=== PATIENT | female | born 1935 | race African-American/Black ===

== ENCOUNTER 2016-12-12 12:13 | Emergency (ER) | payer MEDICARE, MEDICAID ==
[2016-12-12 13:08] LABS: #Basophils 0.1 thou/uL (0.0-0.2); #Eosinphils 0.1 thou/uL (0.0-0.7); #Lymphocytes 1.3 thou/uL (1.20-3.40); #Monocytes 0.9 thou/uL (0.11-0.59); #Neutrophils 14.2 thou/uL (1.40-6.50); %Basophils 0.6 % (0.0-1.0); %Eosinophils 0.5 % (0.0-10.0); %Lymphocytes 7.9 % (21.0-51.0); %Monocytes 5.3 % (0.0-10.0); Hematocrit 28.9 % (36.0-47.0); Mean Platelet Volume 5.8 fL (7.4-10.4); Red Blood Cell (RBC) Count 3.14 mill/uL (4.20-5.40); White Blood Cell (WBC) Count 16.6 thou/uL (4.8-10.8)
[2016-12-12 13:14] LABS: Bilirubin Negative (Negative); Blood, Urine Negative (Negative); Glucose, Urine (Dipstick) Negative (Negative); Ketone, Urine Trace mg/dL (Negative); Nitrite Negative (Negative); Protein, Urine (Dipstick) 30 mg/dL (Neg-Trace); Urobilinogen 0.2 mg/dL (0.2-1.0)
[2016-12-12 13:19] LABS: Bacteria/HPF None Seen HPF (None Seen); Hyaline Casts/LPF 0-3 HYALINE CAST LPF (0-3 Hyaline); RBC/HPF None Seen HPF (0-3); Squamous Epithelial 0-3 HPF (0-3); WBC/HPF 0-3 HPF (0-3)
[2016-12-12 13:30] LABS: ALT (SGPT) Less than 7 U/L (8-55); AST (SGOT) 14 U/L (5-34); Alkaline Phosphatase 73 U/L (40-150); Anion Gap 17 mmol/L (10-20); BUN (Urea Nitrogen) 58 mg/dL (9.8-20.1); Bilirubin, Total 0.5 mg/dL (0.2-1.2); Calc. Creatinine Clearance 0 mL/min (70-130); Calcium 9.1 mg/dL (7.8-10.44); Carbon Dioxide 31 mmol/L (23-31); Chloride 96 mmol/L (98-107); Estimated GFR-MDRD 6; Globulin 4.1 g/dL (2.4-3.5); Lipase 24 U/L (8-78); Protein, Total 8.1 g/dL (6.0-8.3)
--- NOTE | 2016-12-12 14:15 | RAD ---
PORTABLE CHEST: HISTORY: Epigastric pain. COMPARISON: 11/09/2016 FINDINGS: An elevated right hemidiaphragm is again noted. Mild cardiomegaly is again noted. Mild vascular en gorgement is again noted. No focal infiltrate. Dual lumen, large caliber central line remains in p lace with tip overlying the SVC. IMPRESSION: Stable findings when compared to prior study. No acute interval change. POS: [facility]
[2016-12-12 14:20] LABS: Magnesium 2.1 mg/dL (1.6-2.6)
[2016-12-12 14:27] LABS: Phosphorus 1.7 mg/dL (2.3-4.7)
--- NOTE | 2016-12-12 15:45 | RAD ---
RADIOGRAPH ABDOMEN ONE VIEW SUPINE: Date: 12-12-16 Time: 2:16 p.m. History: 80-year-old female with generalized abdominal pain. FINDINGS: There is a large number of calcifications of varying sizes overlying the pelvis, with the largest on e measuring greater than 4.5 cm. There is an IVC filter. There is a large amount of stool throughout the colon, especially in the distended rectum. No evidence of small bowel dilation. Surgical clips in the right upper quadrant. IMPRESSION: 1. Constipation. 2. Possibility of fecal impaction in the rectum. 3. Multiple large calcified uterine fibroids (leiomyomata). 4. Nonobstructive bowel gas pattern, 5. Inferior vena cava filter. 6. Status post cholecystectomy. POS: [facility]
== END 2016-12-12 16:48 | disposition home or self-care (01) ==
LOC: ERS 12:13
DX: K59.00 Constipation, unspecified (principal); I10 Essential (primary) hypertension; F17.210 Nicotine dependence, cigarettes, uncomplicated
CPT/HCPCS: 51701; 71010; 74000; 80053; 81003; 81015; 83690; 83735; 84100; 85025; 93005; A4353

== ENCOUNTER 2016-12-15 07:08 | Day surgery (SDC) | payer MEDICARE, MEDICAID ==
[2016-12-15] MEDS ORDERED: Midazolam HCl 2 mg/2 ml Vial ONE (08:03)
[2016-12-15] MEDS ORDERED: Fentanyl 100 MCG/2 ML VIAL ONE (08:04)
[2016-12-15] MEDS ORDERED: Bupivacaine 0.25% HCL 30 ML VIAL ONE (08:12)
[2016-12-15] MEDS ORDERED: Lidocaine 2% w/Epinephrine 1:200K 20 ML VIAL ONE (08:12)
[2016-12-15] MEDS ORDERED: Heparin 5,000 UNITS/ML VIAL ONE (08:12)
[2016-12-15] MEDS ORDERED: Protamine Sulfate 50 MG/5 ML VIAL ONE (08:12)
[2016-12-15] MEDS ORDERED: Propofol 200 MG/20 ML VIAL ONE (09:02)
[2016-12-15] MEDS ORDERED: Glycopyrrolate 0.2 MG/ML 5 ML SYRINGE ONE (09:02)
[2016-12-15] MEDS ORDERED: ePHEDrine/0.9% NaCl/PF SYRINGE 50 mg/10 ml ONE (09:02)
[2016-12-15] MEDS ORDERED: Heparin 10,000 UNITS/ 10 ML VIAL ONE ×2 (10:47→10:54)
--- NOTE | 2016-12-15 17:19 | PDOC.OP ---
Operative Note - Operative Note Operative Note: PROCEDURE: Right AV fistula SURGEON: Stephan Louie M.D. DATE OF PROCEDURE: 12/15/2016 PREOPERATIVE DIAGNOSIS: Renal failure POSTOPERATIVE DIAGNOSIS: Renal failure HISTORY: Patient with chronic renal failure on dialysis with a failed left Vicky fistula. She had a left upper arm cephalic fistula but developed severe steal and her family opted to ligate the fistula. She has recovered from her steal syndrome and has recovered function in her hand and now presents for a right sided fistula. PROCEDURE IN DETAIL: After informed consent was obtained and appropriate preoperative antibiotics administered, the patient was taken to the operating room and placed in the supine position and monitored anesthesia care was administered. A preoperative block had been performed by Anesthesia and the adequacy of block was confirmed. The arm was prepped and draped in a standard sterile fashion and an incision made between the palpable cephalic vein and radial artery. Dissection was carried out to the cephalic vein, which appeared to be of adequate quality and caliber to support a fistula. This was dissected free circumferentially, ligated, and divided distally, and spatulated with Welch scissors. This was serially interrogated with cardiac dilators and easily accepted up to a 3 mm cardiac dilator. This was flushed with heparinized saline and clamped with a bulldog clamp. The radial artery was then dissected free and found to be of adequate quality and caliber to support a fistula. Heparin was administered systemically and allowed to circulate for 3 minutes following which the radial artery was clamped proximally and distally. An anterior arteriotomy was created with an 11 blade scalpel and extended with Welch scissors. An end-to-side anastomosis created with a running 6-0 Prolene suture with excellent technical result. Prior to tying down the anastomosis, the inflow was released to flush the anastomosis. Flow was established first through the fistula and then through the distal radial artery. Hemostasis at the site was confirmed, and an excellent bruit was heard with Doppler up to the proximal forearm. Hemostasis at the operative site was again confirmed. The incision was closed with a running 3-0 subcutaneous and running 4-0 subcuticular Monocryl sutures. Dermabond dressings were placed and the patient was taken to the recovery room in good condition. Estimated blood loss was minimal. There were no complications. There were no specimens.
== END 2016-12-15 11:05 | disposition home or self-care (01) ==
LOC: SDC 07:08
PROVIDERS: ATTEND Surgery
PROC: 031C0ZF Bypass Left Radial Artery to Lower Arm Vein, Open Approach (ICD-10-PCS; principal; 2016-12-15)
DX: I12.0 Hypertensive chronic kidney disease with stage 5 chronic kidney disease or end stage renal disease (principal); N18.6 End stage renal disease; E89.0 Postprocedural hypothyroidism; T82.898A Other specified complication of vascular prosthetic devices, implants and grafts, initial encounter; Z99.2 Dependence on renal dialysis; Z79.2 Long term (current) use of antibiotics; Z79.82 Long term (current) use of aspirin; Z79.899 Other long term (current) drug therapy; Z88.2 Allergy status to sulfonamides; Z88.8 Allergy status to other drugs, medicaments and biological substances; Z90.49 Acquired absence of other specified parts of digestive tract; Z98.890 Other specified postprocedural states
CPT/HCPCS: J1644; J2250; J2704; J2720; J3010; S0020

== ENCOUNTER 2017-01-12 10:06 | Day surgery (SDC) | payer MEDICARE, MEDICAID ==
[2017-01-11 13:20] VITALS: BMI 25.8
[2017-01-12 11:35] LABS: #Basophils 0.1 thou/uL (0.0-0.2); #Eosinphils 0.1 thou/uL (0.0-0.7); #Lymphocytes 1.3 thou/uL (1.20-3.40); #Monocytes 0.6 thou/uL (0.11-0.59); #Neutrophils 6.8 thou/uL (1.40-6.50); %Basophils 0.7 % (0.0-1.0); %Eosinophils 0.7 % (0.0-10.0); %Lymphocytes 14.2 % (21.0-51.0); %Monocytes 6.7 % (0.0-10.0); Hematocrit 29.4 % (36.0-47.0); Mean Platelet Volume 5.5 fL (7.4-10.4); White Blood Cell (WBC) Count 8.8 thou/uL (4.8-10.8)
[2017-01-12 11:54] LABS: Calcium 8.7 mg/dL (7.8-10.44); Chloride 98 mmol/L (98-107)
[2017-01-12 11:56] LABS: Anion Gap 12 mmol/L (10-20); Carbon Dioxide 32 mmol/L (23-31)
[2017-01-12 11:58] LABS: Calc. Creatinine Clearance 10 mL/min (70-130); Estimated GFR-MDRD 11
[2017-01-12 11:59] LABS: BUN (Urea Nitrogen) 26 mg/dL (9.8-20.1)
[2017-01-12] MEDS ORDERED: Fentanyl 100 MCG/2 ML VIAL ONE (12:53)
[2017-01-12] MEDS ORDERED: Propofol 500 MG/50 ML VIAL ONE (13:01)
[2017-01-12] MEDS ORDERED: Bupivacaine/Epinephrine 0.25% 30 ML VIAL ONE (13:02)
[2017-01-12] MEDS ORDERED: Ioversol 68 % 50 ML VIAL ONE (13:02)
[2017-01-12] MEDS ORDERED: Heparin 5,000 UNITS/ML VIAL ONE (13:02)
[2017-01-12] MEDS ORDERED: Protamine Sulfate 50 MG/5 ML VIAL ONE (13:02)
[2017-01-12] MEDS ORDERED: Propofol 200 MG/20 ML VIAL ONE (13:25)
[2017-01-12] MEDS ORDERED: Glycopyrrolate 0.2 MG/ML 5 ML SYRINGE ONE (13:25)
[2017-01-12] MEDS ORDERED: HYDROcodone/Acetaminophen 5/325 mg Tablet ONE (16:11)
[2017-01-12] MEDS ORDERED: hydrALAZINE 20 MG/ML VIAL ONE (16:32)
[2017-01-12] MEDS ORDERED: Heparin 10,000 UNITS/ 10 ML VIAL ONE (17:03)
--- NOTE | 2017-01-13 21:59 | PDOC.OP ---
Operative Note - Operative Note Operative Note: PROCEDURE: Right upper extremity fistulogram and ligation of collaterals DATE OF PROCEDURE: 01/12/2017 SURGEON: Stephan Louie M.D. PREOPERATIVE DIAGNOSES: End-stage renal failure with non-developing right upper extremity AV fistula POSTOPERATIVE DIAGNOSIS: End-stage renal failure with non-developing right upper extremity AV fistula HISTORY: Patient is an 81-year-old woman with a right Vicky fistula. This has a good thrill at the wrist but multiple collaterals causing delay in maturation. The main outflow tract of the cephalic vein is not arterializing although it has dilated. She does not have any edema in her arm to suggest outflow obstruction. PROCEDURE IN DETAIL: After informed consent was obtained the patient was taken to the operating where she was placed in supine position and monitored anesthesia care was administered. She was prepped and draped in the standard sterile fashion and local anesthesia infused to the skin and subcutaneous tissues overlying the most distal collateral vein. This was dissected free and an Angiocath placed into the collateral vein and the fistula injected with IV contrast. The main cephalic vein was patent but there were several collaterals leading to an extensive network of veins in the forearm and upper arm. The cephalic outflow was traced to the level of the shoulder and no obstruction seen. The Angiocath was removed and the collateral vein ligated. Ultrasound was used to identify the 2 largest collaterals in the forearm. Local anesthesia was infused at these locations, skin incisions made, and the collateral vessels ligated. The Doppler signal in the main cephalic outflow was much improved after this. The wounds were examined for hemostasis which was confirmed. Skin incisions are closed with 4-0 Monocryl and Dermabond dressings were placed. Patient was taken to the recovery room in good condition. Estimated blood loss is minimal. There are no complications. There were no specimens.
== END 2017-01-12 17:30 | disposition home or self-care (01) ==
LOC: SDC 10:06
PROVIDERS: ATTEND Surgery
PROC: 03LY0ZZ Occlusion of Upper Artery, Open Approach (ICD-10-PCS; principal; 2017-01-12)
DX: N18.6 End stage renal disease (principal); R03.0 Elevated blood-pressure reading, without diagnosis of hypertension; Z88.2 Allergy status to sulfonamides; Z88.8 Allergy status to other drugs, medicaments and biological substances; Z90.89 Acquired absence of other organs; Z90.49 Acquired absence of other specified parts of digestive tract; Z98.890 Other specified postprocedural states; Z86.19 Personal history of other infectious and parasitic diseases; Z99.2 Dependence on renal dialysis
CPT/HCPCS: 76001; 80048; 85025; 96374; J0131; J0360; J1644; J2704; J2720; J3010; Q9967

== ENCOUNTER 2017-04-30 17:17 | Inpatient (IN) | payer MEDICARE, MEDICAID ==
--- NOTE | 2017-04-30 19:49 | HP ---
HISTORY OF PRESENT ILLNESS: Mrs. Sears is an 81-year-old black woman. She was brought to this [facility] earlier today because of increasing confusion. According to her xxdxhyhe-km-rho, she underwent hemodialysis on Monday and subsequently she was complaining of decreased hearing and worse vision. Today, she was noticed to be very confused. She went to an outside facility where she was evaluated and sent to this facility where she is being admitted for further evaluation and management. The family denies any fever. There is no diarrhea, no vomiting, no coughing. PAST MEDICAL HISTORY: Remarkable for hypertension, end-stage renal disease, hepatitis C, and she had previous DVT. PAST SURGICAL HISTORY: Remarkable for cholecystectomy, hernia repair, thyroidectomy and also dialysi s access placement. ALLERGIES: She is allergic to SULFA and also BETADINE. SOCIAL HISTORY: She does not smoke, does not drink. SOCIAL HISTORY: She used to chew tobacco in the past. FAMILY HISTORY: Reviewed and is not contributory. MEDICATIONS: Prior to admission, she was on amlodipine, aspirin 81 mg daily, hydralazine 100 mg t.i. d., brimonidine ophthalmic solution, Sensipar, minoxidil, multivitamin, sevelamer, terazosin. REVIEW OF SYSTEMS: Constitutional: There is no fever. HEENT: No headache, no ocular pain, no sore throat, no rhinorrhea. However, as mentioned earlier, she reported severe decrease in vision recent ly and also increased hearing loss. Neck: No neck pain, no neck stiffness. Cardiovascular: No lakisha rtness of breath, no chest pain. Pulmonary: No coughing. Gastrointestinal: No nausea, no vomiting, no diarrhea, no abdominal pain. Genitourinary: No dysuri a, no hematuria. Endocrinology: No heat or cold intolerance. No polyuria, polydipsia or polyphagia . Musculoskeletal: Some pain in the left shoulder and I was told that she has a dislocated shoulder ; however, the duration of this problem is not known. Hematology: No abnormal bleeding, no ecchymos is. Lymphatic: No palpable lymphadenopathy, no painful lymphadenopathy. Skin: No rash, no itching . Allergies: No hayfever. Neurological: No seizure. Psychiatric: No depression. No anxiety. PHYSICAL EXAMINATION: GENERAL: At the current time, she is alert, responsive, not cooperative. VITAL SIGNS: Her latest vital signs show temperature of 98.7, pulse rate 97, respiratory rate 19, bl ood pressure 152/55. HEENT: Her head is normocephalic and atraumatic. Both her pupils equally reactive. Nose normal. O ral mucosa is moist. We could not see her pharyngeal area. She is not cooperating. NECK: Supple. There is no distention of the jugular vein. No lymphadenopathy felt. Thyroid gland not palpable. There is no carotid bruit. CHEST: Symmetrical with regular S1, S2. LUNGS: Clear. ABDOMEN: Soft. Bowel sound heard and could not appreciate any organomegaly. There is no focal area of tenderness. EXTREMITIES: Limb shows +2 edema. NEUROLOGIC: She moves all extremities. LABORATORY DATA: Labs are pending. ASSESSMENT AND PLAN: This is an 81-year-old black woman with history of hypertension, end-stage alma l disease on hemodialysis, dementia who has always been admitted with increasing confusion. She clai ms that she cannot see and also she claims she could not hear, it was about [address] done at an out of facility was reported to show no acute abnormality; however, she was noticed to have a dis located left shoulder on x-ray, duration unsure. She is being admitted to medical floor. Evaluation is in progress. Dr. Smith, her cabinet worker was consulted. She will be admitted to the medical floor .
[2017-04-30] MEDS ORDERED: Ondansetron ODT 4 MG TAB SL PRN (20:31)
[2017-04-30] MEDS ORDERED: Ondansetron HCl/PF 4 MG/2 ML Vial IVP PRN ×2 (20:31→20:54)
[2017-04-30] MEDS ORDERED: Acetaminophen 325 MG TAB PO PRN (20:31)
[2017-04-30] MEDS ORDERED: Zolpidem Tartrate 5 MG TAB PO PRN (20:54)
[2017-04-30] MEDS ORDERED: Bisacodyl 5 MG TAB PO PRN (20:54)
[2017-04-30 21:25] LABS: Platelet Count 1041 thou/uL (130-400)
[2017-04-30 21:29] LABS: #Lymphocytes 0.7 thou/uL (1.20-3.40); #Monocytes 0.6 thou/uL (0.11-0.59); #Neutrophils 8.3 thou/uL (1.40-6.50); %Basophils 0.4 % (0.0-1.0); %Eosinophils 0.3 % (0.0-10.0); %Lymphocytes 6.7 % (21.0-51.0); %Monocytes 6.5 % (0.0-10.0); %Neutrophils 86.1 % (42.0-75.0); Hemoglobin 9.9 g/dL (12.0-16.0); Mean Corpuscular HGB CONC 33.7 g/dL (32.0-36.0); Mean Corpuscular Hemoglobin 31.3 pg (27.0-31.0); Mean Corpuscular Volume 93.1 fl (81.0-99.0); PLT Morphology Comment Appears Increased; Red Blood Cell (RBC) Count 3.15 mill/uL (4.20-5.40); White Blood Cell (WBC) Count 9.7 thou/uL (4.8-10.8)
[2017-04-30 21:34] LABS: ALT (SGPT) 8 U/L (8-55); AST (SGOT) 36 U/L (5-34); Albumin 3.9 g/dL (3.4-4.8); Alkaline Phosphatase 56 U/L (40-150); Anion Gap 17 mmol/L (10-20); BUN (Urea Nitrogen) 67 mg/dL (9.8-20.1); Bilirubin, Total 0.6 mg/dL (0.2-1.2); Calc. Creatinine Clearance 0 mL/min (70-130); Calcium 9.8 mg/dL (7.8-10.44); Carbon Dioxide 25 mmol/L (23-31); Chloride 103 mmol/L (98-107); Estimated GFR-MDRD 5; Globulin 3.1 g/dL (2.4-3.5); Glucose 85 mg/dL (83-110); Potassium 5.5 mmol/L (3.5-5.1); Sodium 139 mmol/L (136-145)
[2017-04-30 21:38] LABS: Troponin I 0.089 ng/mL (< 0.028)
[2017-04-30] MEDS: Cinacalcet HCl 30 MG TAB PO SCH (21:47)
[2017-04-30] MEDS: hydrALAZINE 25 MG TAB PO SCH (21:47)
[2017-04-30] MEDS: Famotidine/PF 20 mg/2ml Vial SLOW IVP SCH (21:47)
[2017-04-30] MEDS: Terazosin HCl 5 MG CAP PO SCH (21:47)
[2017-05-01 00:03] VITALS: BMI 23.2
--- NOTE | 2017-05-01 01:05 | CON ---
DATE OF CONSULTATION: 04/30/2017 HISTORY OF PRESENT ILLNESS: Ms. Sears is an 81-year-old black female with ESRD and admitted for me ntal status change. According to the patient's [id number], she was noted to be quite confused t his last Monday morning. The confusion persisted, hence the patient was sent to the ER for further evaluation. She was initially evaluated at the [facility]. A CT scan of the head was done at that time which showed no acute intracranial abnormality. She is now being admitted for further observati on regarding to a possible CVA. An MRI of the brain will be ordered for tomorrow, we are being consu lted for maintenance hemodialysis. The patient underwent dialysis last Monday. There was some probl em with dialysis catheter blood flow. Our plan is to place [facility] prior to the dialysis. REVIEW OF SYSTEMS: Positive for confusion. No chest pain, no nausea, no vomiting, no fever or chill s, no gross hematuria. No abdominal pain. Appetite and energy level is decreased. HOME MEDICATIONS: Included hydralazine 100 mg p.o. t.i.d., terazosin 5 mg at bedtime, sevelamer 800 mg 2 tabs t.i.d. with meals, minoxidil 5 mg tab at bedtime, Sensipar 60 mg at bedtime, Tums 1 tablet p.o. at bedtime, aspirin 81 mg daily, amlodipine 10 mg tab once a day. 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 PAST SURGICAL HISTORY: 1. Status post AV fistula placement. 2. Status post cuffed dialysis catheter placement. 3. Status post upper and lower GI endoscopy. 4. Status post ventral hernia repair. 5. Status post laparoscopic cholecystectomy. 6. Status post IVC filter placement. SOCIAL HISTORY: The patient lives in [place] herself. She has a caregiver, retired [employer], 3 children, and lives alone. Education, high school. No alcohol use, no IV drug abuse. Currently no smoking. Status post blood transfusion. ALLERGIES: SULFA. TRAUMA: None. IMMUNIZATIONS: Up-to-date. HOSPITALIZATIONS: Please see past medical history. FAMILY HISTORY: Positive family history of ESRD, one sister on dialysis. PHYSICAL EXAMINATION: VITAL SIGNS: Blood pressure 120/70, heart rate 70. GENERAL: The patient is awake, but confused, not in distress. SKIN: Adequate turgor. HEENT: She has pinkish conjunctivae, anicteric sclerae. NECK: No neck mass, no carotid bruits, no JVD. CHEST: No deformities. LUNGS: Clear breath sounds. HEART: Normal sinus rhythm. No murmur, no gallops or rubs. ABDOMEN: Globular, soft, nontender, no masses. EXTREMITIES: No edema. NEUROLOGIC: The patient is confused, moving all extremities. No tremors, no astrexis. LABORATORY DATA: On 04/30/2017, white count 15.1, hemoglobin 10.5, platelet count is 1081. Sodium i s 142, potassium 5.6, chloride 102, carbon dioxide 24, BUN 66, creatinine 8.6, AST 36, ALT 9. CT scan of the brain, no acute intracranial abnormality. ASSESSMENT AND PLAN: 1. End-stage renal disease, stable. No indication for any emergent hemodialysis. We will resume ba ck on Monday, Monday, Monday dialysis in a.m. 2. Confusion - rule out cerebrovascular accident. The patient is scheduled for MRI of the brain piotr orrow. Initial CAT scan was negative. Overall, agree with current management. Review of the last K t/V suggests she is adequately dialyzed with the current dialysis regimen.
--- NOTE | 2017-05-01 07:43 | CON ---
DATE OF CONSULTATION: 05/01/2017 CHIEF COMPLAINT: Status post fall. HISTORY OF PRESENT ILLNESS: Ms. Sears is an 81-year-old female, who developed mental status change s. She fell at home. She landed on her right side. She had pain in her shoulder. She was taken to the emergency department where she again was found to have a high level of confusion. She had been admitted to the hospital for further care. She does have end-stage renal disease, on dialysis. PAST MEDICAL HISTORY: Hypertension, end-stage renal disease, hepatitis C, history of DVT. PAST SURGICAL HISTORY: Cholecystectomy, hernia repair, thyroidectomy, and fistula placement. ALLERGIES: SULFA and BETADINE. SOCIAL HISTORY: The patient denies tobacco, alcohol, or drug use. FAMILY MEDICAL HISTORY: Noncontributory. REVIEW OF SYSTEMS: Difficult to obtain, because of mental status. IMAGES: X-rays of the right shoulder demonstrate a grade 5 AC joint separation, no obvious fracture or other deformity is noted. PHYSICAL EXAMINATION: Vital signs, temperature is 98.5, pulse 73, respiratory rate 18, oxygen satura tion 92%, blood pressure is 138/60. She is lying supine. She does not answer questions appropriatel y. She is able to move the arm on demand. She is tender to palpation over the proximal shoulder. T here is a palpable deformity at the distal clavicle with high-riding clavicle. She is neurovascularl y intact in the upper extremity. There is an intravenous line in place. IMPRESSION: Elderly female on hemodialysis, with a recent onset of confusion and fall resulting in a n AC joint separation. PLAN: At this point, the patient can be treated nonoperatively regarding her shoulder. I will order a sling for comfort. She can use the arm as tolerated for ambulation if she needs to use a walker. She will have ongoing medical care for her confusion and kidney function. She can follow up in the [facility]opedic [facility] in 3-4 weeks. If her deformity became unacceptable to her or she had ongoing pain, it would be possible to fix her AC joint separation surgically in the future; however, I think this would be unlikely.
[2017-05-01 08:00] LABS: HBSAg Index 0.46 S/CO (0-0.99); Hep B Surf Ag Non-Reactive S/CO (NonReactive)
[2017-05-01] MEDS: Sevelamer Carbonate 800 MG TAB PO SCH ×3 (08:02→17:29)
--- NOTE | 2017-05-01 09:01 | PRG ---
DATE OF SERVICE: 05/01/2017 RENAL MEDICINE SUBJECTIVE: Ms. Sears is an 81-year-old black female with ESRD and was admitted for mental status change. She also had a knee injury and was found to have an AC joint separation. Orthopedic Surgery has evaluated the patient. The plan is to simply observe her for the moment. I am currently at the bedside supervising her hemodialysis. The patient is still complaining of some pain on the shoulder joints. OBJECTIVE: VITAL SIGNS: Blood pressure is 138/62, heart rate 68, respiratory rate 24, temperature 98.7, pulse o ximetry 92%. GENERAL: Awake, alert, in mild joint pains, not in distress. SKIN: Adequate turgor. HEENT: Pinkish conjunctivae. Anicteric sclerae. NECK: No neck mass, no carotid bruits, no JVD. CHEST: No deformities. LUNGS: Clear breath sounds. No wheezing, no crackles. HEART: Normal sinus rhythm. No murmur, no gallops, no rubs. ABDOMEN: Globular, soft, nontender, no masses. EXTREMITIES: No edema, no deformities. Positive for joint tenderness. MEDICATIONS: Medications of 05/01/2017 reviewed. LABORATORY DATA: Laboratories of 04/30/2017; hemoglobin 9.9. Sodium 139, potassium 5.5, chloride 10 3, carbon dioxide 25, BUN is 67, creatinine 9.1, calcium 9.8, AST 36, ALT 8, troponin I 0.089. IMAGING DATA: On 04/30/2017, shoulder x-ray did show a grade III right acromioclavicular joint sprai n/dislocation. ASSESSMENT AND PLAN: 1. Right shoulder joint pain - AC joint separation - supportive care. Orthopedic Surgery recommends simple observation if pain is persistent and possible surgery in the near future. 2. End-stage renal disease, stable. Tolerating current hemodialysis regimen. Fluid removal only as tolerated. She does have adequate blood flow with the dialysis catheter. 3. Mental status change - slowly improving. CT scan of the brain was negative.
[2017-05-01] MEDS: Enoxaparin Sodium 30 MG/0.3 ML SYRINGE SC SCH ×2 (10:01→13:17)
[2017-05-01] MEDS: hydrALAZINE 25 MG TAB PO SCH ×3 (10:01→20:11)
[2017-05-01] MEDS: Multivit, Therapeutic 1 TAB PO SCH (13:08)
[2017-05-01] MEDS ORDERED: Heparin 10,000 UNITS/ 10 ML VIAL ONE (13:13)
[2017-05-01] MEDS ORDERED: Aspirin 325 mg Enteric Coated Tablet PO SCH (13:45)
--- NOTE | 2017-05-01 13:45 | PDOC.PN ---
- Subjective Encounter Start Date: 05/01/17 Encounter Start Time: 13:43 Ms. Sears was seen today in follow-up. She is confused, and holds her eyes shut. I am not able to assess whether her vision problem persists. - Objective Resuscitation Status: Resuscitation Status FULL:Full Resuscitation MAR Reviewed: Yes Vital Signs & Weight: Vital Signs (12 hours) Temp Pulse Resp BP Pulse Ox 05/01/17 10:01 68 05/01/17 07:00 98.7 F 68 24 H 138/62 92 L Weight Weight 119 lb 0.794 oz I&O: 04/30/17 05/01/17 05/02/17 06:59 06:59 06:59 Intake Total 50 Balance 50 Result Diagrams: 04/30/17 21:05 04/30/17 21:05 Phys Exam - Physical Examination Respiratory: no wheezing, no rales, no rhonchi, clear to auscultation bilateral Cardiovascular: RRR, no significant murmur Gastrointestinal: soft, non-tender, positive bowel sounds Musculoskeletal: no edema Dx/Plan (1) Altered mental status Code(s): R41.82 - ALTERED MENTAL STATUS, UNSPECIFIED Status: Acute (2) Thrombocytosis Status: Acute (3) ESRD (end stage renal disease) Code(s): N18.6 - END STAGE RENAL DISEASE Status: Chronic (4) Hypertension Code(s): I10 - ESSENTIAL (PRIMARY) HYPERTENSION Status: Chronic (5) Paroxysmal atrial fibrillation Code(s): I48.0 - PAROXYSMAL ATRIAL FIBRILLATION Status: Chronic - Plan * Altered mental status and vision changes- ? etiology, but what is concerning is the elevated platelet count- Will start aspirin now, and Consult Hematology. * ESRD- continue dialysis as per Nephrology. * HTN- blood pressure is stable * Shoulder Dislocation- patient has been evaluated by Orthopedic Surgery, and conservative management has been recommended
[2017-05-01] MEDS: Acetaminophen 325 MG TAB PO PRN (16:10)
[2017-05-01] MEDS ORDERED: Hydroxyurea 500 MG CAP PO SCH (16:15)
[2017-05-01] MEDS: Famotidine/PF 20 mg/2ml Vial SLOW IVP SCH (20:11)
[2017-05-01] MEDS: Cinacalcet HCl 30 MG TAB PO SCH (20:11)
[2017-05-01] MEDS: Terazosin HCl 5 MG CAP PO SCH (20:11)
--- NOTE | 2017-05-01 21:30 | CON ---
DATE OF CONSULTATION: 05/01/2017 REASON FOR CONSULTATION: Thrombocytosis. HISTORY OF PRESENT ILLNESS: Ms. Sears is an 81-year-old -[place]og[place] female who was brought to this facility for confusion and a fall. History was obtained from medical records as no family is at bedside. The patient apparently began to have some altered mental status with blurred vision on Monday after hemodialysis. On arrival, she had a brain CT which showed no acute intracranial findings. There were multiple small foci of subcutaneous emphysema that were worrisome for possible facial trauma. The patient's x-ray showed an AC joint dislocation. Routine labs showed WBC of 15.1, hemoglobin 10.5 and a platelet count of 1,018,000. The patient was admitted for further treatment. She has a history of end-stage renal disease on dialysis. There is no known history of blood disorder. Orthopedist and Dr. Smith has seen the patient. The patient did receive dialysis today. She is seen at bedside where she remains confused and is hard of hearing. PAST MEDICAL HISTORY: 1. End-stage renal disease. 2. Hepatitis C. 3. Hypertension. 4. History of deep venous thrombosis. PAST SURGICAL HISTORY: 1. Cholecystectomy. 2. Hernia repair. 3. Thyroidectomy. 4. Fistula placement. ALLERGIES: SULFA and BETADINE. HOME MEDICATIONS: 1. Amlodipine 10 mg daily. 2. Aspirin 81 mg daily. 3. Brimonidine eyedrops b.i.d. 4. Sensipar 60 mg daily. 5. Hydralazine 100 mg t.i.d. 6. Minoxidil 2.5 mg daily. 7. MiraLax daily. 8. Renvela t.i.d. 9. Hytrin 5 mg daily. FAMILY HISTORY: Noncontributory. SOCIAL HISTORY: No alcohol, tobacco or illicit drug use. REVIEW OF SYSTEMS: Unable to obtain secondary to mental status. PHYSICAL EXAMINATION: VITAL SIGNS: Temperature is 98.7, pulse is 68, respiratory rate 24, BP is 138/ 62. She is 92% on room air. GENERAL: This is a thin -[place] female, in no acute distress. HEENT: Normocephalic, atraumatic. Pupils equal and reactive to light. NECK: Supple. CARDIOVASCULAR: Regular rate and rhythm. LUNGS: Clear. ABDOMEN: Soft, nontender, bowel sounds are positive. EXTREMITIES: No clubbing, cyanosis, 1+ edema in the lower extremities. NEUROLOGIC: Nonfocal. PSYCHIATRIC: The patient is oriented to person only. PERTINENT LABORATORY AND X-RAYS: Current WBCs are 9.7, hemoglobin 9.9, hematocrit 29.3, platelet count 141,000. She got 86% neutrophils, 6% lymphocytes. Sed rate is 38. Sodium is 139, potassium 5.5, chloride 103, CO2 is 25, BUN is 67, creatinine 9.15. Lactic acid is 1.3, calcium 9.8, total bilirubin is 0.6, AST 36, ALT is 8, alkaline phosphatase is 56, troponin 0.089. Serum total protein is 7, albumin 3.9, globulin 3.1, T4 is 9. TSH is normal. Urine is negative for bacteria. Radiology per HPI. ASSESSMENT: 1. Thrombocytosis. 2. End-stage renal disease, on hemodialysis. 3. Confusion. 4. Recent fall with shoulder injury. DISCUSSION: The patient's elevated platelet count may be contributing to confusion and visual disturbances. She will be started on daily hydroxyurea and a daily aspirin 325 mg. We will check JAK2 mutation. I suspect it will be positive as her platelets have been elevated for several months. We will follow CBC and she can follow up in the outpatient setting. Thank you for the consult. JARAD
[2017-05-02 06:06] LABS: #Basophils 0.1 thou/uL (0.0-0.2); #Eosinphils 0.1 thou/uL (0.0-0.7); #Monocytes 0.7 thou/uL (0.11-0.59); #Neutrophils 8.9 thou/uL (1.40-6.50); %Basophils 0.8 % (0.0-1.0); %Eosinophils 0.8 % (0.0-10.0); %Lymphocytes 9.7 % (21.0-51.0); %Monocytes 6.1 % (0.0-10.0); %Neutrophils 82.6 % (42.0-75.0); Mean Corpuscular HGB CONC 33.6 g/dL (32.0-36.0); Mean Corpuscular Hemoglobin 31.4 pg (27.0-31.0); Mean Corpuscular Volume 93.4 fl (81.0-99.0); Mean Platelet Volume 5.9 fL (7.4-10.4); Platelet Count 1098 thou/uL (130-400); RBC Distribution Width 15.9 % (11.5-14.5); Red Blood Cell (RBC) Count 3.18 mill/uL (4.20-5.40); White Blood Cell (WBC) Count 10.7 thou/uL (4.8-10.8)
[2017-05-02] MEDS: Sevelamer Carbonate 800 MG TAB PO SCH ×3 (07:45→16:24)
[2017-05-02] MEDS: Multivit, Therapeutic 1 TAB PO SCH (07:45)
[2017-05-02] MEDS: hydrALAZINE 25 MG TAB PO SCH ×3 (07:46→19:53)
[2017-05-02] MEDS: Hydroxyurea 500 MG CAP PO SCH (07:46)
[2017-05-02] MEDS: Enoxaparin Sodium 30 MG/0.3 ML SYRINGE SC SCH (07:46)
[2017-05-02] MEDS ORDERED: Heparin 10,000 UNITS/ 10 ML VIAL ONE (07:49)
[2017-05-02] MEDS ORDERED: Aspirin 325 mg Enteric Coated Tablet PO SCH (09:00)
--- NOTE | 2017-05-02 12:27 | PRG ---
DATE OF SERVICE: 05/02/2017 RENAL MEDICINE SUBJECTIVE: Ms. Sears is an 81-year-old black female with ESRD and currently on maintenance hemodi alysis. She was admitted for confusion. This morning, she is less confused. She is eating well. A ppetite is excellent. She has no other complaints, no chest pain or shortness of breath. She was al so seen by Hematology for her essential thrombocytosis and been recommended to start daily hydroxyure a and aspirin. OBJECTIVE: VITAL SIGNS: Blood pressure is 132/63, heart rate 59, respiratory rate 16, temperature 98.3, pulse o x 96%. GENERAL: Noted to be awake, alert, supine, comfortable, not in distress. SKIN: Adequate turgor. HEENT: She has pinkish conjunctivae, anicteric sclerae. NECK: No neck mass, no carotid bruits, no JVD. CHEST: No deformities. LUNGS: Clear breath sounds. No wheezing, no crackles. HEART: Normal sinus rhythm. No murmur, no gallops or rubs. ABDOMEN: Globular, soft, nontender, no masses. EXTREMITIES: No edema, no deformities. MEDICATIONS: Of 05/02/2017 reviewed. LABORATORY DATA: Of 05/02/2017, white count 10.7, hemoglobin 10, hematocrit 29.7. On 04/30/2017, so dium 139, potassium 5.5, chloride 103, carbon dioxide 23, BUN is 67, creatinine 9.15. Troponin I 0.0 89. ASSESSMENT AND PLAN: 1. Essential thrombocytosis - patient seen by Hematology. Hydroxyurea and aspirin started. 2. End-stage renal disease, stable. Continuing Monday, Monday, Monday dialysis. Tolerating said treatment. 3. Mental status change - much improved. The patient less confused today. 4. Status post right shoulder joint injury - supportive care. No indication for any emergent surger y.
--- NOTE | 2017-05-02 13:36 | PDOC.PN ---
- Subjective Encounter Start Date: 05/02/17 Encounter Start Time: 13:41 Subjective: Awake, unable to communicate -: No acute events overnight - Objective Resuscitation Status: Resuscitation Status FULL:Full Resuscitation Vital Signs & Weight: Vital Signs (12 hours) Temp Pulse Resp BP BP Pulse Ox 05/02/17 12:00 98.6 F 58 L 18 156/66 H 96 05/02/17 08:00 98.3 F 59 L 16 132/63 96 05/02/17 07:46 59 L 132/63 Weight Weight 119 lb 0.794 oz I&O: 05/01/17 05/02/17 05/03/17 06:59 06:59 06:59 Intake Total 50 640 480 Output Total 1500 Balance 50 -860 480 Result Diagrams: 05/02/17 05:36 04/30/17 21:05 Phys Exam - Physical Examination Constitutional: NAD HEENT: moist MMs, sclera anicteric, oral pharynx no lesions Neck: no JVD, supple, full ROM Respiratory: no wheezing, no rales, no rhonchi, clear to auscultation bilateral Cardiovascular: RRR, no rub, irregular Gastrointestinal: soft, non-tender, no distention, positive bowel sounds Musculoskeletal: no edema, pulses present Neurological: non-focal, moves all 4 limbs Psychiatric: normal affect Deviation from normal: Alert but cannot make simple conversationo 2/2 advanced dementia Dx/Plan (1) Thrombocytosis Status: Chronic Comment: Reviewed by hematology. Started on hydroxyurea and ASA. Will monitor. (2) Shoulder dislocation Status: Acute Qualifiers: Encounter type: subsequent encounter Laterality: right Qualified Code(s) : S43.004D - Unspecified dislocation of right shoulder joint, subsequent encounter Comment: Being managed conservatively. (3) ESRD (end stage renal disease) Code(s): N18.6 - END STAGE RENAL DISEASE Status: Chronic Comment: HD per nephrology. (4) Paroxysmal atrial fibrillation Code(s): I48.0 - PAROXYSMAL ATRIAL FIBRILLATION Status: Chronic Comment: Rate controlled. Continue ASA. (5) Hypertension Code(s): I10 - ESSENTIAL (PRIMARY) HYPERTENSION Status: Chronic Qualifiers: Hypertension type: essential hypertension Qualified Code(s): I10 - Essential (primary) hypertension Comment: Continue Hydralazine. (6) Dementia Code(s): F03.90 - UNSPECIFIED DEMENTIA WITHOUT BEHAVIORAL DISTURBANCE Status: Acute Qualifiers: Dementia type: Alzheimer's disease Alzheimer's disease onset: unspecified onset Dementia behavioral disturbance: without behavioral disturbance Qualified Code(s): G30.9 - Alzheimer's disease, unspecified; F02.80 - Dementia in other diseases classified elsewhere without behavioral disturbance; F02.80 - Dementia in other diseases classified elsewhere without behavioral disturbance; F02.80 - Dementia in other diseases classified elsewhere without behavioral disturbance Plan: Now awake, alert but unable to make simple conversaion. Monitor; delirium precautions. Comment: Stable. Monitor; delirium precautions. (7) Encephalopathy Code(s): G93.40 - ENCEPHALOPATHY, UNSPECIFIED Status: Resolved - Plan cont current plan of care, social insurance administrator, DVT proph w/lovenox * .
[2017-05-02] MEDS: Cinacalcet HCl 30 MG TAB PO SCH (19:53)
[2017-05-02] MEDS: Famotidine/PF 20 mg/2ml Vial SLOW IVP SCH (19:53)
[2017-05-02] MEDS: Terazosin HCl 5 MG CAP PO SCH (19:54)
[2017-05-02] MEDS: Acetaminophen 325 MG TAB PO PRN (19:57)
[2017-05-03 05:39] LABS: Hemoglobin 10.6 g/dL (12.0-16.0); Mean Corpuscular HGB CONC 29.3 g/dL (32.0-36.0); Mean Corpuscular Hemoglobin 27.5 pg (27.0-31.0); Mean Corpuscular Volume 93.8 fl (81.0-99.0); Mean Platelet Volume 6.4 fL (7.4-10.4); Platelet Count 977 thou/uL (130-400); RBC Distribution Width 15.8 % (11.5-14.5); Red Blood Cell (RBC) Count 3.83 mill/uL (4.20-5.40); White Blood Cell (WBC) Count 10.9 thou/uL (4.8-10.8)
[2017-05-03 05:54] LABS: Anion Gap 17 mmol/L (10-20); BUN (Urea Nitrogen) 56 mg/dL (9.8-20.1); Calc. Creatinine Clearance 4 mL/min (70-130); Calcium 8.3 mg/dL (7.8-10.44); Carbon Dioxide 25 mmol/L (23-31); Chloride 101 mmol/L (98-107); Estimated GFR-MDRD 6; Glucose 86 mg/dL (83-110); Potassium 4.8 mmol/L (3.5-5.1); Sodium 138 mmol/L (136-145)
[2017-05-03 05:59] LABS: #Basophils 0.1 thou/uL (0.0-0.2); #Eosinphils 0.2 thou/uL (0.0-0.7); #Lymphocytes 1.8 thou/uL (1.20-3.40); #Monocytes 0.7 thou/uL (0.11-0.59); #Neutrophils 8.2 thou/uL (1.40-6.50); %Lymphocytes 16.1 % (21.0-51.0); %Monocytes 6.2 % (0.0-10.0); %Neutrophils 74.7 % (42.0-75.0); PLT Morphology Comment Appears Increased
[2017-05-03] MEDS: Sevelamer Carbonate 800 MG TAB PO SCH ×3 (08:00→17:17)
--- NOTE | 2017-05-03 08:56 | PRG ---
DATE OF SERVICE: 05/03/2017 SUBJECTIVE: Ms. Sears is an 81-year-old black female with ESRD. She is currently undergoing dialy sis. I am at the bedside. She still has an occasional confusion. Yesterday she was more awake. Th is morning, she was complaining of being hungry. She is currently being dialyzed and I am at the bed side supervising her dialysis. PHYSICAL EXAMINATION: VITAL SIGNS: Blood pressure ranging from 151/57 TO 189/67, heart rate 56, respiratory rate 20, tempe rature 98.1, pulse ox 94%. GENERAL: Awake, somewhat confused, but not in distress. SKIN: Adequate turgor. HEENT: She has pinkish conjunctivae. Anicteric sclerae. NECK: No neck mass, no carotid bruits, no JVD. CHEST: No deformities. LUNGS: Clear breath sounds, no wheezing, no crackles. HEART: Normal sinus rhythm. No murmur, no gallops or rubs. ABDOMEN: Globular, soft, nontender, no masses. EXTREMITIES: No edema, no deformities. MEDICATIONS: 05/03/2017 - Reviewed. LABORATORY: 05/03/2017 - White count 10.9, hemoglobin 10.6, platelet count 177,000. Sodium 138, pot assium 4.8, chloride 101, carbon dioxide 25, BUN 56, creatinine 8.22, glucose 86, calcium 8.3. ASSESSMENT AND PLAN: 1. Confusion. She could have an underlying metabolic encephalopathy. Continue supportive care. Pr evious imaging of the brain was negative. 2. End-stage renal disease, stable. Continue current Monday, Monday, Monday dialysis. Fluid rem oval only as tolerated. 3. Thrombocytosis - patient has been started on hydroxyurea by Hematology. Recheck base met and CBC in a.m.
[2017-05-03] MEDS ORDERED: Heparin 10,000 UNITS/ 10 ML VIAL ONE (10:00)
[2017-05-03] MEDS: Multivit, Therapeutic 1 TAB PO SCH (11:26)
[2017-05-03] MEDS: Aspirin 81 mg Enteric Coated Tablet PO SCH (11:26)
[2017-05-03] MEDS: Hydroxyurea 500 MG CAP PO SCH (11:26)
[2017-05-03] MEDS: Amlodipine 10 MG TAB PO SCH (11:26)
[2017-05-03] MEDS: hydrALAZINE 25 MG TAB PO SCH ×3 (11:27→21:59)
[2017-05-03] MEDS: Enoxaparin Sodium 30 MG/0.3 ML SYRINGE SC SCH (11:28)
[2017-05-03] MEDS ORDERED: hydrALAZINE 20 MG/ML VIAL SLOW IVP PRN (13:02)
--- NOTE | 2017-05-03 13:08 | PDOC.PN ---
- Subjective Encounter Start Date: 05/03/17 Encounter Start Time: 13:11 Subjective: No new complaints. -: No acute events overnight. - Objective Resuscitation Status: Resuscitation Status FULL:Full Resuscitation Vital Signs & Weight: Vital Signs (12 hours) Temp Pulse Resp BP BP Pulse Ox 05/03/17 11:27 57 L 190/70 H 05/03/17 11:26 57 L 190/70 H 05/03/17 08:04 98.1 F 56 L 20 189/67 H 94 L 05/03/17 08:00 98.1 F 56 L 20 Weight Weight 119 lb 0.794 oz I&O: 05/02/17 05/03/17 05/04/17 06:59 06:59 06:59 Intake Total 640 2040 Output Total 1500 Balance -860 2040 Result Diagrams: 05/03/17 04:44 05/03/17 04:44 Phys Exam - Physical Examination Constitutional: NAD HEENT: PERRLA, moist MMs, sclera anicteric Neck: no JVD, supple, full ROM Respiratory: no wheezing, no rales, no rhonchi, clear to auscultation bilateral Cardiovascular: RRR, no significant murmur, no rub Gastrointestinal: soft, non-tender, no distention, positive bowel sounds Musculoskeletal: no edema, pulses present Unable to cooperate w exam Skin: no rash, normal turgor Dx/Plan (1) Thrombocytosis Status: Chronic Comment: Improving. Reviewed by hematology. Started on hydroxyurea and ASA. Will monitor. (2) Shoulder dislocation Status: Acute Qualifiers: Encounter type: subsequent encounter Laterality: right Qualified Code(s) : S43.004D - Unspecified dislocation of right shoulder joint, subsequent encounter Comment: Being managed conservatively. (3) ESRD (end stage renal disease) Code(s): N18.6 - END STAGE RENAL DISEASE Status: Chronic Comment: HD per nephrology. (4) Paroxysmal atrial fibrillation Code(s): I48.0 - PAROXYSMAL ATRIAL FIBRILLATION Status: Chronic Comment: Rate controlled. Continue ASA. (5) Hypertension Code(s): I10 - ESSENTIAL (PRIMARY) HYPERTENSION Status: Chronic Qualifiers: Hypertension type: essential hypertension Qualified Code(s): I10 - Essential (primary) hypertension Comment: Will restart home medications. Hydralazine IV prn for SBP >180 (6) Dementia Code(s): F03.90 - UNSPECIFIED DEMENTIA WITHOUT BEHAVIORAL DISTURBANCE Status: Acute Qualifiers: Dementia type: Alzheimer's disease Alzheimer's disease onset: unspecified onset Dementia behavioral disturbance: without behavioral disturbance Qualified Code(s): G30.9 - Alzheimer's disease, unspecified; F02.80 - Dementia in other diseases classified elsewhere without behavioral disturbance; F02.80 - Dementia in other diseases classified elsewhere without behavioral disturbance; F02.80 - Dementia in other diseases classified elsewhere without behavioral disturbance Comment: Stable. Monitor; delirium precautions. (7) Encephalopathy Code(s): G93.40 - ENCEPHALOPATHY, UNSPECIFIED Status: Resolved Comment: Work up negative for underlying metabolic encephalopathy. Might be 2/2 worsening dementia. - Plan cont current plan of care, PT/OT, DVT proph w/lovenox * .
[2017-05-03] MEDS: Cinacalcet HCl 30 MG TAB PO SCH (21:59)
[2017-05-03] MEDS: Famotidine 20 MG TAB PO SCH (22:00)
[2017-05-03] MEDS: Minoxidil 2.5 MG TAB PO SCH (22:01)
[2017-05-03] MEDS: Terazosin HCl 5 MG CAP PO SCH (22:01)
[2017-05-04 04:27] LABS: #Basophils 0.1 thou/uL (0.0-0.2); #Eosinphils 0.1 thou/uL (0.0-0.7); #Lymphocytes 1.1 thou/uL (1.20-3.40); #Monocytes 0.6 thou/uL (0.11-0.59); #Neutrophils 7.7 thou/uL (1.40-6.50); %Eosinophils 1.4 % (0.0-10.0); %Lymphocytes 11.5 % (21.0-51.0); %Monocytes 5.9 % (0.0-10.0); %Neutrophils 80.2 % (42.0-75.0); Hemoglobin 10.2 g/dL (12.0-16.0); Mean Corpuscular HGB CONC 34.5 g/dL (32.0-36.0); Mean Corpuscular Hemoglobin 31.6 pg (27.0-31.0); Mean Corpuscular Volume 91.7 fl (81.0-99.0); Mean Platelet Volume 5.6 fL (7.4-10.4); Platelet Count 981 thou/uL (130-400); RBC Distribution Width 15.3 % (11.5-14.5); Red Blood Cell (RBC) Count 3.22 mill/uL (4.20-5.40); White Blood Cell (WBC) Count 9.6 thou/uL (4.8-10.8)
[2017-05-04 04:37] LABS: Anion Gap 13 mmol/L (10-20); BUN (Urea Nitrogen) 29 mg/dL (9.8-20.1); Calc. Creatinine Clearance 7 mL/min (70-130); Calcium 8.4 mg/dL (7.8-10.44); Carbon Dioxide 28 mmol/L (23-31); Chloride 101 mmol/L (98-107); Estimated GFR-MDRD 9; Glucose 91 mg/dL (83-110); Potassium 4.2 mmol/L (3.5-5.1); Sodium 138 mmol/L (136-145)
[2017-05-04] MEDS: Amlodipine 10 MG TAB PO SCH (08:50)
[2017-05-04] MEDS: Sevelamer Carbonate 800 MG TAB PO SCH ×3 (08:50→16:07)
[2017-05-04] MEDS: Multivit, Therapeutic 1 TAB PO SCH (08:52)
[2017-05-04] MEDS: hydrALAZINE 25 MG TAB PO SCH ×3 (08:52→20:12)
[2017-05-04] MEDS: Aspirin 81 mg Enteric Coated Tablet PO SCH (08:52)
[2017-05-04] MEDS: Enoxaparin Sodium 30 MG/0.3 ML SYRINGE SC SCH (08:52)
[2017-05-04] MEDS: Hydroxyurea 500 MG CAP PO SCH (08:53)
--- NOTE | 2017-05-04 09:35 | PRG ---
DATE OF SERVICE: 05/04/2017 RENAL MEDICINE SUBJECTIVE: Ms. Sears is an 81-year-old black female being followed up for her ESRD and maintenanc e hemodialysis. This morning, no new complaints. She still has intermittent confusion. Please note that this is chronic in nature with this patient. If needed, we can do a dementia workup with this patient. No complaints of chest pain or shortness of breath. PHYSICAL EXAMINATION: VITAL SIGNS: Blood pressure is 162/57 with heart rate of 53, respiratory rate 16, temperature 97.8, pulse ox 94%. GENERAL: She is noted to be awake, slightly confused, but not in distress. She had a good appetite this morning. HEENT: Pinkish conjunctivae, anicteric sclerae. NECK: No neck mass, no carotid bruits, no JVD. CHEST: No deformities. LUNGS: Clear breath sounds. HEART: Normal sinus rhythm. No murmurs, no gallops, no rubs. ABDOMEN: Globular, soft, nontender, no masses. EXTREMITIES: No edema. No deformities. MEDICATIONS: Medications of 05/04/2017 reviewed. LABORATORY DATA: Laboratories of 05/04/3017; white count 9.6, hemoglobin 10.2. Sodium 138, potassiu m 4.2, chloride 101, carbon dioxide 28, BUN 29, creatinine 5.42, calcium 8.4. ASSESSMENT AND PLAN: 1. End-stage renal disease, stable. We will continue current Monday, Monday, and Monday dialysis . Tolerating said treatment. 2. Confusion - could be early dementia. Previous CT scan of the brain was said to be negative. 3. Essential thrombocytosis - on hydroxyurea and aspirin. Recheck base met and CBC in a.m.
--- NOTE | 2017-05-04 11:34 | PDOC.PN ---
- Subjective Encounter Start Date: 05/04/17 Encounter Start Time: 11:34 Subjective: No acute events overnight. - Objective Resuscitation Status: Resuscitation Status FULL:Full Resuscitation Vital Signs & Weight: Vital Signs (12 hours) Temp Pulse Resp BP BP Pulse Ox 05/04/17 08:52 53 L 162/57 H 05/04/17 08:50 53 L 162/57 H 05/04/17 08:00 97.8 F 53 L 16 123/58 L 94 L Weight Weight 119 lb 0.794 oz I&O: 05/03/17 05/04/17 05/05/17 06:59 06:59 06:59 Intake Total 2039 1599 Balance 2039 1600 Result Diagrams: 05/04/17 04:12 05/04/17 04:12 Phys Exam - Physical Examination Constitutional: NAD HEENT: PERRLA, moist MMs, sclera anicteric Neck: full ROM Respiratory: no wheezing, no rales, no rhonchi, clear to auscultation bilateral Cardiovascular: RRR, no significant murmur, no rub Gastrointestinal: soft, non-tender, no distention, positive bowel sounds Musculoskeletal: no edema, pulses present Neurological: moves all 4 limbs Alert, unable to cooperate w exam Psychiatric: normal affect Skin: no rash, normal turgor Dx/Plan (1) Thrombocytosis Status: Chronic Comment: Stable. Reviewed by hematology. Started on hydroxyurea and ASA. Will monitor and f/u IRA mutation. (2) Shoulder dislocation Status: Acute Qualifiers: Encounter type: subsequent encounter Laterality: right Qualified Code(s) : S43.004D - Unspecified dislocation of right shoulder joint, subsequent encounter Comment: Being managed conservatively. (3) ESRD (end stage renal disease) Code(s): N18.6 - END STAGE RENAL DISEASE Status: Chronic Comment: HD per nephrology. (4) Paroxysmal atrial fibrillation Code(s): I48.0 - PAROXYSMAL ATRIAL FIBRILLATION Status: Chronic Comment: Rate controlled. Continue ASA. (5) Hypertension Code(s): I10 - ESSENTIAL (PRIMARY) HYPERTENSION Status: Chronic Qualifiers: Hypertension type: essential hypertension Qualified Code(s): I10 - Essential (primary) hypertension Comment: Controlled. Hydralazine IV prn for SBP >180 (6) Dementia Code(s): F03.90 - UNSPECIFIED DEMENTIA WITHOUT BEHAVIORAL DISTURBANCE Status: Acute Qualifiers: Dementia type: Alzheimer's disease Alzheimer's disease onset: unspecified onset Dementia behavioral disturbance: without behavioral disturbance Qualified Code(s): G30.9 - Alzheimer's disease, unspecified; F02.80 - Dementia in other diseases classified elsewhere without behavioral disturbance; F02.80 - Dementia in other diseases classified elsewhere without behavioral disturbance; F02.80 - Dementia in other diseases classified elsewhere without behavioral disturbance Comment: Stable. Monitor; delirium precautions. - Plan cont current plan of care, PT/OT, DVT proph w/lovenox Likely will need placement -: To f/u with hematology after discharge * .
[2017-05-04] MEDS: Famotidine 20 MG TAB PO SCH (20:12)
[2017-05-04] MEDS: Cinacalcet HCl 30 MG TAB PO SCH (20:12)
[2017-05-04] MEDS: Terazosin HCl 5 MG CAP PO SCH (20:13)
[2017-05-04] MEDS: Minoxidil 2.5 MG TAB PO SCH (20:13)
[2017-05-05 04:40] LABS: #Basophils 0.1 thou/uL (0.0-0.2); #Eosinphils 0.2 thou/uL (0.0-0.7); #Lymphocytes 1.1 thou/uL (1.20-3.40); #Monocytes 0.6 thou/uL (0.11-0.59); #Neutrophils 8.2 thou/uL (1.40-6.50); %Basophils 1.1 % (0.0-1.0); %Eosinophils 1.5 % (0.0-10.0); %Lymphocytes 11.1 % (21.0-51.0); %Monocytes 5.6 % (0.0-10.0); %Neutrophils 80.8 % (42.0-75.0); Hemoglobin 9.8 g/dL (12.0-16.0); Mean Corpuscular HGB CONC 34.1 g/dL (32.0-36.0); Mean Corpuscular Hemoglobin 31.2 pg (27.0-31.0); Mean Corpuscular Volume 91.3 fl (81.0-99.0); Mean Platelet Volume 5.9 fL (7.4-10.4); Platelet Count 984 thou/uL (130-400); RBC Distribution Width 15.1 % (11.5-14.5); Red Blood Cell (RBC) Count 3.13 mill/uL (4.20-5.40); White Blood Cell (WBC) Count 10.2 thou/uL (4.8-10.8)
[2017-05-05 04:44] LABS: Anion Gap 15 mmol/L (10-20); BUN (Urea Nitrogen) 47 mg/dL (9.8-20.1); Calc. Creatinine Clearance 5 mL/min (70-130); Calcium 8.2 mg/dL (7.8-10.44); Carbon Dioxide 28 mmol/L (23-31); Chloride 98 mmol/L (98-107); Estimated GFR-MDRD 6; Glucose 88 mg/dL (83-110); Potassium 4.7 mmol/L (3.5-5.1); Sodium 136 mmol/L (136-145)
--- NOTE | 2017-05-05 08:52 | PRG ---
DATE OF SERVICE: 05/05/2017 SUBJECTIVE: Ms. Sears is an 81-year-old black female with ESRD and being followed by the [facility] for her maintenance hemodialysis. I am currently at the bedside supervising her dialysis. This morning she still appears confused. Denies any chest pain or shortness of breath. PHYSICAL EXAMINATION: VITAL SIGNS: Blood pressure is 134/63, heart rate 57, respiratory rate 16, temperature 97.8, pulse o x 95%. GENERAL: Awake, alert, comfortable, not in distress. SKIN: Adequate turgor. HEENT: Pinkish conjunctivae, anicteric sclerae. NECK: No neck mass, no carotid bruits, no JVD. CHEST: No deformities. LUNGS: Clear breath sounds, no wheezing, no crackles. HEART: Normal sinus rhythm. No murmur, no gallops or rubs. ABDOMEN: Globular, soft, nontender, no masses. EXTREMITIES: No edema. MEDICATIONS: 05/05/2017 - Reviewed. LABORATORY: 05/05/2017 - White count 10.2, hemoglobin 9.8, sodium 136, potassium 4.7, chloride 98, c arbon dioxide 28, BUN 47, creatinine 7.53, calcium 8.2. ASSESSMENT AND PLAN: 1. Confusion. Consider the possibility of underlying dementia. Continue supportive care. 2. End-stage renal disease, stable. Tolerating current hemodialysis regimen. I will be continuing her Monday, Monday, Monday dialysis. I agree with current management.
[2017-05-05] MEDS: hydrALAZINE 25 MG TAB PO SCH ×4 (09:15→20:28)
[2017-05-05] MEDS: Sevelamer Carbonate 800 MG TAB PO SCH ×3 (10:18→16:32)
[2017-05-05] MEDS ORDERED: Heparin 1,000 UNITS/ML VIAL ONE (11:11)
[2017-05-05] MEDS: Aspirin 81 mg Enteric Coated Tablet PO SCH (12:35)
[2017-05-05] MEDS: Enoxaparin Sodium 30 MG/0.3 ML SYRINGE SC SCH (12:35)
[2017-05-05] MEDS: Amlodipine 10 MG TAB PO SCH (12:35)
[2017-05-05] MEDS: Multivit, Therapeutic 1 TAB PO SCH (12:35)
[2017-05-05] MEDS: Hydroxyurea 500 MG CAP PO SCH (12:36)
--- NOTE | 2017-05-05 18:26 | PDOC.PN ---
- Subjective Encounter Start Date: 05/06/17 Encounter Start Time: 13:36 Subjective: No complaints -: No events overnight. - Objective Resuscitation Status: Resuscitation Status FULL:Full Resuscitation MAR Reviewed: Yes Vital Signs & Weight: Vital Signs (12 hours) Temp Pulse Resp BP BP Pulse Ox 05/05/17 14:16 58 L 123/51 L 05/05/17 12:56 98.4 F 58 L 16 123/51 L 93 L 05/05/17 12:35 58 L 123/51 L 05/05/17 07:12 97.8 F 57 L 16 134/63 95 05/05/17 07:00 97.8 F 57 L 16 95 Weight Weight 119 lb 0.794 oz I&O: 05/04/17 05/05/17 05/06/17 06:59 06:59 06:59 Intake Total 1600 780 240 Balance 1600 780 240 Result Diagrams: 05/06/17 04:33 05/06/17 04:33 Phys Exam - Physical Examination Constitutional: NAD HEENT: PERRLA, moist MMs, sclera anicteric Neck: supple, full ROM Respiratory: no wheezing, no rales, no rhonchi, clear to auscultation bilateral Cardiovascular: RRR, no significant murmur, no rub Gastrointestinal: soft, non-tender, no distention, positive bowel sounds Musculoskeletal: no edema, pulses present Unable to cooperate. Alert and oriented to person only. Dx/Plan (1) Thrombocytosis Status: Chronic Comment: Stable. Reviewed by hematology. Stable on hydroxyurea and ASA. f/u IRA mutation. (2) Shoulder dislocation Status: Acute Qualifiers: Encounter type: subsequent encounter Laterality: right Qualified Code(s) : S43.004D - Unspecified dislocation of right shoulder joint, subsequent encounter Comment: Being managed conservatively. (3) ESRD (end stage renal disease) Code(s): N18.6 - END STAGE RENAL DISEASE Status: Chronic Comment: HD per nephrology. (4) Paroxysmal atrial fibrillation Code(s): I48.0 - PAROXYSMAL ATRIAL FIBRILLATION Status: Chronic Comment: Rate controlled. Continue ASA. (5) Hypertension Code(s): I10 - ESSENTIAL (PRIMARY) HYPERTENSION Status: Chronic Qualifiers: Hypertension type: essential hypertension Qualified Code(s): I10 - Essential (primary) hypertension Comment: Controlled. Hydralazine IV prn for SBP >180 (6) Dementia Code(s): F03.90 - UNSPECIFIED DEMENTIA WITHOUT BEHAVIORAL DISTURBANCE Status: Acute Qualifiers: Dementia type: Alzheimer's disease Alzheimer's disease onset: unspecified onset Dementia behavioral disturbance: without behavioral disturbance Qualified Code(s): G30.9 - Alzheimer's disease, unspecified; F02.80 - Dementia in other diseases classified elsewhere without behavioral disturbance; F02.80 - Dementia in other diseases classified elsewhere without behavioral disturbance; F02.80 - Dementia in other diseases classified elsewhere without behavioral disturbance Comment: Stable. Monitor; delirium precautions. - Plan * . Review of Systems - Medications/Allergies Allergies/Adverse Reactions: Allergies Allergy/AdvReac Type Severity Reaction Status Date / Time chlorhexidine Allergy Intermediate Rash Verified 01/11/17 13:20 morphine Allergy Verified 05/02/17 08:19 Sulfa (Sulfonamide Allergy Verified 01/11/17 13:20 Antibiotics) Medications: Current Medications Acetaminophen (Tylenol) 650 mg PO Q4H PRN PRN Reason: Headache/Fever or Pain Last Admin: 05/02/17 19:57 Dose: 650 mg Amlodipine Besylate (Norvasc) [address] [facility] Last Admin: 05/05/17 12:35 Dose: 10 mg Aspirin (Ecotrin) [address] [facility] Last Admin: 05/05/17 12:35 Dose: 81 mg Bisacodyl (Dulcolax) 10 mg PO DAILYPRN PRN PRN Reason: Constipation Cinacalcet (Sensipar) [address] [facility] Last Admin: 05/04/17 20:12 Dose: 60 mg Enoxaparin Sodium (Lovenox) [address] [facility] Last Admin: 05/05/17 12:35 Dose: 30 mg Famotidine (Pepcid) [address] [facility] Last Admin: 05/04/17 20:12 Dose: 20 mg Hydralazine HCl (Apresoline) [address] [facility] Last Admin: 05/05/17 14:16 Dose: 100 mg Hydralazine HCl (Apresoline) 10 mg SLOW IVP Q4H PRN PRN Reason: Hypertension Hydroxyurea (Hydrea) [address] [facility] Last Admin: 05/05/17 12:36 Dose: 500 mg Minoxidil (Minoxidil) 2.[address] [facility] Last Admin: 05/04/17 20:13 Dose: 2.5 mg Multivitamins (Theragran) [address] [facility] Last Admin: 05/05/17 12:35 Dose: 1 tab Ondansetron HCl (Zofran) 4 mg IVP Q6H PRN PRN Reason: Nausea/Vomiting Sevelamer Carbonate (Renvela) 1,600 mg PO TID-[facility] Last Admin: 05/05/17 16:32 Dose: 1,600 mg Terazosin HCl (Hytrin) 5 mg PO [facility] Last Admin: 05/04/17 20:13 Dose: 5 mg Zolpidem Tartrate (Ambien) 5 mg PO HSPRN PRN PRN Reason: Insomnia
[2017-05-05] MEDS: Minoxidil 2.5 MG TAB PO SCH (20:29)
[2017-05-05] MEDS: Cinacalcet HCl 30 MG TAB PO SCH (20:29)
[2017-05-05] MEDS: Famotidine 20 MG TAB PO SCH (20:29)
[2017-05-05] MEDS: Terazosin HCl 5 MG CAP PO SCH (20:30)
--- NOTE | 2017-05-05 21:28 | DIS ---
DATE OF ADMISSION: 05/01/2017 DATE OF DISCHARGE: 05/06/2017 DISCHARGE DIAGNOSES: Thrombocytosis right shoulder dislocation, end-stage renal disease on hemodialysis, paroxysmal atrial fibrillation, hypertension, and dementia. HISTORY OF PRESENT ILLNESS/HOSPITAL COURSE: Ms. Sears is an 81-year-old female, who was brought to the hospital due to increased confusion. According to [id number], after dialysis on Monday before presentation, she was complaining of decreased hearing and worsening of her vision. The next day, she reported confusion. She was seen at an outside facility where after initial evaluation, she was sent to [place] for further care. On arrival, CT scan showed no acute pathology. An x-ray done of her left shoulder showed acute dislocation. Labs revealed markedly elevated platelet count of about one million. Orthopedic Surgery was consulted for the shoulder dislocation, which was placed back and plan was to manage conservatively for her thrombocytosis. She was reviewed by Hematology and started on hydroxyurea and aspirin. She received her hemodialysis on Monday, Wednesdays, Fridays schedule. She was also reviewed by PT/OT with the recommendation of discharge home with 24-hour care. She is to follow up with Hematology on an outpatient basis. DISCHARGE MEDICATIONS: Hydroxyurea 500 mg daily, terazosin 5 mg at bedtime, cinacalcet 60 mg daily, aspirin 81 mg daily, amlodipine 10 mg daily, sevelamer carbonate 1600 mg 3 times a day with meals, multivitamin 1 tablet daily, hydralazine 100 mg 3 times a day, calcium carbonate 1 tablet at bedtime, MiraLax 17 grams daily, minoxidil 2.5 mg at bedtime, latanoprost 1 drop in each eye at bedtime, and brimonidine tartrate 1 drop in each eye twice daily. PHYSICAL EXAMINATION: VITAL SIGNS: At discharge, temperature 98.4 degree Fahrenheit, pulse rate 58, blood pressure 132/51, oxygen saturation 95% on room air, and respiratory rate 16. GENERAL: Not in acute distress, lying comfortably in bed. HEENT: PERRLA, EOMI, not pale, anicteric. NECK: Full range of movement, supple. RESPIRATORY: Vesicular breath sounds bilaterally with no wheezing, rales, or rhonchi. CARDIOVASCULAR: Regular rate and rhythm. No murmurs, rubs, or gallops. GASTROINTESTINAL: Soft, nontender, nondistended. Bowel sounds positive. No organomegaly. MUSCULOSKELETAL: No edema or ulcers present. NEUROLOGIC: Moves all limbs spontaneously. Alert and oriented to person only. PSYCHIATRIC: Normal affect. SKIN: No rashes or lesions. Warm, dry, well perfused. LABORATORY DATA: WBC 10.2, hemoglobin 9.8, platelet count 984. Sodium 136, potassium 4.7, chloride 98, carbon dioxide 28, anion gap 15, BUN 47, and creatinine 7.53. IMAGING: CT scan done at outside hospital reported in HPI. CONSULTS: 1. Orthopedic Surgery. 2. Hematology. CONDITION AT DISCHARGE: Stable and improved. PROCEDURES: Hemodialysis while in hospital. DIET: Renal. CARE GOALS: Follow up with primary care physician within 1 week of discharge for repeat labs. She will also need to continue follow up with Hematology for treatment of thrombocytosis. ACTIVITY: Resume as tolerated and as directed by PT/OT. Discharge time 65 minutes including chart review and documentation. JARAD
[2017-05-06 05:25] LABS: #Basophils 0.1 thou/uL (0.0-0.2); #Eosinphils 0.2 thou/uL (0.0-0.7); #Monocytes 0.5 thou/uL (0.11-0.59); #Neutrophils 7.3 thou/uL (1.40-6.50); %Basophils 0.9 % (0.0-1.0); %Eosinophils 1.8 % (0.0-10.0); %Lymphocytes 10.9 % (21.0-51.0); %Monocytes 5.9 % (0.0-10.0); %Neutrophils 80.5 % (42.0-75.0); Hemoglobin 10.2 g/dL (12.0-16.0); Mean Corpuscular HGB CONC 33.8 g/dL (32.0-36.0); Mean Corpuscular Hemoglobin 31.1 pg (27.0-31.0); Mean Platelet Volume 5.9 fL (7.4-10.4); Platelet Count 1030 thou/uL (130-400); RBC Distribution Width 15.1 % (11.5-14.5); Red Blood Cell (RBC) Count 3.27 mill/uL (4.20-5.40); White Blood Cell (WBC) Count 9.1 thou/uL (4.8-10.8)
[2017-05-06 05:33] LABS: Anion Gap 13 mmol/L (10-20); BUN (Urea Nitrogen) 35 mg/dL (9.8-20.1); Calc. Creatinine Clearance 7 mL/min (70-130); Calcium 8.4 mg/dL (7.8-10.44); Carbon Dioxide 29 mmol/L (23-31); Chloride 99 mmol/L (98-107); Estimated GFR-MDRD 9; Glucose 86 mg/dL (83-110); Potassium 4.6 mmol/L (3.5-5.1); Sodium 136 mmol/L (136-145)
[2017-05-06 07:54] VITALS: BP 149/61
[2017-05-06] MEDS: hydrALAZINE 25 MG TAB PO SCH (08:07)
[2017-05-06] MEDS: Enoxaparin Sodium 30 MG/0.3 ML SYRINGE SC SCH (08:07)
[2017-05-06] MEDS: Sevelamer Carbonate 800 MG TAB PO SCH (08:07)
[2017-05-06] MEDS: Amlodipine 10 MG TAB PO SCH (08:08)
[2017-05-06] MEDS: Aspirin 81 mg Enteric Coated Tablet PO SCH (08:08)
[2017-05-06] MEDS: Multivit, Therapeutic 1 TAB PO SCH (08:08)
[2017-05-06] MEDS: Hydroxyurea 500 MG CAP PO SCH (08:08)
[2017-05-06 09:15] VITALS: TEMP 98.2
--- NOTE | 2017-05-09 12:23 | PQF ---
MABEL GIBBONS SASHA LOPEZ [id number] CLINICAL DOCUMENTATION CLARIFICATION FORM: POST DISCHARGE Addendum to original discharge summary date: 05/05/2017 DATE: 05/09/2017 ATTN: Dr. Yan Please exercise your independent, professional judgment in responding to the clarification form. Clinical indicators are provided on the bottom of this form for your review Please specify cause of patient's increased confusion Please check appropriate box(s): [ ] Increased confusion due to thrombocytosis [ x ] Increased confusion due to dementia [ ] Increased confusion due to metabolic encephalopathy [ Increased confusion due to other (please specify) [ ] Unable to determine In addition, please specify Present on Admission (POA): [ ] Yes [ ] No [ ] Unable to determing For continuity of documentation, please document condition throughout progress notes and discharge summary. Thank You. CLINICAL INDICATORS - SIGNS/SYMPTOMS/LABS Per H&P: Was brought to facility earlier today because of increasing confusion. Per H&P: Decreased hearing and worse vision. Per multiple progress notes: Confusion--Could be early dementia. Per 05/03 progress note: Confusion. She could have an underlying metabolic encephalopathy. Per 05/01 consult note: Patient's elevated platelet count may be contributing to confusion and visual disturbances. RISK FACTORS (per progress notes) Thrombocytosis. Dementia. TREATMENTS: (per consult/progress notes) Hydroxyurea. Daily Aspirin. Hemodialysis. (This form is maintained as a part of the permanent medical record) 2014 [employer], [employer]. All Rights Reserved Martina [email or web address] [phone] JARAD
== END 2017-05-06 12:11 | disposition home or self-care (01) | DRG 884 ==
LOC: ERS 17:17 → T4-B 18:45 → OBSVTOIN 19:23
PROVIDERS: ADMIT Hospitalist; ATTEND Hospitalist
PROC: 5A1D70Z Performance of Urinary Filtration, Intermittent, Less than 6 Hours Per Day (ICD-10-PCS; principal; 2017-05-01)
PROC: 5A1D70Z Performance of Urinary Filtration, Intermittent, Less than 6 Hours Per Day (ICD-10-PCS; 2017-05-03)
PROC: 5A1D70Z Performance of Urinary Filtration, Intermittent, Less than 6 Hours Per Day (ICD-10-PCS; 2017-05-05)
DX: F03.90 Unspecified dementia, unspecified severity, without behavioral disturbance, psychotic disturbance, mood disturbance, and anxiety (principal); I12.0 Hypertensive chronic kidney disease with stage 5 chronic kidney disease or end stage renal disease; I48.0 Paroxysmal atrial fibrillation; N18.6 End stage renal disease; D47.3 Essential (hemorrhagic) thrombocythemia; S43.101A Unspecified dislocation of right acromioclavicular joint, initial encounter; B18.2 Chronic viral hepatitis C; Z99.2 Dependence on renal dialysis; Z86.718 Personal history of other venous thrombosis and embolism; Z88.3 Allergy status to other anti-infective agents; Z88.2 Allergy status to sulfonamides; Z79.82 Long term (current) use of aspirin; Z79.899 Other long term (current) drug therapy; X58.XXXA Exposure to other specified factors, initial encounter
CPT/HCPCS: 36415; 80048; 81270; 85025; 87340; 90935; 99285; G0257; G8978-GP-CL; G8979-GP-CK; G8987-GO-CL; G8988-GO-CJ; J1644; J1650; S0028

== ENCOUNTER 2017-05-27 10:28 | Inpatient (IN) | payer MEDICARE, MEDICAID ==
[2017-05-27 10:54] LABS: Bilirubin Negative (Negative); Blood, Urine Negative (Negative); Clarity CLEAR (Clear); Glucose, Urine (Dipstick) Negative (Negative); Leukocyte Negative (Negative); Nitrite Negative (Negative); Protein, Urine (Dipstick) 30 mg/dL (Neg-Trace); Specific Gravity, Urine 1.012 (1.002-1.036); Urobilinogen 0.2 mg/dL (0.2-1.0)
[2017-05-27 10:56] LABS: Bacteria/HPF None Seen HPF (None Seen); Hyaline Casts/LPF 4-6 HYALINE CAST LPF (0-3 Hyaline); Pathc Cast-AUWi Flag 1.16 (0-2.49); RBC/HPF 0-3 HPF (0-3); Squamous Epithelial 0-3 HPF (0-3); WBC/HPF 0-3 HPF (0-3)
[2017-05-27 13:04] LABS: #Basophils 0.1 thou/uL (0.0-0.2); #Eosinphils 0.1 thou/uL (0.0-0.7); #Lymphocytes 1.3 thou/uL (1.20-3.40); #Monocytes 0.6 thou/uL (0.11-0.59); #Neutrophils 6.8 thou/uL (1.40-6.50); %Basophils 0.6 % (0.0-1.0); %Eosinophils 0.9 % (0.0-10.0); %Lymphocytes 14.8 % (21.0-51.0); %Neutrophils 76.8 % (42.0-75.0); Mean Corpuscular HGB CONC 33.8 g/dL (32.0-36.0); Mean Corpuscular Hemoglobin 32.1 pg (27.0-31.0); Mean Corpuscular Volume 95.1 fl (81.0-99.0); Mean Platelet Volume 5.6 fL (7.4-10.4); Platelet Count 1233 thou/uL (130-400); RBC Distribution Width 17.7 % (11.5-14.5); Red Blood Cell (RBC) Count 3.43 mill/uL (4.20-5.40); White Blood Cell (WBC) Count 8.9 thou/uL (4.8-10.8)
[2017-05-27 13:07] LABS: Amphetamine Not Detected (NotDetected); Barbiturates Screen Not Detected (NotDetected); Benzodiazepine Screen Not Detected (NotDetected); Cocaine Metabolite Screen Not Detected (NotDetected); Medtox Control Line Valid? VALID (VALID); Medtox Reader # READER 4; Methadone Not Detected (NotDetected); Methamphetamine Not Detected (NotDetected); Opiate Screen Not Detected (NotDetected); Oxycodone Screen Not Detected (NotDetected); Phencyclidine (PCP) Not Detected (NotDetected); THC/Cannabinoid Screen Not Detected (NotDetected); Tricyclic Screen Not Detected (NotDetected)
[2017-05-27 13:23] LABS: ALT (SGPT) 8 U/L (8-55); AST (SGOT) 13 U/L (5-34); Albumin 4.2 g/dL (3.4-4.8); Alkaline Phosphatase 69 U/L (40-150); Anion Gap 12 mmol/L (10-20); BUN (Urea Nitrogen) 21 mg/dL (9.8-20.1); Bilirubin, Total 0.5 mg/dL (0.2-1.2); Calc. Creatinine Clearance 0 mL/min (70-130); Calcium 10.1 mg/dL (7.8-10.44); Carbon Dioxide 33 mmol/L (23-31); Chloride 97 mmol/L (98-107); Estimated GFR-MDRD 11; Globulin 3.5 g/dL (2.4-3.5); Glucose 85 mg/dL (83-110); Lipase 21 U/L (8-78); Magnesium 2.1 mg/dL (1.6-2.6); Potassium 3.7 mmol/L (3.5-5.1); Protein, Total 7.7 g/dL (6.0-8.3); Sodium 138 mmol/L (136-145)
[2017-05-27 13:26] LABS: CKMB 1.2 ng/mL (0-6.6); Troponin I 0.021 ng/mL (< 0.028)
--- NOTE | 2017-05-27 13:47 | CT ---
CT BRAIN WITHOUT CONTRAST: HISTORY: Altered mental status. COMPARISON: CT brain 04/30/17. FINDINGS: No acute territorial infarct or hemorrhage. Examination is limited due to motion. Moderate microvascular ischemic changes. Mild atrophy. The calvarium is intact. IMPRESSION: No acute intracranial abnormality. No significant change. POS: JEREMI
--- NOTE | 2017-05-27 14:09 | RAD ---
FRONTAL VIEW CHEST: INDICATION: Status post dialysis, altered mental status, pain. FINDINGS: There is a lucency along the lateral aspect of the right chest. Left side vascular catheter is again seen. Cardiac silhouette and pulmonary vasculature remain enlarged. There is elevation of the righ t hemidiaphragm. IMPRESSION: 1. Findings favoring a mach line of the right chest. Recommend short-term followup for confirmation of resolution upon changes in positioning of the patient. 2. Congestive heart failure. POS: LARISSA
[2017-05-27 17:20] LABS: Troponin I 0.025 ng/mL (< 0.028)
[2017-05-27] MEDS ORDERED: Acetaminophen 325 MG TAB PO PRN (17:42)
[2017-05-27] MEDS ORDERED: Ondansetron ODT 4 MG TAB PO PRN (17:42)
[2017-05-27] MEDS ORDERED: Ondansetron HCl/PF 4 MG/2 ML Vial IVP PRN (17:42)
[2017-05-27] MEDS ORDERED: Haloperidol 1 MG TAB PO PRN (17:42)
[2017-05-27 18:16] VITALS: BMI 23.4
--- NOTE | 2017-05-27 18:22 | HP ---
PRIMARY CARE PHYSICIAN: Unknown. CHIEF COMPLAINT: Altered mental status. HISTORY OF PRESENT ILLNESS: Ms. Sears is a pleasant 81-year-old female who was actually recently d ischarged from our facility actually earlier this same month with similar complaints. At that time, she was having a severe headache and she was found to have essential thrombocytosis and was placed on aspirin as well as hydroxyurea. She also has a history of end-stage renal disease and hypertension. She was discharged home and her family brought her in due to some complaints of having altered ment al status after dialysis. It is unclear exactly what type of symptoms she was having as the family h as since left and there is limited documentation in the records surrounding her changes. Apparently, she was "feeling" bad with dialysis. One nurse told me that one of her daughters says that she seem ed to be talking about things that are not there, possibly even hallucinating. However, when I came to see the patient, she is lying up in the stretcher. She appears to be in absolutely no distress. She is talking clearly, but it makes no sense. It appears as if she is talking as if someone who has advanced dementia. Otherwise, no other history is currently obtainable at this time. Her symptoms do seem to have started when she was placed on the hydroxyurea and there is some possibility that thi s medication could have had some effect. REVIEW OF SYSTEMS: Unobtainable as the patient is currently confused. PAST MEDICAL HISTORY: Taken from her previous history and physical by Dr. Vuong 04/30/2017 and incl udes hypertension; cerebrovascular accident; end-stage renal disease, on hemodialysis; hepatitis C; d eep vein thrombosis and chronic atrial fibrillation, which is permanent. PAST SURGICAL HISTORY: She has had a cholecystectomy, hernia repair, thyroidectomy, dialysis access and IVC filter placed. ALLERGIES: SULFA and BETADINE. SOCIAL HISTORY: She lives at home with family. She is a nonsmoker, but she does chew tobacco. Ther e is no alcohol use reported. FAMILY HISTORY: Unknown. CURRENT MEDICATIONS: None are recorded in the ER, but she was discharged from our facility [facility] 3 weeks ago on hydroxyurea 500 mg daily, terazosin 5 mg at bedtime, cinacalcet 60 mg daily, aspi rin 81 mg daily, amlodipine 10 mg daily, sevelamer carbonate 1600 mg 3 times a day with meals, multiv itamin once a day, hydralazine 100 mg 3 times a day, calcium carbonate 1 tablet at bedtime, MiraLax 1 7 grams daily, minoxidil 2.5 mg at bedtime, latanoprost 1 drop in each eye at bedtime and brimonidine 1 drop in each eye twice a day. PHYSICAL EXAMINATION: GENERAL: She is disoriented, but appears to be in no distress. She just finished eating a meal and essentially has no complaints for me. VITAL SIGNS: The blood pressure was 128/90, heart rate 84, respiratory rate of 18 and temperature is 98.3. HEENT: Pupils are equal, round and reactive. Throat: There is no erythema, no exudates. NECK: No adenopathy, no bruits. LUNGS: Clear. There is no wheezing, no rales. CARDIOVASCULAR: She has a normal S1 and S2. I did not appreciate an S3 or S4. ABDOMEN: Soft. It is nontender and nondistended. Positive for bowel sounds. No rebound, no guardi ng. EXTREMITIES: There is no edema. NEUROLOGIC: The exam is grossly nonfocal. LABORATORY RESULTS: White blood cell count is 8.9, hemoglobin is 11, hematocrit is 32.6 and platelet count is 1,233,000. The sodium was 138, potassium 3.7, chloride is 97, CO2 is 33, BUN of 21, creati nine 4.64 and glucose is 85. Urinalysis was essentially negative. Urine drug screen was also negati ve. IMAGING DATA: She had a CT scan of the brain, which showed no acute intracranial process and also monae d a chest x-ray, which was negative for any infiltrates. ASSESSMENT AND PLAN: This is a pleasant 81-year-old female that was brought in by family due to; 1. Altered mental status. It is possible that she may have a delirium as a result of hydroxyurea or possibly a delirium and dementia, which could be related to other metabolic changes such as volume d epletion or electrolyte shifts after dialysis as well. There is also some concern of the family's ab ility to care for the patient as well as she does live at home and most of the family is at work [facility] [employer] the day and unable to keep a close eye on her during that time. The patient will be admitted to [facility]. We will go ahead and hold the hydroxyurea. As reviewing the records, it appears as if her platelet count is actually higher today than it was in the past. It appears to be unaffected at least right now. Of course, it is unclear how compliant she has been on this medication. We will co ntinue the aspirin and see if there is any improvement in her mental status. We will continue to mon itor her for signs of potential infection as there is none apparent at this time. 2. For end-stage renal disease, we will consult her retail planning manager and continue her usual hemodialysis . 3. Chronic atrial fibrillation. Currently, the patient is in sinus rhythm. She is not on anticoagu lation and I believe this was due to frequent falls. 4. Hypertension. We will continue her medications from home after these have been verified and roc nciled and also place her on p.r.n. hydralazine as needed and consult Case Management for aid and dis charge planning.
[2017-05-27] MEDS: hydrALAZINE 20 MG/ML VIAL SLOW IVP PRN (19:11)
[2017-05-27 19:59] LABS: Troponin I 0.033 ng/mL (< 0.028)
[2017-05-27] MEDS: Heparin 5,000 UNITS/ML VIAL SC SCH (20:11)
[2017-05-27] MEDS ORDERED: FLU VACC TS2017-18 (>65YR) 0.5 ML SYRINGE IM ONE (21:00)
[2017-05-28] MEDS: hydrALAZINE 20 MG/ML VIAL SLOW IVP PRN (01:25)
[2017-05-28 05:30] LABS: #Basophils 0.1 thou/uL (0.0-0.2); #Eosinphils 0.1 thou/uL (0.0-0.7); #Lymphocytes 1.4 thou/uL (1.20-3.40); #Monocytes 0.6 thou/uL (0.11-0.59); #Neutrophils 6.1 thou/uL (1.40-6.50); %Basophils 0.7 % (0.0-1.0); %Eosinophils 0.9 % (0.0-10.0); %Lymphocytes 17.3 % (21.0-51.0); %Monocytes 6.9 % (0.0-10.0); %Neutrophils 74.3 % (42.0-75.0); Hemoglobin 10.7 g/dL (12.0-16.0); Mean Corpuscular HGB CONC 33.7 g/dL (32.0-36.0); Mean Corpuscular Volume 95.1 fl (81.0-99.0); Mean Platelet Volume 5.6 fL (7.4-10.4); Platelet Count 1150 thou/uL (130-400); RBC Distribution Width 17.5 % (11.5-14.5); Red Blood Cell (RBC) Count 3.35 mill/uL (4.20-5.40); White Blood Cell (WBC) Count 8.2 thou/uL (4.8-10.8)
[2017-05-28 05:44] LABS: Anion Gap 13 mmol/L (10-20); BUN (Urea Nitrogen) 33 mg/dL (9.8-20.1); Calc. Creatinine Clearance 6 mL/min (70-130); Calcium 9.8 mg/dL (7.8-10.44); Carbon Dioxide 33 mmol/L (23-31); Chloride 98 mmol/L (98-107); Estimated GFR-MDRD 8; Glucose 78 mg/dL (83-110); Potassium 4.2 mmol/L (3.5-5.1); Sodium 140 mmol/L (136-145)
[2017-05-28] MEDS ORDERED: Bisacodyl 10 MG SUPP PR PRN (08:35)
[2017-05-28] MEDS ORDERED: Artificial Tears 18 DROP/0.9 ML EA EYE PRN (08:35)
[2017-05-28] MEDS ORDERED: Loperamide HCl 2 MG CAP PO PRN (08:35)
[2017-05-28] MEDS ORDERED: Eucerin (Mineral Oil/Petrolatum,White) 30 gm Jar TOP PRN (08:35)
[2017-05-28] MEDS ORDERED: Fleet Enema 133 ML BOT PR PRN (08:35)
[2017-05-28] MEDS ORDERED: Senokot 8.6 MG TAB PO PRN (08:35)
[2017-05-28] MEDS ORDERED: Sodium Chloride 0.65% Nasal 44 ML BOT EA NARE PRN (08:35)
[2017-05-28] MEDS ORDERED: Loratadine 10 MG TAB PO PRN (08:35)
[2017-05-28] MEDS ORDERED: Temazepam 15 MG CAP PO PRN (08:35)
[2017-05-28] MEDS ORDERED: Diabetic Tussin 200 MG/10 ML UDCUP PO PRN (08:35)
[2017-05-28] MEDS ORDERED: Milk Of Magnesia 30 ML UDCUP PO PRN (08:35)
[2017-05-28] MEDS ORDERED: Chloraseptic Spray 180 ml Bottle PO PRN (08:35)
[2017-05-28] MEDS ORDERED: Mag-Al 1200 mg/1200 mg/30 ML UDCUP PO PRN (08:35)
[2017-05-28] MEDS: Famotidine 20 MG TAB PO SCH (08:37)
[2017-05-28] MEDS: Heparin 5,000 UNITS/ML VIAL SC SCH ×2 (08:37→20:31)
[2017-05-28] MEDS ORDERED: Non-Formulary Item 1 EACH (Brimonidine Tartrate [Brimonidine Tartrate 0.15% Ophth Soln] 1 EA EYE SCH (09:00)
[2017-05-28] MEDS ORDERED: Non-Formulary Item 1 EACH (Hydralazine Hcl [Hydralazine Hcl] 100 MG) PO SCH (09:00)
[2017-05-28] MEDS ORDERED: Non-Formulary Item 1 EACH (Multivitamin [Daily Multiple Vitamin] 1 EACH) PO SCH (09:00)
[2017-05-28] MEDS: hydrALAZINE 25 MG TAB PO SCH ×3 (09:30→20:30)
[2017-05-28] MEDS: Brimonidine Tartrate 0.2% Ophth Soln 5 ml Bottle EA EYE SCH ×3 (09:30→20:32)
[2017-05-28] MEDS ORDERED: Epoetin (ESRD) 20,000 UNITS/ML SC SCH (10:00)
--- NOTE | 2017-05-28 10:29 | CON ---
DATE OF CONSULTATION: 05/28/2017 SERVICE: Renal Medicine. HISTORY OF PRESENT ILLNESS: Ms. Sears is an 81-year-old black female with ESRD and admitted for sd ntal status change. Based on the history, the patient was noted to be confused. Of interest, this p atient was previously admitted for the same complaints. We are being consulted for her maintenance hemodialysis. REVIEW OF SYSTEMS: No chest pain or shortness of breath. Her appetite is excellent. Positive for c onfusion. No diarrhea, no constipation, no abdominal pain. Denies any fever or chills. No headache , no diplopia, no nausea, no vomiting, no hematochezia, no melena, no hematemesis. MEDICATIONS: The patient is currently on Ecotrin 81 mg every day, Alphagan eye drop as directed, Sen sipar 60 mg at bedtime, famotidine 20 mg daily, Haldol 1 mg p.o. q.4 hours p.r.n., heparin 5000 units subcu b.i.d., hydralazine 100 mg p.o. t.i.d., hydroxyurea 500 mg daily, Xalatan eyedrop as directed, minoxidil 2.5 mg at bedtime, senna 2 tabs at bedtime, Renvela 800 mg 2 tabs t.i.d. with meals, temaz epam 50 mg at bedtime p.r.n., Hytrin 5 mg at bedtime. PAST MEDICAL HISTORY: 1. 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 2. Hypertension. 3. History of chronic hepatitis C, status post paroxysmal atrial fibrillation, status post CVA? of e aureliano dementia, history of essential thrombocytosis. PAST SURGICAL HISTORY: 1. Status post IVC filter placement. 2. Status post AV fistula placement. 3. Status post cuffed dialysis catheter placement. 4. Status post upper and lower GI endoscopy. 5. Status post ventral hernia repair. 6. Status post laparoscopic cholecystectomy. SOCIAL HISTORY: The patient lives in [place] - used to live by herself, but now her grandson abhijit es with her. She has a caregiver also, another caregiver at home. She has 3 children. She lives wi th grandson. Education, high school. No alcohol use, no IV drug abuse. No smoking. Status post bl ood transfusion. Sedentary lifestyle. ALLERGIES: SULFA. TRAUMA: None. IMMUNIZATIONS: Up to date. HOSPITALIZATIONS: Please see past medical history. FAMILY HISTORY: Positive family history of ESRD. One sister on dialysis. PHYSICAL EXAMINATION: VITAL SIGNS: Blood pressure is noted at 156/62, heart rate 56, respiratory rate 16, temperature 98.8 , pulse ox 96%. GENERAL: Noted to be awake, oriented to person and to place, but not to time. HEENT: Slightly pale conjunctivae, anicteric sclerae. NECK: No neck mass, no carotid bruits, no JVD. CHEST: No deformities. LUNGS: Clear breath sounds, no wheezing, no crackles. HEART: Normal sinus rhythm. No murmur, no gallops, no rubs. ABDOMEN: Globular, soft, nontender, no masses. EXTREMITIES: No edema, no deformities. NEUROLOGICAL: Moving all extremities. Mildly confused. No tremors or asterixis. LABORATORY DATA: Of 05/28/2017, white count 8.2, hemoglobin 10.7. Sodium 140, potassium 4.2, chlori de 98, carbon dioxide 33, BUN 33, creatinine 5.89, glucose 78, calcium 9.8. IMAGING: CT scan of the brain, negative findings, no acute intracranial abnormality. On 05/27/2017, chest x-ray shows increased lung markings. ASSESSMENT AND PLAN: 1. End-stage renal disease, stable. No indication for any dialytic intervention. The patient on ex am looks euvolemic, although the chest x-ray shows increased lung markings. Please note, she is oxyg enating adequately. 2. Mental status change - this may be a reflection of early dementia. CT scan of the brain showed n o acute intracranial abnormalities. 3. Borderline anemia. Start maintenance Epogen at 7500 units subcutaneously every week. 4. Secondary hyperparathyroidism, currently on Sensipar. Recheck PTH in a.m. Overall, agree with current management. ADDENDUM: End-stage renal disease - Review of the last Kt/V suggests that the patient's dialysis re men is adequate. My plan is to resume back Monday, Monday, Monday dialysis regimen with this anastacio nick. Thank you for the consult. We will continue to follow.
[2017-05-28] MEDS: Sevelamer Carbonate 800 MG TAB PO SCH ×2 (12:30→17:01)
--- NOTE | 2017-05-28 12:31 | PDOC.PN ---
- Subjective Encounter Start Date: 05/28/17 Encounter Start Time: 09:15 Patient seen and examined. No new complaints. No overnight events - Objective MAR Reviewed: Yes Vital Signs & Weight: Vital Signs (12 hours) Temp Pulse Resp BP Pulse Ox 05/28/17 08:00 98.5 F 53 L 18 159/76 H 92 L 05/28/17 04:00 98.8 F 56 L 16 156/62 H 96 05/28/17 02:15 171/70 H 05/28/17 01:25 61 I&O: 05/27/17 05/28/17 05/29/17 06:59 06:59 06:59 Intake Total 220 Balance 220 Result Diagrams: 05/28/17 04:44 05/28/17 04:44 Phys Exam - Physical Examination Constitutional: NAD HEENT: PERRLA, moist MMs, sclera anicteric Neck: no JVD, supple Respiratory: no wheezing, no rales, no rhonchi Cardiovascular: RRR, no significant murmur, no rub Gastrointestinal: soft, non-tender, no distention, positive bowel sounds Musculoskeletal: no edema, pulses present Neurological: non-focal, normal sensation, moves all 4 limbs Lymphatic: no nodes Psychiatric: normal affect, A&O x 3 Skin: no rash, normal turgor Dx/Plan (1) Altered mental status Code(s): R41.82 - ALTERED MENTAL STATUS, UNSPECIFIED Status: Acute (2) ESRD (end stage renal disease) on dialysis Code(s): N18.6 - END STAGE RENAL DISEASE; Z99.2 - DEPENDENCE ON RENAL DIALYSIS Status: Acute (3) Chronic hepatitis C Code(s): B18.2 - CHRONIC VIRAL HEPATITIS C Status: Chronic (4) Dementia Code(s): F03.90 - UNSPECIFIED DEMENTIA WITHOUT BEHAVIORAL DISTURBANCE Status: Chronic Qualifiers: Comment: Stable. Monitor; delirium precautions. (5) Essential thrombocytosis Code(s): D47.3 - ESSENTIAL (HEMORRHAGIC) THROMBOCYTHEMIA Status: Chronic (6) Glaucoma Code(s): H40.9 - UNSPECIFIED GLAUCOMA Status: Chronic (7) Hypertension Code(s): I10 - ESSENTIAL (PRIMARY) HYPERTENSION Status: Chronic Qualifiers: Comment: Controlled. Hydralazine IV prn for SBP >180 (8) Paroxysmal atrial fibrillation Code(s): I48.0 - PAROXYSMAL ATRIAL FIBRILLATION Status: Chronic Comment: Rate controlled. Continue ASA. (9) Secondary hyperparathyroidism of renal origin Code(s): N25.81 - SECONDARY HYPERPARATHYROIDISM OF RENAL ORIGIN Status: Chronic - Plan cont current plan of care * medication reviewed as below * symptomatic treatment * will need placement * needs sitter. Review of Systems - Review of Systems Other: unable to review due to dementia - Medications/Allergies Allergies/Adverse Reactions: Allergies Allergy/AdvReac Type Severity Reaction Status Date / Time chlorhexidine Allergy Intermediate Rash Verified 01/11/17 13:20 morphine Allergy Verified 05/02/17 08:19 Sulfa (Sulfonamide Allergy Verified 01/11/17 13:20 Antibiotics) Medications: Current Medications Acetaminophen (Tylenol) 650 mg PO Q4H PRN PRN Reason: Headache/Fever or Pain Al Hydroxide/Mg Hydroxide (Maalox) 15 ml PO Q4H PRN PRN Reason: Heartburn or Indigestion Amlodipine Besylate (Norvasc) 10 mg PO QAM [facility] Artificial Tears (Tears Naturale) 0 drop EA EYE PRN PRN PRN Reason: Dry Eyes Aspirin (Ecotrin) 81 mg PO QAM [facility] Bisacodyl (Dulcolax) 10 mg [place] DAILYPRN PRN PRN Reason: Constipation Brimonidine Tartrate (Alphagan 0.2% Oph Sol) 1 drop EA EYE TID [facility] Cinacalcet (Sensipar) 60 mg PO QPM [facility] Epoetin Massimo (Procrit) 7,500 units SC Q7D [facility] Famotidine (Pepcid) 20 mg PO DAILY [facility] Last Admin: 05/28/17 08:37 Dose: 20 mg Guaifenesin (Robitussin Sf) 200 mg PO Q4H PRN PRN Reason: Cough Haloperidol (Haldol) 1 mg PO Q4H PRN PRN Reason: Anxiety/Agitation Heparin Sodium (Porcine) (Heparin) 5,000 units SC BID [facility] Last Admin: 05/28/17 08:37 Dose: 5,000 units Hydralazine HCl (Apresoline) 10 mg SLOW IVP Q4H PRN PRN Reason: Systolic BP > 180 Last Admin: 05/28/17 01:25 Dose: 10 mg Hydralazine HCl (Apresoline) 100 mg PO TID [facility] Hydroxyurea (Hydrea) 500 mg PO DAILY [facility] Latanoprost (Xalatan 0.005% Ophth Soln) 1 drop EA EYE HS [facility] Loperamide HCl (Imodium) 2 mg PO PRN PRN PRN Reason: Diarrhea/Loose Stools Loratadine (Claritin) 10 mg PO DAILYPRN PRN PRN Reason: Sinus Symptoms Magnesium Hydroxide (Milk Of Magnesium) 30 ml PO DAILYPRN PRN PRN Reason: Constipation Mineral Oil/White Petrolatum (Eucerin Cream) 0 gm TOP BIDPRN PRN PRN Reason: Dry Skin Minoxidil (Minoxidil) 2.5 mg PO HS [facility] Multivitamins (Theragran) 1 tab PO DAILY [facility] Ondansetron HCl (Zofran Odt) 4 mg PO Q6H PRN PRN Reason: Nausea/Vomiting Ondansetron HCl (Zofran) 4 mg IVP Q6H PRN PRN Reason: Nausea/Vomiting Phenol (Chloraseptic [place] 180 Ml Bot) 0 ml PO PRN PRN PRN Reason: Sore Throat Polyethylene Glycol (Miralax) 17 gm PO DAILY [facility] Senna (Senokot) 2 tab PO HSPRN PRN PRN Reason: Constipation Sevelamer Carbonate (Renvela) 1,600 mg PO TID-WM [facility] Sodium Biphosphate/Sodium Phosphate (Fleet Enema) 133 ml [place] ONE PRN PRN Reason: Constipation Stop: 05/28/17 21:00 Sodium Chloride ([place] Nasal [place] 0.65%) 0 ml EA NARE QIDPRN PRN PRN Reason: Nasal Congestion Sodium Chloride (Flush - Normal Saline) 10 ml IVF Q12HR [facility] Sodium Chloride (Flush - Normal Saline) 10 ml IVF PRN PRN PRN Reason: Saline Flush Temazepam (Restoril) 15 mg PO HSPRN PRN PRN Reason: Insomnia Terazosin HCl (Hytrin) 5 mg PO HS [facility]
[2017-05-28] MEDS: Aspirin 81 mg Enteric Coated Tablet PO SCH (17:00)
[2017-05-28] MEDS: Polyethylene Glycol 3350 17 GM Packet PO SCH (17:00)
[2017-05-28] MEDS: Multivit, Therapeutic 1 TAB PO SCH (17:00)
[2017-05-28] MEDS: Amlodipine 10 MG TAB PO SCH (17:00)
[2017-05-28] MEDS: Hydroxyurea 500 MG CAP PO SCH (17:01)
[2017-05-28] MEDS: Minoxidil 2.5 MG TAB PO SCH (20:29)
[2017-05-28] MEDS: Cinacalcet HCl 30 MG TAB PO SCH (20:29)
[2017-05-28] MEDS: Terazosin HCl 5 MG CAP PO SCH (20:33)
[2017-05-28] MEDS: Latanoprost 0.005% Ophth Soln 2.5 ml Bottle EA EYE SCH (21:01)
[2017-05-29 05:54] LABS: #Basophils 0.1 thou/uL (0.0-0.2); #Eosinphils 0.1 thou/uL (0.0-0.7); #Lymphocytes 1.4 thou/uL (1.20-3.40); #Monocytes 0.6 thou/uL (0.11-0.59); #Neutrophils 5.7 thou/uL (1.40-6.50); %Basophils 0.7 % (0.0-1.0); %Eosinophils 1.8 % (0.0-10.0); %Lymphocytes 17.6 % (21.0-51.0); %Neutrophils 72.8 % (42.0-75.0); Hemoglobin 10.5 g/dL (12.0-16.0); Mean Corpuscular HGB CONC 33.4 g/dL (32.0-36.0); Mean Corpuscular Volume 95.9 fl (81.0-99.0); Mean Platelet Volume 5.7 fL (7.4-10.4); Platelet Count 1086 thou/uL (130-400); Red Blood Cell (RBC) Count 3.29 mill/uL (4.20-5.40); White Blood Cell (WBC) Count 7.8 thou/uL (4.8-10.8)
[2017-05-29 06:26] LABS: Anion Gap 15 mmol/L (10-20); BUN (Urea Nitrogen) 55 mg/dL (9.8-20.1); Calc. Creatinine Clearance 5 mL/min (70-130); Calcium 9.3 mg/dL (7.8-10.44); Carbon Dioxide 30 mmol/L (23-31); Chloride 99 mmol/L (98-107); Estimated GFR-MDRD 6; Glucose 79 mg/dL (83-110); Potassium 4.5 mmol/L (3.5-5.1); Sodium 139 mmol/L (136-145)
[2017-05-29] MEDS: Amlodipine 10 MG TAB PO SCH (09:03)
[2017-05-29] MEDS: Brimonidine Tartrate 0.2% Ophth Soln 5 ml Bottle EA EYE SCH ×3 (09:03→21:36)
[2017-05-29] MEDS: Sevelamer Carbonate 800 MG TAB PO SCH ×3 (09:03→18:02)
[2017-05-29] MEDS: Aspirin 81 mg Enteric Coated Tablet PO SCH ×2 (09:03→15:04)
[2017-05-29] MEDS: Famotidine 20 MG TAB PO SCH ×2 (09:04→15:04)
[2017-05-29] MEDS: hydrALAZINE 25 MG TAB PO SCH ×3 (09:04→21:35)
[2017-05-29] MEDS: Multivit, Therapeutic 1 TAB PO SCH ×2 (09:08→15:04)
[2017-05-29] MEDS: Heparin 5,000 UNITS/ML VIAL SC SCH ×3 (09:08→21:36)
[2017-05-29] MEDS: Polyethylene Glycol 3350 17 GM Packet PO SCH ×2 (09:08→15:05)
[2017-05-29] MEDS: Hydroxyurea 500 MG CAP PO SCH ×2 (09:08→15:04)
--- NOTE | 2017-05-29 10:25 | PRG ---
DATE OF SERVICE: 05/29/2017 SERVICE: Renal Medicine. SUBJECTIVE: Ms. Sears is an 81-year-old black female with ESRD and admitted for mental status colvin . She was also noted to be intermittently confused at home. The patient is being followed by [facility] for her maintenance hemodialysis. This morning, I have scheduled her for regular dialysis. She voices no new complaints. She seems to be oriented to person, but not to time. She is also or iented to place. Please note this patient most likely has underlying early dementia. No complaints of chest pain or shortness of breath. PHYSICAL EXAMINATION: VITAL SIGNS: Blood pressure is 149/68, heart rate 58, respiratory rate 16, temperature 98.6, pulse o x 98%. GENERAL EXAM: Awake, comfortable, supine, not in distress. SKIN: Adequate turgor. HEENT: She has slightly pale conjunctivae. Anicteric sclerae. NECK: No neck mass, no carotid bruits, no JVD. CHEST: No deformities. LUNGS: Clear breath sounds, no wheezing and no crackles. HEART: Normal sinus rhythm. No murmur, no gallops, and no rubs. ABDOMEN: Globular, soft, nontender, no masses. EXTREMITIES: No edema, no deformities. Medications of 05/29/2017 reviewed. LABORATORY DATA: Laboratories of 05/29/2017, white count 7.8, hemoglobin 10.5. Sodium 139, potassiu m 4.5, chloride 99, carbon dioxide 30, BUN 55, creatinine 7.66, glucose 79, calcium 9.3, PTH 6.9. ASSESSMENT AND PLAN: 1. Confusion - most likely from underlying dementia. She is near her baseline mentation. A previou s imaging - CAT scan of the brain was essentially showing no acute intracranial abnormality. 2. Borderline anemia - continuing weekly Epogen. 3. End-stage renal disease, stable. We will continue current hemodialysis regimen on Monday, , and Monday. Again, fluid removal only as tolerated. We will try to minimize heparin use or if not completely avoid it at the moment. Overall, agree with current management.
--- NOTE | 2017-05-29 11:16 | PDOC.PN ---
- Subjective Encounter Start Date: 05/29/17 Encounter Start Time: 09:50 Patient seen and examined. No new complaints. No overnight events - Objective MAR Reviewed: Yes Vital Signs & Weight: Vital Signs (12 hours) Temp Pulse Resp BP Pulse Ox 05/29/17 09:04 58 L 05/29/17 09:03 58 L 05/29/17 08:00 98.3 F 50 L 16 145/54 H 95 05/29/17 04:00 98.6 F 58 L 16 149/68 H 98 05/29/17 00:14 98.1 F 60 16 163/67 H 95 I&O: 05/28/17 05/29/17 05/30/17 06:59 06:59 06:59 Intake Total 220 1680 Balance 220 1680 Result Diagrams: 05/29/17 04:59 05/29/17 04:59 Phys Exam - Physical Examination Constitutional: NAD HEENT: PERRLA, moist MMs, sclera anicteric Neck: no JVD, supple Respiratory: no wheezing, no rales, no rhonchi Cardiovascular: RRR, no significant murmur, no rub HD catheter Gastrointestinal: soft, non-tender, no distention, positive bowel sounds Musculoskeletal: no edema, pulses present Neurological: non-focal Lymphatic: no nodes Psychiatric: normal affect Skin: no rash, normal turgor Dx/Plan (1) Altered mental status Code(s): R41.82 - ALTERED MENTAL STATUS, UNSPECIFIED Status: Acute (2) ESRD (end stage renal disease) on dialysis Code(s): N18.6 - END STAGE RENAL DISEASE; Z99.2 - DEPENDENCE ON RENAL DIALYSIS Status: Acute (3) Chronic hepatitis C Code(s): B18.2 - CHRONIC VIRAL HEPATITIS C Status: Chronic (4) Dementia Code(s): F03.90 - UNSPECIFIED DEMENTIA WITHOUT BEHAVIORAL DISTURBANCE Status: Chronic Qualifiers: Comment: Stable. Monitor; delirium precautions. (5) Essential thrombocytosis Code(s): D47.3 - ESSENTIAL (HEMORRHAGIC) THROMBOCYTHEMIA Status: Chronic (6) Glaucoma Code(s): H40.9 - UNSPECIFIED GLAUCOMA Status: Chronic (7) Hypertension Code(s): I10 - ESSENTIAL (PRIMARY) HYPERTENSION Status: Chronic Qualifiers: Comment: Controlled. Hydralazine IV prn for SBP >180 (8) Paroxysmal atrial fibrillation Code(s): I48.0 - PAROXYSMAL ATRIAL FIBRILLATION Status: Chronic Comment: Rate controlled. Continue ASA. (9) Secondary hyperparathyroidism of renal origin Code(s): N25.81 - SECONDARY HYPERPARATHYROIDISM OF RENAL ORIGIN Status: Chronic - Plan cont current plan of care, director social welfare * medication reviewed as below * symptomatic treatment * continue HD as per nephrology * will need placement. Review of Systems - Review of Systems Other: unable to review due to her dementia - Medications/Allergies Allergies/Adverse Reactions: Allergies Allergy/AdvReac Type Severity Reaction Status Date / Time chlorhexidine Allergy Intermediate Rash Verified 01/11/17 13:20 morphine Allergy Verified 05/02/17 08:19 Sulfa (Sulfonamide Allergy Verified 01/11/17 13:20 Antibiotics) Medications: Current Medications Acetaminophen (Tylenol) 650 mg PO Q4H PRN PRN Reason: Headache/Fever or Pain Al Hydroxide/Mg Hydroxide (Maalox) 15 ml PO Q4H PRN PRN Reason: Heartburn or Indigestion Amlodipine Besylate (Norvasc) 10 mg PO QAM [facility] Last Admin: 05/29/17 09:03 Dose: Not Given Artificial Tears (Tears Naturale) 0 drop EA EYE PRN PRN PRN Reason: Dry Eyes Aspirin (Ecotrin) 81 mg PO QAM [facility] Last Admin: 05/29/17 09:03 Dose: Not Given Bisacodyl (Dulcolax) 10 mg [place] DAILYPRN PRN PRN Reason: Constipation Brimonidine Tartrate (Alphagan 0.2% Oph Soln) 1 drop EA EYE TID [facility] Last Admin: 05/29/17 09:03 Dose: Not Given Cinacalcet (Sensipar) 60 mg PO QPM [facility] Last Admin: 05/28/17 20:29 Dose: 60 mg Epoetin Massimo (Procrit) 7,500 units SC Q7D [facility] Last Admin: 05/28/17 18:01 Dose: 7,500 units Famotidine (Pepcid) 20 mg PO DAILY [facility] Last Admin: 05/29/17 09:04 Dose: Not Given Guaifenesin (Robitussin Sf) 200 mg PO Q4H PRN PRN Reason: Cough Haloperidol (Haldol) 1 mg PO Q4H PRN PRN Reason: Anxiety/Agitation Heparin Sodium (Porcine) (Heparin) 5,000 units SC BID [facility] Last Admin: 05/29/17 09:08 Dose: Not Given Hydralazine HCl (Apresoline) 10 mg SLOW IVP Q4H PRN PRN Reason: Systolic BP > 180 Last Admin: 05/28/17 01:25 Dose: 10 mg Hydralazine HCl (Apresoline) 100 mg PO TID [facility] Last Admin: 05/29/17 09:04 Dose: Not Given Hydroxyurea (Hydrea) 500 mg PO DAILY [facility] Last Admin: 05/29/17 09:08 Dose: Not Given Latanoprost (Xalatan 0.005% Ophth Soln) 1 drop EA EYE [facility] Last Admin: 05/28/17 21:01 Dose: 1 drop Loperamide HCl (Imodium) 2 mg PO PRN PRN PRN Reason: Diarrhea/Loose Stools Loratadine (Claritin) 10 mg PO DAILYPRN PRN PRN Reason: Sinus Symptoms Magnesium Hydroxide (Milk Of Magnesium) 30 ml PO DAILYPRN PRN PRN Reason: Constipation Mineral Oil/White Petrolatum (Eucerin Cream) 0 gm TOP BIDPRN PRN PRN Reason: Dry Skin Minoxidil (Minoxidil) 2.5 mg PO [facility] Last Admin: 05/28/17 20:29 Dose: 2.5 mg Multivitamins (Theragran) 1 tab PO DAILY [facility] Last Admin: 05/29/17 09:08 Dose: Not Given Ondansetron HCl (Zofran Odt) 4 mg PO Q6H PRN PRN Reason: Nausea/Vomiting Ondansetron HCl (Zofran) 4 mg IVP Q6H PRN PRN Reason: Nausea/Vomiting Phenol (Chloraseptic [place] 180 Ml Bot) 0 ml PO PRN PRN PRN Reason: Sore Throat Polyethylene Glycol (Miralax) 17 gm PO DAILY [facility] Last Admin: 05/29/17 09:08 Dose: Not Given Senna (Senokot) 2 tab PO HSPRN PRN PRN Reason: Constipation Sevelamer Carbonate (Renvela) 1,600 mg PO TID-[facility] Last Admin: 05/29/17 09:03 Dose: Not Given Sodium Chloride ([place] Nasal [place] 0.65%) 0 ml EA NARE QIDPRN PRN PRN Reason: Nasal Congestion Sodium Chloride (Flush - Normal Saline) 10 ml IVF Q12HR [facility] Last Admin: 05/29/17 09:08 Dose: Not Given Sodium Chloride (Flush - Normal Saline) 10 ml IVF PRN PRN PRN Reason: Saline Flush Temazepam (Restoril) 15 mg PO HSPRN PRN PRN Reason: Insomnia Terazosin HCl (Hytrin) 5 mg PO HS [facility] Last Admin: 05/28/17 20:33 Dose: 5 mg
[2017-05-29] MEDS ORDERED: Heparin 10,000 UNITS/ 10 ML VIAL ONE (20:27)
[2017-05-29] MEDS: Cinacalcet HCl 30 MG TAB PO SCH (21:34)
[2017-05-29] MEDS: Terazosin HCl 5 MG CAP PO SCH (21:35)
[2017-05-29] MEDS: Minoxidil 2.5 MG TAB PO SCH (21:35)
[2017-05-29] MEDS: Latanoprost 0.005% Ophth Soln 2.5 ml Bottle EA EYE SCH (21:36)
[2017-05-30] MEDS: Heparin 5,000 UNITS/ML VIAL SC SCH ×2 (08:52→20:35)
[2017-05-30] MEDS: hydrALAZINE 25 MG TAB PO SCH ×3 (08:53→20:35)
[2017-05-30] MEDS: Multivit, Therapeutic 1 TAB PO SCH (08:53)
[2017-05-30] MEDS: Amlodipine 10 MG TAB PO SCH (08:54)
[2017-05-30] MEDS: Aspirin 81 mg Enteric Coated Tablet PO SCH (08:54)
[2017-05-30] MEDS: Sevelamer Carbonate 800 MG TAB PO SCH ×3 (08:54→16:17)
[2017-05-30] MEDS: Brimonidine Tartrate 0.2% Ophth Soln 5 ml Bottle EA EYE SCH ×3 (08:55→20:36)
[2017-05-30] MEDS: Hydroxyurea 500 MG CAP PO SCH (08:56)
[2017-05-30] MEDS: Polyethylene Glycol 3350 17 GM Packet PO SCH (08:56)
[2017-05-30] MEDS: Famotidine 20 MG TAB PO SCH (11:51)
--- NOTE | 2017-05-30 12:16 | PDOC.PN ---
- Subjective Encounter Start Date: 05/30/17 Encounter Start Time: 07:15 Patient seen and examined. pt is confused. No overnight events - Objective MAR Reviewed: Yes Vital Signs & Weight: Vital Signs (12 hours) Temp Pulse Resp BP Pulse Ox 05/30/17 08:54 49 L 05/30/17 08:53 49 L 05/30/17 08:00 98.2 F 49 L 18 109/73 98 05/30/17 04:00 98 F 51 L 18 165/67 H 95 I&O: 05/29/17 05/30/17 05/31/17 06:59 06:59 06:59 Intake Total 1680 480 180 Balance 1680 480 180 Result Diagrams: 05/29/17 04:59 05/29/17 04:59 Phys Exam - Physical Examination Constitutional: NAD HEENT: PERRLA, moist MMs, sclera anicteric Neck: no JVD, supple Respiratory: no wheezing, no rales, no rhonchi Cardiovascular: RRR, no significant murmur, no rub Gastrointestinal: soft, non-tender, no distention, positive bowel sounds Musculoskeletal: no edema, pulses present Neurological: non-focal, normal sensation Lymphatic: no nodes Psychiatric: normal affect Skin: no rash, normal turgor Dx/Plan (1) Altered mental status Code(s): R41.82 - ALTERED MENTAL STATUS, UNSPECIFIED Status: Acute Comment: likely now baseline and has dementia (2) ESRD (end stage renal disease) on dialysis Code(s): N18.6 - END STAGE RENAL DISEASE; Z99.2 - DEPENDENCE ON RENAL DIALYSIS Status: Chronic (3) Chronic hepatitis C Code(s): B18.2 - CHRONIC VIRAL HEPATITIS C Status: Chronic Qualifiers: Hepatic coma status: without hepatic coma Qualified Code(s): B18.2 - Chronic viral hepatitis C (4) Dementia Code(s): F03.90 - UNSPECIFIED DEMENTIA WITHOUT BEHAVIORAL DISTURBANCE Status: Chronic Qualifiers: Dementia type: Alzheimer's disease Comment: Stable. Monitor; delirium precautions. (5) Essential thrombocytosis Code(s): D47.3 - ESSENTIAL (HEMORRHAGIC) THROMBOCYTHEMIA Status: Chronic (6) Glaucoma Code(s): H40.9 - UNSPECIFIED GLAUCOMA Status: Chronic Qualifiers: Primary angle closure glaucoma type: chronic (7) Hypertension Code(s): I10 - ESSENTIAL (PRIMARY) HYPERTENSION Status: Chronic Qualifiers: Comment: Controlled. Hydralazine IV prn for SBP >180 (8) Paroxysmal atrial fibrillation Code(s): I48.0 - PAROXYSMAL ATRIAL FIBRILLATION Status: Chronic Comment: Rate controlled. Continue ASA. (9) Secondary hyperparathyroidism of renal origin Code(s): N25.81 - SECONDARY HYPERPARATHYROIDISM OF RENAL ORIGIN Status: Chronic - Plan cont current plan of care, PT/OT, licensed social worker * at this point telephonic nurse case manager is working on her placement * medication reviewed as below * symptomatic treatment * HD as per nephrology * medically stable. Review of Systems - Review of Systems Other: not reliable due to dementia - Medications/Allergies Allergies/Adverse Reactions: Allergies Allergy/AdvReac Type Severity Reaction Status Date / Time chlorhexidine Allergy Intermediate Rash Verified 01/11/17 13:20 morphine Allergy Verified 05/02/17 08:19 Sulfa (Sulfonamide Allergy Verified 01/11/17 13:20 Antibiotics) Medications: Current Medications Acetaminophen (Tylenol) 650 mg PO Q4H PRN PRN Reason: Headache/Fever or Pain Al Hydroxide/Mg Hydroxide (Maalox) 15 ml PO Q4H PRN PRN Reason: Heartburn or Indigestion Amlodipine Besylate (Norvasc) 10 mg PO QAM [facility] Last Admin: 05/30/17 08:54 Dose: Not Given Artificial Tears (Tears Naturale) 0 drop EA EYE PRN PRN PRN Reason: Dry Eyes Aspirin (Ecotrin) 81 mg PO QAM [facility] Last Admin: 05/30/17 08:54 Dose: 81 mg Bisacodyl (Dulcolax) 10 mg [place] DAILYPRN PRN PRN Reason: Constipation Brimonidine Tartrate (Alphagan 0.2% Ophth Soln) 1 drop EA EYE TID [facility] Last Admin: 05/30/17 08:55 Dose: 1 drp Cinacalcet (Sensipar) 60 mg PO QPM [facility] Last Admin: 05/29/17 21:34 Dose: 60 mg Epoetin Massimo (Procrit) 7,500 units SC Q7D [facility] Last Admin: 05/28/17 18:01 Dose: 7,500 units Famotidine (Pepcid) 20 mg PO DAILY [facility] Last Admin: 05/30/17 11:51 Dose: 20 mg Guaifenesin (Robitussin Sf) 200 mg PO Q4H PRN PRN Reason: Cough Haloperidol (Haldol) 1 mg PO Q4H PRN PRN Reason: Anxiety/Agitation Heparin Sodium (Porcine) (Heparin) 5,000 units SC BID [facility] Last Admin: 05/30/17 08:52 Dose: 5,000 units Hydralazine HCl (Apresoline) 10 mg SLOW IVP Q4H PRN PRN Reason: Systolic BP > 180 Last Admin: 05/28/17 01:25 Dose: 10 mg Hydralazine HCl (Apresoline) 100 mg PO TID [facility] Last Admin: 05/30/17 08:53 Dose: Not Given Hydroxyurea (Hydrea) 500 mg PO DAILY [facility] Last Admin: 05/30/17 08:56 Dose: 500 mg Latanoprost (Xalatan 0.005% Ophth Soln) 1 drop EA EYE [facility] Last Admin: 05/29/17 21:36 Dose: 1 drop Loperamide HCl (Imodium) 2 mg PO PRN PRN PRN Reason: Diarrhea/Loose Stools Loratadine (Claritin) 10 mg PO DAILYPRN PRN PRN Reason: Sinus Symptoms Magnesium Hydroxide (Milk Of Magnesium) 30 ml PO DAILYPRN PRN PRN Reason: Constipation Mineral Oil/White Petrolatum (Eucerin Cream) 0 gm TOP BIDPRN PRN PRN Reason: Dry Skin Minoxidil (Minoxidil) 2.5 mg PO [facility] Last Admin: 05/29/17 21:35 Dose: 2.5 mg Multivitamins (Theragran) 1 tab PO DAILY [facility] Last Admin: 05/30/17 08:53 Dose: 1 tab Ondansetron HCl (Zofran Odt) 4 mg PO Q6H PRN PRN Reason: Nausea/Vomiting Ondansetron HCl (Zofran) 4 mg IVP Q6H PRN PRN Reason: Nausea/Vomiting Phenol (Chloraseptic [place] 180 Ml Bot) 0 ml PO PRN PRN PRN Reason: Sore Throat Polyethylene Glycol (Miralax) 17 gm PO DAILY [facility] Last Admin: 05/30/17 08:56 Dose: 17 gm Senna (Senokot) 2 tab PO HSPRN PRN PRN Reason: Constipation Sevelamer Carbonate (Renvela) 1,600 mg PO TID-[facility] Last Admin: 05/30/17 11:51 Dose: 1,600 mg Sodium Chloride ([place] Nasal [place] 0.65%) 0 ml EA NARE QIDPRN PRN PRN Reason: Nasal Congestion Sodium Chloride (Flush - Normal Saline) 10 ml IVF Q12HR [facility] Last Admin: 05/30/17 08:56 Dose: 10 ml Sodium Chloride (Flush - Normal Saline) 10 ml IVF PRN PRN PRN Reason: Saline Flush Last Admin: 05/29/17 15:05 Dose: 10 ml Temazepam (Restoril) 15 mg PO HSPRN PRN PRN Reason: Insomnia Terazosin HCl (Hytrin) 5 mg PO HS [facility] Last Admin: 05/29/17 21:35 Dose: 5 mg
[2017-05-30] MEDS: Cinacalcet HCl 30 MG TAB PO SCH (20:34)
[2017-05-30] MEDS: Terazosin HCl 5 MG CAP PO SCH (20:35)
[2017-05-30] MEDS: Latanoprost 0.005% Ophth Soln 2.5 ml Bottle EA EYE SCH (20:36)
[2017-05-30] MEDS: Minoxidil 2.5 MG TAB PO SCH (20:36)
[2017-05-31] MEDS: Sevelamer Carbonate 800 MG TAB PO SCH ×3 (08:04→16:37)
[2017-05-31] MEDS: hydrALAZINE 25 MG TAB PO SCH ×3 (08:04→20:55)
[2017-05-31] MEDS: Hydroxyurea 500 MG CAP PO SCH (08:04)
[2017-05-31] MEDS: Multivit, Therapeutic 1 TAB PO SCH ×2 (08:04→13:28)
[2017-05-31] MEDS: Brimonidine Tartrate 0.2% Ophth Soln 5 ml Bottle EA EYE SCH ×3 (08:04→20:53)
[2017-05-31] MEDS: Amlodipine 10 MG TAB PO SCH (08:04)
[2017-05-31] MEDS: Polyethylene Glycol 3350 17 GM Packet PO SCH (08:04)
[2017-05-31] MEDS: Aspirin 81 mg Enteric Coated Tablet PO SCH ×2 (08:04→13:28)
[2017-05-31] MEDS: Famotidine 20 MG TAB PO SCH ×2 (08:04→13:27)
[2017-05-31] MEDS: Heparin 5,000 UNITS/ML VIAL SC SCH ×2 (08:04→20:54)
--- NOTE | 2017-05-31 08:46 | PRG ---
DATE OF SERVICE: 05/31/2017 SUBJECTIVE: Ms. Sears is an 81-year-old black female with ESRD on maintenance hemodialysis and currently undergoing dialysis. I am at the bedside supervising her dialysis. We are currently awaiting placement for this patient. No new complaints. OBJECTIVE: VITAL SIGNS: Blood pressure is 170/62, heart rate 53, respiratory rate 20, temperature 98.3, pulse ox 94%. GENERAL: Awake, alert, comfortable, not in distress, confused. HEENT: She has pinkish conjunctivae, anicteric sclerae. NECK: No neck mass, no carotid bruits, no JVD. CHEST: No deformities. LUNGS: Clear breath sounds. No wheezing, no crackles. HEART: Normal sinus rhythm. No murmur, no gallops or rubs. ABDOMEN: Globular, soft, nontender, no masses. EXTREMITIES: No edema, no deformities. MEDICATIONS: 05/31/2017 - Reviewed. LABORATORY: 05/29/2017 - White count 7.8, hemoglobin 10.5. Sodium 139, potassium 4.5, chloride 99, carbon dioxide 30, BUN 55, creatinine 7.6, glucose 79, calcium 9.3, PTH 66.9. ASSESSMENT AND PLAN: 1. End-stage renal disease, stable. Tolerating current hemodialysis regimen. Fluid removal only as tolerated. No heparin or minimal heparin use. 2. Essential thrombocytosis on hydroxyurea, stable. 3. Intermittent confusion, most likely from underlying dementia. 4. Bradycardia - Currently asymptomatic; if persistent consider Cardiology evaluation. Awaiting placement at the present time with this patient. Agree with current management. MTDD
[2017-05-31] MEDS ORDERED: Heparin 10,000 UNITS/ 10 ML VIAL ONE (10:00)
--- NOTE | 2017-05-31 11:04 | PDOC.PN ---
- Subjective Encounter Start Date: 05/31/17 Encounter Start Time: 09:30 Patient seen and examined. No new complaints. No overnight events - Objective MAR Reviewed: Yes Vital Signs & Weight: Vital Signs (12 hours) Temp Pulse Resp 05/31/17 08:04 53 L 05/31/17 07:56 98.3 F 53 L 20 I&O: 05/30/17 05/31/17 06/01/17 06:59 06:59 06:59 Intake Total 480 800 Output Total 0 Balance 480 800 Result Diagrams: 05/29/17 04:59 05/29/17 04:59 Phys Exam - Physical Examination Constitutional: NAD HEENT: PERRLA, moist MMs, sclera anicteric Neck: no JVD, supple Respiratory: no wheezing, no rales, no rhonchi Cardiovascular: RRR, no significant murmur, no rub Gastrointestinal: soft, non-tender, no distention, positive bowel sounds Musculoskeletal: no edema, pulses present Neurological: non-focal, normal sensation Lymphatic: no nodes Psychiatric: normal affect Skin: no rash, normal turgor Dx/Plan (1) Altered mental status Code(s): R41.82 - ALTERED MENTAL STATUS, UNSPECIFIED Status: Acute Comment: likely now baseline and has dementia (2) ESRD (end stage renal disease) on dialysis Code(s): N18.6 - END STAGE RENAL DISEASE; Z99.2 - DEPENDENCE ON RENAL DIALYSIS Status: Chronic (3) Chronic hepatitis C Code(s): B18.2 - CHRONIC VIRAL HEPATITIS C Status: Chronic Qualifiers: Hepatic coma status: without hepatic coma Qualified Code(s): B18.2 - Chronic viral hepatitis C (4) Dementia Code(s): F03.90 - UNSPECIFIED DEMENTIA WITHOUT BEHAVIORAL DISTURBANCE Status: Chronic Qualifiers: Dementia type: Alzheimer's disease Comment: Stable. Monitor; delirium precautions. (5) Essential thrombocytosis Code(s): D47.3 - ESSENTIAL (HEMORRHAGIC) THROMBOCYTHEMIA Status: Chronic (6) Glaucoma Code(s): H40.9 - UNSPECIFIED GLAUCOMA Status: Chronic Qualifiers: Primary angle closure glaucoma type: chronic (7) Hypertension Code(s): I10 - ESSENTIAL (PRIMARY) HYPERTENSION Status: Chronic Qualifiers: Comment: Controlled. Hydralazine IV prn for SBP >180 (8) Paroxysmal atrial fibrillation Code(s): I48.0 - PAROXYSMAL ATRIAL FIBRILLATION Status: Chronic Comment: Rate controlled. Continue ASA. (9) Secondary hyperparathyroidism of renal origin Code(s): N25.81 - SECONDARY HYPERPARATHYROIDISM OF RENAL ORIGIN Status: Chronic - Plan cont current plan of care, PT/OT, secondary social studies teacher * medication reviewed as below * symptomatic treatment * continue HD as per nephrology * await placement. Review of Systems - Review of Systems Other: unable to review due to dementia - Medications/Allergies Allergies/Adverse Reactions: Allergies Allergy/AdvReac Type Severity Reaction Status Date / Time chlorhexidine Allergy Intermediate Rash Verified 01/11/17 13:20 morphine Allergy Verified 05/02/17 08:19 Sulfa (Sulfonamide Allergy Verified 01/11/17 13:20 Antibiotics) Medications: Current Medications Acetaminophen (Tylenol) 650 mg PO Q4H PRN PRN Reason: Headache/Fever or Pain Al Hydroxide/Mg Hydroxide (Maalox) 15 ml PO Q4H PRN PRN Reason: Heartburn or Indigestion Artificial Tears (Tears Naturale) 0 drop EA EYE PRN PRN PRN Reason: Dry Eyes Aspirin (Ecotrin) 81 mg PO QAM [facility] Last Admin: 05/31/17 08:04 Dose: Not Given Bisacodyl (Dulcolax) 10 mg [place] DAILYPRN PRN PRN Reason: Constipation Brimonidine Tartrate (Alphagan 0.2% Ophth Soln) 1 drop EA EYE TID [facility] Last Admin: 05/31/17 08:04 Dose: Not Given Cinacalcet (Sensipar) 60 mg PO QPM [facility] Last Admin: 05/30/17 20:34 Dose: 60 mg Epoetin Massimo (Procrit) 7,500 units SC Q7D [facility] Last Admin: 05/28/17 18:01 Dose: 7,500 units Famotidine (Pepcid) 20 mg PO DAILY [facility] Last Admin: 05/31/17 08:04 Dose: Not Given Guaifenesin (Robitussin Sf) 200 mg PO Q4H PRN PRN Reason: Cough Haloperidol (Haldol) 1 mg PO Q4H PRN PRN Reason: Anxiety/Agitation Heparin Sodium (Porcine) (Heparin) 5,000 units SC BID [facility] Last Admin: 05/31/17 08:04 Dose: Not Given Hydralazine HCl (Apresoline) 10 mg SLOW IVP Q4H PRN PRN Reason: Systolic BP > 180 Last Admin: 05/28/17 01:25 Dose: 10 mg Hydralazine HCl (Apresoline) 100 mg PO TID [facility] Last Admin: 05/31/17 08:04 Dose: Not Given Hydroxyurea (Hydrea) 500 mg PO DAILY [facility] Last Admin: 05/31/17 08:04 Dose: Not Given Latanoprost (Xalatan 0.005% Ophth Soln) 1 drop EA EYE [facility] Last Admin: 05/30/17 20:36 Dose: 1 drop Loperamide HCl (Imodium) 2 mg PO PRN PRN PRN Reason: Diarrhea/Loose Stools Loratadine (Claritin) 10 mg PO DAILYPRN PRN PRN Reason: Sinus Symptoms Magnesium Hydroxide (Milk Of Magnesium) 30 ml PO DAILYPRN PRN PRN Reason: Constipation Mineral Oil/White Petrolatum (Eucerin Cream) 0 gm TOP BIDPRN PRN PRN Reason: Dry Skin Minoxidil (Minoxidil) 2.5 mg PO [facility] Last Admin: 05/30/17 20:36 Dose: 2.5 mg Multivitamins (Theragran) 1 tab PO DAILY [facility] Last Admin: 05/31/17 08:04 Dose: Not Given Ondansetron HCl (Zofran Odt) 4 mg PO Q6H PRN PRN Reason: Nausea/Vomiting Ondansetron HCl (Zofran) 4 mg IVP Q6H PRN PRN Reason: Nausea/Vomiting Phenol (Chloraseptic [place] 180 Ml Bot) 0 ml PO PRN PRN PRN Reason: Sore Throat Polyethylene Glycol (Miralax) 17 gm PO DAILY [facility] Last Admin: 05/31/17 08:04 Dose: Not Given Senna (Senokot) 2 tab PO HSPRN PRN PRN Reason: Constipation Sevelamer Carbonate (Renvela) 1,600 [address] PO TID-[facility] Last Admin: 05/31/17 08:04 Dose: Not Given Sodium Chloride ([place] Nasal [place] 0.65%) 0 ml EA NARE QIDPRN PRN PRN Reason: Nasal Congestion Sodium Chloride (Flush - Normal Saline) 10 ml IVF Q12HR [facility] Last Admin: 05/31/17 08:04 Dose: Not Given Sodium Chloride (Flush - Normal Saline) 10 ml IVF PRN PRN PRN Reason: Saline Flush Last Admin: 05/29/17 15:05 Dose: 10 ml Temazepam (Restoril) 15 mg PO HSPRN PRN PRN Reason: Insomnia Terazosin HCl (Hytrin) 5 mg PO HS [facility] Last Admin: 05/30/17 20:35 Dose: 5 mg
[2017-05-31] MEDS ORDERED: Hydroxyurea 500 MG CAP PO SCH (12:00)
[2017-05-31] MEDS: Latanoprost 0.005% Ophth Soln 2.5 ml Bottle EA EYE SCH (20:54)
[2017-05-31] MEDS: Minoxidil 2.5 MG TAB PO SCH (20:54)
[2017-05-31] MEDS: Terazosin HCl 5 MG CAP PO SCH (20:55)
[2017-05-31] MEDS: Cinacalcet HCl 30 MG TAB PO SCH (20:55)
[2017-06-01] MEDS: Brimonidine Tartrate 0.2% Ophth Soln 5 ml Bottle EA EYE SCH (08:58)
[2017-06-01] MEDS: Polyethylene Glycol 3350 17 GM Packet PO SCH (08:59)
[2017-06-01] MEDS: Famotidine 20 MG TAB PO SCH (08:59)
[2017-06-01] MEDS: Sevelamer Carbonate 800 MG TAB PO SCH (08:59)
[2017-06-01] MEDS: Aspirin 81 mg Enteric Coated Tablet PO SCH (08:59)
[2017-06-01] MEDS: Heparin 5,000 UNITS/ML VIAL SC SCH (08:59)
[2017-06-01] MEDS: hydrALAZINE 25 MG TAB PO SCH ×2 (08:59→11:03)
[2017-06-01] MEDS: Multivit, Therapeutic 1 TAB PO SCH (08:59)
--- NOTE | 2017-06-01 11:50 | DIS ---
DATE OF ADMISSION: 05/27/2017 DATE OF DISCHARGE: 06/01/2017 PRIMARY CARE PHYSICIAN: [facility] call admission. DISCHARGE DISPOSITION: custodial home. PRIMARY DISCHARGE DIAGNOSIS: Acute encephalopathy/altered mental status. SECONDARY DISCHARGE DIAGNOSES: Chronic hepatitis C; Alzheimer's type of dementia; end-stage renal disease, on hemodialysis; essential thrombocytosis; glaucoma; hypertension; paroxysmal atrial fibrillation; secondary hyperparathyroidism of renal origin. PRIMARY PROCEDURE/OPERATION: Maintenance hemodialysis. RADIOLOGICAL INVESTIGATION: CT brain showed chronic ischemic white matter changes. Chest x-ray was normal. SIGNIFICANT LABORATORY DATA: Hemoglobin 10.5, platelet 1086, creatinine 7.66. LFT normal. PTH 66.9. Urinalysis unremarkable. Urine drug screen negative. DISCHARGE MEDICATIONS: Amlodipine 10 mg p.o. daily, aspirin 81 mg p.o. daily, brimonidine ophthalmic drops each eye b.i.d., calcium carbonate 1 tablet p.o. at bedtime, Sensipar 60 mg p.o. daily, hydralazine 100 mg p.o. t.i.d., Hydrea 500 mg p.o. daily, Xalatan eyedrops at bedtime, minoxidil 2.5 mg p.o. at bedtime , multivitamin 1 tablet p.o. daily, MiraLax 17 grams p.o. daily, Renvela 1600 mg p.o. t.i.d. with meal, Hytrin 5 mg p.o. at bedtime. CONTRAINDICATIONS: None. CODE STATUS: FULL CODE. INPATIENT PAPER GOODS MACHINE SET UP OPERATOR: Dr. Smith was following for maintenance hemodialysis. TEST RESULTS PENDING ON DISCHARGE: None. ALLERGIES: CHLORHEXIDINE, MORPHINE, SULFA. DISCHARGE PLAN: Post hospital, the patient will follow up with primary care physician. The patient is discharged to [facility]. HOSPITAL COURSE: An 81-year-old female who was admitted by Dr. Ramirez. Please see her H&P for further detail. The patient was admitted for altered mental status, but this patient has most likely underlying Alzheimer dementia and she was having acute delirium. She had altered mental status workup, which was unremarkable. While in hospital, the patient was getting maintenance hemodialysis. We are suspecting that her altered mental status is related with underlying essential thrombocytosis. This patient is already on hydroxyurea therapy. This patient's family member cannot take care of her and that is why she was needing placement. With help of employment evaluator/case manager, [facility]. The patient is hemodynamically stable, but the patient was bradycardic while in hospital, but she is asymptomatic. She is not on any specific medicine that can cause her low pulse rate and this bradycardia is chronic and asymptomatic. The patient is seen and examined at bedside today. The patient is demented and she cannot provide any review of system. The patient's examination is unremarkable. Vitals are also unremarkable other than bradycardia and hypertension. Paper work for discharge done. Discharge medication reconciliation done. I spoke with the employment evaluator/case manager and nursing about her and the patient is stable for discharge today. Total time spent on discharge day more than 30 minutes. JARAD
[2017-06-01 12:12] VITALS: BP 146/55; TEMP 98.2
== END 2017-06-01 12:19 | DRG 56 ==
LOC: ERS 10:28 → T4-B 17:27 → OBSVTOIN 17:42
PROVIDERS: ADMIT Internal Medicine; ATTEND Internal Medicine
PROC: 5A1D70Z Performance of Urinary Filtration, Intermittent, Less than 6 Hours Per Day (ICD-10-PCS; principal; 2017-05-29)
PROC: 5A1D70Z Performance of Urinary Filtration, Intermittent, Less than 6 Hours Per Day (ICD-10-PCS; 2017-05-31)
DX: G30.9 Alzheimer's disease, unspecified (principal); N18.6 End stage renal disease; G93.40 Encephalopathy, unspecified; I12.0 Hypertensive chronic kidney disease with stage 5 chronic kidney disease or end stage renal disease; I48.0 Paroxysmal atrial fibrillation; F05 Delirium due to known physiological condition; I48.2 Chronic atrial fibrillation; N25.81 Secondary hyperparathyroidism of renal origin; F02.80 Dementia in other diseases classified elsewhere, unspecified severity, without behavioral disturbance, psychotic disturbance, mood disturbance, and anxiety; B18.2 Chronic viral hepatitis C; D47.3 Essential (hemorrhagic) thrombocythemia; H40.9 Unspecified glaucoma; Z99.2 Dependence on renal dialysis; Z86.73 Personal history of transient ischemic attack (TIA), and cerebral infarction without residual deficits; Z86.718 Personal history of other venous thrombosis and embolism; F17.220 Nicotine dependence, chewing tobacco, uncomplicated; D63.1 Anemia in chronic kidney disease
CPT/HCPCS: 36415; 51701; 70450; 71045; 80048; 80306; 81003; 81015; 82553; 83690; 83735; 83970; 84484; 85025; 90471; 90682; 90935; A4216; A4353; G0008; G0257; G8978-GP-CM; G8979-GP-CK; G8987-GO-CK; G8988-GO-CJ; J0360; J1644; Q2036; Q4081

== ENCOUNTER 2017-10-28 22:26 | Observation (INO) | payer MEDICARE, MEDICAID ==
[2017-10-28] MEDS ORDERED: Ondansetron HCl/PF 4 MG/2 ML Vial IVP PRN (23:15)
[2017-10-28] MEDS ORDERED: Acetaminophen 325 MG TAB PO PRN (23:15)
[2017-10-28 23:51] LABS: Troponin I 0.034 ng/mL (< 0.028)
[2017-10-29] MEDS ORDERED: Sodium Chloride 0.9% 1,000 ML IV SCH (01:45)
[2017-10-29 02:13] LABS: Hemoglobin 10.6 g/dL (12.0-16.0); Mean Corpuscular HGB CONC 34.5 g/dL (32.0-36.0); Mean Corpuscular Hemoglobin 36.6 pg (27.0-31.0); Mean Platelet Volume 5.6 fL (7.4-10.4); Platelet Count 602 thou/uL (130-400); RBC Distribution Width 16.6 % (11.5-14.5); Red Blood Cell (RBC) Count 2.91 mill/uL (4.20-5.40); White Blood Cell (WBC) Count 9.3 thou/uL (4.8-10.8)
[2017-10-29 02:26] LABS: #Basophils 0.1 thou/uL (0.0-0.2); #Eosinphils 0.1 thou/uL (0.0-0.7); #Lymphocytes 1.3 thou/uL (1.20-3.40); #Monocytes 0.6 thou/uL (0.11-0.59); #Neutrophils 7.3 thou/uL (1.40-6.50); %Basophils 0.9 % (0.0-1.0); %Eosinophils 0.8 % (0.0-10.0); %Lymphocytes 13.4 % (21.0-51.0); %Monocytes 6.2 % (0.0-10.0); %Neutrophils 78.7 % (42.0-75.0); MDiff Complete? YES; Macrocytosis SLIGHT = 6-15 cells (100X) (0-5/hpf); PLT Morphology Comment Appears Increased
[2017-10-29 02:37] LABS: Anion Gap 19 mmol/L (10-20); BUN (Urea Nitrogen) 41 mg/dL (9.8-20.1); Calc. Creatinine Clearance 6 mL/min (70-130); Calcium 9.9 mg/dL (7.8-10.44); Carbon Dioxide 26 mmol/L (23-31); Chloride 102 mmol/L (98-107); Estimated GFR-MDRD 8; Glucose 91 mg/dL (83-110); Potassium 4.9 mmol/L (3.5-5.1); Sodium 142 mmol/L (136-145)
[2017-10-29] MEDS ORDERED: Artificial Tear Sol 15 ML BOT EA EYE PRN (06:49)
[2017-10-29] MEDS ORDERED: hydrALAZINE 20 MG/ML VIAL SLOW IVP PRN (06:49)
[2017-10-29] MEDS ORDERED: Ondansetron ODT 4 MG TAB PO PRN (06:49)
[2017-10-29] MEDS ORDERED: Sodium Chloride 0.65% Nasal 44 ML BOT EA NARE PRN (06:49)
[2017-10-29] MEDS ORDERED: Eucerin (Mineral Oil/Petrolatum,White) 30 gm Jar TOP PRN (06:49)
[2017-10-29] MEDS ORDERED: Senokot 8.6 MG TAB PO PRN (06:49)
[2017-10-29] MEDS ORDERED: Diabetic Tussin 200 MG/10 ML UDCUP PO PRN (06:49)
[2017-10-29] MEDS ORDERED: Loratadine 10 MG TAB PO PRN (06:49)
[2017-10-29] MEDS ORDERED: Bisacodyl 10 MG SUPP PR PRN (06:49)
[2017-10-29] MEDS ORDERED: Milk Of Magnesia 30 ML UDCUP PO PRN (06:49)
[2017-10-29] MEDS ORDERED: Loperamide HCl 2 MG CAP PO PRN (06:49)
[2017-10-29] MEDS ORDERED: Chloraseptic Spray 180 ml Bottle PO PRN (06:49)
--- NOTE | 2017-10-29 07:27 | HP ---
PRIMARY CARE PHYSICIAN: Maricruz Francois MD CODE STATUS: FULL CODE. TIME OF EVALUATION: 11:00 p.m. CHIEF COMPLAINT: Change in mental status. HISTORY OF PRESENT ILLNESS: This is an 81-year-old female patient with past medical history of end-s tage renal disease, on hemodialysis Monday, Monday, Monday; CHF; diabetes; thrombocytopenia; demen tia; hyperparathyroidism; atrial fibrillation; CVA; hepatitis C; deep vein thrombosis. The patient c siddharth to the hospital since she was found to have change in mental status at home. The patient had bee n combative and aggressive while getting hemodialysis on Monday, was unable to sleep well due to agit ation. For that reason, the primary care doctor sent the patient here to the hospital to receive wor kup for the same reason. The symptoms are severe. During my evaluation, the patient continued to ta lk with incoherent conversations. No alleviating factors. PAST MEDICAL HISTORY: Reported in the HPI. PAST SURGICAL HISTORY: Dialysis shunt in the right arm, dialysis shunt in the left upper chest, righ t shoulder surgery. PSYCHIATRIC HISTORY: Combative and hallucination due to dementia. SOCIAL HISTORY: No alcohol, no drugs, no tobacco use. FAMILY HISTORY: Unable to obtain. The patient is noncooperative. KNOWN ALLERGIES: CHLORHEXIDINE, MORPHINE, SULFA. REPORTED MEDICATIONS: In records; hydroxyurea, Apresoline, aspirin, minoxidil, Alphagan, , Renv alok, , MiraLax, Tums, Tylenol, amlodipine. PHYSICAL EXAMINATION: VITAL SIGNS: On presentation, blood pressure 142/52, heart rate 76, respiratory rate was 18, tempera ture 97.6, oxygen saturation 96% on room air. GENERAL APPEARANCE: The patient is incoherent, disoriented, not in acute distress during my examinat ion. HEENT: Eyes, normal conjunctivae. Moist oral mucosa. Anicteric. NECK: No JVD. RESPIRATORY: Bilateral air entry. No rales, no wheezing. Symmetric expansion. CARDIOVASCULAR: Normal rate, regular rhythm. No murmurs, no gallop, no edema. ABDOMEN: Soft. Normal bowel sounds. MUSCULOSKELETAL: Baseline range of motion and strength. SKIN: Warm and intact with chronic ectopic changes. Peripheral pulses are present. Capillary refil l seems to be intact. NEUROLOGIC: The patient is confused. No evidence of any new focal weakness. PSYCHIATRIC: The patient is confused, unable to fully explore. RADIOLOGIC DATA: EKG showed incomplete RBBB; T-wave is flattened, leads affected were lead I and V1. Head CT is negative, no acute changes. Chest films negative. Catheter in place. No infiltrate or effusion as per Radiology report. LABORATORY DATA: Reviewed. White count 11.5, hemoglobin 11.6, MCV 103, platelet count 798. Sodium 144, potassium 4.9, chloride 99, carbon dioxide 26, anion gap 24, BUN 36, GFR 9, creatinine 5.5, lact ic acid 1.3. Urine was done and was negative. ASSESSMENT AND PLAN: The patient will be placed in the hospital with following medical problems: 1. Acute encephalopathy, unclear etiology, might be metabolic. CT head was negative. If not improv ed, might need Neurology to help us with our patient. The patient will need supportive care as inpat ient. 2. End-stage renal disease, on hemodialysis Monday, Monday, Monday. The patient will need Nephro logy for hemodialysis if the patient remains here until Monday. 3. Uncontrolled high blood pressure with systolic blood pressure 151, on presentation 142. We will reconcile home meds. We adjust treatment as needed. 4. History of dementia, unclear what the baseline is, but as per ER report, the patient has worsened mentation in the past few days. 5. History of atrial fibrillation. Reconcile home medications. 6. Deep venous thrombosis prophylaxis.
[2017-10-29] MEDS ORDERED: Non-Formulary Item 1 EACH (Brimonidine Tartrate [Brimonidine Tartrate 0.15% Ophth Soln] 1 EA EYE SCH (09:00)
[2017-10-29] MEDS ORDERED: Amlodipine 10 MG TAB PO SCH (09:00)
[2017-10-29] MEDS ORDERED: Brimonidine Tartrate 0.2% Ophth Soln 5 ml Bottle EA EYE SCH (09:00)
[2017-10-29] MEDS ORDERED: Heparin 5,000 UNITS/ML VIAL SC SCH (09:00)
--- NOTE | 2017-10-29 09:37 | PDOC.PN ---
- Subjective Encounter Start Date: 10/29/17 Encounter Start Time: 08:10 -: old records requested/rev pt is sleepy, does not seem oriented, stable vitals - Objective Resuscitation Status: Resuscitation Status FULL:Full Resuscitation MAR Reviewed: Yes Vital Signs & Weight: Vital Signs (12 hours) Temp Pulse Resp BP Pulse Ox 10/29/17 08:49 98 F 55 L 18 134/63 96 10/29/17 04:00 98.6 F 56 L 13 135/60 94 L 10/29/17 01:20 98.5 F 67 20 127/60 96 Weight Weight 123 lb 6.4 oz I&O: 10/28/17 10/29/17 10/30/17 06:59 06:59 06:59 Intake Total 0 Balance 0 Result Diagrams: 10/29/17 01:55 10/29/17 01:55 Radiology Reviewed by me: Yes EKG Reviewed by me: Yes Phys Exam - Physical Examination Constitutional: NAD HEENT: PERRLA, moist MMs, sclera anicteric Neck: no JVD, supple Respiratory: no wheezing, no rales, no rhonchi Cardiovascular: RRR, no significant murmur, no rub Gastrointestinal: soft, non-tender, no distention, positive bowel sounds Musculoskeletal: no edema, pulses present Lymphatic: no nodes Psychiatric: normal affect Skin: no rash, normal turgor Dx/Plan (1) Altered mental status Code(s): R41.82 - ALTERED MENTAL STATUS, UNSPECIFIED Status: Acute Qualifiers: Altered mental status type: disorientation Qualified Code(s): R41.0 - Disorientation, unspecified (2) Chest pain Code(s): R07.9 - CHEST PAIN, UNSPECIFIED Status: Acute (3) Elevated troponin Code(s): R74.8 - ABNORMAL LEVELS OF OTHER SERUM ENZYMES Status: Acute (4) Chronic hepatitis C Code(s): B18.2 - CHRONIC VIRAL HEPATITIS C Status: Chronic Qualifiers: (5) Dementia Code(s): F03.90 - UNSPECIFIED DEMENTIA WITHOUT BEHAVIORAL DISTURBANCE Status: Chronic Comment: Stable. Monitor; delirium precautions. (6) ESRD (end stage renal disease) on dialysis Code(s): N18.6 - END STAGE RENAL DISEASE; Z99.2 - DEPENDENCE ON RENAL DIALYSIS Status: Chronic (7) Essential thrombocytosis Code(s): D47.3 - ESSENTIAL (HEMORRHAGIC) THROMBOCYTHEMIA Status: Chronic (8) Glaucoma Code(s): H40.9 - UNSPECIFIED GLAUCOMA Status: Chronic (9) Hypertension Code(s): I10 - ESSENTIAL (PRIMARY) HYPERTENSION Status: Chronic Qualifiers: Comment: (10) Paroxysmal atrial fibrillation Code(s): I48.0 - PAROXYSMAL ATRIAL FIBRILLATION Status: Chronic Comment: (11) Secondary hyperparathyroidism of renal origin Code(s): N25.81 - SECONDARY HYPERPARATHYROIDISM OF RENAL ORIGIN Status: Chronic - Plan cont current plan of care * will get echo * this pt is not a good candidate for chronic anticoagulation due to fall risk and risk of bleeding * medication reviewed as below * symptomatic treatment * monitor on tele * her elevated troponin may be related with ESRD and demand * currently pt is chest pain free * does not need stress test. Review of Systems - Review of Systems Other: pt is disoriented and has dementia, so not reliable - Medications/Allergies Allergies/Adverse Reactions: Allergies Allergy/AdvReac Type Severity Reaction Status Date / Time chlorhexidine Allergy Intermediate Rash Verified 10/29/17 01:49 morphine Allergy Verified 10/29/17 01:49 Sulfa (Sulfonamide Allergy Verified 10/29/17 01:49 Antibiotics) Medications: Current Medications Acetaminophen (Tylenol) 650 mg PO Q4H PRN PRN Reason: Headache/Fever or Pain Amlodipine Besylate (Norvasc) 10 mg PO QAM [facility] Artificial Tears (Tears Renewed 15ml Bottle) 0 drop EA EYE PRN PRN PRN Reason: Dry Eyes Aspirin (Ecotrin) 81 mg PO QAM [facility] Bisacodyl (Dulcolax) 10 mg [place] DAILYPRN PRN PRN Reason: Constipation Brimonidine Tartrate (Alphagan 0.2% Ophth Soln) 1 drop EA EYE BID [facility] Calcium Carbonate (Tums) 1,000 mg PO HS [facility] Guaifenesin (Robitussin Sf) 200 mg PO Q4H PRN PRN Reason: Cough Heparin Sodium (Porcine) (Heparin) 5,000 units SC BID [facility] Hydralazine HCl (Apresoline) 100 mg PO TID [facility] Hydralazine HCl (Apresoline) 10 mg SLOW IVP Q4H PRN PRN Reason: Systolic BP > 180 Hydroxyurea (Hydrea) 500 mg PO DAILY [facility] Iron/Minerals/Multivitamins (Theragran M) 1 tab PO QAM [facility] Latanoprost (Xalatan 0.005% Ophth Soln) 1 drop EA EYE HS [facility] Loperamide HCl (Imodium) 2 mg PO PRN PRN PRN Reason: Diarrhea/Loose Stools Loratadine (Claritin) 10 mg PO DAILYPRN PRN PRN Reason: Sinus Symptoms Magnesium Hydroxide (Milk Of Magnesium) 30 ml PO DAILYPRN PRN PRN Reason: Constipation Mineral Oil/White Petrolatum (Eucerin Cream) 0 gm TOP BIDPRN PRN PRN Reason: Dry Skin Minoxidil (Minoxidil) 2.5 mg PO DAILY [facility] Ondansetron HCl (Zofran) 4 mg IVP Q6H PRN PRN Reason: Nausea/Vomiting Ondansetron HCl (Zofran Odt) 4 mg PO Q6H PRN PRN Reason: Nausea/Vomiting Phenol (Chloraseptic [place] 180 Ml Bot) 0 ml PO PRN PRN PRN Reason: Sore Throat Polyethylene Glycol (Miralax) 17 gm PO DAILY [facility] Senna (Senokot) 2 tab PO HSPRN PRN PRN Reason: Constipation Sevelamer Carbonate (Renvela) 1,600 mg PO TID-WM [facility] Sodium Chloride (Cassia Nasal [place] 0.65%) 0 ml EA NARE QIDPRN PRN PRN Reason: Nasal Congestion Terazosin HCl (Hytrin) 5 mg PO HS [facility] Vitamin B Complex/Vit C/Folic Acid (Nephro-Toy Tablet) 1 tab PO DAILY [facility]
[2017-10-29] MEDS: Sevelamer Carbonate 800 MG TAB PO SCH ×3 (10:12→17:41)
[2017-10-29] MEDS: hydrALAZINE 25 MG TAB PO SCH ×3 (10:12→21:30)
[2017-10-29] MEDS: Folic Acid/Vit B Comp W-C PO SCH (10:13)
[2017-10-29] MEDS: Minoxidil 2.5 MG TAB PO SCH (10:13)
[2017-10-29] MEDS: Multivitamin W/ Minerals 1 TAB PO SCH (10:13)
[2017-10-29] MEDS: Aspirin 81 mg Enteric Coated Tablet PO SCH (10:14)
[2017-10-29] MEDS: Polyethylene Glycol 3350 17 GM Packet PO SCH (10:14)
[2017-10-29] MEDS: Hydroxyurea 500 MG CAP PO SCH (10:14)
[2017-10-29] MEDS: Brimonidine Tartrate 0.2% Ophth Soln 5 ml Bottle EA EYE SCH ×2 (10:15→21:14)
[2017-10-29] MEDS: Heparin 5,000 UNITS/ML VIAL SC SCH ×2 (10:17→21:13)
[2017-10-29] MEDS ORDERED: Latanoprost 0.005% Ophth Soln 2.5 ml Bottle EA EYE SCH (21:00)
[2017-10-29] MEDS ORDERED: Terazosin HCl 5 MG CAP PO SCH (21:00)
[2017-10-29] MEDS ORDERED: Calcium Carbonate 500 MG ChewTAB PO SCH (21:00)
[2017-10-30] MEDS ORDERED: Amlodipine 5 MG TAB PO SCH (09:00)
[2017-10-30] MEDS: Sevelamer Carbonate 800 MG TAB PO SCH ×3 (09:24→18:31)
[2017-10-30] MEDS: Multivitamin W/ Minerals 1 TAB PO SCH (09:25)
[2017-10-30] MEDS: Aspirin 81 mg Enteric Coated Tablet PO SCH (09:25)
[2017-10-30] MEDS: Minoxidil 2.5 MG TAB PO SCH (09:25)
[2017-10-30] MEDS: Hydroxyurea 500 MG CAP PO SCH (09:25)
[2017-10-30] MEDS: Folic Acid/Vit B Comp W-C PO SCH (09:25)
[2017-10-30] MEDS: Heparin 5,000 UNITS/ML VIAL SC SCH (09:25)
[2017-10-30] MEDS: hydrALAZINE 10 MG TAB PO SCH ×2 (09:26→16:15)
[2017-10-30] MEDS: Polyethylene Glycol 3350 17 GM Packet PO SCH (09:26)
[2017-10-30] MEDS: Brimonidine Tartrate 0.2% Ophth Soln 5 ml Bottle EA EYE SCH (09:27)
--- NOTE | 2017-10-30 10:44 | PDOC.PN ---
- Subjective Encounter Start Date: 10/30/17 Encounter Start Time: 08:00 Patient seen and examined. No new complaints. No overnight events - Objective Resuscitation Status: Resuscitation Status FULL:Full Resuscitation MAR Reviewed: Yes Vital Signs & Weight: Vital Signs (12 hours) Temp Pulse Resp BP Pulse Ox 10/30/17 09:26 57 L 10/30/17 07:31 98.4 F 57 L 17 10/30/17 07:26 98.4 F 57 L 17 127/60 94 L 10/30/17 02:59 98.4 F 63 20 93/50 L 91 L 10/30/17 00:00 97.8 F 59 L 16 109/53 L 93 L Weight Weight 123 lb 5 oz I&O: 10/29/17 10/30/17 10/31/17 06:59 06:59 06:59 Intake Total 0 720 Balance 0 720 Result Diagrams: 10/29/17 01:55 10/29/17 01:55 EKG Reviewed by me: Yes (nsr) Phys Exam - Physical Examination Constitutional: NAD HEENT: PERRLA, moist MMs, sclera anicteric Neck: no JVD, supple Respiratory: no wheezing, no rales, no rhonchi Cardiovascular: RRR, no significant murmur, no rub Gastrointestinal: soft, non-tender, no distention, positive bowel sounds Musculoskeletal: no edema, pulses present Lymphatic: no nodes Psychiatric: normal affect Skin: no rash, normal turgor Dx/Plan (1) Altered mental status Code(s): R41.82 - ALTERED MENTAL STATUS, UNSPECIFIED Status: Acute Qualifiers: Altered mental status type: disorientation Qualified Code(s): R41.0 - Disorientation, unspecified (2) Chest pain Code(s): R07.9 - CHEST PAIN, UNSPECIFIED Status: Acute (3) Elevated troponin Code(s): R74.8 - ABNORMAL LEVELS OF OTHER SERUM ENZYMES Status: Acute (4) Chronic hepatitis C Code(s): B18.2 - CHRONIC VIRAL HEPATITIS C Status: Chronic Qualifiers: (5) Dementia Code(s): F03.90 - UNSPECIFIED DEMENTIA WITHOUT BEHAVIORAL DISTURBANCE Status: Chronic Comment: Stable. Monitor; delirium precautions. (6) ESRD (end stage renal disease) on dialysis Code(s): N18.6 - END STAGE RENAL DISEASE; Z99.2 - DEPENDENCE ON RENAL DIALYSIS Status: Chronic (7) Essential thrombocytosis Code(s): D47.3 - ESSENTIAL (HEMORRHAGIC) THROMBOCYTHEMIA Status: Chronic (8) Glaucoma Code(s): H40.9 - UNSPECIFIED GLAUCOMA Status: Chronic (9) Hypertension Code(s): I10 - ESSENTIAL (PRIMARY) HYPERTENSION Status: Chronic Qualifiers: Comment: (10) Paroxysmal atrial fibrillation Code(s): I48.0 - PAROXYSMAL ATRIAL FIBRILLATION Status: Chronic Comment: (11) Secondary hyperparathyroidism of renal origin Code(s): N25.81 - SECONDARY HYPERPARATHYROIDISM OF RENAL ORIGIN Status: Chronic (12) Pulmonary hypertension Code(s): I27.20 - PULMONARY HYPERTENSION, UNSPECIFIED Status: Acute - Plan cont current plan of care * medication reviewed as below * symptomatic treatment * discharge to skilled nursing * HD after discharge as per dr pizarro. Review of Systems - Review of Systems Other: not reliable due to dementia - Medications/Allergies Allergies/Adverse Reactions: Allergies Allergy/AdvReac Type Severity Reaction Status Date / Time chlorhexidine Allergy Intermediate Rash Verified 10/29/17 01:49 morphine Allergy Verified 10/29/17 01:49 Sulfa (Sulfonamide Allergy Verified 10/29/17 01:49 Antibiotics) Medications: Current Medications Acetaminophen (Tylenol) 650 mg PO Q4H PRN PRN Reason: Headache/Fever or Pain Amlodipine Besylate (Norvasc) 2.5 mg PO DAILY [facility] Last Admin: 10/30/17 09:26 Dose: Not Given Artificial Tears (Tears Renewed 15ml Bottle) 0 drop EA EYE PRN PRN PRN Reason: Dry Eyes Aspirin (Ecotrin) 81 mg PO QAM [facility] Last Admin: 10/30/17 09:25 Dose: 81 mg Bisacodyl (Dulcolax) 10 mg [place] DAILYPRN PRN PRN Reason: Constipation Brimonidine Tartrate (Alphagan 0.2% Ophth Soln) 1 drop EA EYE BID [facility] Last Admin: 10/30/17 09:27 Dose: 1 drp Calcium Carbonate (Tums) 1,000 mg PO HS [facility] Last Admin: 10/29/17 21:14 Dose: 1,000 mg Guaifenesin (Robitussin Sf) 200 mg PO Q4H PRN PRN Reason: Cough Heparin Sodium (Porcine) (Heparin) 5,000 units SC BID [facility] Last Admin: 10/30/17 09:25 Dose: 5,000 units Hydralazine HCl (Apresoline) 10 mg SLOW IVP Q4H PRN PRN Reason: Systolic BP > 180 Hydralazine HCl (Apresoline) 10 mg PO TID [facility] Last Admin: 10/30/17 09:26 Dose: Not Given Hydroxyurea (Hydrea) 500 mg PO DAILY [facility] Last Admin: 10/30/17 09:25 Dose: 500 mg Iron/Minerals/Multivitamins (Theragran M) 1 tab PO QAM [facility] Last Admin: 10/30/17 09:25 Dose: 1 tab Latanoprost (Xalatan 0.005% Ophth Soln) 1 drop EA EYE [facility] Last Admin: 10/29/17 22:00 Dose: 1 drop Loperamide HCl (Imodium) 2 mg PO PRN PRN PRN Reason: Diarrhea/Loose Stools Loratadine (Claritin) 10 mg PO DAILYPRN PRN PRN Reason: Sinus Symptoms Magnesium Hydroxide (Milk Of Magnesium) 30 ml PO DAILYPRN PRN PRN Reason: Constipation Mineral Oil/White Petrolatum (Eucerin Cream) 0 gm TOP BIDPRN PRN PRN Reason: Dry Skin Minoxidil (Minoxidil) 2.5 mg PO DAILY [facility] Last Admin: 10/30/17 09:25 Dose: 2.5 mg Ondansetron HCl (Zofran) 4 mg IVP Q6H PRN PRN Reason: Nausea/Vomiting Ondansetron HCl (Zofran Odt) 4 mg PO Q6H PRN PRN Reason: Nausea/Vomiting Phenol (Chloraseptic [place] 180 Ml Bot) 0 ml PO PRN PRN PRN Reason: Sore Throat Polyethylene Glycol (Miralax) 17 gm PO DAILY [facility] Last Admin: 10/30/17 09:26 Dose: 17 gm Senna (Senokot) 2 tab PO HSPRN PRN PRN Reason: Constipation Sevelamer Carbonate (Renvela) 1,600 mg PO TID-[facility] Last Admin: 10/30/17 09:24 Dose: 1,600 mg Sodium Chloride ([place] Nasal [place] 0.65%) 0 ml EA NARE QIDPRN PRN PRN Reason: Nasal Congestion Terazosin HCl (Hytrin) 5 mg PO [facility] Last Admin: 10/29/17 21:13 Dose: 5 mg Vitamin B Complex/Vit C/Folic Acid (Nephro-Toy Tablet) 1 tab PO DAILY [facility] Last Admin: 10/30/17 09:25 Dose: 1 tab
--- NOTE | 2017-10-30 11:51 | DIS ---
DATE OF ADMISSION: 10/28/2017 DATE OF DISCHARGE: 10/30/2017 PRIMARY CARE PHYSICIAN: Dr. Francois. DISCHARGE DISPOSITION: [facility]. PRIMARY DISCHARGE DIAGNOSES: 1. Altered mental status, resolved. 2. Chest pain, ruled out acute coronary syndrome, elevated troponin, chronic due to end-stage renal disease. SECONDARY DISCHARGE DIAGNOSES: Secondary hyperparathyroidism of renal origin, paroxysmal atrial fibr illation, hypertension, glaucoma, essential thrombocytosis, end-stage renal disease on hemodialysis, Alzheimer's dementia, chronic hepatitis C, pulmonary hypertension. PRIMARY PROCEDURE AND OPERATION: None. RADIOLOGICAL INVESTIGATION: Echocardiography showed pulmonary hypertension, normal EF, diastolic dys function. SIGNIFICANT LABORATORY DATA: WBC 9.3, hemoglobin 10.6, platelets 602, MCV 106. Sodium 142, potassiu m 4.9, BUN 41, creatinine 6.13. Troponin 0.050. DISCHARGE MEDICATIONS: Tylenol 325 mg 1 or 2 tablets q.6 hourly p.r.n., aspirin 81 mg p.o. daily, br imonidine ophthalmic drops b.i.d., Alphagan ophthalmic drops b.i.d., Tums one tablet at bedtime, Xala smith eyedrops at bedtime, minoxidil 2.5 mg p.o. daily, multivitamin 1 tablet p.o. daily, MiraLax 17 gr ams p.o. daily, Renvela 1600 mg p.o. t.i.d., terazosin 5 mg p.o. at bedtime, amlodipine 2.5 mg p.o. d aily, hydralazine 10 mg p.o. t.i.d., hydroxyurea 500 mg p.o. daily. CONTRAINDICATIONS: None. CODE STATUS: FULL CODE. INPATIENT CONSULTANTS: Dr. Smith was consulted while in hospital. TEST RESULTS PENDING ON DISCHARGE: None. ALLERGIES: CHLORHEXIDINE, MORPHINE, SULFA. DISCHARGE PLAN: Post hospital, the patient will follow up with primary care physician at [facility]. HOSPITAL COURSE: An 81-year-old female who was sent from intermediate for altered mental status. Af ter dialysis, the patient was having chest pain, that is why she was sent to emergency room and Dr. Solitario mayen admitted this patient in hospital. Patient had indeterminate troponin, which remained in ind eterminant range after serial testing. We did echocardiography, which showed pulmonary hypertension and diastolic dysfunction. Though patient had elevated troponin, but subsequently patient did not monae ve any further chest pain. The patient remained confused and sleepy when she arrived to the hospital and that is why we were not able to discharge her on the same day, but the next day, the patient was more alert and up to her baseline level. She has chronic dementia. This patient was not having any chest pain and she was hemodynamically stable. Her blood pressure runs in the lower side and that i s why we reduced dose of amlodipine, hydralazine as above. Dr. Smith wants to discharge her today and the patient will get dialysis at intermediate as per her gadiel schedule. The patient is seen and examined at bedside today. Paper work for discharge done. Discharge medicat ion reconciliation done.
[2017-10-30 14:43] LABS: HBSAg Index 0.21 S/CO (0-0.99); Hep B Surf Ag Non-Reactive S/CO (NonReactive)
[2017-10-30 18:38] LABS: Hep B Surf AB Reactive (NonReactive)
[2017-10-30 18:39] VITALS: BP 122/58; TEMP 98.4
== END 2017-10-30 19:15 ==
LOC: ERS 22:26 → 2NO 22:45
PROVIDERS: ADMIT Hospitalist; ATTEND Hospitalist
DX: R41.0 Disorientation, unspecified (principal); I13.0 Hypertensive heart and chronic kidney disease with heart failure and stage 1 through stage 4 chronic kidney disease, or unspecified chronic kidney disease; N18.6 End stage renal disease; I50.9 Heart failure, unspecified; R07.9 Chest pain, unspecified; G93.49 Other encephalopathy; G30.9 Alzheimer's disease, unspecified; F02.81 Dementia in other diseases classified elsewhere, unspecified severity, with behavioral disturbance; B18.2 Chronic viral hepatitis C; D47.3 Essential (hemorrhagic) thrombocythemia; I48.0 Paroxysmal atrial fibrillation; N25.81 Secondary hyperparathyroidism of renal origin; I27.20 Pulmonary hypertension, unspecified; Z86.73 Personal history of transient ischemic attack (TIA), and cerebral infarction without residual deficits; Z86.718 Personal history of other venous thrombosis and embolism; Z79.82 Long term (current) use of aspirin; Z79.899 Other long term (current) drug therapy; Z88.2 Allergy status to sulfonamides; Z88.5 Allergy status to narcotic agent; Z88.8 Allergy status to other drugs, medicaments and biological substances; Z99.2 Dependence on renal dialysis
CPT/HCPCS: 80048; 84484 ×2; 85025; 86706; 87340; 93306; 99285; G0378 ×2; 36415; 90935; G0257; J1644

== ENCOUNTER 2017-11-16 14:15 | Inpatient (IN) | payer MEDICARE, MEDICAID ==
[2017-11-16 17:46] LABS: CKMB 0.6 ng/mL (0-6.6); Troponin I 0.013 ng/mL (< 0.028)
[2017-11-16] MEDS ORDERED: Ondansetron HCl/PF 4 MG/2 ML Vial IVP PRN ×2 (19:24→20:23)
[2017-11-16] MEDS ORDERED: Ondansetron ODT 4 MG TAB SL PRN (19:24)
[2017-11-16] MEDS ORDERED: Acetaminophen 325 MG TAB PO PRN ×2 (19:24→20:23)
[2017-11-16 20:09] LABS: Troponin I 0.013 ng/mL (< 0.028)
[2017-11-16] MEDS ORDERED: Acetaminophen 650 MG Suppository PR PRN (20:23)
[2017-11-16] MEDS ORDERED: Ondansetron ODT 4 MG TAB PO PRN (20:23)
[2017-11-16 20:35] VITALS: BMI 23.7
[2017-11-16] MEDS ORDERED: Sevelamer Carbonate 800 MG TAB PO SCH (20:45)
[2017-11-16] MEDS: Latanoprost 0.005% Ophth Soln 2.5 ml Bottle EA EYE SCH (21:46)
[2017-11-16] MEDS: Brimonidine Tartrate 0.2% Ophth Soln 5 ml Bottle EA EYE SCH (21:46)
[2017-11-16] MEDS: Famotidine 20 MG TAB PO SCH (21:48)
[2017-11-16] MEDS: Heparin 5,000 UNITS/ML VIAL SC SCH (21:48)
[2017-11-16] MEDS: hydrALAZINE 10 MG TAB PO SCH (21:48)
[2017-11-16] MEDS: Terazosin HCl 5 MG CAP PO SCH (21:49)
[2017-11-16 23:02] LABS: CKMB 0.8 ng/mL (0-6.6); Troponin I 0.015 ng/mL (< 0.028)
[2017-11-17 06:07] LABS: Anion Gap 16 mmol/L (10-20); BUN (Urea Nitrogen) 43 mg/dL (9.8-20.1); Calc. Creatinine Clearance 6 mL/min (70-130); Calcium 9.1 mg/dL (7.8-10.44); Carbon Dioxide 27 mmol/L (23-31); Chloride 102 mmol/L (98-107); Estimated GFR-MDRD 7; Glucose 79 mg/dL (83-110); Magnesium 2.2 mg/dL (1.6-2.6); Potassium 4.8 mmol/L (3.5-5.1); Sodium 140 mmol/L (136-145)
[2017-11-17 06:13] LABS: #Basophils 0.1 thou/uL (0.0-0.2); #Eosinphils 0.1 thou/uL (0.0-0.7); #Lymphocytes 1.1 thou/uL (1.20-3.40); #Monocytes 0.4 thou/uL (0.11-0.59); %Basophils 0.8 % (0.0-1.0); %Eosinophils 1.4 % (0.0-10.0); %Neutrophils 74.8 % (42.0-75.0); Hemoglobin 8.9 g/dL (12.0-16.0); Mean Corpuscular Hemoglobin 35.5 pg (27.0-31.0); Mean Platelet Volume 6.1 fL (7.4-10.4); Platelet Count 759 thou/uL (130-400); RBC Distribution Width 16.8 % (11.5-14.5); White Blood Cell (WBC) Count 6.7 thou/uL (4.8-10.8)
[2017-11-17] MEDS: Heparin 5,000 UNITS/ML VIAL SC SCH ×3 (08:22→21:09)
[2017-11-17] MEDS: Aspirin 81 mg Enteric Coated Tablet PO SCH (08:23)
[2017-11-17] MEDS: Famotidine 20 MG TAB PO SCH (08:23)
[2017-11-17] MEDS: Hydroxyurea 500 MG CAP PO SCH (08:23)
[2017-11-17] MEDS: Sevelamer Carbonate 800 MG TAB PO SCH ×3 (08:23→18:12)
[2017-11-17] MEDS: Multivit, Therapeutic 1 TAB PO SCH (08:23)
[2017-11-17] MEDS: hydrALAZINE 10 MG TAB PO SCH ×3 (08:23→21:08)
[2017-11-17] MEDS: Minoxidil 2.5 MG TAB PO SCH (08:24)
[2017-11-17] MEDS: Amlodipine 5 MG TAB PO SCH (08:24)
[2017-11-17] MEDS: Brimonidine Tartrate 0.2% Ophth Soln 5 ml Bottle EA EYE SCH ×2 (08:25→21:09)
[2017-11-17] MEDS ORDERED: Sterile Water 10 ML VIAL IVP SCH (15:00)
[2017-11-17] MEDS ORDERED: Activase 2 MG VIAL CATH SCH (15:00)
--- NOTE | 2017-11-17 15:43 | CON ---
DATE OF CONSULTATION: 11/17/2017 REASON FOR CONSULTATION: Syncope. HISTORY OF PRESENT ILLNESS: Ms. Sears is an 81-year-old woman with a history of end-stage renal di sease. She is a patient of Dr. Nima Wick. She recently was found ____. History is very difficu lt to obtain. She is confused. She has underlying dementia. She has no previous history of signifi cant bradycardia. PAST MEDICAL HISTORY: Paroxysmal atrial fibrillation, CVA, hepatitis, DVT, hyperparathyroidism, thro mbocytosis, dialysis shunt, shoulder surgery. ALLERGIES: Include CHLORHEXIDINE, MORPHINE, and SULFA. HOME MEDICATIONS: Extracted from the chart include hydralazine, Renvela, MiraLax, multivitamin, shola xidil, Hydrea, Tums, aspirin, and Norvasc. REVIEW OF SYSTEMS: Difficult to obtain. PHYSICAL EXAMINATION: VITAL SIGNS: Blood pressure 132/60, pulse 49, respirations 20. GENERAL: The patient is currently confused. NEUROLOGIC: The patient is alert and oriented times 3 with no focal neurologic deficits. HEENT: Sclerae without icterus. Mouth has moist mucous membranes with normal pallor. NECK: No JVD. Carotid upstroke brisk. No bruits bilaterally. LUNGS: Clear to auscultation with unlabored respirations. BACK: No scoliosis or kyphosis. CARDIAC: Regular rate and rhythm with normal S1 and S2. No S3 or S4 noted. No significant rubs, murmurs, thrills, or gallops noted throughout the precordium. PMI is not displaced. There is no parasternal heave. ABDOMEN: Soft, nontender, nondistended. No peritoneal signs present. No hepatosplenomegaly. No abnormal striae. EXTREMITIES: 2+ femoral and 2+ dorsalis pedis pulses. No cyanosis, clubbing, or edema. SKIN: No gross abnormalities. PERTINENT LABS: Hemoglobin 8.9, creatinine 6.73, magnesium 2.2, potassium 4.8. EKG shows sinus bradycardia with left axis deviation. Review of telemetry monitoring shows heart rat e in the 40s while asleep, but mainly in the 50s to 60s during waking hours. IMPRESSION: 1. Syncope. 2. End-stage renal disease. 3. Paroxysmal atrial fibrillation. RECOMMENDATIONS: Based on the chart, it appears she has a high risk for bleeding and fall. They hav e opted to not proceed with anticoagulation therapy. Her syncope may be bradycardic induced. Discus sed case with Dr. Tobias Crawford. At this point, given that her heart rate is stable during the day, we would recommend an implantable loop recorder. Given her dementia, I am not sure how compliant she w ill be with a 3-week event recorder. I discussed the case with Gabriela, her power of therapist occupational, who agre es and would like to proceed. I would like to monitor her overnight. If stable overnight, we then jessica manjarrez with a plan of loop recorder in a.m.
[2017-11-17] MEDS: Latanoprost 0.005% Ophth Soln 2.5 ml Bottle EA EYE SCH (21:08)
[2017-11-17] MEDS: Terazosin HCl 5 MG CAP PO SCH (21:08)
--- NOTE | 2017-11-17 23:17 | CON ---
DATE OF CONSULTATION: 11/17/2017 SERVICE: Renal Medicine. HISTORY OF PRESENT ILLNESS: Ms. Sears is an 81-year-old black female with ESRD and admitted for br adycardia with associated syncopal episode. On examination today, is quite confused. She has been evaluated by Cardiology and there is a tentati ve plan to have the patient proceed with a pacemaker? We are being consulted for maintenance hemodia lysis. We attempted to do dialysis today, but unfortunately the dialysis catheter was nonfunctional. I have then decided to apply overnight - Activase in the hope that the dialysis catheter will impro ve by tomorrow. If no improvement, we may need to consult Surgery for a new dialysis catheter placem ent. REVIEW OF SYSTEMS: ? of syncopal episode. No chest pain or shortness of breath. Positive for confu eran. No diarrhea, no constipation, no fever or chills, no abdominal pain. Appetite and energy al l is fair. MEDICATIONS: The patient is currently on Norvasc 2.5 mg once a day, Ecotrin 81 mg q.a.m., Alphagan e ye drop as directed, Pepcid 20 mg every day, heparin 5000 units subcu t.i.d., hydralazine 10 mg p.o. t.i.d., hydroxyurea 500 mg daily, minoxidil 2.5 mg at bedtime, multivitamin daily, p.r.n. Zofran, sev elamer 800 mg 2 tabs t.i.d. with meals. PAST MEDICAL HISTORY: 1. ESRD on maintenance hemodialysis. 2. History of dementia. 3. Status post paroxysmal atrial fibrillation. 4. History of chronic hepatitis C. 5. Longstanding hypertension. 6. Status post CVA. 7. History of essential thrombocytosis. PAST SURGICAL HISTORY: 1. Status post laparoscopic cholecystectomy. 2. Status post IVC filter placement. 3. Status post AV fistula placement. 4. Status post ventral hernia repair. 5. Status post upper and lower GI endoscopy. 6. Status post AV fistula placement. 7. Status post cuffed dialysis catheter placement. SOCIAL HISTORY: The patient lives in a jail in [place]. She has 3 children. Education , high school. No alcohol use, no drug abuse, no smoking. Status post blood transfusion. ALLERGIES: SULFA. TRAUMA: None. IMMUNIZATIONS: Up to date. HOSPITALIZATIONS: Please see past medical history. FAMILY HISTORY: Positive family history of ESRD. One sister on dialysis. ALLERGIES: The patient is known to be allergic to SULFA and BETADINE. PHYSICAL EXAMINATION: VITAL SIGNS: Blood pressure is noted at, currently is 173/68, heart rate 49, respiratory rate 20, te mperature 97.8, pulse ox 95%. GENERAL: Noted to be awake, comfortable, not in overt distress. SKIN: Adequate turgor. HEENT: She has slightly pale conjunctivae, anicteric sclerae. NECK: No neck mass, no carotid bruits, no JVD. CHEST: No deformities. LUNGS: Clear breath sounds. HEART: Normal sinus rhythm. No murmur, no gallops, no rubs. ABDOMEN: Globular, soft, nontender. No masses. EXTREMITIES: No edema, no deformities. LABORATORY DATA: On 11/17/2017, white count 6.7, hemoglobin 8.9, hematocrit 26.9. Sodium 140, potas sium 4.8, chloride 102, carbon dioxide 27, BUN 43, creatinine 6.73, glucose 79, calcium 9.1, magnesiu m 2.2. IMAGIN. Chest x-ray, increased lung markings. 2. CT scan of the head, no acute intracranial abnormality. ASSESSMENT AND PLAN: 1. Essential thrombocytosis. Continue hydroxyurea. 2. Anemia. We will resume back Epogen 7500 units subcutaneously every week. 3. End-stage renal disease - stable. Unable to use dialysis catheter tip. We will apply overnight Activase and resume hemodialysis scheduled tomorrow for 3 hours. 4. Bradycardia. Cardiology is following. Overall, agree with current management.
[2017-11-18] MEDS ORDERED: Heparin 10,000 UNITS/ 10 ML VIAL ONE (09:00)
[2017-11-18] MEDS ORDERED: Lidocaine 1% w/Epinephrine 1:100K 30 ML VIAL ONE (09:34)
[2017-11-18] MEDS: hydrALAZINE 10 MG TAB PO SCH ×3 (10:33→21:27)
[2017-11-18] MEDS: Heparin 5,000 UNITS/ML VIAL SC SCH ×3 (10:33→21:27)
[2017-11-18] MEDS: Sevelamer Carbonate 800 MG TAB PO SCH ×3 (10:33→18:01)
--- NOTE | 2017-11-18 10:50 | PDOC.CTH ---
<Flaca Lennon - Last Filed: 11/18/17 10:48> Cardiology Progress Note - Subjective No complaints, but demented. Undergoing HD. - Objective Vital Signs Temp Pulse Resp BP Pulse Ox 11/18/17 10:33 46 L 11/18/17 07:15 46 L 92/44 L 11/18/17 04:55 97.8 F 55 L 16 135/58 L 93 L Weight 120 lb 11.2 oz 11/17/17 11/18/17 11/19/17 06:59 06:59 06:59 Intake Total 680 Balance 680 - Physical Examination General/Neuro: other: (Alert and awake) Lungs: CTA Heart: RRR Abdomen: NT/ND - Telemetry Telemetry Rhythm: SBrady 40-50s - Labs Result Diagrams: 11/17/17 05:10 11/17/17 05:10 Troponin/CKMB CK-MB (CK-2) 0.8 ng/mL (0-6.6) 11/16/17 22:29 Troponin I 0.015 ng/mL (< 0.028) 11/16/17 22:29 - Assessment/Plan 1. s/p syncopal episode 2. Bradycardia 3. ESRD on HD 4. Dementia Patient with documented bradycardia pulse rates in the 40s. Due to dementia cannot directly correlate symptoms. High risk for recurrent syncope. Would suggest pacer rather than LINQ given syncopal episode. Dr. Jerez to see today. <Darren Rosa - Last Filed: 11/18/17 14:18> Cardiology Progress Note - Objective Vital Signs Temp Pulse Resp BP BP Pulse Ox 11/18/17 10:53 46 L 124/57 L 11/18/17 10:47 98 F 67 16 124/57 L 97 11/18/17 10:33 46 L 11/18/17 07:15 46 L 92/44 L 11/18/17 04:55 97.8 F 55 L 16 135/58 L 93 L Weight 120 lb 11.2 oz 11/17/17 11/18/17 11/19/17 06:59 06:59 06:59 Intake Total 680 Balance 680 - Labs Result Diagrams: 11/17/17 05:10 11/17/17 05:10 Troponin/CKMB CK-MB (CK-2) 0.8 ng/mL (0-6.6) 11/16/17 22:29 Troponin I 0.015 ng/mL (< 0.028) 11/16/17 22:29 - Assessment/Plan Pt seen and examined. Agree with above. Pt with decrease HR near 40 today at 7am. Symptoms will be very difficult to elicit At this point, given she was found slumped over with HR int he low 40's, it is likely ailyn related. Consult with Yvette on Monday
[2017-11-18] MEDS: Famotidine 20 MG TAB PO SCH (10:53)
[2017-11-18] MEDS: Amlodipine 5 MG TAB PO SCH (10:53)
[2017-11-18] MEDS: Hydroxyurea 500 MG CAP PO SCH (10:54)
[2017-11-18] MEDS: Multivit, Therapeutic 1 TAB PO SCH (10:54)
[2017-11-18] MEDS: Aspirin 81 mg Enteric Coated Tablet PO SCH (10:54)
[2017-11-18] MEDS: Brimonidine Tartrate 0.2% Ophth Soln 5 ml Bottle EA EYE SCH ×2 (10:54→21:26)
[2017-11-18] MEDS: Minoxidil 2.5 MG TAB PO SCH (10:54)
--- NOTE | 2017-11-18 12:42 | EKG ---
Test Reason : Blood Pressure : / mmHG Vent. Rate : 056 BPM Atrial Rate : 056 BPM P-R Int : 170 ms QRS Dur : 080 ms QT Int : 472 ms P-R-T Axes : 110 -36 112 degrees QTc Int : 455 ms Sinus bradycardia Left axis deviation Nonspecific T wave abnormality Abnormal ECG Confirmed by KAYLI THOMPSON, DARIN ([id number]), photograph editor SY JACKSON ([id number]) on 11/18/2017 12:42:08 PM Referred By: Confirmed By:DARIN MILAN MD
[2017-11-18] MEDS ORDERED: Lorazepam 0.5 MG TAB PO SCH (13:30)
[2017-11-18] MEDS: Latanoprost 0.005% Ophth Soln 2.5 ml Bottle EA EYE SCH (21:26)
[2017-11-18] MEDS: Terazosin HCl 5 MG CAP PO SCH (21:27)
[2017-11-18] MEDS: Haloperidol Lactate 5 MG/ML VIAL SLOW IVP PRN (22:36)
[2017-11-19] MEDS: Haloperidol Lactate 5 MG/ML VIAL SLOW IVP PRN (02:15)
[2017-11-19] MEDS ORDERED: Nitroglycerin 2% Ointment 1 INCH/1 GM Packet TOP SCH (04:15)
[2017-11-19] MEDS: Sevelamer Carbonate 800 MG TAB PO SCH ×3 (09:29→18:13)
[2017-11-19] MEDS: Amlodipine 5 MG TAB PO SCH (09:29)
[2017-11-19] MEDS: Aspirin 81 mg Enteric Coated Tablet PO SCH (09:30)
[2017-11-19] MEDS: hydrALAZINE 10 MG TAB PO SCH ×3 (09:30→21:40)
[2017-11-19] MEDS: Hydroxyurea 500 MG CAP PO SCH (09:30)
[2017-11-19] MEDS: Heparin 5,000 UNITS/ML VIAL SC SCH ×3 (09:30→21:39)
[2017-11-19] MEDS: Famotidine 20 MG TAB PO SCH (09:30)
[2017-11-19] MEDS: Brimonidine Tartrate 0.2% Ophth Soln 5 ml Bottle EA EYE SCH ×2 (09:30→22:23)
[2017-11-19] MEDS: Minoxidil 2.5 MG TAB PO SCH (09:31)
[2017-11-19] MEDS: Multivit, Therapeutic 1 TAB PO SCH (09:31)
--- NOTE | 2017-11-19 10:28 | PDOC.CTH ---
Cardiology Progress Note - Subjective Alert and awake. No ROS able to obtain. - ROS not able to obtain ROS - Objective Vital Signs Temp Pulse Resp BP Pulse Ox 11/19/17 09:30 57 L 93 L 11/19/17 09:29 57 L 11/19/17 09:24 98.1 F 57 L 14 126/62 93 L 11/19/17 04:00 98.6 F 61 18 184/79 H 98 Weight 120 lb 11.2 oz 11/18/17 11/19/17 11/20/17 06:59 06:59 06:59 Intake Total 680 575 Output Total 800 Balance 680 -225 - Physical Examination General/Neuro: other: (Alert and awake) Neck: no JVD present Lungs: CTA Heart: RRR Abdomen: NT/ND - Telemetry Telemetry Rhythm: SBrady 40s-50s - Labs Result Diagrams: 11/17/17 05:10 11/17/17 05:10 Troponin/CKMB CK-MB (CK-2) 0.8 ng/mL (0-6.6) 11/16/17 22:29 Troponin I 0.015 ng/mL (< 0.028) 11/16/17 22:29 - Assessment/Plan 1. s/p syncopal episode 2. Bradycardia 3. ESRD on HD 4. Dementia Will keep NPO tomorrow and plan for possible pacer.
--- NOTE | 2017-11-19 10:46 | PRG ---
DATE OF SERVICE: 11/18/2017 SUBJECTIVE: Ms. Sears is undergoing hemodialysis. I am at the bedside supervising her dialysis. She was initially admitted for near syncopal episode and bradycardia. Cardiology has evaluated this patient. Cardiology consult with Dr. Crawford will be made on Monday. She is so far tolerating her dial ysis. OBJECTIVE: VITAL SIGNS: Blood pressure is noted at 124/57, heart rate 67, respiratory rate 16, temperature 98, pulse ox 97%. GENERAL: Awake, alert, confused, not in distress. SKIN: Adequate turgor. HEENT: She has slightly pale conjunctivae, anicteric sclerae. NECK: No neck mass, no carotid bruits, no JVD. CHEST: No deformities. LUNGS: Clear breath sounds. HEART: Normal sinus rhythm. No murmur, no gallops, no rubs. ABDOMEN: Globular, soft, nontender. EXTREMITIES: No edema. MEDICATIONS: Of 11/18/2017 was reviewed. LABORATORY DATA: Of 11/17/2017 was reviewed. ASSESSMENT AND PLAN: 1. Bradycardia - Cardiology has evaluated the patient. She will be referred to the EP Cardiology - Dr. Crawford on Monday. 2. End-stage renal disease, stable. Tolerating current hemodialysis regimen. Dialysis catheter has much improved blood flow. Activase was applied overnight. We will resume back Monday, Monday, F dialysis schedule with this patient. Overall doing better.
--- NOTE | 2017-11-19 12:04 | PRG ---
DATE OF SERVICE: 11/19/2017 SUBJECTIVE: Ms. Sears is an 81-year-old black female with ESRD. She was admitted for near syncopa l episode with bradycardia. Currently, Cardiology is following, recommendation is to have Dr. Yvette aguirre the EP Service evaluate this patient. No other complaints today. The patient still noted to be qu ite confused. OBJECTIVE: VITAL SIGNS: Blood pressure 126/62, heart rate 57, respiratory rate 14, temperature 98.1, pulse ox 9 3%. GENERAL: She is awake, but confused, not in overt distress. SKIN: Adequate turgor. HEENT: Slightly pale conjunctivae, anicteric sclerae. NECK: No neck mass, no carotid bruits, no JVD. CHEST: No deformities. LUNGS: Decreased breath sounds. HEART: Normal sinus rhythm. No murmur, no gallops, no rubs. ABDOMEN: Globular, soft, nontender, no masses. EXTREMITIES: No edema, no deformities. MEDICATIONS: Medications of 11/19/2017 was reviewed. LABORATORY DATA: Laboratories of 11/17/2017, hemoglobin 8.9. On 11/16/2017, glucose 97. On 018, potassium 4.8, BUN 43, creatinine 6.73. ASSESSMENT AND PLAN: 1. End-stage renal disease, stable. We will continue current hemodialysis regimen of Monday, , and Monday. Please note, the patient underwent hemodialysis yesterday and the catheter had good blood flow after overnight Activase. Continue current management. We will resume back on a Monday, Monday, Monday dialysis session. 2. Anemia. We will start this patient back on her Epogen at 7500 units subcutaneously every week. 3. Thrombocytosis - essential - on Hydrea. 4. Near syncopal episode/bradycardic - Cardiology is following for a possible EP study.
[2017-11-19] MEDS: Terazosin HCl 5 MG CAP PO SCH (21:39)
[2017-11-19] MEDS: Latanoprost 0.005% Ophth Soln 2.5 ml Bottle EA EYE SCH (21:42)
[2017-11-20 05:17] LABS: #Basophils 0.1 thou/uL (0.0-0.2); #Eosinphils 0.1 thou/uL (0.0-0.7); #Lymphocytes 1.2 thou/uL (1.20-3.40); #Monocytes 0.4 thou/uL (0.11-0.59); #Neutrophils 4.4 thou/uL (1.40-6.50); %Lymphocytes 19.9 % (21.0-51.0); %Monocytes 6.3 % (0.0-10.0); %Neutrophils 71.8 % (42.0-75.0); Hemoglobin 8.8 g/dL (12.0-16.0); Mean Corpuscular HGB CONC 33.9 g/dL (32.0-36.0); Mean Corpuscular Hemoglobin 36.2 pg (27.0-31.0); Mean Platelet Volume 6.2 fL (7.4-10.4); Platelet Count 705 thou/uL (130-400); RBC Distribution Width 16.7 % (11.5-14.5); Red Blood Cell (RBC) Count 2.43 mill/uL (4.20-5.40); White Blood Cell (WBC) Count 6.1 thou/uL (4.8-10.8)
[2017-11-20 05:34] LABS: Anion Gap 14 mmol/L (10-20); BUN (Urea Nitrogen) 40 mg/dL (9.8-20.1); Calc. Creatinine Clearance 6 mL/min (70-130); Carbon Dioxide 27 mmol/L (23-31); Chloride 97 mmol/L (98-107); Estimated GFR-MDRD 7; Glucose 84 mg/dL (83-110); Potassium 4.4 mmol/L (3.5-5.1); Sodium 134 mmol/L (136-145)
[2017-11-20] MEDS: Sevelamer Carbonate 800 MG TAB PO SCH ×3 (08:24→16:39)
[2017-11-20] MEDS: Heparin 5,000 UNITS/ML VIAL SC SCH ×3 (08:25→21:08)
[2017-11-20] MEDS: hydrALAZINE 10 MG TAB PO SCH ×3 (08:25→21:54)
[2017-11-20] MEDS: Amlodipine 5 MG TAB PO SCH (08:25)
--- NOTE | 2017-11-20 08:58 | PRG ---
DATE OF SERVICE: 11/20/2017 SUBJECTIVE: Ms. Sears is an 81-year-old black female with known history of ESRD. She is currently undergoing dialysis. I am at the bedside supervising her dialysis. No new complaints. The patient continues to be confused. She was initially admitted for near syncopal episode with meli stinson. PHYSICAL EXAMINATION: VITAL SIGNS: Blood pressure is 139/59, heart rate 55, respiratory rate 17, temperature 96.7, pulse o x 95%. GENERAL: Awake, confused, not in overt distress. SKIN: Adequate turgor. HEENT: She has slightly pale conjunctivae, anicteric sclerae. NECK: No neck mass, no carotid bruits, no JVD. CHEST: No deformities. LUNGS: Clear breath sounds. No wheezing, no crackles. HEART: Heart is bradycardic. No murmur, no gallops or rubs. ABDOMEN: Globular, soft, nontender, no masses. EXTREMITIES: No edema, no deformities. MEDICATIONS: 11/20/2017 - Reviewed. LABORATORY: 11/20/2017 - White count 6.1, hemoglobin 8.8. Sodium 134, potassium 4.4, chloride 97, c arbon dioxide 27, BUN 40, creatinine 6.52, glucose 84, calcium 9. ASSESSMENT AND PLAN: 1. End-stage renal disease, stable. Continuing current hemodialysis regimen of Monday, Monday, . Fluid removal as tolerated. 2. Sinus bradycardia - Cardiology is following. 3. Anemia, hemoglobin noted at 8.8. Consider starting this patient on her weekly Epogen 7500 units subcutaneously every week. 4. Confusion - underlying dementia. Supportive care. Recheck CBC in the a.m.
[2017-11-20] MEDS ORDERED: Epoetin (ESRD) 20,000 UNITS/ML SC SCH (09:00)
--- NOTE | 2017-11-20 11:32 | CON ---
DATE OF CONSULTATION: 11/20/2017 REFERRING PHYSICIAN: Dr. Darren Rosa HISTORY: I am seeing Mrs. Sears at our [facility] telemetry floor as an electrophysiology beauty consultant. Her problems are: 1. Questionable history of syncope. 2. Sinus bradycardia. 3. History of paroxysmal atrial fibrillation in the past. 4. Advanced dementia. 5. End-stage renal disease on hemodialysis, dialyzing with the left subclavian dialysis catheter. 6. History of thrombocytopenia. 7. History of hyperparathyroidism. 8. Prior history of stroke. 9. Hepatitis C. 10. History of deep venous thrombosis. 11. Risk factors including diabetes. ALLERGIES: CHLORHEXIDINE, MORPHINE, SULFA. MEDICATIONS AT HOME: Included aspirin, sevelamer, multivitamin, calcium carbonate, polyethylene glyc ol, minoxidil, Latanoprost, hydroxyurea, brimonidine, Tylenol, amlodipine, hydralazine. SUBJECTIVE: Ms. Sears is a very poor historian. She is hard of hearing and demented. Most of the history is obtained from the chart. This woman has had issues with encephalopathy with an admission in October which periodically worsened her baseline dementia. She came in with a history of synco pe. She was noted to have bradycardia on initial EKGs in the low 50s, but periodically lower heart r ates in the low 40s were also seen. Bradycardia gradually improved during hospitalization, but still currently under 50s and 60s. Currently not profoundly asymptomatic. No recurrent syncope is noted. No fever, chills, cough. The rest of the review of systems otherwise unremarkable. There is no particular medication noted on admission, which could have caused her bradycardia. Laboratory value did not reveal excessive potassium abnormalities, potassium was 4.8. REVIEW OF SYSTEMS: The rest of the 10-point review of systems otherwise unremarkable and unavailable . No history of chest pains, no fever, chills, or cough. No stroke-like symptoms documented. OBJECTIVE DATA: VITAL SIGNS: Blood pressure is 139/59, heart rate 55, respirations 17, temperature 96.7 degrees Fahr enheit. On admission blood pressure 137/65, heart rate 75, respirations 16, temperature 97.4 degrees Fahrenheit. GENERAL: She is an alert and oriented woman x1 only. She is cachectic, chronically ill appearing. Left subclavian dialysis catheter site is in place. CARDIOVASCULAR: Heart sounds are regular to rate and rhythm. No murmur or gallop. NECK: Without excessive jugular venous distention. CHEST: Coarse without crackles. CARDIAC: Heart sounds are regular to rate and rhythm. No gallop is noted. ABDOMEN: Benign. Bowel sounds positive. EXTREMITIES: Lower extremities without edema, clubbing or cyanosis. Pulses are adequate. NEUROLOGIC: Nonfocal. SKIN: Without rash. LABORATORY: Sodium 134, potassium 4.4, BUN is 40, creatinine 6.52. Potassium is 4.8, white count 6. 1, hemoglobin 8.8, platelet count is 705. EKGs again reviewed. Initial EKG; sinus rhythm at 56 beats per minute. Telemetry strips reviewed revealing occasional heart rate in the 40s in the first days of admission. Currently, mostly sinus bradycardia in the 50s to 60s, mostly at nighttime bradycardia is noted. ASSESSMENT AND PLAN: Ms. Sears is an 81-year-old woman with end-stage renal disease, hepatitis, pr ior stroke, possible atrial fibrillation who presented with a possible syncopal spell and bradycardia on admission. There is no obvious reason for the bradycardia, but seems to have improved during her hospitalization. Currently she is asymptomatic. I discussed this case with Dr. Rosa. Naturally, there is a good likelihood that her bradycardia is associated with her presenting symptoms. On the other hand, she is less than ideal patient for l héctor-term pacing therapy, hence the chronic dialysis and indwelling catheter in place. I am not compl etely clear about the initial events as far as the syncopal spell goes, documentation is somewhat sca nt, hence her dementia was difficult to get better on this. Her bradycardia is significant initially , but has improved. I think it is reasonable to continue observation. A loop recorder implantation is a possible choice which could also help us monitor her atrial fibrillation episodes. I will discuss with Dr. Rosa.
[2017-11-20] MEDS ORDERED: Lidocaine 1% w/Epinephrine 1:100K 30 ML VIAL ONE (11:41)
--- NOTE | 2017-11-20 13:00 | OP ---
DATE OF PROCEDURE: 11/20/2017 LOOP RECORDER INSERTION REPORT REFERRING PHYSICIAN: Dr. Wick. REASON FOR PROCEDURE: Syncope and bradycardia. PROCEDURE: The patient's chest was prepped, draped and anesthetized using subcutaneous lidocaine. T he 4th intercostal space incision was made with a standard tool kit. A [employer] LINQ recorder was i mplanted, the serial number [id number]. CONCLUSION: Successful LINQ recorder placement. PLAN: Continue monitoring.
[2017-11-20] MEDS: Multivit, Therapeutic 1 TAB PO SCH (13:44)
[2017-11-20] MEDS: Famotidine 20 MG TAB PO SCH (13:45)
[2017-11-20] MEDS: Hydroxyurea 500 MG CAP PO SCH (13:46)
[2017-11-20] MEDS: Aspirin 81 mg Enteric Coated Tablet PO SCH (13:46)
[2017-11-20] MEDS: Brimonidine Tartrate 0.2% Ophth Soln 5 ml Bottle EA EYE SCH ×2 (13:48→21:07)
[2017-11-20] MEDS: Minoxidil 2.5 MG TAB PO SCH (13:49)
--- NOTE | 2017-11-20 15:00 | PDOC.PN ---
- Subjective Encounter Start Date: 11/20/17 Encounter Start Time: 14:58 Subjective: Verbal, but dementia at baseline. Confused and incomprehisible. - Objective Resuscitation Status: Resuscitation Status FULL:Full Resuscitation Vital Signs & Weight: Vital Signs (12 hours) Temp Pulse Resp BP BP Pulse Ox 11/20/17 13:46 55 L 128/60 11/20/17 08:25 55 L 11/20/17 08:00 96.7 F L 55 L 17 139/59 L 95 11/20/17 03:48 98.6 F 58 L 18 143/64 H 97 Weight Weight 120 lb I&O: 11/19/17 11/20/17 11/21/17 06:59 06:59 06:59 Intake Total 575 480 Output Total 800 Balance -225 480 Result Diagrams: 11/20/17 04:38 11/20/17 04:32 Additional Labs: Accuchecks 11/20/17 11/20/17 11/19/17 11:15 05:50 20:30 POC Glucose 86 92 109 11/19/17 16:46 POC Glucose 94 Phys Exam - Physical Examination Constitutional: NAD Respiratory: no wheezing, no rales, no rhonchi Cardiovascular: RRR, no significant murmur Gastrointestinal: soft, non-tender, no distention, positive bowel sounds Musculoskeletal: no edema Psychiatric: normal affect Deviation from normal: Confused. Dx/Plan (1) Syncope Code(s): R55 - SYNCOPE AND COLLAPSE Status: Acute Comment: Possibly related to bradycardia. Had LINQ placed today. Challenging patient for PPM placement so extra care taken to try to confirm the dx of bradycardia related syncope. (2) Dementia Code(s): F03.90 - UNSPECIFIED DEMENTIA WITHOUT BEHAVIORAL DISTURBANCE Status: Chronic Comment: Stable. Monitor; delirium precautions. (3) ESRD (end stage renal disease) on dialysis Code(s): N18.6 - END STAGE RENAL DISEASE; Z99.2 - DEPENDENCE ON RENAL DIALYSIS Status: Chronic Comment: Nephrology following. Continue HD. (4) Essential thrombocytosis Code(s): D47.3 - ESSENTIAL (HEMORRHAGIC) THROMBOCYTHEMIA Status: Chronic Comment: Stable (5) Hypertension Code(s): I10 - ESSENTIAL (PRIMARY) HYPERTENSION Status: Chronic Qualifiers: Comment: - Plan * Anticipate discharge in am.
[2017-11-20] MEDS: Latanoprost 0.005% Ophth Soln 2.5 ml Bottle EA EYE SCH (21:07)
[2017-11-20] MEDS: Terazosin HCl 5 MG CAP PO SCH (21:47)
[2017-11-21 05:14] LABS: #Basophils 0.1 thou/uL (0.0-0.2); #Monocytes 0.5 thou/uL (0.11-0.59); #Neutrophils 3.9 thou/uL (1.40-6.50); %Eosinophils 0.8 % (0.0-10.0); %Monocytes 8.2 % (0.0-10.0); %Neutrophils 70.9 % (42.0-75.0); Hemoglobin 8.8 g/dL (12.0-16.0); Mean Corpuscular HGB CONC 33.4 g/dL (32.0-36.0); Mean Corpuscular Hemoglobin 35.8 pg (27.0-31.0); Mean Platelet Volume 6.1 fL (7.4-10.4); Platelet Count 715 thou/uL (130-400); RBC Distribution Width 16.2 % (11.5-14.5); Red Blood Cell (RBC) Count 2.47 mill/uL (4.20-5.40); White Blood Cell (WBC) Count 5.5 thou/uL (4.8-10.8)
[2017-11-21] MEDS: Sevelamer Carbonate 800 MG TAB PO SCH ×2 (09:07→12:07)
--- NOTE | 2017-11-21 09:11 | PRG ---
DATE OF SERVICE: 11/21/2017 SERVICE: Renal Medicine. SUBJECTIVE: Ms. Sears is an 81-year-old black female with ESRD and followed up by the Renal Servic e for maintenance hemodialysis. She underwent hemodialysis yesterday successfully without any diffic ulty. She was initially admitted for bradycardia and near syncopal episode. Cardiology has evaluate d the patient. Dr. Crawford placed a [employer] LINQ recorder with the patient. She is doing well this m orning. Denies any shortness of breath, but some mild chest pain around the incision site. PHYSICAL EXAMINATION: VITAL SIGNS: Blood pressure is 157/65, heart rate 51, respiratory rate 19, temperature 98.7, pulse o x 98%. GENERAL EXAM: Awake, alert, comfortable, not in distress. SKIN: Adequate turgor. HEENT: Slightly pale conjunctivae, anicteric sclerae. NECK: No neck mass, no carotid bruits, no JVD. CHEST: No deformities. LUNGS: Clear breath sounds. HEART: Normal sinus rhythm. No murmur, no gallops, no rubs. ABDOMEN: Globular, soft, nontender, no masses. EXTREMITIES: No edema. Medications of 11/21/2017 reviewed. LABORATORY DATA: Laboratories, 11/21/2017, white count 5.5, hemoglobin 8.8. Sodium 134, potassium 4 .4, chloride 97, carbon dioxide 27, BUN 40, creatinine 6.52, calcium 9. ASSESSMENT AND PLAN: 1. End-stage renal disease, stable. Continue current hemodialysis regimen Monday, Monday, and . 2. Bradycardia/near syncopal episode. Cardiology following, status post LINQ recorder placement. 3. Anemia, continuing weekly Epogen.
[2017-11-21] MEDS: Brimonidine Tartrate 0.2% Ophth Soln 5 ml Bottle EA EYE SCH (09:33)
[2017-11-21] MEDS: Hydroxyurea 500 MG CAP PO SCH (09:34)
[2017-11-21] MEDS: Famotidine 20 MG TAB PO SCH (09:34)
[2017-11-21] MEDS: Multivit, Therapeutic 1 TAB PO SCH (09:35)
[2017-11-21] MEDS: hydrALAZINE 10 MG TAB PO SCH (09:35)
[2017-11-21] MEDS: Minoxidil 2.5 MG TAB PO SCH (09:36)
[2017-11-21] MEDS: Amlodipine 5 MG TAB PO SCH (09:36)
[2017-11-21] MEDS: Aspirin 81 mg Enteric Coated Tablet PO SCH (09:37)
[2017-11-21] MEDS: Heparin 5,000 UNITS/ML VIAL SC SCH (09:37)
--- NOTE | 2017-11-21 13:54 | PDOC.CTH ---
<Zoila Boyer - Last Filed: 11/21/17 15:26> Cardiology Progress Note - Subjective EP progress note: Patient seen and evaluated. baseline dementia. Unable to complete ROS. More conversational today but remains disoriented. - ROS not able to obtain ROS - Objective Vital Signs Temp Pulse Resp BP BP Pulse Ox 11/21/17 09:36 51 L 170/74 H 11/21/17 09:35 51 L 170/74 H 11/21/17 08:05 97.9 F 51 L 18 170/74 H 97 11/21/17 04:34 157/65 H 11/21/17 03:47 98.7 F 51 L 19 96 Weight 121 lb 8 oz 11/20/17 11/21/17 11/22/17 06:59 06:59 06:59 Intake Total 480 360 Output Total 1000 Balance 480 -640 - Physical Examination General/Neuro: NAD Neck: no JVD present Lungs: unlabored respirations Heart: RRR Abdomen: NT/ND - Telemetry Telemetry Rhythm: SR, SB - Labs Result Diagrams: 11/21/17 04:41 11/20/17 04:32 Troponin/CKMB CK-MB (CK-2) 0.8 ng/mL (0-6.6) 11/16/17 22:29 Troponin I 0.015 ng/mL (< 0.028) 11/16/17 22:29 - Assessment/Plan 1. Possible syncope s/p LINQ implantable loop recorder placed 11/20/17 2. Sinus bradycardia, seems asymptomatic 3. Remote hx of PAF 4. Advanced dementia 5. ESRD on HD 6. CHADS-VASC: 6 (age, female, prior CVA, diabetes) high risk for bleeding from OAC with her advanced dementia. No AF on tele. monitor via ILR. continue ASA No clear indication for pacemaker. Continues to have sinus bradycardia, mostly during HS but mid 40s today on tele without recurrent syncopal episodes. Will continue to watch for arrhythmias that may contribute to possible syncope via ILR after DC. Ok for DC by EP. No atrial fibrillation seen on tele this hospitalization but ILR will allow us to watch for recurrence. With her dementia she is a poor candidate for anticoagulation. Continue Aspirin 81mg QD. <Tobias Crawford - Last Filed: 11/23/17 11:45> Cardiology Progress Note - Objective Weight 121 lb 8 oz - Labs Result Diagrams: 11/21/17 04:41 11/20/17 04:32 Troponin/CKMB CK-MB (CK-2) 0.8 ng/mL (0-6.6) 11/16/17 22:29 Troponin I 0.015 ng/mL (< 0.028) 11/16/17 22:29 Attending Addendum - Attending Addendum Date/Time: 11/23/17 [id number] I personally evaluated the patient and discussed the management with Ms Boyer. I agree with the History, Examination, Assessment and Plan documented above with any addition or exceptions noted below.
[2017-11-21 17:52] VITALS: BP 132/67; TEMP 98.2
--- NOTE | 2017-11-22 11:22 | HP ---
DATE OF ADMISSION: 11/16/2017 TIME OF SERVICE: 16:15 PRIMARY CARE PHYSICIAN: Sam Hadley MD CHIEF COMPLAINT: Syncope. HISTORY OF PRESENT ILLNESS: Ms. Sears is an 81-year-old [place] female with history of dementia, known bradycardia, and prior syncopal episodes, who was at her long-term care facility and was being transferred from wheelchair to a commode and became unresponsive and went limp. She was only out for a short period of time and EMS was immediately activated. By EMS arrival, her heart rate was in the 40s, but she came to and was transported to the emergency department for evaluation. Her workup in the ER showed her to be bradycardic, but otherwise unremarkable. We were subsequently called for adm it. The patient is demented and unable to give any further history. PAST MEDICAL HISTORY: 1. Diabetes mellitus per notes, but the family denied in the ER. 2. End-stage renal disease, on hemodialysis. 3. Heart failure, unknown type. 4. Essential thrombocytosis. 5. Hyperparathyroidism, secondary to renal disease. 6. Paroxysmal atrial fibrillation. 7. History of stroke in the past. 8. Hepatitis C. 9. History of DVT. PAST SURGICAL HISTORY: Dialysis fistula of right forearm, PermCath to the left upper chest prior, ri ght shoulder surgery. HOME MEDICATIONS: 1. Aspirin 81 mg a day. 2. Alphagan 0.15%, 1 drop each eye b.i.d. 3. Latanoprost 0.05%, 1 drop each eye at bedtime. 4. Minoxidil 2.5 mg daily. 5. Multivitamin daily. 6. MiraLax 17 grams daily. 7. Renvela 1600 mg p.o. t.i.d. with meals. 8. Norvasc 2.5 mg daily. 9. Hydralazine 10 mg p.o. t.i.d. 10. Hydrea 500 mg p.o. daily. 11. Calcium carbonate 400 mg. 12. Calcium 1000 mg tablets 1 p.o. at bedtime. ALLERGIES: CHLORHEXIDINE, MORPHINE, and SULFA. FAMILY HISTORY: Unknown. Per prior notes, no history of clotting or bleeding disorder. No immune d ysfunction. SOCIAL HISTORY: She lives in a long-term care facility. Negative habits x3. REVIEW OF SYSTEMS: Not obtainable due to dementia. PHYSICAL EXAMINATION: VITAL SIGNS: Temperature 97.4, pulse 75, blood pressure 137/65, respiratory rate 16, satting 96% on room air. GENERAL: She is awake. She is alert. She is oriented to person only. She is in no acute distress. HEENT: Normocephalic and atraumatic. Pupils equal, round, reactive to light bilaterally. Mucous me mbranes are moist. There are no visible lesions or thrush. NECK: Supple. She has no lymphadenopathy, no JVD. She has a quiet carotid bruit present on the lef t, but not the right. LUNGS: Clear to auscultation bilaterally. She has good air movement. Symmetric chest excursion. N o wheezes, no rales, no rhonchi. CARDIOVASCULAR: She is normocardic currently and regular. She has normal S1 and S2. No S3 or S4. ABDOMEN: Soft, is nontender, nondistended. She has good bowel sounds in all 4 quadrants. EXTREMITIES: Show no cyanosis, no clubbing with trace pedal edema. Right upper extremity fistula monae s a palpable thrill. SKIN: Otherwise, warm, moist, well perfused. She has no other rashes or lesions. NEUROLOGIC EXAM: Not testable due to patient not following commands. Her cranial nerves appear to b e intact. LABORATORY DATA: From [place] ER shows white blood cell count to be 9.1, hemoglobin is 10.9, he matocrit of 32.2, and platelet count is 718,000. She has a fairly normal differential. Sodium is 140, potassium 4.4, chloride 99, bicarbonate 29, BUN 26, creatinine 4.90, glucose 95, calci um 9.7. Her liver function within normal limits. Her CK was normal at 0.6 and troponin I was 0.025 with a repeat of 0.013. Her BNP was elevated at 783.9. Urinalysis was normal. RADIOGRAPHIC STUDIES: She had a brain CT that showed no acute cardiopulmonary disease. Her chest x- ray showed some pulmonary vascular engorgement and some mild volume overload. EKG, done at the outside facility, showed sinus bradycardia, heart rate of 56. ASSESSMENT AND PLAN: 1. Syncope and collapse. The patient did not have any injuries due to this, as she was obtunded and was caught as she passed out. 2. Sinus bradycardia, symptomatic. I will monitor her overnight, with Cardiology input in the [facility]. Serial cardiac biomarkers in the meantime. 3. End-stage renal disease, on hemodialysis Monday, Monday, and Monday. We will consult Nephrolo gy. She is due for dialysis tomorrow. 4. Dementia without any behavioral episodes at this point. 5. Thrombocytosis, historically currently stable. 6. Glaucoma, chronic. Continue home medications. 7. Secondary hyperparathyroidism of renal origin. We will continue home medications. 8. Chronic hepatitis C. 9. Paroxysmal atrial fibrillation, currently in sinus rhythm and rate is controlled too well.
--- NOTE | 2017-11-22 14:23 | DIS ---
DATE OF ADMISSION: 11/16/2017 DATE OF DISCHARGE: 11/21/2017 DISCHARGE DIAGNOSES: 1. Syncope. 2. Bradycardia. 3. Dementia. 4. End-stage renal disease. 5. Essential thrombocytosis. 6. Hypertension. HISTORY: The patient is an 81-year-old female who has some underlying dementia, who presented via [facility] Emergency Department with a syncopal episode and noted to have some bradycardia. The patient appar ently was seen initially in [place] and sent here for cardiac coverage. HOSPITAL COURSE: The patient was noted to be in low normal heart rate here initially. She was subse quently admitted for further evaluation. The patient was admitted and placed on telemetry and seen i n consultation by Nephrology for her chronic end-stage renal disease and the patient remained on hemo dialysis throughout. She was seen in consultation by Cardiology, who felt the patient may have sympt omatic bradycardia. EP was consulted and given the patient's overall dementia, end-stage renal disea se, and vascular issues with renal access felt she was a challenging patient for pacemaker placement and it was not entirely clear that this was a bradycardic syncope. Therefore, the decision was made to place a LINQ monitor. Subsequently, this was performed. The patient did well overnight. Follow up chest x-ray was normal and the patient was felt to be stable for discharge to home. PHYSICAL EXAMINATION: VITAL SIGNS: On the day of discharge, temperature 98.2, pulse 50, respirations 16, O2 sat 96% on mary m air, BP 132/67. GENERAL APPEARANCE: Age-appropriate female. She is in no distress. She is awake, alert, but confus ed. HEART: Regular, bradycardic. No murmur. LUNGS: Clear. ABDOMEN: Benign. EXTREMITIES: Warm and dry. DISPOSITION: The patient is discharged back to her skilled nursing facility. She is to have a renal di et and activity as tolerated. DISCHARGE MEDICATIONS: Include aspirin, Renvela, multivitamin, Tums, MiraLax, minoxidil, latanoprost , Hydrea, Alphagan, acetaminophen, Norvasc, and Apresoline. She is to follow up with Dr. Rosa in 14 days, Dr. Crawford in 3-4 weeks, and Dr. Francois in 7 day s. She can return to the emergency department should she have any problems prior to that time.
== END 2017-11-21 18:15 | disposition home or self-care (01) | DRG 260 ==
LOC: ERS 14:15 → 2NO 18:53
PROVIDERS: ADMIT Internal Medicine Infectious Disease; ATTEND Internal Medicine Infectious Disease
PROC: 5A1D70Z Performance of Urinary Filtration, Intermittent, Less than 6 Hours Per Day (ICD-10-PCS; 2017-11-17)
PROC: 5A1D70Z Performance of Urinary Filtration, Intermittent, Less than 6 Hours Per Day (ICD-10-PCS; 2017-11-18)
PROC: 0JH602Z Insertion of Monitoring Device into Chest Subcutaneous Tissue and Fascia, Open Approach (ICD-10-PCS; principal; 2017-11-20)
PROC: 5A1D70Z Performance of Urinary Filtration, Intermittent, Less than 6 Hours Per Day (ICD-10-PCS; 2017-11-20)
DX: R00.1 Bradycardia, unspecified (principal); N18.6 End stage renal disease; N25.81 Secondary hyperparathyroidism of renal origin; I12.0 Hypertensive chronic kidney disease with stage 5 chronic kidney disease or end stage renal disease; R55 Syncope and collapse; F03.90 Unspecified dementia, unspecified severity, without behavioral disturbance, psychotic disturbance, mood disturbance, and anxiety; Z99.2 Dependence on renal dialysis; I50.9 Heart failure, unspecified; I48.0 Paroxysmal atrial fibrillation; D47.3 Essential (hemorrhagic) thrombocythemia; H40.9 Unspecified glaucoma; B18.2 Chronic viral hepatitis C; D64.9 Anemia, unspecified; Z88.5 Allergy status to narcotic agent; Z88.2 Allergy status to sulfonamides; Z79.82 Long term (current) use of aspirin; Z86.73 Personal history of transient ischemic attack (TIA), and cerebral infarction without residual deficits; Z86.718 Personal history of other venous thrombosis and embolism
CPT/HCPCS: 33282; 36415; 36416; 80048; 83735; 85025; 90935; 93005; A4216; C1732; C1764; G0257; G8978-GP-CM; G8979-GP-CK; G8987-GO-CK; G8988-GO-CJ; J1630; J1644; J2001; J2997; Q4081

== ENCOUNTER 2018-01-20 16:56 | Emergency (ER) | payer MEDICARE, MEDICAID ==
[2018-01-20] MEDS ORDERED: Lorazepam 2 MG/ML VIAL ONE (17:10)
[2018-01-20 18:27] LABS: Bilirubin Negative (Negative); Blood, Urine Negative (Negative); Clarity CLEAR (Clear); Glucose, Urine (Dipstick) Negative (Negative); Leukocyte Small (Negative); Nitrite Negative (Negative); Protein, Urine (Dipstick) 100 mg/dL (Neg-Trace); Urobilinogen 0.2 mg/dL (0.2-1.0)
[2018-01-20 18:31] LABS: Bacteria/HPF None Seen HPF (None Seen); Hyaline Casts/LPF 0-3 HYALINE CAST LPF (0-3 Hyaline); Pathc Cast-AUWi Flag 0.58 (0-2.49); RBC/HPF 0-3 HPF (0-3)
[2018-01-20 18:37] LABS: Renal Epithelial None Seen HPF (0-3); Transitional Epithelial NONE SEEN HPF (0-3)
--- NOTE | 2018-01-20 18:58 | RAD ---
CHEST ONE VIEW: 01/20/18 COMPARISON: 11/16/17. HISTORY: Altered mental status. FINDINGS: Stable right sided hemosplit dialysis catheter. There is atherosclerosis of the aorta. Enlarged cardi ac silhouette. Pulmonary vessels are prominent. Possible interstitial edema. No consolidation or mass es. No pleural effusion. Stable elevation of the right hemidiaphragm. No pneumothorax. IMPRESSION: Volume overload. POS: LARISSA
--- NOTE | 2018-01-20 19:01 | RAD ---
ONE VIEW PELVIS: 01/20/18 COMPARISON: 02/06/15 HISTORY: Fall. Pain. FINDINGS: Redemonstration of calcified uterine leiomyomas. Evaluation of the sacral ala is limited. Sacroiliac joints are essentially unchanged. Bony pelvis appears to be intact. Contour of both femoral heads are maintained. Symmetric hip joint spaces. IMPRESSION: No posttraumatic change. POS: JEREMI
--- NOTE | 2018-01-20 19:11 | RAD ---
TWO VIEWS RIGHT SHOULDER: 01/20/18 HISTORY: Fall. Pain. evaluate for dislocation. FINDINGS: Based on the images provided, the humeral head appears to be appropriately located. No evidence of fr acture. The distal right clavicle is high riding. There is concern for type III AC joint separation. IMPRESSION: Possible type III AC joint separation. POS: [facility]
--- NOTE | 2018-01-20 20:56 | CT ---
CT CERVICAL SPINE WITHOUT CONTRAST: 01/20/18 COMPARISON: 04/30/17. HISTORY: Fall. Pain. FINDINGS: Stable straightening of the normal cervical lordosis with stable anterolisthesis of C7 upon T1 and T1 upon T2. Cervical spine vertebral body height is maintained. No cervical spine fracture. Appropriate articulation of the lateral masses of C1 and C2. Appropriate articulation of the facets. There is fa cet hypertrophy. Intact odontoid process. Soft tissue neck structures are unremarkable. heterogeneous , enlarged thyroid gland. Varying degrees of significant central canal stenosis and significant foraminal narrowing on the basi s of degenerative change. Evaluation is limited by technique. IMPRESSION: 1. No cervical spine fracture. 2. Enlarged, heterogeneous thyroid gland. Nonemergent thyroid ultrasound. POS: [facility]
--- NOTE | 2018-01-20 20:59 | CT ---
CT THORACIC SPINE 12/29/17 HISTORY: Fall. Pain. COMPARISON: None. FINDINGS: Degenerative changes with loss of disc space height and osteophyte formation. Vacuum disc phenomenon at multiple levels. Thoracic spine vertebral body height is maintained. No thoracic spine fracture. The visualized mediastinal structures, solid organs are grossly unremarkable. There is bilateral alma l cortical atrophy. Note is made of an IVC filter. The visualized lung parenchyma demonstrates chroni c change. No suspicious masses. Trachea and central bronchi are patent. Limited evaluation of the central spinal canal and neural foramina. No evidence of high grade central canal stenosis. IMPRESSION: No fracture. POS: [facility]
--- NOTE | 2018-01-20 21:31 | CT ---
CT LUMBAR SPINE WITHOUT CONTRAST: 01/20/18 HISTORY: Fall. Pain. COMPARISON: None. FINDINGS: There is atherosclerosis of a nonaneurysmal aorta. IVC filter is noted. There is bilateral renal jayde ical atrophy. Exophytic cyst emanates from the upper pole of the right kidney measuring 1.4 cm. Gallb ladder is surgically absent. 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 Sacrum is intact. Lumbar spine vertebral body heights are maintained. No fracture. Spondylolisthesis, without evidence of spondylolysis. Multilevel vacuum disc phenomenon. Limited evaluation of the contents of the centra l spinal canal and neural foramina. There is moderate central canal stenosis at L1-L2. There is moder ate to severe central canal stenosis at L2-L3, L3-L4. There is severe central canal stenosis at L4-L5 . There is multilevel mild to moderate neural foraminal narrowing. IMPRESSION: 1. No evidence of a lumbar spine fracture. 2. Significant central canal stenosis at multiple levels as described above. POS: [facility]
== END 2018-01-20 19:17 | disposition home or self-care (01) ==
LOC: ERS 16:56
DX: S43.101A Unspecified dislocation of right acromioclavicular joint, initial encounter (principal); I13.2 Hypertensive heart and chronic kidney disease with heart failure and with stage 5 chronic kidney disease, or end stage renal disease; I50.9 Heart failure, unspecified; F03.90 Unspecified dementia, unspecified severity, without behavioral disturbance, psychotic disturbance, mood disturbance, and anxiety; E05.90 Thyrotoxicosis, unspecified without thyrotoxic crisis or storm; I48.0 Paroxysmal atrial fibrillation; Z86.73 Personal history of transient ischemic attack (TIA), and cerebral infarction without residual deficits; Z86.718 Personal history of other venous thrombosis and embolism; Z79.899 Other long term (current) drug therapy; W01.0XXA Fall on same level from slipping, tripping and stumbling without subsequent striking against object, initial encounter
CPT/HCPCS: 36416; 51701; 71045; 72125; 72128; 72131; 72170; 81003; 81015; 96372; A4353; J2060

== ENCOUNTER 2018-01-22 17:34 | Emergency (ER) | payer MEDICARE, MEDICAID ==
[2018-01-22] MEDS ORDERED: Lorazepam 2 MG/ML VIAL ONE (17:53)
[2018-01-22 18:04] LABS: #Eosinphils 0.1 thou/uL (0.0-0.7); #Lymphocytes 1.5 thou/uL (1.20-3.40); #Monocytes 0.7 thou/uL (0.11-0.59); #Neutrophils 9.3 thou/uL (1.40-6.50); %Basophils 0.2 % (0.0-1.0); %Eosinophils 0.5 % (0.0-10.0); %Lymphocytes 13.1 % (21.0-51.0); %Monocytes 6.4 % (0.0-10.0); Hemoglobin 11.9 g/dL (12.0-16.0); Mean Corpuscular HGB CONC 34.7 g/dL (32.0-36.0); Mean Corpuscular Hemoglobin 37.3 pg (27.0-31.0); Platelet Count 880 thou/uL (130-400); RBC Distribution Width 14.5 % (11.5-14.5); Red Blood Cell (RBC) Count 3.18 mill/uL (4.20-5.40); White Blood Cell (WBC) Count 11.7 thou/uL (4.8-10.8)
[2018-01-22 18:22] LABS: ALT (SGPT) Less than 7 U/L (8-55); AST (SGOT) 18 U/L (5-34); Albumin 4.2 g/dL (3.4-4.8); Alkaline Phosphatase 79 U/L (40-150); Anion Gap 15 mmol/L (10-20); BUN (Urea Nitrogen) 31 mg/dL (9.8-20.1); Bilirubin, Total 0.5 mg/dL (0.2-1.2); Calc. Creatinine Clearance 0 mL/min (70-130); Calcium 9.5 mg/dL (7.8-10.44); Carbon Dioxide 29 mmol/L (23-31); Chloride 96 mmol/L (98-107); Estimated GFR-MDRD 9; Globulin 3.8 g/dL (2.4-3.5); Glucose 106 mg/dL (83-110); Lipase 28 U/L (8-78); Potassium 4.1 mmol/L (3.5-5.1); Sodium 136 mmol/L (136-145)
--- NOTE | 2018-01-22 19:04 | RAD ---
FRONTAL RADIOGRAPH CHEST: 01/22/2018 HISTORY: Dialysis patient. Altered mental status. COMPARISON: 01/20/2018 FINDINGS: Stable loop recorder, right upper quadrant postoperative clips, IVC filter, and left-sided dialysis c atheter. Stable elevation of the right hemidiaphragm. Pulmonary vascular congestion and mild perihi lar interstitial prominence noted, stable. No pneumothorax, lobar consolidation, or alveolar edema. IMPRESSION: No acute findings. Stable appearance of the chest. POS: [facility]
--- NOTE | 2018-01-22 19:45 | CT ---
CT HEAD WITHOUT CONTRAST: 01/22/2018 HISTORY: Altered mental status. COMPARISON: 11/16/2017 TECHNIQUE: Axial CT imaging at 5 mm intervals, from the vertex through the skull base, without contrast. FINDINGS: The visualized paranasal sinuses and mastoid air cells are well aerated. No displaced calvarial frac ture. There is atherosclerotic calcification of the basilar artery and the cavernous carotid arterie s. Old small peripheral infarction noted in the left cerebellar hemisphere. No intracranial hemorrh age, midline shift, mass effect, or ventricular enlargement. IMPRESSION: Stable head CT. No acute findings. POS: [facility]
[2018-01-22 19:59] LABS: Bilirubin Negative (Negative); Blood, Urine Negative (Negative); Clarity CLEAR (Clear); Glucose, Urine (Dipstick) Negative (Negative); Leukocyte Trace (Negative); Nitrite Negative (Negative); Protein, Urine (Dipstick) 100 mg/dL (Neg-Trace); Specific Gravity, Urine 1.011 (1.002-1.036); Urobilinogen 0.2 mg/dL (0.2-1.0); pH, Urine 8.5 (5.0-9.0)
[2018-01-22 20:01] LABS: Bacteria/HPF None Seen HPF (None Seen); Hyaline Casts/LPF 0-3 HYALINE CAST LPF (0-3 Hyaline); Pathc Cast-AUWi Flag 0.29 (0-2.49); RBC/HPF None Seen HPF (0-3); Squamous Epithelial 0-3 HPF (0-3); WBC/HPF 0-3 HPF (0-3)
[2018-01-22 20:04] LABS: Renal Epithelial None Seen HPF (0-3); Transitional Epithelial 0-3 HPF (0-3)
== END 2018-01-22 22:11 ==
LOC: ERS 17:34
DX: R41.82 Altered mental status, unspecified (principal); I12.0 Hypertensive chronic kidney disease with stage 5 chronic kidney disease or end stage renal disease; N18.6 End stage renal disease; Z99.2 Dependence on renal dialysis; D47.3 Essential (hemorrhagic) thrombocythemia; F03.90 Unspecified dementia, unspecified severity, without behavioral disturbance, psychotic disturbance, mood disturbance, and anxiety; E21.3 Hyperparathyroidism, unspecified; I48.0 Paroxysmal atrial fibrillation; Z86.73 Personal history of transient ischemic attack (TIA), and cerebral infarction without residual deficits; D64.9 Anemia, unspecified; Z86.718 Personal history of other venous thrombosis and embolism; Z79.899 Other long term (current) drug therapy
CPT/HCPCS: 51701; 70450; 71045; 80053; 81003; 81015; 83690; 85025; 87086; 93005; 96374; A4353; J2060

== ENCOUNTER 2018-05-09 14:30 | Observation (INO) | payer MEDICARE, MEDICAID ==
[2018-05-09 16:17] LABS: #Eosinphils 0.1 thou/uL (0.0-0.7); #Lymphocytes 0.8 thou/uL (1.20-3.40); #Monocytes 0.6 thou/uL (0.11-0.59); #Neutrophils 10.4 thou/uL (1.40-6.50); %Basophils 0.3 % (0.0-1.0); %Eosinophils 0.6 % (0.0-10.0); %Lymphocytes 6.9 % (21.0-51.0); %Monocytes 5.3 % (0.0-10.0); Hemoglobin 10.3 g/dL (12.0-16.0); Mean Corpuscular HGB CONC 33.1 g/dL (32.0-36.0); Mean Corpuscular Hemoglobin 35.6 pg (27.0-31.0); Mean Platelet Volume 6.1 fL (7.4-10.4); Platelet Count 874 thou/uL (130-400); Red Blood Cell (RBC) Count 2.88 mill/uL (4.20-5.40); White Blood Cell (WBC) Count 11.9 thou/uL (4.8-10.8)
[2018-05-09 16:23] LABS: PTT 29.9 SEC (22.9-36.1)
[2018-05-09 16:32] LABS: Anisocytosis SLIGHT = 6-15 cells (100X) (0-5/hpf); MDiff Complete? YES; Macrocytosis SLIGHT = 6-15 cells (100X) (0-5/hpf); Platelet Morphology Comment Appears Increased; Polychromasia SLIGHT = 2-3 cells (100X) (0-2/hpf)
[2018-05-09 17:33] LABS: Anion Gap 22 mmol/L (10-20); BUN (Urea Nitrogen) 71 mg/dL (9.8-20.1); Calc. Creatinine Clearance 0 mL/min (70-130); Carbon Dioxide 25 mmol/L (23-31); Chloride 98 mmol/L (98-107); Estimated GFR-MDRD 4; Glucose 104 mg/dL (83-110); Potassium 6.5 mmol/L (3.5-5.1); Sodium 138 mmol/L (136-145)
[2018-05-09] MEDS ORDERED: Sterile Water 10 ML VIAL IVP SCH (21:15)
[2018-05-09] MEDS ORDERED: Activase 2 MG VIAL CATH SCH (21:30)
[2018-05-09] MEDS ORDERED: Ondansetron ODT 8 MG TAB ONE (22:41)
[2018-05-09] MEDS ORDERED: Dextrose 5% in Water 1,000 ML IV PRN (23:55)
[2018-05-09] MEDS ORDERED: hydrALAZINE 20 MG/ML VIAL SLOW IVP PRN (23:55)
[2018-05-09] MEDS ORDERED: Dextrose 50% Abboject 50 ML SYRINGE SLOW IVP PRN (23:55)
[2018-05-09] MEDS ORDERED: HumaLOG 300 UNITS/3 ML VIAL SC PRN ×2 (23:55)
[2018-05-09] MEDS ORDERED: Acetaminophen 325 MG TAB PO PRN (23:55)
[2018-05-10 01:02] LABS: HBSAg Index 0.27 S/CO (0-0.99); Hep B Surf Ag Non-Reactive S/CO (NonReactive)
--- NOTE | 2018-05-10 01:23 | HP ---
PRIMARY CARE PHYSICIAN: Unknown. CHIEF COMPLAINT: The patient had accidental administration of Cathflo into her dialysis catheter and hyperkalemia. HISTORY OF PRESENT ILLNESS: Ms. Sears is an 82-year-old female, who has advanced dementia and is unable to give me any history. She apparently resides at a nursing facility and apparently she was at the [facility] dialysis and it is believed that about 4 mg of Cathflo was pushed through the fistula. This is the reason that she was brought to the emergency room. In the ER, they did some routine lab studies on her and found that her potassium was elevated and for this reason, she is being placed in observation overnight and then to have the AV fistula looked at in the morning. Otherwise, the patient appears to be comfortable. She is lying in the bed. She says that she is just a little bit cool. She denies any complaints other than some mild nausea. REVIEW OF SYSTEMS: All systems were reviewed and are negative except for that mentioned in the history of present illness. PAST MEDICAL HISTORY: Significant for diabetes mellitus; congestive heart failure, unknown type; end-stage renal disease, on hemodialysis; essential thrombocytosis, secondary hyperparathyroidism, atrial fibrillation, hepatitis C, and history of DVT. PAST SURGICAL HISTORY: She has had a fistula placed to the right arm. ALLERGIES: TO CHLORHEXIDINE, MORPHINE, AND SULFA. FAMILY HISTORY: Unknown and unobtainable due to the patient's dementia. SOCIAL HISTORY: She is a nonsmoker and nondrinker. Code status is listed as full code. MEDICATIONS: Medications are taken from sealed electronic records and include; 1. Amlodipine 2.5 mg daily. 2. Aspirin 81 mg daily. 3. Brimonidine 0.15% ophthalmic in both eyes twice a day. 4. Hydralazine 10 mg t.i.d. 5. Hydroxyurea 500 mg once daily. 6. Latanoprost 0.005% into both eyes at bedtime. 7. Minoxidil 2.5 mg daily. 8. Polyethylene glycol 17 g daily. 9. Renvela 800 mg two tablets 3 times a day. 10. Tums 200/500 mg once daily. 11. Tylenol 650 mg q.6 hours as needed. PHYSICAL EXAMINATION: GENERAL: She is awake and alert, but confused. VITAL SIGNS: Blood pressure was 142/82, heart rate 66, respiratory rate is 16, temperature is 97.5, and O2 saturation was 97% on room air. HEENT: Pupils are equal, round, and reactive. Extraocular muscles are intact. Her sclerae are anicteric. Throat, no erythema, no exudates. NECK: No adenopathy. No bruits. LUNGS: Clear to auscultation. No wheezing. No rales. No rhonchi. CARDIOVASCULAR: Normal S1 and S2. There is no S3 or S4. No murmurs, clicks, or rubs. ABDOMEN: Soft. It is nontender and nondistended. Positive for bowel sounds. No rebound. No guarding. EXTREMITIES: There is no edema. No significant joint effusions. NEUROLOGIC: Cranial nerves 2 through 12 are grossly intact. Muscle strength is intact. LABORATORY RESULTS: White blood cell count is 11.9, hemoglobin 10.3, hematocrit is 31, and platelet count is 874. INR is 1.0. Sodium 138, potassium 6.5, chloride is 98, CO2 is 25, BUN of 71, and creatinine 10.5. Her EKG is sinus rhythm, the rate is in the 70s and there is no ST wave changes, this is by my reading. ASSESSMENT: 1. This is a pleasant 82-year-old female who was sent over from [facility] due to concerns of the Cathflo being accidentally pushed through the fistula. She appears to be clinically stable from that standpoint; however, her potassium was found to be elevated. She is being placed in observation and Nephrology is being consulted. She will likely need to have urgent dialysis in the morning. At that time, the dialysis catheter/AV fistula can be examined further. We will recheck her hemoglobin and hematocrit in the a.m. 2. Diabetes mellitus. We will continue her home medications as well as a sliding scale. 3. Atrial fibrillation. Her heart rate is currently in sinus. She does not appear to be on anticoagulation. 4. Essential thrombocytosis. Continue hydroxyurea and she will be placed on deep venous thrombosis and gastrointestinal prophylaxis. Job ID: [id number]
[2018-05-10 03:32] LABS: #Eosinphils 0.1 thou/uL (0.0-0.7); #Monocytes 0.8 thou/uL (0.11-0.59); #Neutrophils 11.3 thou/uL (1.40-6.50); %Basophils 0.3 % (0.0-1.0); %Eosinophils 0.6 % (0.0-10.0); %Lymphocytes 7.4 % (21.0-51.0); %Monocytes 6.2 % (0.0-10.0); %Neutrophils 85.5 % (42.0-75.0); Hemoglobin 9.4 g/dL (12.0-16.0); Mean Corpuscular HGB CONC 33.4 g/dL (32.0-36.0); Mean Corpuscular Hemoglobin 35.6 pg (27.0-31.0); Platelet Count 831 thou/uL (130-400); RBC Distribution Width 14.8 % (11.5-14.5); Red Blood Cell (RBC) Count 2.64 mill/uL (4.20-5.40); White Blood Cell (WBC) Count 13.2 thou/uL (4.8-10.8)
[2018-05-10 03:49] LABS: Anion Gap 20 mmol/L (10-20); BUN (Urea Nitrogen) 74 mg/dL (9.8-20.1); Calc. Creatinine Clearance 0 mL/min (70-130); Calcium 9.7 mg/dL (7.8-10.44); Carbon Dioxide 26 mmol/L (23-31); Chloride 104 mmol/L (98-107); Estimated GFR-MDRD 4; Glucose 88 mg/dL (83-110); Potassium 5.6 mmol/L (3.5-5.1); Sodium 144 mmol/L (136-145)
[2018-05-10 07:24] VITALS: BMI 26.4
[2018-05-10] MEDS: Sevelamer Carbonate 800 MG TAB PO SCH ×3 (09:53→17:00)
[2018-05-10] MEDS: Amlodipine 5 MG TAB PO SCH (09:53)
[2018-05-10] MEDS: Hydroxyurea 500 MG CAP PO SCH (09:54)
[2018-05-10] MEDS: hydrALAZINE 10 MG TAB PO SCH ×3 (09:54→21:50)
[2018-05-10] MEDS: Aspirin 81 mg Enteric Coated Tablet PO SCH (09:54)
[2018-05-10] MEDS: Multivitamin W/ Minerals 1 TAB PO SCH (09:54)
[2018-05-10] MEDS: Minoxidil 2.5 MG TAB PO SCH (09:54)
[2018-05-10] MEDS: Polyethylene Glycol 3350 17 GM Packet PO SCH (09:54)
--- NOTE | 2018-05-10 11:10 | CON ---
DATE OF CONSULTATION: SERVICE: Renal Medicine. SUBJECTIVE: Ms. Sears is an 82-year-old black female, who was sent due to the accidental administration of Cathflo. Her Cathflo that was inside the catheter was pushed inside. It was limited amount that was pushed. She was seen in the ER for evaluation of this problem. Bleeding parameters were normal and she showed no active bleeding. However, during the initial workup, her potassium was noted to be elevated. For that reason, it was decided to keep her. Her potassium was 6.5. We also applied another Activase in the catheter-intraluminally to see if it could improve the blood flow from the dialysis catheter. She also received Kayexalate and lactulose. No other complaints today. REVIEW OF SYSTEMS: Occasional confusion. No chest pain or shortness of breath. No nausea. No vomiting. No diarrhea. No constipation. No gross hematuria. No dysuria. No hematemesis. No melena. No hematochezia. Occasional joint pains. MEDICATIONS: 1. Amlodipine 2.5 mg once a day. 2. Ecotrin 81 mg q.a.m. 3. Alphagan eye drop as directed. 4. Tums 500 mg at bedtime. 5. Hydralazine 10 mg p.o. t.i.d. 6. Hydrea 500 mg p.o. daily. 7. Humalog sliding scale. 8. Multivitamin daily. 9. Minoxidil 2.5 mg at bedtime. 10. MiraLAX 17 g daily. 11. Normal saline p.r.n. PAST MEDICAL HISTORY: End-stage renal disease, currently on maintenance hemodialysis; longstanding hypertension; history of chronic hepatitis C; status post CVA; history of essential thrombocytosis; status post paroxysmal atrial fibrillation; history of dementia. PAST SURGICAL HISTORY: Status post laparoscopic cholecystectomy, status post ventral hernia repair, status post AV fistula placement, status post IVC filter placement, status post upper and lower GI endoscopy, status post AV fistula, status post cuffed dialysis catheter placement. SOCIAL HISTORY: The patient lives in a senior care in [place]. She has 3 children. Education, high school. No alcohol. No drug abuse. No smoking. Status post multiple blood transfusion. ALLERGIES: SULFA. TRAUMA: None. IMMUNIZATION: Up-to-date. HOSPITALIZATIONS: Please see past medical history. FAMILY HISTORY: Positive family history of ESRD in one sister, on dialysis. PHYSICAL EXAMINATION: VITAL SIGNS: Blood pressure is noted at 191/79, heart rate 73, respiratory rate 20, temperature 98.8, and pulse ox 94%. GENERAL: She is awake, alert, comfortable, not in overt distress. SKIN: Adequate turgor. HEENT: She has pinkish conjunctivae. Anicteric sclerae. No neck mass. No carotid bruits. No JVD. CHEST: No deformities. LUNGS: Clear breath sounds. HEART: Normal sinus rhythm. No murmurs, no gallops, no rubs. ABDOMEN: Globular, soft, nontender. No masses. EXTREMITIES: No edema. No deformities. LABORATORY DATA: Laboratories of May 10, 2018; white count 13.2, hemoglobin 9.4. Sodium 144, potassium 5.6, chloride 104, carbon dioxide 26, BUN 74, creatinine 11.13. On May 09, 2018, potassium 6.5. Glucose is 88, calcium 9.7. ASSESSMENT AND PLAN: 1. End-stage renal disease-due to a nonfunctioning dialysis catheter. The patient was not dialyzed yesterday. We have again reapplied Activase in the catheter. We will schedule her for dialysis to see if the catheter will be working. 2. Intermittent confusion-the patient has underlying dementia. 3. Essential thrombocytosis-currently on Hydrea. 4. We will recheck. 5. Hyperkalemia, much improved from 6.5 to most recent value of 5.6. We will recheck basic metabolic and CBC in a.m. Job ID: [id number]
[2018-05-10] MEDS ORDERED: Activase 2 MG VIAL CATH SCH (13:45)
[2018-05-10] MEDS: Brimonidine Tartrate 0.2% Ophth Soln 5 ml Bottle EA EYE SCH ×2 (14:59→21:49)
--- NOTE | 2018-05-10 17:17 | PRG ---
DATE OF SERVICE: 05/10/2018 SUBJECTIVE: The patient is a pleasantly demented 82-year-old female with past medical history significant for end-stage renal disease, on dialysis, congestive heart failure, essential thrombocytosis, paroxysmal atrial fibrillation, hep C, and secondary hyperparathyroidism, who presented to the ER after having 4 mg of Cathflo pushed through her tunneled dialysis catheter. Apparently, the catheter is not performing properly. Potassium level was 6.5, so she was brought to the emergency room for further evaluation and treatment. This morning, she is resting comfortably. She is answering questions appropriately regarding her comfort level. She denies any pain at this time. She denies any shortness of breath. She has no nausea or vomiting. OBJECTIVE: VITAL SIGNS: Blood pressure at 09:54 was 191/79, after dialysis and blood pressure medication, her blood pressure now is 119/58, pulse 68, O2 saturation 95% on room air, and respirations 20. GENERAL: The patient is an elderly female, in no acute distress, resting in bed. NECK: Supple. No lymphadenopathy. No JVD. CV: S1 and S2. Regular rate and rhythm. No appreciable murmurs, rubs, or gallops. LUNGS: Regular respiratory rate and pattern. Clear to auscultation bilaterally with no rhonchi, wheezes, or rubs. ABDOMEN: Soft and nontender. Positive bowel sounds. EXTREMITIES: No edema. +2 DP pulses. SKIN: Warm and dry. No rashes. NEUROLOGIC: Cranial nerves 2 through 12 grossly intact. The patient is nonfocal. PSYCHIATRIC: The patient is awake and alert. Seems to be oriented to person, but not place or time, which appears to be her baseline. LABORATORY DATA: White blood cell count 13, hemoglobin 9.4, and hematocrit 28. PT/INR 13 and 1 respectively. Sodium 144, potassium 5.6, chloride 104, BUN 74, creatinine 11.13. Hep B series nonreactive. ASSESSMENT: 1. End-stage renal disease with a malfunctioning tunneled dialysis catheter. 2. Advanced dementia. 3. Essential thrombocytosis, on Hydrea. 4. Hypertension. 5. Paroxysmal atrial fibrillation. 6. Hyperkalemia, improving. 7. Leukocytosis, unclear etiology. PLAN: Nephrology following. Dr. Smith has recommended Activase in the dialysis catheter and will schedule dialysis for tomorrow. We will continue to trend labs. Right now, the patient is afebrile and nontoxic appearing. Further recommendations based on hospital course. Job ID: [id number]
[2018-05-10] MEDS ORDERED: Calcium Carbonate 500 MG ChewTAB PO SCH (21:00)
[2018-05-10] MEDS ORDERED: Latanoprost 0.005% Ophth Soln 2.5 ml Bottle EA EYE SCH (21:00)
[2018-05-11 05:57] LABS: #Basophils 0.1 thou/uL (0.0-0.2); #Eosinphils 0.1 thou/uL (0.0-0.7); #Lymphocytes 0.9 thou/uL (1.20-3.40); #Monocytes 0.8 thou/uL (0.11-0.59); #Neutrophils 10.2 thou/uL (1.40-6.50); %Basophils 0.6 % (0.0-1.0); %Eosinophils 0.7 % (0.0-10.0); %Lymphocytes 7.7 % (21.0-51.0); %Monocytes 6.9 % (0.0-10.0); %Neutrophils 84.2 % (42.0-75.0); Hemoglobin 9.7 g/dL (12.0-16.0); Mean Corpuscular Hemoglobin 35.3 pg (27.0-31.0); Platelet Count 795 thou/uL (130-400); Red Blood Cell (RBC) Count 2.75 mill/uL (4.20-5.40); White Blood Cell (WBC) Count 12.1 thou/uL (4.8-10.8)
[2018-05-11 06:12] LABS: Anion Gap 15 mmol/L (10-20); BUN (Urea Nitrogen) 38 mg/dL (9.8-20.1); Calc. Creatinine Clearance 6 mL/min (70-130); Calcium 9.1 mg/dL (7.8-10.44); Carbon Dioxide 27 mmol/L (23-31); Chloride 100 mmol/L (98-107); Estimated GFR-MDRD 6; Glucose 77 mg/dL (83-110); Potassium 4.4 mmol/L (3.5-5.1); Sodium 138 mmol/L (136-145)
--- NOTE | 2018-05-11 07:27 | PRG ---
DATE OF SERVICE: 05/11/2018 SERVICE: Renal Medicine. SUBJECTIVE: Ms. Sears is an 82-year-old black female with known history of ESRD, on maintenance hemodialysis. She was admitted for some mental status and high potassium 6.5. She underwent hemodialysis. The catheter was partially functional. For this reason, we will continue another dialytic intervention. Furthermore, Activase was applied overnight. Please note, her potassium is noted to be much improved. Her potassium yesterday was 5.6, it is currently 4.4. Our plan is to do another dialytic intervention today. No other complaints today. She does have intermittent confusion from her underlying dementia. OBJECTIVE: VITAL SIGNS: Blood pressure 149/65, heart rate 64, respiratory rate 18, and temperature 98.7. GENERAL: Awake, alert, comfortable, not in distress. SKIN: Adequate turgor. HEENT: Pinkish conjunctivae. Anicteric sclerae. NECK: No neck mass. No carotid bruits. No JVD. CHEST: No deformities. LUNGS: Clear breath sounds. No wheezing. No crackles. HEART: Normal sinus rhythm. No murmur. No gallops. No rubs. ABDOMEN: Globular, soft, nontender. No masses. EXTREMITIES: No edema. No deformities. MEDICATIONS: Medications of May 11, 2018, was reviewed. LABORATORY DATA: Laboratories of May 11, 2018; white count 12.1, hemoglobin 9.7. Sodium 138, potassium 4.4, chloride 100, carbon dioxide 27, BUN 38, creatinine 7.27, glucose 77, and calcium 9.1. ASSESSMENT AND PLAN: 1. End-stage renal disease, stable. We will continue current hemodialysis regimen. I plan to do a 3-to 4-hour hemodialysis with this patient. Activase has been applied to further enhance the functionality of her dialysis catheter. 2. Hyperkalemia, resolved. 3. Essential thrombocytosis - platelet count is 795,000. The patient is on Hydrea. Continue supportive care. Job ID: [id number]
[2018-05-11] MEDS ORDERED: Heparin 10,000 UNITS/ 10 ML VIAL ONE (08:10)
[2018-05-11] MEDS ORDERED: Activase 2 MG VIAL CATH SCH (09:57)
[2018-05-11] MEDS ORDERED: Sterile Water 10 ML VIAL IVP SCH (10:00)
[2018-05-11] MEDS: Sevelamer Carbonate 800 MG TAB PO SCH ×3 (13:26→16:37)
[2018-05-11] MEDS: hydrALAZINE 10 MG TAB PO SCH ×2 (13:28→13:48)
[2018-05-11] MEDS: Amlodipine 5 MG TAB PO SCH (13:30)
[2018-05-11] MEDS: Hydroxyurea 500 MG CAP PO SCH (13:30)
[2018-05-11] MEDS: Aspirin 81 mg Enteric Coated Tablet PO SCH (13:30)
[2018-05-11] MEDS: Minoxidil 2.5 MG TAB PO SCH (13:30)
[2018-05-11] MEDS: Multivitamin W/ Minerals 1 TAB PO SCH (13:31)
[2018-05-11] MEDS: Brimonidine Tartrate 0.2% Ophth Soln 5 ml Bottle EA EYE SCH (13:31)
[2018-05-11] MEDS: Polyethylene Glycol 3350 17 GM Packet PO SCH (13:31)
--- NOTE | 2018-05-11 13:49 | DIS ---
DATE OF ADMISSION: 05/09/2018 DATE OF DISCHARGE: 05/11/2018 ALLERGIES: CHLORHEXIDINE, MORPHINE, AND SULFA. CHIEF COMPLAINT: Malfunctioning tunneled dialysis catheter, hyperkalemia. FINAL DIAGNOSES: 1. Malfunctioning dialysis catheter, status post infusion of cath flow. 2. Hyperkalemia, resolved. 3. End-stage renal disease, on dialysis, followed by Dr. Smith. 4. Essential thrombocytosis. 5. Paroxysmal atrial fibrillation. 6. Hepatitis C. 7. Secondary hyperparathyroidism. 8. Dementia. PROCEDURES PERFORMED: Dialysis session x2. LABORATORY RESULTS: White blood cell count 12.1, hemoglobin 9.7, hematocrit 29.4, MCV 107, and platelet count 795. Sodium 138, potassium 4.4, chloride 100, BUN 38, and creatinine 7.27. Hepatitis B antigen is nonreactive. MENTAL STATUS: Advanced dementia. CONSULTATIONS: Dr. Smith of Nephrology. HOSPITAL COURSE: The patient is a pleasantly demented 82-year-old female with past medical history significant for end-stage renal disease, on dialysis, chronic combined diastolic systolic heart failure, essential thrombocytosis, paroxysmal atrial fibrillation, hepatitis C, and secondary hyperparathyroidism, who presented to the ER after having 4 mg of cath flow pushed through her tunneled dialysis catheter, which has not been performing properly. Her potassium level at the time was 6.5, so she was brought to the emergency room for further evaluation and treatment. She was seen by Dr. Smith in consultation, who recommended admission and reapplied Activase in the catheter. After administration of Activase, the patient was able to receive dialysis today. Her potassium is now 4.4 and recovered. She as mentioned has advanced dementia, but she is resting comfortably. She denies any pain. She denies any chest pain, shortness of breath, nausea, or vomiting. She denies any palpitations or dizziness. Her appetite has been good. PHYSICAL EXAMINATION: VITAL SIGNS: Blood pressure 113/48, temperature 97.6, pulse 72, and O2 sat is 96% on room air. GENERAL: The patient is an elderly female, in no acute distress, resting in bed. NECK: Supple. No lymphadenopathy. No JVD. CARDIOVASCULAR: S1 and S2. Regular rate and rhythm. No appreciable murmurs, rubs, or gallops. LUNGS: Regular respiratory rate and pattern. Clear to auscultation bilaterally with no rhonchi or wheezes. CHEST: She does have a tunneled dialysis catheter in place. ABDOMEN: Soft and nontender. Positive bowel sounds. EXTREMITIES: No edema. +2 DP pulses bilaterally. SKIN: Warm and dry. No rashes. NEUROLOGIC: Cranial nerves II through XII grossly intact. The patient is nonfocal. PSYCHIATRIC: The patient is awake and alert. She seems to be oriented to person, but not place or time, which seems to be her baseline. DISCHARGE MEDICATIONS: 1. Amlodipine 2.5 mg daily. 2. Aspirin 81 mg daily. 3. Brimonidine tartrate one drop each eye b.i.d. 4. Calcium carbonate 400 mg tab, one tab p.o. at bedtime. 5. Hydralazine 10 mg tab, one tablet p.o. t.i.d. 6. Hydrea 500 mg p.o. daily. 7. Latanoprost 2.5 mL bottle one drop each eye at bedtime. 8. Minoxidil 2.5 mg tab, one tab daily. 9. Multivitamin daily. 10. MiraLAX 17 g p.o. daily. 11. Sevelamer carbonate 800 mg tab, one tab p.o. t.i.d. with meals. 12. Acetaminophen 650 mg p.o. q.6 hours. DISCHARGE DISPOSITION: Back to her senior living in [place]. PLAN: She will be discharged back to her senior living today. The plan is for dialysis on Monday. She will follow up with Dr. Vargas in his office on Monday for further management of her tunneled dialysis catheter. She will continue her home medications and continue a renal diet. Job ID: [id number] [facility]
[2018-05-11 16:09] VITALS: BP 112/49; TEMP 97.7
--- NOTE | 2018-05-12 10:38 | EKG ---
Test Reason : ER INDICATION Blood Pressure : / mmHG Vent. Rate : 070 BPM Atrial Rate : 070 BPM P-R Int : 158 ms QRS Dur : 088 ms QT Int : 438 ms P-R-T Axes : 048 -13 073 degrees QTc Int : 473 ms Normal sinus rhythm Normal ECG Confirmed by MICHAEL BERNAL ([id number]), editorial manager SY JACKSON ([id number]) on 05/12/2018 10:38:17 AM Referred By: Confirmed By:MICHAEL BERNAL
== END 2018-05-11 17:32 ==
LOC: ERS 14:30 → ERHOLD 19:29 → 2SE 05-10 06:51
PROVIDERS: ADMIT Emergency Medicine; ATTEND Emergency Medicine
DX: T82.898A Other specified complication of vascular prosthetic devices, implants and grafts, initial encounter (principal); E87.5 Hyperkalemia; I13.2 Hypertensive heart and chronic kidney disease with heart failure and with stage 5 chronic kidney disease, or end stage renal disease; E11.22 Type 2 diabetes mellitus with diabetic chronic kidney disease; N18.6 End stage renal disease; I50.42 Chronic combined systolic (congestive) and diastolic (congestive) heart failure; N25.81 Secondary hyperparathyroidism of renal origin; D47.3 Essential (hemorrhagic) thrombocythemia; I48.0 Paroxysmal atrial fibrillation; B19.20 Unspecified viral hepatitis C without hepatic coma; F03.90 Unspecified dementia, unspecified severity, without behavioral disturbance, psychotic disturbance, mood disturbance, and anxiety; Z86.718 Personal history of other venous thrombosis and embolism; Z79.899 Other long term (current) drug therapy; Z88.2 Allergy status to sulfonamides; Z88.5 Allergy status to narcotic agent; Z88.8 Allergy status to other drugs, medicaments and biological substances; Z99.2 Dependence on renal dialysis
CPT/HCPCS: 80048 ×3; 82962 ×2; 85025 ×3; 85610; 85730; 87340; 93005; 99291; G0378 ×2; J2997 ×3; 36415; 36416; 90935; A4216; G0257; J1644

== ENCOUNTER 2018-05-15 13:36 | Observation (INO) | payer MEDICARE, MEDICAID ==
[2018-05-15 15:37] LABS: #Eosinphils 0.2 thou/uL (0.0-0.7); #Lymphocytes 0.7 thou/uL (1.20-3.40); #Monocytes 0.6 thou/uL (0.11-0.59); #Neutrophils 10.2 thou/uL (1.40-6.50); %Basophils 0.4 % (0.0-1.0); %Eosinophils 1.8 % (0.0-10.0); %Lymphocytes 6.3 % (21.0-51.0); %Neutrophils 86.6 % (42.0-75.0); Hemoglobin 9.7 g/dL (12.0-16.0); Mean Corpuscular HGB CONC 33.7 g/dL (32.0-36.0); Mean Corpuscular Hemoglobin 35.7 pg (27.0-31.0); Mean Platelet Volume 6.1 fL (7.4-10.4); Platelet Count 840 thou/uL (130-400); RBC Distribution Width 14.5 % (11.5-14.5); Red Blood Cell (RBC) Count 2.71 mill/uL (4.20-5.40); White Blood Cell (WBC) Count 11.8 thou/uL (4.8-10.8)
[2018-05-15 15:57] LABS: ALT (SGPT) Less than 7 U/L (8-55); AST (SGOT) 9 U/L (5-34); Albumin 3.8 g/dL (3.4-4.8); Alkaline Phosphatase 67 U/L (40-150); Anion Gap 17 mmol/L (10-20); BUN (Urea Nitrogen) 65 mg/dL (9.8-20.1); Bilirubin, Total 0.3 mg/dL (0.2-1.2); Calc. Creatinine Clearance 0 mL/min (70-130); Calcium 9.9 mg/dL (7.8-10.44); Carbon Dioxide 29 mmol/L (23-31); Chloride 101 mmol/L (98-107); Estimated GFR-MDRD 4; Globulin 3.9 g/dL (2.4-3.5); Glucose 113 mg/dL (83-110); Potassium 4.9 mmol/L (3.5-5.1); Protein, Total 7.7 g/dL (6.0-8.3); Sodium 142 mmol/L (136-145)
[2018-05-15] MEDS ORDERED: Sterile Water 10 ML VIAL IVP SCH (17:56)
[2018-05-15] MEDS ORDERED: Activase 2 MG VIAL CATH SCH (17:56)
[2018-05-15] MEDS ORDERED: Epoetin (ESRD) 20,000 UNITS/ML SC SCH (18:00)
[2018-05-16] MEDS ORDERED: Ondansetron ODT 4 MG TAB SL PRN (00:22)
[2018-05-16] MEDS ORDERED: Ondansetron PF 4 MG/2 ML Vial IVP PRN (00:22)
[2018-05-16 00:41] VITALS: BMI 22.9
[2018-05-16 09:25] LABS: #Eosinphils 0.2 thou/uL (0.0-0.7); #Monocytes 0.7 thou/uL (0.11-0.59); #Neutrophils 10.6 thou/uL (1.40-6.50); %Basophils 0.3 % (0.0-1.0); %Eosinophils 1.6 % (0.0-10.0); %Lymphocytes 8.3 % (21.0-51.0); %Monocytes 5.3 % (0.0-10.0); %Neutrophils 84.5 % (42.0-75.0); Hemoglobin 8.7 g/dL (12.0-16.0); Mean Corpuscular HGB CONC 33.3 g/dL (32.0-36.0); Mean Corpuscular Hemoglobin 35.5 pg (27.0-31.0); Platelet Count 786 thou/uL (130-400); RBC Distribution Width 14.5 % (11.5-14.5); Red Blood Cell (RBC) Count 2.46 mill/uL (4.20-5.40); White Blood Cell (WBC) Count 12.5 thou/uL (4.8-10.8)
[2018-05-16 09:44] LABS: Anion Gap 20 mmol/L (10-20); BUN (Urea Nitrogen) 76 mg/dL (9.8-20.1); Calc. Creatinine Clearance 4 mL/min (70-130); Calcium 9.1 mg/dL (7.8-10.44); Carbon Dioxide 23 mmol/L (23-31); Chloride 104 mmol/L (98-107); Estimated GFR-MDRD 4; Glucose 82 mg/dL (83-110); Potassium 5.6 mmol/L (3.5-5.1); Sodium 141 mmol/L (136-145)
[2018-05-16] MEDS ORDERED: Activase 2 MG VIAL CATH SCH (10:30)
--- NOTE | 2018-05-16 11:33 | PRG ---
DATE OF SERVICE: 05/16/2018 SUBJECTIVE: Ms. Sears is an 82-year-old black female with ESRD. She was admitted due to a nonfunctional dialysis catheter. [facility]. Attempt to change the catheter was not successful due to the catheter being adherent or stuck to the subclavian vessel. Surgical consult has been done for possible surgical intervention. No new complaints today. OBJECTIVE: VITAL SIGNS: Blood pressure 113/60, heart rate 62, respiratory rate 17, temperature 98.3, and pulse ox 93%. GENERAL: Awake, alert, confused, not in distress. SKIN: Adequate turgor. HEENT: She has a slightly pale conjunctivae. Anicteric sclerae. NECK: No neck mass. No carotid bruits. No JVD. CHEST: No deformities. LUNGS: Decreased breath sounds. HEART: Normal sinus rhythm. No murmurs. No gallops. No rubs. ABDOMEN: Globular, soft, and nontender. No masses. EXTREMITIES: No edema. No deformities. MEDICATIONS: Medications of May 16, 2018, reviewed. LABORATORY DATA: Laboratories of May 15, 2018; BUN 65, creatinine 11.8, and potassium 4.9. On May 16, 2018, hemoglobin 8.7. ASSESSMENT AND PLAN: 1. End-stage renal disease - awaiting for new placement of dialysis catheter, then we will initiate dialysis. No indication for any emergent dialysis. 2. Anemia. Epogen has been started. Overall, prognosis remains guarded. We will continue to follow. Job ID: [id number]
[2018-05-16] MEDS ORDERED: CEFAZOLIN 2 GM in Premix Bag 1 BAG IVPB SCH (12:00)
--- NOTE | 2018-05-16 12:29 | RAD ---
PORTABLE CHEST: Indications: Dialysis catheter check. Comparison: 01-22-18 FINDINGS: Dual-lumen dialysis central line has been placed via the left subclavian. This catheter was present p reviously. The catheter has retracted slightly since the prior exam but continues to overlie the uppe r SVC. Elevated right hemidiaphragm again noted. Mild cardiomegaly again noted. Mild vascular congestion aga in noted. IMPRESSION: Vascular catheter has retracted slightly since the prior exam but continues to lie within the upper S VC. POS: [facility]
--- NOTE | 2018-05-16 14:25 | CON ---
DATE OF CONSULTATION: HISTORY OF PRESENT ILLNESS: This is an 82-year-old patient on chronic hemodialysis through a left subclavian PermCath. The patient has had attempted upper extremity fistulas, one which resulted in ischemic hand and was ligated because the family was not willing to have her undergo a drill procedure and then the other arm failed to mature. She had a difficult access through the left IJ and ultimately a femoral venous line was placed for a dialysis only to be complicated by DVT with contraindication anticoagulation. At that time in 2014, Dr. Scott placed an inferior vena cava filter and a permanent dialysis catheter in the left subclavian position, which has been utilized since that time and became nonfunctional recently and attempts at removal at the dialysis center by Dr. Vargas were unsuccessful. I have been asked to see her in regard to difficulty with removal. PAST MEDICAL HISTORY: Includes diabetes mellitus, perhaps a history of heart failure. Past medical history otherwise includes secondary hyperparathyroidism, perhaps atrial fibrillation, and hepatitis C and B. PAST SURGICAL HISTORY: Significant for what appears to be a thyroid surgery based on incision on her neck as well as the above-noted AV fistulas bilaterally and the IVC filter placement. SOCIAL HISTORY: She is a [facility] patient. ALLERGIES: CHLORHEXIDINE, MORPHINE, SULFA. MEDICATIONS: Admitting medications reported as; 1. Risperdal. 2. Hydralazine. 3. Amlodipine. 4. Polyethylene glycol. 5. Minoxidil. 6. Hydrea. 7. Aricept. 8. Eye drops. 9. Aspirin. 10. Xanax. PHYSICAL EXAMINATION: GENERAL: The patient is alert, but cannot really answer any questions appropriately. She is asking for water. VITAL SIGNS: Her weight is recorded as 142 pounds. Height 5 feet 6 inches. Her blood pressure was 160/60 and then 120/60. Her heart rate 70. NECK: No carotid bruits. CARDIAC: No murmurs. HEART: Rhythm appears regular at this time. ABDOMEN: Soft and nontender. EXTREMITIES: Lower extremities, she has no peripheral edema in either leg and has palpable femoral pulses. Her chest exam, she has a dialysis catheter in the left upper chest wall with a Band-Aid over the subclavian area. I have reviewed her chest x-ray from December and then one that was just done currently showing that the catheter has been withdrawn about an inch and a half. This suggests to me that it is not attached to the vena cava and likely is just difficult to pull out from the direction of pull being immediately caudal while the entry site under the clavicle is lateral. I suspect that with a wire placed this catheter can be removed and if it can be removed from the exit site, then cutting down the subclavian infraclavicular entry site may give it a better angle to remove. We will be available, although I think it is unlikely that surgical intervention would be needed. Job ID: [id number]
--- NOTE | 2018-05-16 15:01 | ULT ---
BILATERAL UPPER EXTREMITY VENOUS DOPPLER ULTRASOUND FOR DIALYSIS ACCESS: Date: 05/16/18 HISTORY: Chronic renal failure. FINDINGS: RIGHT UPPER EXTREMITY: The right cephalic vein measures 2.1 mm in the proximal arm, 1.3 mm in the mid arm, 1.9 mm in the pro ximal forearm, 1.7 mm in the mid forearm, and 1.6 mm in the distal forearm. There is occlusive thromb us without flow in the right cephalic vein at the level of the distal arm and antecubital fossa. The right basilic vein measures 3.2 mm in the proximal arm, 2.9 mm in the mid arm, 3.3 mm in the dist al arm, 2.4 mm in the antecubital fossa, 1.4 mm in the proximal forearm, 1.1 mm in the mid forearm, a nd 1.0 mm in the distal forearm. The right brachial artery measures 4.6 mm, radial artery measures 2.3 mm, and ulnar artery measures 1 .6 mm. LEFT UPPER EXTREMITY: There is absence of flow due to thrombus in the left cephalic vein almost in its entirety except the antecubital fossa where it measures 1.3 mm. The left basilic vein measures 3.6 mm in the proximal arm, 3.8 mm in the mid arm, 4.2 mm in the dista l arm, 4.2 mm in the antecubital fossa, 2.5 mm in the proximal forearm, 2.0 mm in the mid forearm, an d 1.7 mm in the distal forearm. The left brachial artery measures 4.5 mm, radial artery measures 2.0 mm, and ulnar artery measures 1. 7 mm. There is nonocclusive intraluminal thrombus in the left axillary vein. CODE T. POS: [facility]
[2018-05-16] MEDS ORDERED: ALPRAZolam 0.25 MG TAB PO PRN (15:38)
--- NOTE | 2018-05-16 16:53 | HP ---
PRIMARY CARE PROVIDER: Maricruz Francois MD CHIEF COMPLAINT: Nonfunctioning dialysis port. HISTORY OF PRESENT ILLNESS: Ms. Sears is a pleasant 82-year-old lady, who was seen at [facility] on May 16, 2018. The patient is unable to provide any significant history at this time. Collateral history was obtained from discussion with the patient's daughter over the telephone, review of medical records, and discussion with emergency room physician. Ms. Sears has end-stage renal disease and undergoes hemodialysis. She reportedly has a clogged dialysis port. She was advised by rail doweling machine operator to go to the emergency room to have it replaced. Of note, the patient was admitted at this facility from May 09 to of this year for malfunctioning tunneled dialysis catheter. After application of Activase to the catheter, the patient was dialyzed and discharged. REVIEW OF SYSTEMS: Could not be completed secondary to the patient being confused. PAST MEDICAL HISTORY: Congestive heart failure; end-stage renal disease, on hemodialysis; essential thrombocytosis; secondary hyperparathyroidism; atrial fibrillation; hepatitis C; and history of DVT. PAST SURGICAL HISTORY: Fistula placed in the right arm. ALLERGIES: CHLORHEXIDINE, MORPHINE, AND SULFA. FAMILY HISTORY: Could not obtain. SOCIAL HISTORY: No history of alcohol use, tobacco use, or recreational drug use. CODE STATUS: I clarified her code status with her daughter. She is full code. CURRENT MEDICATIONS: As dictated on discharge summary by Ms. Cross on discharge summary dated May 11, 2018. PHYSICAL EXAMINATION: GENERAL: Ms. Sears is awake and alert, not in acute distress. VITAL SIGNS: Blood pressure is 113/60, pulse 62, respiratory rate 17, and oxygen saturation 93% on room air. She is afebrile. EYES: No scleral icterus, no conjunctival pallor. ENT: Moist mucosal membranes. No oropharyngeal erythema or exudates. NECK: Supple, nontender, trachea is midline. RESPIRATORY: Accessory muscles of breathing are not active. Chest wall movements are symmetric bilaterally. LUNGS: Clear to auscultation without wheeze, rhonchi, or crepitations. CARDIOVASCULAR: S1 and S2 are heard, regular. Peripheral pulses palpable. No carotid bruit. No pericardial rub. ABDOMEN: Soft, nontender, bowel sounds heard. NEUROLOGIC: Full neurologic examination was not possible secondary to the patient's noncooperation. No facial droop. The patient is moving all 4 extremities. Deep tendon reflexes 2+. MUSCULOSKELETAL: The patient is moving all 4 extremities. SKIN: No rashes or subcutaneous nodules. LYMPHATIC: No cervical lymphadenopathy. PSYCHIATRIC: The patient appears to be in normal mood. Unable to assess orientation to person, place, or time. LABORATORY DATA: Ms. Sears's labs and investigations were reviewed. She had chest x-ray, which showed vascular catheter that has retracted slightly since prior exam on January 22, 2018, but the catheter continues to lie within the upper superior vena cava. She has leukocytosis with 12,500 white cells, of which 84% are neutrophils, macrocytic anemia with hemoglobin 8.7, elevated platelet count of 786,000. Normal sodium, elevated potassium of 5.6, elevated blood urea nitrogen of 76, and elevated creatinine of 12.28. ASSESSMENT AND PLAN: Ms. Sears is a pleasant 82-year-old lady, who was seen at [facility] on May 16, 2018. Her problem list includes: 1. Malfunctioning hemodialysis catheter: Ms. Sears is being admitted to the hospital on observation status for management of malfunctioning hemodialysis catheter. Nephrology and General Surgery Services have been consulted from the emergency room. We will await opinion and help with management. 2. Hypertension: Resume home medications, monitor vital signs and titrate antihypertensives as needed. 3. Paroxysmal atrial fibrillation: The patient appears to be in sinus rhythm at this time. 4. Essential thrombocytosis: Stable. Many thanks for allowing me to participate in your patient's care. Please feel free to contact me with any questions or concerns. LEVEL OF RISK: Moderate. LEVEL OF COMPLEXITY: Moderate. Job ID: [id number]
[2018-05-16] MEDS: Calcium Acetate 667 MG CAP PO SCH (17:06)
[2018-05-16] MEDS: Latanoprost 0.005% Ophth Soln 2.5 ml Bottle EA EYE SCH (21:17)
[2018-05-16] MEDS: risperiDONE 0.25 MG TAB PO SCH (21:18)
[2018-05-16] MEDS: Donepezil HCl 10 MG TAB PO SCH (21:18)
[2018-05-16] MEDS: hydrALAZINE 10 MG TAB PO SCH (21:19)
[2018-05-16] MEDS: Brimonidine Tartrate 0.2% Ophth Soln 5 ml Bottle EA EYE SCH (21:19)
--- NOTE | 2018-05-16 23:01 | CON ---
DATE OF CONSULTATION: REASON FOR CONSULT: Need for dialysis access. HISTORY: Ms. Sears is an 82-year-old woman with a left subclavian dialysis catheter in place. 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 She had a femoral catheter in place for some time, but developed a DVT and this had to be removed and a filter was placed. She has a clotted right upper arm cephalic fistula. 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 The patient is currently catheter dependent, but her catheter clotted off and attempts to replace it at the access center were unsuccessful as the old catheter could not be removed. The patient herself is demented and there is no family present with her. She cannot give me any sort of history regarding her recent events, so all history was gleaned from the chart and discussion with her director of sales. Apparently, she was last dialyzed on the while she was briefly admitted to the hospital here. She denies any shortness of breath or abdominal pain but has been confused and agitated according to the nurses, frequently trying to get out of bed unassisted despite their urging her to call for help. PAST MEDICAL HISTORY: End-stage renal failure on dialysis, atrial fibrillation, dementia, hyperparathyroidism, history of stroke, hepatitis C, DVT, anemia, heart failure, and glaucoma. PAST SURGICAL HISTORY: Bilateral upper arm fistulas, shoulder surgery, multiple dialysis catheters and placement of IVC filter. SOCIAL HISTORY: The patient lives at [facility]. Does not smoke, drink, or use illicit drugs. Her family has been making her medical decisions, but they are not currently at her bedside. She has reactions to sulfa antibiotics, morphine, and chlorhexidine. OUTPATIENT MEDICATIONS: According to the chart include: 1. Amlodipine. 2. Aspirin. 3. Brimonidine ophthalmic drops. 4. Hydralazine. 5. Hydroxyurea. 6. Latanoprost ophthalmic drops. 7. Minoxidil. 8. MiraLAX. 9. Renvela. 10. Tums. 11. Tylenol. REVIEW OF SYSTEMS: Limited due to the patient's dementia but she denies any breathing difficulty, stomach pain, headaches, nausea, vomiting, or diarrhea. PHYSICAL EXAMINATION: VITAL SIGNS: The patient has been afebrile since her admission. Heart rate 62, respirations 16, 95% saturated on room air, and blood pressure 167/72. GENERAL: Reveals a pleasant elderly woman, in no acute distress. HEENT: Unremarkable. She has a healed incision on her right neck. She has a left subclavian dialysis catheter in place. The cuff has been dissected free, but the catheter is still in place. HEART: Mostly regular with some early beats. LUNGS: Clear to auscultation bilaterally. ABDOMEN: Soft, nontender, and nondistended. EXTREMITIES: Warm and well perfused. No palpable thrill or bruit in the right cephalic upper arm fistula. NEURO: No focal deficits. PSYCHIATRIC: Alert and cooperative, but not oriented or able to answer questions regarding recent or past history. LABORATORY DATA: White count is 12.5, hematocrit 26, platelets 786. Potassium is slightly up today at 5.6. BUN and creatinine are 76 and 12.28. ASSESSMENT: End-stage renal failure with nonfunctioning fistula and dependent on catheters. Her left subclavian catheter was going to be switched out of the dialysis access center yesterday, but the catheter could not be successfully withdrawn. Her director of sales was concerned that there could be scarring holding in place, so she was admitted to the hospital. He does feel that he was able to clear the obstruction in her dialysis catheter, so I recommended that she undergo dialysis today and that we attempt to replace her catheter tomorrow. However, when she was sent to dialysis, they were unable to reinfuse the dialyzed blood as it appeared to be backing up around her catheter and causing swelling on the chest wall. I have ordered repeat labs for the morning. If her potassium is any higher, then she may require placement of a temporary catheter for emergency dialysis. However, this is not ideal given her history of DVT. Vein mapping shows patent basilic veins in the upper arms. However, the patient has a history of arterial steal on the left and the family has been hesitant to attempt other fistulas for this reason. I have discussed her case with Dr. Webb, of CT surgery, who feels that the difficulty in removing the subclavian catheter is likely due to compression between the rib and clavicle. However, if the catheter is adherent to any internal structures, then removal of the catheter could lead to catastrophic bleeding which the patient would likely not survive. Unfortunately, the patient also cannot survive without functional dialysis access. I will attempt to reach her family to discuss these matters. She is currently on the schedule for replacement of dialysis catheter tomorrow. Job ID: [id number] MTDD
[2018-05-17] MEDS ORDERED: Midazolam HCl 2 mg/2 ml Vial ONE (09:18)
[2018-05-17] MEDS ORDERED: Fentanyl 100 MCG/2 ML VIAL ONE (09:18)
[2018-05-17] MEDS: hydrALAZINE 10 MG TAB PO SCH ×3 (09:31→21:56)
[2018-05-17] MEDS: Amlodipine 5 MG TAB PO SCH (09:31)
[2018-05-17] MEDS: Hydroxyurea 500 MG CAP PO SCH (09:31)
[2018-05-17] MEDS: Aspirin 81 mg Enteric Coated Tablet PO SCH (09:31)
[2018-05-17] MEDS: Minoxidil 2.5 MG TAB PO SCH (09:31)
[2018-05-17] MEDS: risperiDONE 0.25 MG TAB PO SCH ×2 (09:31→21:55)
[2018-05-17] MEDS: Brimonidine Tartrate 0.2% Ophth Soln 5 ml Bottle EA EYE SCH ×2 (09:31→21:54)
[2018-05-17] MEDS: Calcium Acetate 667 MG CAP PO SCH ×3 (09:31→17:05)
[2018-05-17] MEDS: Polyethylene Glycol 3350 17 GM Packet PO SCH (09:31)
[2018-05-17] MEDS ORDERED: Bupivacaine/Epinephrine 0.25% 30 ML VIAL ONE (09:33)
[2018-05-17] MEDS ORDERED: Heparin 10,000 UNITS/1 ML VIAL ONE (09:33)
--- NOTE | 2018-05-17 10:06 | PRG ---
DATE OF SERVICE: 05/17/2018 SUBJECTIVE: Ms. Sears is an 82-year-old black female with ESRD and followed by the Renal Service for maintenance hemodialysis. We attempted to dialyze this patient using her old dialysis catheter, but this was noted to be still nonfunctional. For this reason, surgical intervention will be done today. A new catheter will be placed. We will dialyze the patient as soon as the catheter is available. The patient voices no new complaints. She denies any chest pain or shortness of breath. OBJECTIVE: VITAL SIGNS: Blood pressure 193/62, heart rate 54, respiratory rate 18, temperature 97.5, and pulse ox 97%. GENERAL: Awake, alert, supine, comfortable, not in distress. The patient confused. SKIN: Adequate turgor. HEENT: Slightly pale conjunctivae. Anicteric sclerae. NECK: No neck mass. No carotid bruits. No JVD. CHEST: No deformities. LUNGS: Clear breath sounds. No wheezing. No crackles. HEART: Normal sinus rhythm. No murmurs. No gallops. No rubs. ABDOMEN: Globular, soft, and nontender. No masses. EXTREMITIES: No edema. No deformities. MEDICATIONS: Medications of May 17, 2018, reviewed. LABORATORY DATA: Laboratories of May 16, 2018; white count 12.5, hemoglobin 8.7. Sodium 141, potassium 5.6, chloride 104, carbon dioxide 23, BUN 76, creatinine 12.28, and calcium 9.1. ASSESSMENT AND PLAN: 1. End-stage renal disease, stable. We will continue hemodialysis regimen once the dialysis catheter is placed. The plan is also to remove the old dialysis catheter. Surgery is scheduled this patient for today. 2. Anemia. Continue current weekly Epogen with this patient. 3. Please note, medications of May 17, 2018, were reviewed. 4. Agree with current management. Job ID: [id number]
[2018-05-17] MEDS ORDERED: PHENYLEPHRINE-NS 100 MCG/ML 10 ML SYRINGE ONE (10:23)
[2018-05-17] MEDS ORDERED: Ondansetron PF 4 MG/2 ML Vial ONE (10:23)
[2018-05-17] MEDS ORDERED: PROPOFOL 200 MG/20 ML VIAL ONE (10:23)
[2018-05-17] MEDS ORDERED: Lidocaine 2% PF 5 ML VIAL ONE (10:41)
[2018-05-17] MEDS ORDERED: Sodium Chloride 0.9% 0 ML ONE (10:41)
[2018-05-17] MEDS ORDERED: Heparin 10,000 UNITS/ 10 ML VIAL ONE (11:11)
[2018-05-17 12:01] LABS: Anion Gap 18 mmol/L (10-20); BUN (Urea Nitrogen) 84 mg/dL (9.8-20.1); Calc. Creatinine Clearance 3 mL/min (70-130); Calcium 9.2 mg/dL (7.8-10.44); Carbon Dioxide 26 mmol/L (23-31); Chloride 103 mmol/L (98-107); Estimated GFR-MDRD 3; Glucose 76 mg/dL (83-110); Potassium 5.7 mmol/L (3.5-5.1); Sodium 141 mmol/L (136-145)
[2018-05-17] MEDS ORDERED: PROPOFOL 0 ML ONE (13:05)
[2018-05-17] MEDS ORDERED: Propofol 500 MG/50 ML VIAL ONE (13:05)
[2018-05-17] MEDS ORDERED: Sodium Chloride 0.9% 20 ML ONE (13:23)
--- NOTE | 2018-05-17 15:11 | PDOC.OP ---
Operative Note - Operative Note Operative Note: PROCEDURE: Replacement of left subclavian tunneled hemodialysis catheter with ultrasound and fluoroscopic guidance. SURGEON: Stephan Louie M.D. DATE OF PROCEDURE: 05/17/2018 PREOPERATIVE DIAGNOSIS: End-stage renal failure. POSTOPERATIVE DIAGNOSIS: End-stage renal failure. HISTORY: Patient is an 82-year-old woman who is dependent on a left subclavian dialysis catheter for hemodialysis access. She has a ligated fistula on the left due to arterial steal syndrome and a failed fistula on the right. Replacement of her clotted left subclavian tunneled hemodialysis catheter for ongoing dialysis has been requested by the patients fabrication machine operator. PROCEDURE: After informed consent was obtained and appropriate preoperative antibiotics were administered, the patient was taken to the Operating Room, placed in the supine position and monitored anesthesia care was administered. The neck and chest were prepped and draped in a standard sterile fashion and the patient placed in Trendelenburg position. A sterile ultrasound probe was used to identify the patent compressible right IJ vein which was accessed under direct ultrasound guidance. A wire was threaded through the needle but was unable to be passed beyond the clavicle. The left internal jugular was accessed under ultrasound guidance but the wire would not advance into the superior vena cava and stent curling up into the right subclavian vein despite multiple attempts and repositioning of the patient. The decision was made to replace the left subclavian catheter over a wire. The skin incision in the left subclavian location was reopened and dissection carried down to the catheter. This was able to be drawn back somewhat clamped and divided. A wire would not thread down one arm of the catheter but with thread down the other. Attempts were made to withdraw the catheter over the wire, but the catheter was stretching and appeared close to internally on fluoroscopy so CT surgery was called into the room. However this point the catheter came free and was able to be withdrawn intact. The wire was confirmed to still be in the superior vena cava. A new left subclavian catheter was tunneled up from an incision on the left chest after local anesthesia was infused. A dilator and sheath were placed over the wire and the dilator and wire removed leaving the sheath in place. The catheter was tunneled through the sheath which was then split and removed leaving the catheter in place. This was confirmed by fluoroscopy to be in good position with no kinking of the course of the catheter. Both ports easily aspirated dark venous nonpulsatile blood and easily flushed without resistance. Heparin was instilled to the quantity specified on the hub, and the hub was secured to the skin with 3-0 nylon sutures. The skin incision at the neck was closed in two layers with 4-0 Monocryl suture and Dermabond dressings were placed. The skin at the exit site was snugged up around the catheter with 4-0 Monocryl suture and Dermabond was placed there as well. Once the Dermabond was dry, a Biopatch and Tegaderm dressing was placed at the exit site. The patient was taken to Recovery in good condition. Estimated blood loss was minimal. There were no complications. There were no specimens.
--- NOTE | 2018-05-17 15:27 | RAD ---
SINGLE VIEW CHEST: Date: 05/17/18 COMPARISON: 05/16/18. HISTORY: Status post hemodialysis catheter placement. FINDINGS: Single view of the chest shows normal sized cardiomediastinal silhouette. A left subclavian dialysis catheter is seen with its tip at the atriocaval junction. No pneumothorax is seen. There is no eviden ce of consolidation, mass, or pleural effusion. IMPRESSION: Status post dialysis catheter placement without evidence of complication. POS: [facility]
--- NOTE | 2018-05-17 16:32 | PDOC.PN ---
- Subjective Encounter Start Date: 05/17/18 Encounter Start Time: 16:30 Subjective: Admitted due to dialysis cath malfunction. -: S/p replacement of left subclavian TDC with ultrasound guidance -: Now getting HD. No new problem - Objective Vital Signs & Weight: Vital Signs (12 hours) Temp Pulse Resp BP Pulse Ox 05/17/18 09:31 54 L 05/17/18 07:38 97.5 F L 54 L 18 193/62 H 97 Weight Weight 143 lb I&O: 05/16/18 05/17/18 05/18/18 06:59 06:59 06:59 Intake Total 260 Balance 260 Result Diagrams: 05/16/18 09:12 05/17/18 11:05 Additional Labs: Accuchecks 05/17/18 13:52 POC Glucose 90 Phys Exam - Physical Examination elderly female in no distress, afebrile HEENT: moist MMs Neck: supple Respiratory: no rales fair air entry bilaterally Cardiovascular: RRR Gastrointestinal: soft, non-tender, no distention, positive bowel sounds Musculoskeletal: no edema Neurological: moves all 4 limbs Dx/Plan (1) Dialysis catheter clot or failure Code(s): [id number] - Status: Acute (2) Hyperkalemia Code(s): E87.5 - HYPERKALEMIA Status: Acute (3) Dementia Code(s): F03.90 - UNSPECIFIED DEMENTIA WITHOUT BEHAVIORAL DISTURBANCE Status: Chronic Comment: Stable. Monitor; delirium precautions. (4) ESRD (end stage renal disease) on dialysis Code(s): N18.6 - END STAGE RENAL DISEASE; Z99.2 - DEPENDENCE ON RENAL DIALYSIS Status: Chronic Comment: Nephrology following. Continue HD. (5) Hypertension Code(s): I10 - ESSENTIAL (PRIMARY) HYPERTENSION Status: Chronic Qualifiers: Comment: (6) Paroxysmal atrial fibrillation Code(s): I48.0 - PAROXYSMAL ATRIAL FIBRILLATION Status: Chronic Comment: (7) Secondary hyperparathyroidism of renal origin Code(s): N25.81 - SECONDARY HYPERPARATHYROIDISM OF RENAL ORIGIN Status: Chronic - Plan Close monitoring. -: HD as per nephrology. -: Monitor H/H. -: For discharge tomorrow after HD * .
[2018-05-17] MEDS: Donepezil HCl 10 MG TAB PO SCH (21:55)
[2018-05-17] MEDS: Latanoprost 0.005% Ophth Soln 2.5 ml Bottle EA EYE SCH (21:56)
[2018-05-18 06:35] LABS: #Eosinphils 0.2 thou/uL (0.0-0.7); #Lymphocytes 0.8 thou/uL (1.20-3.40); #Monocytes 0.7 thou/uL (0.11-0.59); #Neutrophils 10.7 thou/uL (1.40-6.50); %Basophils 0.2 % (0.0-1.0); %Eosinophils 1.4 % (0.0-10.0); %Lymphocytes 6.5 % (21.0-51.0); %Monocytes 5.5 % (0.0-10.0); %Neutrophils 86.4 % (42.0-75.0); Hemoglobin 8.9 g/dL (12.0-16.0); Mean Corpuscular HGB CONC 33.8 g/dL (32.0-36.0); Mean Corpuscular Hemoglobin 35.5 pg (27.0-31.0); Platelet Count 708 thou/uL (130-400); RBC Distribution Width 14.6 % (11.5-14.5); White Blood Cell (WBC) Count 12.4 thou/uL (4.8-10.8)
[2018-05-18 06:40] LABS: Anion Gap 15 mmol/L (10-20); BUN (Urea Nitrogen) 42 mg/dL (9.8-20.1); Calc. Creatinine Clearance 5 mL/min (70-130); Carbon Dioxide 28 mmol/L (23-31); Chloride 99 mmol/L (98-107); Estimated GFR-MDRD 6; Glucose 85 mg/dL (83-110); Sodium 137 mmol/L (136-145)
[2018-05-18] MEDS: Polyethylene Glycol 3350 17 GM Packet PO SCH (09:17)
[2018-05-18] MEDS: Minoxidil 2.5 MG TAB PO SCH (09:17)
[2018-05-18] MEDS: Amlodipine 5 MG TAB PO SCH (09:17)
[2018-05-18] MEDS: Calcium Acetate 667 MG CAP PO SCH ×3 (09:17→18:15)
[2018-05-18] MEDS: Aspirin 81 mg Enteric Coated Tablet PO SCH (09:17)
[2018-05-18] MEDS: Hydroxyurea 500 MG CAP PO SCH (09:20)
[2018-05-18] MEDS: Brimonidine Tartrate 0.2% Ophth Soln 5 ml Bottle EA EYE SCH (09:20)
[2018-05-18] MEDS: risperiDONE 0.25 MG TAB PO SCH (09:20)
[2018-05-18] MEDS: hydrALAZINE 10 MG TAB PO SCH ×2 (09:24→16:27)
--- NOTE | 2018-05-18 10:28 | PRG ---
DATE OF SERVICE: 05/18/2018 SUBJECTIVE: Ms. Sears is an 82-year-old black female with ESRD, who was admitted for a nonfunctional dialysis catheter. She was seen by Surgery and an operative procedure was done yesterday by Dr. Louie. Dialysis catheter has been changed. No other complaints today. We have scheduled her for a regular dialysis today. No complaints of chest pain or shortness of breath. OBJECTIVE: VITAL SIGNS: Blood pressure 173/64, heart rate 60, respiratory rate 18, temperature 98.6, and pulse ox 94%. GENERAL: Noted to be awake, alert, comfortable, not in distress. SKIN: Adequate turgor. HEENT: She has a pinkish conjunctivae. Anicteric sclerae. No neck mass. No carotid bruits. No JVD. CHEST: No deformities. LUNGS: Clear breath sounds. HEART: Normal sinus rhythm. No murmur, gallops, or rubs. ABDOMEN: Globular, soft, nontender. No masses. EXTREMITIES: No edema. No deformities. MEDICATIONS: Medications of 05/18/2018 were reviewed. LABORATORY DATA: On 05/18/2018; white count 12.4, hemoglobin 8.9, and platelet count 708,000. Sodium 137, potassium 5, chloride 99, carbon dioxide 28, BUN 42, creatinine 8.11, and calcium 9.2. ASSESSMENT AND PLAN: 1. End-stage renal disease, stable. We will continue current hemodialysis regimen. I have scheduled her for 3-hour hemodialysis today with fluid removal as tolerated. 2. Hyperkalemia, much improved with dialysis. 3. Thrombocytosis, currently on Hydrea. The patient's dialysis catheter is currently functional. This has been replaced by Dr. Louie. Agree with discharge after dialysis. Job ID: [id number]
[2018-05-18] MEDS ORDERED: Heparin 1,000 UNITS/ML VIAL ONE (11:11)
--- NOTE | 2018-05-18 15:33 | DIS ---
DATE OF ADMISSION: 05/15/2018 DATE OF DISCHARGE: 05/18/2018 DISCHARGE DIAGNOSES: 1. Hemodialysis catheter malfunction. 2. Hyperkalemia. 3. Dementia. 4. End-stage renal disease, on hemodialysis. 5. Hypertension. 6. Chronic debility. PROCEDURE PERFORMED: Replacement of left subclavian tunneled hemodialysis catheter with ultrasound and fluoroscopy guidance. CONSULTS: 1. Nephrology. 2. General Surgery. 3. Cardiovascular Surgery. HOSPITAL COURSE: The patient is an 82-year-old female with end-stage renal disease, who was admitted due to nonfunctional dialysis catheter. The patient has received Alteplase through the catheter prior without improvement. General Surgery has taken the patient to OR to remove the catheter, but there was some concern about adherence to subclavian vessel and difficulty pulling the catheter out. Cardiovascular Surgery consult was obtained, and following evaluation of the patient, they recommended exchange of the catheter as it not clearly adhered to the subclavian artery as it has shortened from its initial length. The patient was later taken to OR, and successful exchange was done using ultrasound and fluoroscopy guidance. The patient develops hyperkalemia while waiting for exchange of the dialysis catheter and subsequently had hemodialysis with correction of hyperkalemia. She remained stable and was subsequently discharged home to continue a regular outpatient dialysis. PHYSICAL EXAMINATION: VITAL SIGNS: Temperature 98.5, pulse 65, respiratory rate 20, SpO2 of 94 on room air, blood pressure 129/67. GENERAL: Elderly female, in no obvious distress. Afebrile, anicteric. HEENT: Normocephalic, atraumatic. CARDIOVASCULAR: Regular rhythm and rate with normal heart sounds. RESPIRATORY: Good air entry bilaterally with no crackles. GASTROINTESTINAL: Abdomen is soft, nontender, nondistended with normal bowel sounds. EXTREMITIES: No edema or erythema. DISCHARGE CONDITION: Stable. DISCHARGE MEDICATIONS: 1. Amlodipine 2.5 mg daily. 2. Aspirin 81 mg daily. 3. Brimonidine tartrate 1 drop to each eye b.i.d. 4. Calcium acetate p.o. t.i.d. with meals. 5. Donepezil 10 mg p.o. at bedtime. 6. Hydralazine 10 mg p.o. t.i.d. 7. Hydroxyurea 500 mg p.o. daily. 8. Latanoprost 1 drop to each eye at bedtime. 9. Minoxidil 2.5 mg p.o. daily. 10. MiraLAX 17 g p.o. daily. 11. Risperidone 0.25 mg p.o. b.i.d. 12. Xanax 0.25 mg p.o. b.i.d. p.r.n. for anxiety. TIME SPENT: Discharge took 30 minutes. FOLLOWUP: The patient is to follow up with regular cycle consultant at the dialysis center. Follow up with PCP in 1 week. Job ID: [id number]
[2018-05-18 20:03] VITALS: BP 139/67; TEMP 97.6
== END 2018-05-18 19:35 ==
LOC: ERS 13:36 → ERHOLD 18:13 → T4-B 05-16 00:31
PROVIDERS: ADMIT Family Medicine; ATTEND Family Medicine
PROC: 0J2SXYZ Change Other Device in Head and Neck Subcutaneous Tissue and Fascia, External Approach (ICD-10-PCS; principal; 2018-05-17)
PROC: B548ZZA Ultrasonography of Superior Vena Cava, Guidance (ICD-10-PCS; 2018-05-17)
DX: T82.868A Thrombosis due to vascular prosthetic devices, implants and grafts, initial encounter (principal); I13.2 Hypertensive heart and chronic kidney disease with heart failure and with stage 5 chronic kidney disease, or end stage renal disease; E11.22 Type 2 diabetes mellitus with diabetic chronic kidney disease; N18.6 End stage renal disease; I50.9 Heart failure, unspecified; D63.1 Anemia in chronic kidney disease; N25.81 Secondary hyperparathyroidism of renal origin; I48.0 Paroxysmal atrial fibrillation; D47.3 Essential (hemorrhagic) thrombocythemia; E87.5 Hyperkalemia; F03.90 Unspecified dementia, unspecified severity, without behavioral disturbance, psychotic disturbance, mood disturbance, and anxiety; Z86.718 Personal history of other venous thrombosis and embolism; Z86.73 Personal history of transient ischemic attack (TIA), and cerebral infarction without residual deficits; Z79.82 Long term (current) use of aspirin; Z79.899 Other long term (current) drug therapy; Z88.2 Allergy status to sulfonamides; Z88.5 Allergy status to narcotic agent; Z88.8 Allergy status to other drugs, medicaments and biological substances; Z99.2 Dependence on renal dialysis
CPT/HCPCS: 36581; 71045 ×2; 80048 ×3; 80053; 82962 ×2; 85025 ×3; 86850; 86900; 86901; 86920; 96372; 99285; C1752; C1769; G0365; G0378 ×3; J2997; Q4081; 36415; 36416; 36430; 90935; 93970; A4216; G0257; J1644; J2001; J2250; J2405; J2704; J3010

== ENCOUNTER 2018-07-23 14:13 | Observation (INO) | payer MEDICARE, MEDICAID ==
[2018-07-23 15:19] LABS: #Basophils 0.1 thou/uL (0.0-0.2); #Eosinphils 0.2 thou/uL (0.0-0.7); #Lymphocytes 1.3 thou/uL (1.20-3.40); #Monocytes 0.5 thou/uL (0.11-0.59); #Neutrophils 9.7 thou/uL (1.40-6.50); %Basophils 0.6 % (0.0-1.0); %Eosinophils 1.6 % (0.0-10.0); %Lymphocytes 11.1 % (21.0-51.0); %Monocytes 4.4 % (0.0-10.0); %Neutrophils 82.3 % (42.0-75.0); Hemoglobin 9.9 g/dL (12.0-16.0); Mean Corpuscular HGB CONC 34.1 g/dL (32.0-36.0); Mean Corpuscular Hemoglobin 33.9 pg (27.0-31.0); Mean Corpuscular Volume 99.4 fL (78.0-98.0); Mean Platelet Volume 5.7 fL (7.4-10.4); Platelet Count 859 thou/uL (130-400); Red Blood Cell (RBC) Count 2.92 mill/uL (4.20-5.40); White Blood Cell (WBC) Count 11.8 thou/uL (4.8-10.8)
[2018-07-23 15:32] LABS: ALT (SGPT) Less than 7 U/L (8-55); AST (SGOT) 8 U/L (5-34); Alkaline Phosphatase 78 U/L (40-150); Anion Gap 22 mmol/L (10-20); BUN (Urea Nitrogen) 76 mg/dL (9.8-20.1); Bilirubin, Total 0.5 mg/dL (0.2-1.2); CK (CPK) 31 U/L (29-168); Calc. Creatinine Clearance 0 mL/min (70-130); Calcium 10.1 mg/dL (7.8-10.44); Carbon Dioxide 22 mmol/L (23-31); Chloride 103 mmol/L (98-107); Estimated GFR-MDRD 5; Glucose 84 mg/dL (83-110); Sodium 142 mmol/L (136-145)
--- NOTE | 2018-07-23 17:17 | RAD ---
PORTABLE CHEST 1 VIEW: Date: 07/23/18 Time: 1604 hours. HISTORY: Dialysis catheter malfunction. FINDINGS/IMPRESSION: Comparison made with exam of 05/17/18. There is continued elevation of the right hemidiaphragm. Left-sided dialysis catheter remains in plac e. The heart size is enlarged. No lobar consolidation, pneumothoraces, elif pulmonary edema, or larg e effusions are seen. POS: [facility]
[2018-07-23] MEDS ORDERED: hydrALAZINE 20 MG/ML VIAL ONE (17:24)
[2018-07-23] MEDS ORDERED: Sterile Water 10 ML VIAL IVP SCH (17:30)
[2018-07-23] MEDS ORDERED: Activase 2 MG VIAL CATH SCH (17:30)
--- NOTE | 2018-07-23 17:32 | HP ---
PRIMARY CARE PHYSICIAN: Dr. Francois. CHIEF COMPLAINT: Unable to dialyze. HISTORY OF PRESENT ILLNESS: This is an 82-year-old -[place] female, [facility] resident with advanced dementia and end-stage renal disease, on dialysis. She has a left subclavian dialysis catheter and was having some trouble over the last week, we were only able to do a partial dialysis last week and she missed dialysis over the weekend and when she came to dialysis today, they were unable to get access through the catheter for dialysis, so Dr. Smith had her sent over to the emergency room for admission. He stated that he would consult General Surgery himself about getting a new catheter placed. The patient denies any complaints. There is no history of any shortness of breath, coughing, swelling, or other issues prior to her arrival. The patient does have advanced dementia and unable to get any history or review of systems from her, everything is taken from the chart. REVIEW OF SYSTEMS: Unable to obtain. PAST MEDICAL HISTORY: 1. Diabetes mellitus type 2. Per the chart, on no medications. 2. Congestive heart failure of unknown type. 3. End-stage renal disease, on hemodialysis. 4. Essential thrombocytosis. 5. Secondary hyperparathyroidism. 6. Anemia of chronic disease. 7. Atrial fibrillation. 8. Hepatitis C. 9. History of DVT. 10. Previous stroke. PAST SURGICAL HISTORY: She has had a fistula in her right arm, PermCath to the left upper chest, and right shoulder surgery. ALLERGIES: 1. CHLORHEXIDINE. 2. MORPHINE. 3. SULFA. CURRENT MEDICATIONS: Unable to obtain at this time, as the patient is straight from dialysis and she is unable to give medication list. Most recent computer medication list includes; 1. Alprazolam 0.25 mg twice a day as needed. 2. Norvasc 2.5 mg daily. 3. Aspirin 81 mg daily. 4. Brimonidine tartrate ophthalmic one drop in each eye twice a day. 5. Calcium acetate 1334 mg 3 times a day. 6. Donepezil 10 mg at night. 7. Hydralazine 10 mg 3 times a day. 8. Hydroxyurea 500 mg daily. 9. Latanoprost eyedrop one drop in the eyes at night. 10. Minoxidil 2.5 mg daily. 11. MiraLAX 17 g daily. 12. Risperidone 0.25 mg twice a day. PHYSICAL EXAMINATION: VITAL SIGNS: Blood pressure 205/80, pulse 67, respirations 18, temperature 97.5, and O2 saturation 98% on room air. GENERAL: This is a well-developed, elderly -[place] female, in no acute distress. HEENT: The patient will not open her eyes for ocular exam, was unable to tell if her pupil reflexes normal. I was able to see some scarring of the cornea on the right. Oropharynx clear without lesions, erythema, or exudate. She is edentulous and has her dentures in place. NECK: Supple. No lymphadenopathy. No thyroid nodules or enlargement. No JVD. HEART: Regular rate and rhythm. No murmurs, rubs, or gallops. LUNGS: Clear to auscultation bilaterally. No wheezes, crackles, or rhonchi. ABDOMEN: Soft, nontender to palpation. Normoactive bowel sounds. No hepatosplenomegaly or other masses. EXTREMITIES: No clubbing, cyanosis, or edema. SKIN: No rashes or other lesions noted. NEUROLOGIC: She seems to be moving all extremities equally and has no facial droop. PSYCHIATRIC: The patient is alert. She is not oriented to person, place, or situation. She does talk, but it is nonsensical statements that are not appropriate for conversation. LABORATORY DATA: CBC; white blood cell count 11.8, hemoglobin 9.9, hematocrit 29.0, and platelet count 859. Complete metabolic panel is notable for carbon dioxide 22, anion gap 22, BUN 76, and creatinine of 9.8, the rest was normal. Brain natriuretic peptide is elevated at 3200. Troponin is indeterminate at 0.033. IMAGING STUDIES: Chest x-ray, I did review the chest x-ray done in the emergency room. She does have some patchy increased pulmonary markings in bilateral adnexa and has some elevation of the right hemidiaphragm. No elif pulmonary edema though. ASSESSMENT: 1. Hypertensive urgency secondary to volume overload. The patient needs dialysis. 2. End-stage renal disease, on dialysis with loss of access. Dr. Smith is consulting General Surgery to place new access for dialysis. 3. History of diabetes mellitus type 2. Controlled without medications, likely secondary to her end-stage renal disease. 4. Hypertension. Resume the patient's home medications. We will give p.r.n. hydralazine IV. 5. History of congestive heart failure, not currently exacerbated except by the fact that she needs dialysis. We will continue current medications. She does however appear to be exacerbated beyond just need to get dialysis, then we can consider getting an echocardiogram. 6. End-stage dementia. 7. Gastrointestinal prophylaxis. Put the patient on Pepcid twice a day. 8. Deep venous thrombosis prophylaxis. Put the patient on SCDs while in bed. CODE STATUS: I am unable to confirm her current code status at this time. We will need to contact family or facility, where she is from for determination on that. Job ID: [id number]
[2018-07-23] MEDS ORDERED: ALPRAZolam 0.25 MG TAB PO PRN (17:55)
[2018-07-23] MEDS ORDERED: Acetaminophen 650 MG Suppository PR PRN (17:55)
[2018-07-23] MEDS ORDERED: Acetaminophen 325 MG TAB PO PRN (17:55)
[2018-07-23] MEDS ORDERED: Guaifenesin DM 100-10/5 ML UDCUP PO PRN (17:55)
[2018-07-23] MEDS ORDERED: hydrALAZINE 20 MG/ML VIAL SLOW IVP PRN (17:55)
[2018-07-23] MEDS ORDERED: Ondansetron ODT 4 MG TAB PO PRN (17:55)
[2018-07-23] MEDS ORDERED: Ondansetron PF 4 MG/2 ML Vial IVP PRN (17:55)
[2018-07-23] MEDS ORDERED: Bisacodyl 5 MG TAB PO PRN (17:55)
[2018-07-23 19:32] LABS: Troponin I 0.037 ng/mL (< 0.028)
[2018-07-23] MEDS ORDERED: Famotidine 20 MG TAB PO SCH (21:00)
[2018-07-23] MEDS ORDERED: Donepezil HCl 10 MG TAB PO SCH (21:00)
[2018-07-23] MEDS ORDERED: Latanoprost 0.005% Ophth Soln 2.5 ml Bottle EA EYE SCH (21:00)
[2018-07-23] MEDS: Calcium Acetate 667 MG CAP PO SCH (21:11)
[2018-07-23] MEDS: hydrALAZINE 10 MG TAB PO SCH (21:11)
[2018-07-23] MEDS: risperiDONE 0.25 MG TAB PO SCH (21:11)
[2018-07-23] MEDS: Brimonidine Tartrate 0.2% Ophth Soln 5 ml Bottle EA EYE SCH (21:12)
[2018-07-23 22:10] LABS: Troponin I 0.046 ng/mL (< 0.028)
[2018-07-24 06:52] LABS: Anion Gap 17 mmol/L (10-20); BUN (Urea Nitrogen) 83 mg/dL (9.8-20.1); Calc. Creatinine Clearance 4 mL/min (70-130); Calcium 9.9 mg/dL (7.8-10.44); Carbon Dioxide 21 mmol/L (23-31); Chloride 109 mmol/L (98-107); Estimated GFR-MDRD 4; Glucose 83 mg/dL (83-110); Potassium 5.1 mmol/L (3.5-5.1); Sodium 142 mmol/L (136-145)
[2018-07-24 07:07] LABS: #Eosinphils 0.2 thou/uL (0.0-0.7); #Monocytes 0.5 thou/uL (0.11-0.59); %Basophils 0.4 % (0.0-1.0); %Eosinophils 1.5 % (0.0-10.0); %Lymphocytes 9.2 % (21.0-51.0); Hemoglobin 8.3 g/dL (12.0-16.0); Mean Corpuscular HGB CONC 34.3 g/dL (32.0-36.0); Mean Corpuscular Hemoglobin 34.1 pg (27.0-31.0); Mean Corpuscular Volume 99.6 fL (78.0-98.0); Mean Platelet Volume 5.8 fL (7.4-10.4); Platelet Count 777 thou/uL (130-400); RBC Distribution Width 16.1 % (11.5-14.5); Red Blood Cell (RBC) Count 2.43 mill/uL (4.20-5.40); White Blood Cell (WBC) Count 10.7 thou/uL (4.8-10.8)
[2018-07-24] MEDS: Calcium Acetate 667 MG CAP PO SCH ×3 (08:16→16:14)
[2018-07-24] MEDS: Brimonidine Tartrate 0.2% Ophth Soln 5 ml Bottle EA EYE SCH (08:16)
[2018-07-24] MEDS: risperiDONE 0.25 MG TAB PO SCH (08:16)
[2018-07-24] MEDS ORDERED: Polyethylene Glycol 3350 17 GM Packet PO SCH (09:00)
[2018-07-24] MEDS ORDERED: Amlodipine 5 MG TAB PO SCH (09:00)
[2018-07-24] MEDS ORDERED: Hydroxyurea 500 MG CAP PO SCH (09:00)
[2018-07-24] MEDS ORDERED: Minoxidil 2.5 MG TAB PO SCH (09:00)
[2018-07-24] MEDS ORDERED: Aspirin 81 mg Enteric Coated Tablet PO SCH (09:00)
[2018-07-24] MEDS ORDERED: Epoetin (ESRD) 20,000 UNITS/ML SC SCH (09:15)
--- NOTE | 2018-07-24 09:18 | PDOC.PN ---
- Subjective Encounter Start Date: 07/24/18 Encounter Start Time: 12:20 Subjective: Patient seen in dialysis. No complaints. Remains demented and -: confused. - Objective MAR Reviewed: Yes Vital Signs & Weight: Vital Signs (12 hours) Temp Pulse Resp BP BP Pulse Ox 07/24/18 07:36 97.6 F 67 20 184/60 H 97 07/24/18 04:00 98.5 F 70 18 176/65 H 95 07/24/18 02:44 73 187/65 H 07/24/18 00:00 98.1 F 73 16 187/65 H 95 Weight Weight 129 lb 2 oz I&O: 07/23/18 07/24/18 07/25/18 06:59 06:59 06:59 Intake Total 240 Balance 240 Result Diagrams: 07/24/18 06:13 07/24/18 06:13 Phys Exam - Physical Examination Constitutional: NAD HEENT: moist MMs Respiratory: no wheezing, no rales, no rhonchi Cardiovascular: RRR Gastrointestinal: soft, positive bowel sounds facial droop Deviation from normal: sleeping, arousable, not oriented which is baseline Dx/Plan (1) Hypertensive urgency Code(s): I16.0 - HYPERTENSIVE URGENCY Status: Resolved Comment: improved, due to volume overload unable to dialyze (2) Dialysis catheter clot or failure Code(s): GJS3551 - Status: Acute Comment: Dr Smith following, unplugged overnight and now working well (3) ESRD (end stage renal disease) on dialysis Code(s): N18.6 - END STAGE RENAL DISEASE; Z99.2 - DEPENDENCE ON RENAL DIALYSIS Status: Chronic Comment: Continue HD. (4) Pulmonary hypertension Code(s): I27.20 - PULMONARY HYPERTENSION, UNSPECIFIED Status: Chronic (5) Dementia Code(s): F03.90 - UNSPECIFIED DEMENTIA WITHOUT BEHAVIORAL DISTURBANCE Status: Chronic Comment: Severe, Stable. Monitor; delirium precautions. (6) Essential thrombocytosis Code(s): D47.3 - ESSENTIAL (HEMORRHAGIC) THROMBOCYTHEMIA Status: Chronic Comment: Stable (7) Hypertension Code(s): I10 - ESSENTIAL (PRIMARY) HYPERTENSION Status: Chronic Qualifiers: Comment: (8) Paroxysmal atrial fibrillation Code(s): I48.0 - PAROXYSMAL ATRIAL FIBRILLATION Status: Chronic Comment: (9) Secondary hyperparathyroidism of renal origin Code(s): N25.81 - SECONDARY HYPERPARATHYROIDISM OF RENAL ORIGIN Status: Chronic - Plan cont current plan of care discharge back to group home after dialysis complete * . - Discharge Day Encounter end time: 12:40
[2018-07-24] MEDS ORDERED: Heparin 10,000 UNITS/ 10 ML VIAL ONE (10:00)
--- NOTE | 2018-07-24 11:07 | CON ---
DATE OF CONSULTATION: HISTORY OF PRESENT ILLNESS: Ms. Sears is an 82-year-old black female with ESRD and admitted for nonfunctioning dialysis catheter. The patient has not dialyzed for almost 6 days. The catheter was changed 3 days ago when she reported dialysis was nonfunctional. For this reason, we admitted her for further management of this and nonfunctional dialysis catheter. Since the catheter was just changed several days ago, I placed Activase overnight. We did check the catheter and is currently functional at the present time. She is currently undergoing hemodialysis. No other complaints today. REVIEW OF SYSTEMS: Positive for occasional confusion-she has underlying baseline dementia. No nausea. No vomiting. No chest pain. No shortness of breath. No headache. No diplopia. No productive cough. No hematochezia. No melena. No hematemesis. MEDICATIONS: The patient is currently on, 1. Tylenol 650 mg q.4 p.r.n. 2. Norvasc 2.5 mg daily. 3. Ecotrin 81 mg tablet once a day. 4. Calcium acetate 667 mg two tablets t.i.d. with meals. 5. Aricept 10 mg tablet at bedtime. 6. Pepcid 20 mg p.o. b.i.d. 7. Hydralazine 10 mg p.o. t.i.d. 8. Hydrea 500 mg daily. 9. Minoxidil 2.5 mg at bedtime. 10. Xalatan eyedrop as directed. 11. MiraLAX 17 g daily. 12. Risperidone 0.25 mg p.o. b.i.d. PAST MEDICAL HISTORY: 1. The patient has ESRD and on maintenance hemodialysis. 2. Dementia. 3. Hypertension. 4. Status post CVA. 5. History of essential thrombocytosis. 6. Status post paroxysmal atrial fibrillation. 7. Chronic hepatitis C. PAST SURGICAL HISTORY: Status post laparoscopic cholecystectomy, status post cuffed hemodialysis catheter placement, status post AV fistula placement, status post upper and lower GI endoscopy, status post IVC filter, status post ventral hernia repair. SOCIAL HISTORY: The patient lives in a long-term, [place], 3 children. No alcohol. No drug abuse. No smoking. Status post multiple blood transfusions. Sedentary lifestyle. Education, high school. ALLERGIES: SULFA. TRAUMA: None. IMMUNIZATION: Up-to-date. HOSPITALIZATIONS: Please see past medical history. FAMILY HISTORY: Positive family history of ESRD. One sister on dialysis. PHYSICAL EXAMINATION: VITAL SIGNS: Blood pressure is noted at 184/60, heart rate 67, respiratory rate 20, temperature 97.6, and pulse ox 97%. GENERAL: The patient is sleepy, but arousable, comfortable, not in distress. SKIN: Adequate turgor. HEENT: Slightly pale conjunctivae. Anicteric sclerae. NECK: No neck mass. No carotid bruits. No JVD. CHEST: No deformities. LUNGS: Clear breath sounds. HEART: Normal sinus rhythm. No murmurs, no gallops, no rubs. ABDOMEN: Globular, soft, nontender. No masses. EXTREMITIES: No edema. No deformities. LABORATORY DATA: Laboratories, July 24, 2018, white count 10.7, hemoglobin 8.3, hematocrit 24.2. Sodium 142, potassium 5.1, chloride 109, carbon dioxide 21, BUN 83, creatinine 10.44, calcium 9.9. IMAGING STUDIES: July 23, 2018, chest x-ray shows no overt CHF. ASSESSMENT/PLAN: 1. End-stage renal disease-we will continue current hemodialysis regimen. Due to her missed dialysis, we will schedule her for her hemodialysis today. We will do a 3.5-hour hemodialysis. Fluid removal only as tolerated. 2. Anemia. Restart Epogen 7500 units subcu at bedtime. We are currently attempting to use her dialysis catheter. Activase was placed overnight. Job ID: [id number]
[2018-07-24] MEDS ORDERED: EPOETIN ALFA-EPBX (ESRD) 4,000 UNIT/ML VIAL SC SCH (12:00)
[2018-07-24] MEDS: hydrALAZINE 10 MG TAB PO SCH ×2 (13:40→14:04)
[2018-07-24 16:06] VITALS: BP 178/48; TEMP 97.9
--- NOTE | 2018-07-25 04:55 | DIS ---
DATE OF ADMISSION: 07/23/2018 DATE OF DISCHARGE: 07/24/2018 PRIMARY CARE PHYSICIAN: Dr. Francois. REASON FOR ADMISSION: Nonfunctioning dialysis catheter and hypertensive urgency secondary to volume overload. DISCHARGE DIAGNOSES: 1. Hypertensive urgency, resolved. 2. Volume overload, resolved. 3. Dialysis catheter clogged, status post unplugging, now operating normally. 4. End-stage renal disease, on dialysis. 5. Pulmonary hypertension. 6. Severe dementia. 7. Essential thrombocytosis. 8. Hypertension. 9. Paroxysmal atrial fibrillation. 10. Secondary hyperparathyroidism of renal origin. PROCEDURES: None. CONSULTATIONS: Nephrology, Dr. Smith. SUMMARY OF HOSPITAL COURSE: This is an 82-year-old female with end-stage renal disease, on dialysis. She had not been dialyzed from 6 days. The catheter was changed 3 days ago when it was reported to not function in dialysis. She was unable to dialyze when she arrived at the dialysis center yesterday, so she was sent over to the emergency room. Dr. Smith did use Activase overnight and then the catheter was functioning the next day. We were unable to dialyze her normally and get off the extra fluid, and then, Dr. Smith cleared her [facility] the [facility]. DISCHARGE MANAGEMENT: 1. Location: Discharged back to [facility]. 2. Activity: As tolerated. 3. Diet: Renal diet. 4. Followup: Follow up with primary care physician and with Dr. Smith. MEDICATIONS: Continue all home medications, see list from yesterday. Job ID: [id number]
== END 2018-07-24 19:30 ==
LOC: ERS 14:13 → T4-A 16:13
PROVIDERS: ADMIT Emergency Medicine; ATTEND Emergency Medicine
DX: T82.49XA Other complication of vascular dialysis catheter, initial encounter (principal); I16.0 Hypertensive urgency; E87.70 Fluid overload, unspecified; I27.20 Pulmonary hypertension, unspecified; E11.22 Type 2 diabetes mellitus with diabetic chronic kidney disease; N18.6 End stage renal disease; D63.1 Anemia in chronic kidney disease; N25.81 Secondary hyperparathyroidism of renal origin; I50.9 Heart failure, unspecified; I48.0 Paroxysmal atrial fibrillation; D47.3 Essential (hemorrhagic) thrombocythemia; B18.2 Chronic viral hepatitis C; F03.90 Unspecified dementia, unspecified severity, without behavioral disturbance, psychotic disturbance, mood disturbance, and anxiety; Z86.718 Personal history of other venous thrombosis and embolism; Z86.73 Personal history of transient ischemic attack (TIA), and cerebral infarction without residual deficits; Z99.2 Dependence on renal dialysis; Z88.2 Allergy status to sulfonamides; Z88.3 Allergy status to other anti-infective agents; Z88.6 Allergy status to analgesic agent; Z79.82 Long term (current) use of aspirin
CPT/HCPCS: 71045; 80048; 80053; 82550; 82553; 83880; 84484 ×2; 85025 ×2; 93005; 96374; 96376; 99285; G0378 ×2; J2997; Q5105; 36415; A4216; J0360; J1644

== ENCOUNTER 2018-09-28 14:35 | Inpatient (IN) | payer MEDICARE ==
[2018-09-28 15:39] LABS: Acetaminophen Less than 6.0 mcg/mL (10.0-30.0); Alcohol Less than 10 mg/dL (Less than 10); Salicylate Less than 8.0 mg/dL (15.0-30.0)
[2018-09-28 15:52] LABS: Bacteria/HPF 4+ HPF (None Seen); Bilirubin Negative (Negative); Blood, Urine Trace (Negative); Clarity Turbid (Clear); Glucose, Urine (Dipstick) Normal (Negative); Leukocyte 500 Leu/uL (Negative); Nitrite Negative (Negative); Protein, Urine (Dipstick) 100 mg/dL (Neg-Trace); RBC/HPF 21-50 HPF (0-3); Squamous Epithelial None Seen HPF (0-3); Urobilinogen Normal mg/dL (Less than 2); WBC/HPF Greater than 50 HPF (0-3)
[2018-09-28 15:56] LABS: Amphetamine Not Detected (NotDetected); Barbiturates Screen Not Detected (NotDetected); Benzodiazepine Screen Not Detected (NotDetected); Cocaine Metabolite Screen Not Detected (NotDetected); Medtox Control Line Valid? VALID (VALID); Medtox Reader # READER 4; Methadone Not Detected (NotDetected); Methamphetamine Not Detected (NotDetected); Opiate Screen Not Detected (NotDetected); Oxycodone Screen Not Detected (NotDetected); Phencyclidine (PCP) Not Detected (NotDetected); THC/Cannabinoid Screen Not Detected (NotDetected); Tricyclic Screen Not Detected (NotDetected)
[2018-09-28] MEDS ORDERED: cefTRIAXone\\ROCEPHIN 1 GM VIAL ONE (16:11)
--- NOTE | 2018-09-28 17:20 | CT ---
HEAD CT WITHOUT CONTRAST: 09/28/18 HISTORY: Altered mental status. COMPARISON: 09/28/18 FINDINGS: No parenchymal hemorrhage, midline or extra-axial hematoma. No midline shift. Basilar cisterns are patent. Age appropriate brain volume. Cortical dee-white matter differentiation is preserved. No evidence of hydrocephalus. Calvarium is intact. Adequate aeration of the sinuses and mastoid air cells. Cavernous carotid athero sclerosis noted. No significant interval change. IMPRESSION: No acute intracranial process. POS: [facility]
[2018-09-28 18:55] LABS: Troponin I 0.037 ng/mL (< 0.028)
[2018-09-28] MEDS ORDERED: Ondansetron ODT 4 MG TAB SL PRN ×2 (19:13→20:03)
[2018-09-28] MEDS ORDERED: HYDROcodone/Acetaminophen 5/325 mg Tablet PO PRN ×2 (19:13)
[2018-09-28] MEDS ORDERED: Acetaminophen 325 MG TAB PO PRN (19:13)
[2018-09-28] MEDS ORDERED: Ondansetron PF 4 MG/2 ML Vial IVP PRN ×2 (19:13→20:03)
[2018-09-28 19:44] VITALS: BMI 19.3
[2018-09-28] MEDS ORDERED: Labetalol HCl 100 MG/20 ML VIAL SLOW IVP PRN (20:03)
[2018-09-28] MEDS: Sodium Chloride 0.9% 1,000 ML IV SCH (20:17)
[2018-09-28] MEDS: hydrALAZINE 20 MG/ML VIAL SLOW IVP PRN (20:20)
[2018-09-28] MEDS: Famotidine/PF 20 mg/2ml Vial SLOW IVP SCH (20:23)
[2018-09-28] MEDS: Brimonidine Tartrate 0.2% Ophth Soln 5 ml Bottle EA EYE SCH (21:16)
[2018-09-28] MEDS: Latanoprost 0.005% Ophth Soln 2.5 ml Bottle EA EYE SCH (21:17)
--- NOTE | 2018-09-29 02:04 | HP ---
PRIMARY CARE PROVIDER: Dr. Francois. CHIEF COMPLAINT: Difficult to arouse. HISTORY OF PRESENT ILLNESS: This is an 82-year-old female, who presents from [facility] in [place], [place] after [facility] staff noted patient difficult to arouse and awake from sleeping. The staff became concerned and transported the patient to the emergency room for evaluation in [place]. The patient underwent general evaluation including CT imaging of the brain showing no acute intracranial process. The patient also underwent workup after transferring from [place] [facility] to [facility] with urinalysis suspicious for infectious process. The patient's history is significant for end-stage renal disease, requiring hemodialysis 3 times per week, but no reported history of missing dialysis, recent documented fever, travel history. The patient is a resident at [facility] due to inability to take care of herself and severe dementia. History is obtained after review of the electronic medical record as well as discussions with the patient's daughter who is the medical power of business attorney. At baseline, patient is bed-bound, requiring full assistance with all activities of daily living including feeding with a pureed diet. In the emergency room, the patient received Rocephin 1 g x1 dose and was referred to the hospital Service for further evaluation. PAST MEDICAL HISTORY: 1. Severe dementia likely Alzheimer's type. 2. Nonambulatory status. 3. Hypertension. 4. End-stage renal disease with hemodialysis. 5. Pulmonary hypertension. 6. Essential thrombocytosis. 7. Paroxysmal atrial fibrillation. 8. Secondary hyperparathyroidism of renal origin. 9. Anemia of chronic kidney disease. 10. History of hepatitis C. 11. History of deep venous thrombosis. 12. History of CVA. PAST SURGICAL HISTORY: 1. Status post fistula placement of the upper extremities. 2. Status post PermCath to left upper chest. 3. Status post right shoulder surgery. CURRENT MEDICATIONS: Based on review of the electronic medical record: 1. Xanax 0.25 mg p.o. b.i.d. p.r.n. 2. Amlodipine 2.5 mg p.o. daily. 3. Enteric-coated aspirin 81 mg p.o. daily. 4. Brimonidine tartrate 0.15% ophthalmic solution 1 drop to each eye b.i.d. 5. Calcium acetate 1334 mg p.o. t.i.d. with meals. 6. Aricept 10 mg p.o. at bedtime. 7. Hydroxyurea 500 mg p.o. daily. 8. Latanoprost 0.005% one drop to both eyes at bedtime. 9. Risperdal 0.25 mg p.o. b.i.d. 10. Hydralazine 10 mg p.o. t.i.d. 11. Minoxidil 2.5 mg p.o. daily. ALLERGIES: TO CHLORHEXIDINE, MORPHINE SULFATE, SULFA. FAMILY HISTORY: Positive for hypertension and coronary artery disease. SOCIAL HISTORY: The patient resides at [facility]. Nonambulatory at baseline. No alcohol, tobacco, or illicit drug use. Requires 100% assistance with all activities of daily living. REVIEW OF SYSTEMS: Unobtainable due to patient's advanced dementia. PHYSICAL EXAMINATION: VITAL SIGNS: On admission, blood pressure 184/64, pulse 60, respiratory rate 14, temperature 99.2 degrees Fahrenheit, O2 saturation 100% on room air. GENERAL APPEARANCE: This is an 82-year-old female, arouses to name, mumbles unintelligibly, nods occasionally. HEENT: Pupils are equal, round, reactive to light and accommodation. The patient does not track or open eyes voluntarily. Extraocular muscles are intact. Nares patent. OP is clear. NECK: Supple. No cervical adenopathy. No thyromegaly. No carotid bruits. No JVD appreciated. Cervical spine with full active and passive range of motion. No meningeal signs noted. Scalp is atraumatic. CHEST: Lungs are clear to auscultation bilaterally. CARDIOVASCULAR: S1-S2 without noted murmur, rub, or gallop. ABDOMEN: Rounded, soft, nontender, and nondistended. Bowel sounds are positive in all 4 quadrants. There is no hepatosplenomegaly. No abdominal bruits, no rebound or guarding appreciated. EXTREMITIES: Warm and dry with fair turgor. No clubbing, cyanosis, or asymmetric edema appreciated. Pulses are palpable distally at the dorsalis pedis, posterior tibial, and popliteal arteries bilaterally. Capillary refill less than 2 seconds. NEUROLOGIC: Does not follow commands except for mild atm mechanic strength, left greater than right. Withdraws from painful stimulus. Attempts to open eyes briefly to name. Mumbles unintelligibly. LABORATORY DATA: Pertinent lab and x-ray findings. Sodium 139, potassium 5.4, chloride 100, CO2 of 28, BUN 27, creatinine 5.74, estimated GFR of 9, glucose 111, calcium 9.0, LFTs within normal limits. CBC showed a white blood cell count of 15.8, hemoglobin 11, hematocrit 34, MCV 101, platelet count 779 with 91% neutrophils. Troponin I 0.032. BNP 1611. IMAGIN. EKG dated 09/28/2018 by my interpretation shows sinus bradycardia with heart rates in the 50s to 60s. Normal R-wave progression noted in the precordial leads. Normal axis. No acute ST-T wave changes appreciated. 2. CT of the brain without contrast dated 09/28/2018 showed no acute intracranial process. 3. Portable chest x-ray dated 09/28/2018 showed chronic elevation to the right hemidiaphragm. Left-sided hemodialysis catheter in place. No acute infiltrate identified. ASSESSMENT/PLAN: 1. Acute metabolic encephalopathy. Suspected metabolic source with potential urinary tract infection. We will continue Rocephin 1 g IV q.24 hours. Pending urine culture results. Continue intravenous normal saline at 50 mL/hour. Suspect multifactorial encephalopathy given patient's advanced dementia, end-stage renal disease and advanced age. 2. End-stage renal disease with hemodialysis. We will consult Nephrology Service for hemodialysis on 09/29/2018. No current evidence to suggest acute volume overload. 3. Neutrophilic leukocytosis. Suspect secondary to urinary tract infection. Continue serial monitoring. Repeat CBC in the a.m. 4. Urinary tract infection. Suspected given initial urinalysis results. Urine culture pending. Continue Rocephin 1 g IV q.24 hours. 5. Hypertension. Labile. Add hydralazine and labetalol intravenously for systolic blood pressure greater than equal to 170. Resume home antihypertensive regimen when tolerating p.o. intake. 6. Prophylaxis. Sequential compression devices while in bed. 7. Pepcid 20 mg IV q.12 hours. PT and speech therapy evaluation in the a.m. CODE STATUS: Full. Surrogate medical decision maker is the patient's daughterRuby.. Job ID: [id number]
[2018-09-29] MEDS: hydrALAZINE 20 MG/ML VIAL SLOW IVP PRN (05:14)
[2018-09-29 06:15] LABS: Anion Gap 16 mmol/L (10-20); BUN (Urea Nitrogen) 31 mg/dL (9.8-20.1); Calc. Creatinine Clearance 6 mL/min (70-130); Calcium 10.2 mg/dL (7.8-10.44); Carbon Dioxide 22 mmol/L (23-31); Chloride 103 mmol/L (98-107); Estimated GFR-MDRD 8; Glucose 69 mg/dL (83-110); Potassium 4.5 mmol/L (3.5-5.1); Sodium 136 mmol/L (136-145)
[2018-09-29 06:34] LABS: Anisocytosis SLIGHT = 6-15 cells (100X) (0-5/hpf); Band 1 % (5-11); Hemoglobin 11.6 g/dL (12.0-16.0); Lymphocytes 8 % (21-51); MDiff Complete? YES; Macrocytosis SLIGHT = 6-15 cells (100X) (0-5/hpf); Mean Corpuscular HGB CONC 32.2 g/dL (32.0-36.0); Mean Corpuscular Hemoglobin 33.3 pg (27.0-31.0); Mean Platelet Volume 5.9 fL (7.4-10.4); Monocytes 1 % (0-10); Neutrophil 90 % (42-75); Platelet Count 683 thou/uL (130-400); Platelet Morphology Comment Appears Increased; RBC Distribution Width 19.8 % (11.5-14.5); Red Blood Cell (RBC) Count 3.49 mill/uL (4.20-5.40); White Blood Cell (WBC) Count 11.8 thou/uL (4.8-10.8)
[2018-09-29] MEDS: Brimonidine Tartrate 0.2% Ophth Soln 5 ml Bottle EA EYE SCH ×2 (08:31→20:17)
--- NOTE | 2018-09-29 11:16 | CON ---
DATE OF CONSULTATION: HISTORY OF PRESENT ILLNESS: Ms. Sears is an 82-year-old black female with ESRD, was admitted due to mental status change. The patient was poorly arousable. She was seen at the dialysis unit and she would not wake up. The patient has had these intermittent episodes of metabolic encephalopathy in the past. We are being consulted for her maintenance hemodialysis. She was not able to undergo dialysis yesterday and currently, she is now undergoing hemodialysis. The patient is semi-arousable, but not following commands. REVIEW OF SYSTEMS: Not able to obtain due to her decreased mentation. PHYSICAL EXAMINATION: VITAL SIGNS: Blood pressure is noted at 173/72, heart rate 68, respiratory rate 20, temperature 98.8, and pulse ox 100%. GENERAL: Noted to be awake, but not following simple commands. SKIN: Adequate turgor. HEENT: She has a pinkish conjunctivae. Anicteric sclerae. NECK: No neck mass. No carotid bruits. No JVD. CHEST: No deformities. LUNGS: Clear breath sounds. No wheezing. No crackles. HEART: Normal sinus rhythm. No murmurs. No gallops. No rubs. ABDOMEN: Globular, soft, and nontender. No masses. EXTREMITIES: No edema. No deformities. NEUROLOGIC: Spontaneous eye opening, awake, and not following commands. MEDICATIONS: Medications of September 29, 2018, was reviewed, showed the following; 1. Ceftriaxone 1 g IV daily. 2. Pepcid 20 mg IV daily. 3. Hydralazine 10 mg q.4 as needed. 4. Xalatan eyedrop one drop each eye at bedtime. 5. Zofran 4 mg subcu daily. 6. Normal saline 50 mL an hour. PAST MEDICAL HISTORY: ESRD and the patient is on maintenance hemodialysis, history of dementia, status post CVA, hypertension, essential thrombocytosis, status post paroxysmal atrial fibrillation, and chronic hepatitis C. PAST SURGICAL HISTORY: Status post ventral hernia repair, status post IVC filter, status post upper and lower GI endoscopy, status post AV fistula placement, status post cuffed dialysis catheter placement, and status post laparoscopic cholecystectomy. SOCIAL HISTORY: The patient lives in [place], currently in [facility]. Three children. No alcohol. No IV drug abuse. No smoking. Status post blood transfusion. Education, high school. Sedentary lifestyle. ALLERGIES: SULFA. TRAUMA: None. IMMUNIZATION: Up-to-date. HOSPITALIZATIONS: Please see past medical history. FAMILY HISTORY: Positive family history of ESRD - one sister on dialysis. LABORATORY DATA: Laboratories of September 29, 2018; white count 11.8, hemoglobin 11.6, hematocrit 36, and platelet count is 683,000. Sodium 136, potassium 4.5, chloride 103, carbon dioxide 22, BUN 31, creatinine 6.14, glucose 69, and calcium is 10.2. CT scan of the brain September 28, 2018, showed no acute intracranial process. ASSESSMENT AND PLAN: 1. Decreased mentation - consider the possibility of metabolic encephalopathy. Continue supportive care. This morning, the patient is more arousable compared to yesterday. a. Unclear if she is taking any medications at the [facility] that could be affecting her mentation. I did have a chance to review it and it shows that she was taking Xanax p.r.n. and was on Risperdal. We will hold off these medications. Please note, this patient is also noted to be on donepezil. 2. End-stage renal disease, stable. We will continue current hemodialysis regimen 3 times a week. She is undergoing dialysis today due to the missed treatment yesterday. We will attempt to remove around 1 to 2 L of fluid as tolerated by this patient. Once the patient's mentation is better, consider resuming back her home medications. 3. These are the patient's home medications;. a. Xanax 0.25 mg p.o. b.i.d. p.r.n. b. PhosLo 667 mg 2 tablets t.i.d. with meals. c. Risperidone 0.25 mg p.o. b.i.d. d. MiraLAX 17 g daily. e. Hydrea 500 mg daily. f. Amlodipine 5 mg tablet once a day. g. Aspirin 81 mg daily. h. Aricept 10 mg at bedtime. Agree with current management. Job ID: [id number]
--- NOTE | 2018-09-29 12:57 | PDOC.HOSPP ---
- Subjective Subjective: Patient seen and examined, no new issues. - Objective Vital Signs & Weight: Vital Signs (12 hours) Temp Pulse Resp BP BP Pulse Ox 09/29/18 08:27 100 09/29/18 08:00 98.8 F 68 20 173/72 H 100 09/29/18 05:39 147/63 H 09/29/18 05:14 64 192/71 H 09/29/18 04:49 98.1 F 64 18 194/73 H 97 Weight Weight 116 lb 2 oz I&O: 09/28/18 09/29/18 09/30/18 06:59 06:59 06:59 Intake Total 600 Balance 600 Result Diagrams: 09/29/18 04:56 09/29/18 04:56 ROS - Review of Systems All systems: All other ROS were reviewed and found negative. - Medication Medications: Active Medications Generic Name Dose Route Start Last Admin Trade Name Freq PRN Reason Stop Dose Admin Brimonidine Tartrate 1 drop 09/28/18 21:00 09/29/18 08:31 Alphagan 0.2% Ophth Soln EA EYE 1 drop BID NATALIO Administration Famotidine 20 mg 09/28/18 21:00 09/28/18 20:23 Pepcid SLOW IVP 20 mg Q24HR NATALIO Administration Hydralazine HCl 10 mg 09/28/18 20:03 09/29/18 05:14 Apresoline SLOW IVP 10 mg Q4H PRN Administration SBP > 180 and HR < 70 Sodium Chloride 1,000 mls @ 50 mls/hr 09/28/18 20:03 09/28/18 20:17 Normal Saline 0.9% IV 1,000 mls .Q20H NATALIO Administration Latanoprost 1 drop 09/28/18 21:00 09/28/18 21:17 Xalatan 0.005% Ophth Soln EA EYE 1 drop HS NATALIO Administration - Exam Eye: PERRL, anicteric sclera ENT: normocephalic atraumatic Neck: supple, symmetric Heart: RRR, no murmur Respiratory: CTAB, no wheezes Gastrointestinal: soft, non-tender, non-distended Extremities: no cyanosis, no clubbing Hosp A/P (1) Altered mental status Code(s): R41.82 - ALTERED MENTAL STATUS, UNSPECIFIED Status: Acute Qualifiers: (2) Dementia Code(s): F03.90 - UNSPECIFIED DEMENTIA WITHOUT BEHAVIORAL DISTURBANCE Status: Chronic (3) ESRD (end stage renal disease) on dialysis Code(s): N18.6 - END STAGE RENAL DISEASE; Z99.2 - DEPENDENCE ON RENAL DIALYSIS Status: Chronic (4) Hypertension Code(s): I10 - ESSENTIAL (PRIMARY) HYPERTENSION Status: Chronic Qualifiers: - Plan - no changes in plan of care - cont abx - HD per renal - vitals stable
[2018-09-29] MEDS: cefTRIAXone\\ROCEPHIN 1 GM in Sodium Chloride 0.9% 100 ML IVPB SCH (16:21)
[2018-09-29] MEDS: Sodium Chloride 0.9% 1,000 ML IV SCH (17:33)
[2018-09-29] MEDS: Famotidine/PF 20 mg/2ml Vial SLOW IVP SCH (20:17)
[2018-09-29] MEDS: Latanoprost 0.005% Ophth Soln 2.5 ml Bottle EA EYE SCH (20:17)
[2018-09-30] MEDS: hydrALAZINE 20 MG/ML VIAL SLOW IVP PRN ×2 (08:10→20:26)
[2018-09-30] MEDS: Brimonidine Tartrate 0.2% Ophth Soln 5 ml Bottle EA EYE SCH ×2 (08:11→20:21)
--- NOTE | 2018-09-30 12:14 | PDOC.HOSPP ---
- Subjective Subjective: Patient seen and examined, no new issues. - Objective Vital Signs & Weight: Vital Signs (12 hours) Temp Pulse Resp BP BP BP Pulse Ox 09/30/18 08:37 61 20 148/64 H 100 09/30/18 08:10 52 L 210/65 H 09/30/18 08:07 100 09/30/18 08:00 51 L 20 210/65 H 09/30/18 07:55 97.6 F 50 L 20 185/66 H 100 09/30/18 04:00 97.6 F 51 L 20 153/81 H 97 Weight Admit Weight 116 lb 1.92 oz Weight 116 lb 1.92 oz I&O: 09/29/18 09/30/18 10/01/18 06:59 06:59 06:59 Intake Total 1600 Balance 1600 Result Diagrams: 09/29/18 04:56 09/29/18 04:56 ROS - Review of Systems All systems: All other ROS were reviewed and found negative. - Medication Medications: Active Medications Generic Name Dose Route Start Last Admin Trade Name Freq PRN Reason Stop Dose Admin Brimonidine Tartrate 1 drop 09/28/18 21:00 09/30/18 08:11 Alphagan 0.2% Ophth Soln EA EYE 1 drop BID NATALIO Administration Famotidine 20 mg 09/28/18 21:00 09/29/18 20:17 Pepcid SLOW IVP 20 mg Q24HR NATALIO Administration Hydralazine HCl 10 mg 09/28/18 20:03 09/30/18 08:10 Apresoline SLOW IVP 10 mg Q4H PRN Administration SBP > 180 and HR < 70 Ceftriaxone Sodium 1 gm/ 100 mls @ 200 mls/hr 09/29/18 16:00 09/29/18 16:21 Sodium Chloride IVPB 100 mls 1600 NATALIO Administration Sodium Chloride 1,000 mls @ 50 mls/hr 09/28/18 20:03 09/29/18 17:33 Normal Saline 0.9% IV 1,000 mls .Q20H NATALIO Administration Latanoprost 1 drop 09/28/18 21:00 09/29/18 20:17 Xalatan 0.005% Ophth Soln EA EYE 1 drop HS NATALIO Administration - Exam NAD Eye: PERRL, anicteric sclera ENT: normocephalic atraumatic, no oropharyngeal lesions Neck: supple, symmetric, no JVD Heart: RRR, no murmur, no gallops Respiratory: CTAB, no wheezes, no rales Gastrointestinal: soft, non-tender, non-distended Extremities: no cyanosis Skin: normal turgor, no lesions Neurological: CN's grossly intact Hosp A/P (1) Altered mental status Code(s): R41.82 - ALTERED MENTAL STATUS, UNSPECIFIED Status: Acute Qualifiers: (2) Dementia Code(s): F03.90 - UNSPECIFIED DEMENTIA WITHOUT BEHAVIORAL DISTURBANCE Status: Chronic (3) ESRD (end stage renal disease) on dialysis Code(s): N18.6 - END STAGE RENAL DISEASE; Z99.2 - DEPENDENCE ON RENAL DIALYSIS Status: Chronic (4) Hypertension Code(s): I10 - ESSENTIAL (PRIMARY) HYPERTENSION Status: Chronic Qualifiers: - Plan - cont abx - responsiveness increasing somewhat - attempt dietary intake today orally - will resume oral medications - no changes in plan of care - no family at bedside.
--- NOTE | 2018-09-30 12:18 | PRG ---
DATE OF SERVICE: 09/30/2018 SUBJECTIVE: Ms. Sears is an 82-year-old black female with ESRD and was admitted for mental status change. Initial imaging of the brain showed no findings of acute intracranial abnormality. Her mentation is slightly improved this morning. She is still a little bit confused. Please note, this patient has had in the past intermittent confusion and decreased mentation. No complaints of chest pain or shortness of breath. She underwent hemodialysis yesterday without any difficulty. OBJECTIVE: VITAL SIGNS: Blood pressure 148/64, heart rate 61, respiratory rate 20, and pulse ox 100%. GENERAL: Noted to be awake, can follow simple commands ? HEENT: Pinkish conjunctivae. Anicteric sclerae. NECK: No neck mass. No carotid bruits. No JVD. CHEST: No deformities. LUNGS: Clear breath sounds. HEART: Normal sinus rhythm. No murmur. No gallops. No rubs. ABDOMEN: Globular, soft, and nontender. No masses. EXTREMITIES: No edema. No deformities. MEDICATIONS: Medications of September 30, 2018, was reviewed. LABORATORY DATA: Laboratories of September 29, 2018; white count 11.8, hemoglobin 11.6. Sodium 136, potassium 4.5, chloride 103, carbon dioxide 22, BUN 31, creatinine 6.14, glucose 69, and calcium 10.2. Ammonia level is 20. ASSESSMENT AND PLAN: 1. Decreased mentation, slightly improved. Initial CT scan of the brain was said to have been negative. Continue supportive care. 2. End-stage renal disease, stable. We will continue current Monday, Monday, and Monday dialysis. She is tolerating said dialysis regimen. Overall, prognosis remains guarded. Agree with current management. Recheck CBC and basic metabolic panel in a.m. Job ID: [id number]
[2018-09-30] MEDS ORDERED: Heparin 1,000 UNITS/ML VIAL ONE (13:16)
[2018-09-30] MEDS: Sodium Chloride 0.9% 1,000 ML IV SCH (13:45)
[2018-09-30] MEDS: cefTRIAXone\\ROCEPHIN 1 GM in Sodium Chloride 0.9% 100 ML IVPB SCH (15:43)
[2018-09-30] MEDS: Calcium Acetate 667 MG CAP PO SCH (17:36)
[2018-09-30] MEDS: risperiDONE 0.25 MG TAB PO SCH (20:21)
[2018-09-30] MEDS: Famotidine/PF 20 mg/2ml Vial SLOW IVP SCH (20:21)
[2018-09-30] MEDS: Latanoprost 0.005% Ophth Soln 2.5 ml Bottle EA EYE SCH (20:21)
[2018-10-01] MEDS: hydrALAZINE 20 MG/ML VIAL SLOW IVP PRN (05:53)
[2018-10-01 06:34] LABS: #Basophils 0.1 thou/uL (0.0-0.2); #Eosinphils 0.1 thou/uL (0.0-0.7); #Monocytes 0.6 thou/uL (0.11-0.59); #Neutrophils 6.7 thou/uL (1.40-6.50); %Basophils 0.8 % (0.0-1.0); %Eosinophils 0.9 % (0.0-10.0); %Lymphocytes 12.3 % (21.0-51.0); %Monocytes 6.8 % (0.0-10.0); %Neutrophils 79.1 % (42.0-75.0); Hemoglobin 9.8 g/dL (12.0-16.0); Mean Corpuscular HGB CONC 32.5 g/dL (32.0-36.0); Mean Corpuscular Hemoglobin 33.7 pg (27.0-31.0); Mean Platelet Volume 6.3 fL (7.4-10.4); Platelet Count 530 thou/uL (130-400); RBC Distribution Width 19.4 % (11.5-14.5); White Blood Cell (WBC) Count 8.4 thou/uL (4.8-10.8)
[2018-10-01 06:42] LABS: Anion Gap 10 mmol/L (10-20); BUN (Urea Nitrogen) 26 mg/dL (9.8-20.1); Calc. Creatinine Clearance 6 mL/min (70-130); Calcium 9.3 mg/dL (7.8-10.44); Carbon Dioxide 27 mmol/L (23-31); Chloride 105 mmol/L (98-107); Estimated GFR-MDRD 9; Glucose 81 mg/dL (83-110); Potassium 3.9 mmol/L (3.5-5.1); Sodium 138 mmol/L (136-145)
[2018-10-01] MEDS: Calcium Acetate 667 MG CAP PO SCH ×3 (08:00→16:03)
[2018-10-01] MEDS ORDERED: EPOETIN ALFA-EPBX (ESRD) 4,000 UNIT/ML VIAL SC SCH (08:45)
--- NOTE | 2018-10-01 09:33 | PRG ---
DATE OF SERVICE: 10/01/2018 SUBJECTIVE: Ms. Sears is an 82-year-old black female with ESRD, was admitted for mental status change. Imaging of the brain was negative. This morning, she is more awake and alert. She is partially oriented. No complaints of chest pain or shortness of breath. She is undergoing hemodialysis at the present time. OBJECTIVE: VITAL SIGNS: Blood pressure 150/63, heart rate 60, respiratory rate 18, temperature 98, and pulse ox 98%. GENERAL: Noted to be awake, alert, comfortable, not in distress. SKIN: Adequate turgor. HEENT: She has slightly pale conjunctivae. Anicteric sclerae. NECK: No neck mass. No carotid bruits. No JVD. CHEST: No deformities. LUNGS: Clear breath sounds. HEART: Normal sinus rhythm. No murmurs. No gallops. No rubs. ABDOMEN: Globular, soft, and nontender. No masses. EXTREMITIES: No edema. No deformities. MEDICATIONS: Medications of October 01, 2018, reviewed. LABORATORY DATA: Laboratories of October 01, 2018: White count 8.4, hemoglobin 9.8. Sodium 140 chloride 105, carbon dioxide 27, BUN 26, creatinine 5.49, glucose 81, and calcium 9.3. ASSESSMENT AND PLAN: 1. End-stage renal disease, stable. Continue current hemodialysis regimen. Fluid removal only as tolerated. 2. Anemia. Start Epogen 7500 units subcu every week. 3. Mental status change - most likely from a metabolic encephalopathy, she is much improved. Agree with current management. Job ID: [id number] MTDD
[2018-10-01] MEDS ORDERED: Heparin 10,000 UNITS/ 10 ML VIAL ONE (11:11)
[2018-10-01] MEDS: Aspirin 81 mg Enteric Coated Tablet PO SCH (12:54)
[2018-10-01] MEDS: Brimonidine Tartrate 0.2% Ophth Soln 5 ml Bottle EA EYE SCH ×2 (12:55→20:11)
[2018-10-01] MEDS: risperiDONE 0.25 MG TAB PO SCH ×2 (12:55→20:10)
[2018-10-01] MEDS: Amlodipine 5 MG TAB PO SCH (12:56)
--- NOTE | 2018-10-01 13:47 | PDOC.HOSPP ---
- Subjective Subjective: 82 y/o female with ESRD on HD admitted due to decreased responsiveness. Thought to have acute encephaloathy due to UTI and was started on IVF and antibiotics with some improvement. Reportedly was following command earlier but was sleeping during my visit. - Objective Vital Signs & Weight: Vital Signs (12 hours) Temp Pulse Resp BP BP BP Pulse Ox 10/01/18 12:59 98.0 F 74 16 163/71 H 98 10/01/18 12:56 60 163/71 H 10/01/18 07:54 98.0 F 60 18 150/63 H 98 10/01/18 07:50 98 10/01/18 05:53 61 198/66 H 10/01/18 04:36 97.9 F 61 20 177/80 H 100 Weight Admit Weight 116 lb 1.92 oz Weight 116 lb 1.92 oz I&O: 09/30/18 10/01/18 10/02/18 06:59 06:59 06:59 Intake Total 1600 1590 Balance 1600 1590 Result Diagrams: 10/01/18 05:37 10/01/18 05:37 ROS - Review of Systems All systems: All other ROS were reviewed and found negative. - Medication Medications: Active Medications Generic Name Dose Route Start Last Admin Trade Name Freq PRN Reason Stop Dose Admin Amlodipine Besylate 5 mg 10/01/18 09:00 10/01/18 12:56 Norvasc PO 5 mg DAILY NATALIO Administration Aspirin 81 mg 10/01/18 09:00 10/01/18 12:54 Ecotrin PO 81 mg DAILY NATALIO Administration Brimonidine Tartrate 1 drop 09/28/18 21:00 10/01/18 12:55 Alphagan 0.2% Ophth Soln EA EYE 1 drop BID NATALIO Administration Calcium Acetate 1,334 mg 09/30/18 17:00 10/01/18 12:55 Phoslo PO 1,334 mg TID-WM NATALIO Administration Famotidine 20 mg 09/28/18 21:00 09/30/18 20:21 Pepcid SLOW IVP 20 mg Q24HR NATALIO Administration Hydralazine HCl 10 mg 09/28/18 20:03 10/01/18 05:53 Apresoline SLOW IVP 10 mg Q4H PRN Administration SBP > 180 and HR < 70 Ceftriaxone Sodium 1 gm/ 100 mls @ 200 mls/hr 09/29/18 16:00 09/30/18 15:43 Sodium Chloride IVPB 100 mls 1600 NATALIO Administration Sodium Chloride 1,000 mls @ 50 mls/hr 09/28/18 20:03 09/30/18 13:45 Normal Saline 0.9% IV 1,000 mls .Q20H NATALIO Administration Latanoprost 1 drop 09/28/18 21:00 09/30/18 20:21 Xalatan 0.005% Ophth Soln EA EYE 1 drop HS NATALIO Administration Risperidone 0.25 mg 09/30/18 21:00 10/01/18 12:55 Risperidone PO 0.25 mg BID NATALIO Administration - Exam Eye: anicteric sclera ENT: normocephalic atraumatic, dry oral mucosa Neck: symmetric, no JVD Heart: RRR Respiratory: no wheezes, no rales, no ronchi (fair air entry with some transmitted sound) Gastrointestinal: soft, non-distended, normal bowel sounds (sleeping.wakes up with stimulation but goes back to sleep.) Hosp A/P (1) Acute metabolic encephalopathy Code(s): G93.41 - METABOLIC ENCEPHALOPATHY Status: Acute (2) UTI (urinary tract infection) Status: Acute (3) Chronic hepatitis C Code(s): B18.2 - CHRONIC VIRAL HEPATITIS C Status: Chronic Qualifiers: (4) Dementia Code(s): F03.90 - UNSPECIFIED DEMENTIA WITHOUT BEHAVIORAL DISTURBANCE Status: Chronic (5) Hypertension Code(s): I10 - ESSENTIAL (PRIMARY) HYPERTENSION Status: Chronic Qualifiers: (6) Paroxysmal atrial fibrillation Code(s): I48.0 - PAROXYSMAL ATRIAL FIBRILLATION Status: Chronic - Plan Continue current treatments. Strict I/o HD as per nephrology. Get CRP, ESR and procalcitonin in the am
[2018-10-01] MEDS: Sodium Chloride 0.9% 1,000 ML IV SCH (13:48)
[2018-10-01] MEDS: cefTRIAXone\\ROCEPHIN 1 GM in Sodium Chloride 0.9% 100 ML IVPB SCH (16:00)
[2018-10-01] MEDS: Famotidine/PF 20 mg/2ml Vial SLOW IVP SCH (20:10)
[2018-10-01] MEDS: Latanoprost 0.005% Ophth Soln 2.5 ml Bottle EA EYE SCH (20:11)
[2018-10-02] MEDS: Sodium Chloride 0.9% 1,000 ML IV SCH ×2 (05:07→11:14)
[2018-10-02] MEDS: hydrALAZINE 20 MG/ML VIAL SLOW IVP PRN (05:19)
[2018-10-02 06:40] LABS: Hemoglobin 10.1 g/dL (12.0-16.0); Mean Corpuscular Hemoglobin 35.1 pg (27.0-31.0); Mean Platelet Volume 6.5 fL (7.4-10.4); Platelet Count 473 thou/uL (130-400); RBC Distribution Width 19.3 % (11.5-14.5); Red Blood Cell (RBC) Count 2.89 mill/uL (4.20-5.40); White Blood Cell (WBC) Count 7.5 thou/uL (4.8-10.8)
[2018-10-02 07:18] LABS: #Basophils 0.1 thou/uL (0.0-0.2); #Eosinphils 0.1 thou/uL (0.0-0.7); #Lymphocytes 1.5 thou/uL (1.20-3.40); #Monocytes 0.6 thou/uL (0.11-0.59); #Neutrophils 5.2 thou/uL (1.40-6.50); %Basophils 0.7 % (0.0-1.0); %Eosinophils 1.4 % (0.0-10.0); %Lymphocytes 19.7 % (21.0-51.0); %Monocytes 8.2 % (0.0-10.0)
[2018-10-02] MEDS: Calcium Acetate 667 MG CAP PO SCH ×3 (08:51→18:18)
[2018-10-02] MEDS: Aspirin 81 mg Enteric Coated Tablet PO SCH (08:56)
[2018-10-02] MEDS: Amlodipine 5 MG TAB PO SCH (08:56)
[2018-10-02] MEDS: Brimonidine Tartrate 0.2% Ophth Soln 5 ml Bottle EA EYE SCH ×2 (08:57→20:48)
[2018-10-02] MEDS: risperiDONE 0.25 MG TAB PO SCH ×2 (08:59→20:47)
--- NOTE | 2018-10-02 09:48 | PRG ---
DATE OF SERVICE: 10/02/2018 SERVICE: Renal Medicine. SUBJECTIVE: Ms. Sears is an 82-year-old black female, followed up for her maintenance hemodialysis. She was admitted for mental status change. The patient is much improved. CT scan of the brain showed no acute intracranial abnormality. The patient can follow simple commands. However, she is occasionally confused. OBJECTIVE: VITAL SIGNS: Blood pressure 158/60, heart rate 63, respiratory rate 16, temperature 97.6, and pulse ox 99%. GENERAL: The patient is awake and follows simple commands. Occasionally confused. SKIN: Adequate turgor. HEENT: She has a slightly pale conjunctivae. Anicteric sclerae. NECK: No neck mass. No carotid bruits. No JVD. CHEST: No deformities. LUNGS: Clear breath sounds. HEART: Normal sinus rhythm. No murmur. No gallops. No rubs. ABDOMEN: Globular, soft, and nontender. No masses. EXTREMITIES: No edema. No deformities. MEDICATIONS: Medications of October 02, 2018, reviewed. LABORATORY DATA: Laboratories of October 02, 2018; white count 7.5, hemoglobin 10.1. On October 01, 2018; sodium 138, potassium 3.9, chloride 105, carbon dioxide 27, BUN 26, and creatinine 5.49. ASSESSMENT AND PLAN: 1. End-stage renal disease, stable. We will continue current hemodialysis regimen on Monday, Monday, and Monday. 2. Anemia, on weekly Epogen. 3. Metabolic encephalopathy - continue supportive care. Mentation is improved. Job ID: [id number]
[2018-10-02] MEDS ORDERED: Amlodipine 5 MG TAB PO SCH (10:30)
--- NOTE | 2018-10-02 14:25 | PDOC.HOSPP ---
- Subjective Subjective: 82 y/o female with ESRD on HD admitted due to decreased responsiveness. Thought to have acute encephaloathy due to UTI and was started on IVF and antibiotics with some improvement. Arousable but rare verbal. - Objective Vital Signs & Weight: Vital Signs (12 hours) Temp Pulse Resp BP BP BP Pulse Ox 10/02/18 13:20 55 L 161/64 H 10/02/18 12:22 97.6 F 55 L 20 161/64 H 97 10/02/18 09:08 173/66 H 10/02/18 08:56 63 10/02/18 07:30 97.6 F 63 16 190/68 H 99 10/02/18 05:57 158/60 H 10/02/18 05:32 97.7 F 64 18 100 10/02/18 05:19 65 198/69 H 10/02/18 05:00 97.5 F L 64 18 198/69 H 100 Weight Admit Weight 116 lb 1.92 oz Weight 116 lb 1.92 oz I&O: 10/01/18 10/02/18 10/03/18 06:59 06:59 06:59 Intake Total 1590 1300 Output Total 2200 Balance 1590 -900 Result Diagrams: 10/02/18 05:42 10/01/18 05:37 ROS - Review of Systems All systems: All other ROS were reviewed and found negative. - Medication Medications: Active Medications Generic Name Dose Route Start Last Admin Trade Name Freq PRN Reason Stop Dose Admin Aspirin 81 mg 10/01/18 09:00 10/02/18 08:56 Ecotrin PO 81 mg DAILY NATALIO Administration Brimonidine Tartrate 1 drop 09/28/18 21:00 10/02/18 08:57 Alphagan 0.2% Ophth Soln EA EYE 1 drop BID NATALIO Administration Calcium Acetate 1,334 mg 09/30/18 17:00 10/02/18 13:20 Phoslo PO 1,334 mg TID-WM NATALIO Administration Epoetin Massimo-epbx 7,500 unit 10/01/18 08:45 10/01/18 14:13 Retacrit SC 7,500 unit Q7D NATALIO Administration Famotidine 20 mg 09/28/18 21:00 10/01/18 20:10 Pepcid SLOW IVP 20 mg Q24HR NATALIO Administration Hydralazine HCl 10 mg 09/28/18 20:03 10/02/18 05:19 Apresoline SLOW IVP 10 mg Q4H PRN Administration SBP > 180 and HR < 70 Ceftriaxone Sodium 1 gm/ 100 mls @ 200 mls/hr 09/29/18 16:00 10/01/18 16:00 Sodium Chloride IVPB 100 mls 1600 NATALIO Administration Sodium Chloride 1,000 mls @ 50 mls/hr 09/28/18 20:03 10/02/18 11:14 Normal Saline 0.9% IV 1,000 mls .Q20H NATALIO Administration Latanoprost 1 drop 09/28/18 21:00 10/01/18 20:11 Xalatan 0.005% Ophth Soln EA EYE 1 drop HS NATALIO Administration Risperidone 0.25 mg 09/30/18 21:00 10/02/18 08:59 Risperidone PO 0.25 mg BID NATALIO Administration - Exam Eye: anicteric sclera ENT: normocephalic atraumatic Neck: supple Heart: RRR Respiratory: no wheezes (fair air entry bilaterally), no rales, no ronchi Gastrointestinal: soft, non-tender, non-distended, normal bowel sounds Extremities: no cyanosis, no edema Neurological: CN's grossly intact (sleeping but arousable. localizes pain and opens eye to stimuli. Barely verbal) Hosp A/P (1) Acute metabolic encephalopathy Code(s): G93.41 - METABOLIC ENCEPHALOPATHY Status: Acute (2) UTI (urinary tract infection) Status: Acute (3) Chronic hepatitis C Code(s): B18.2 - CHRONIC VIRAL HEPATITIS C Status: Chronic Qualifiers: (4) Dementia Code(s): F03.90 - UNSPECIFIED DEMENTIA WITHOUT BEHAVIORAL DISTURBANCE Status: Chronic (5) Hypertension Code(s): I10 - ESSENTIAL (PRIMARY) HYPERTENSION Status: Chronic Qualifiers: (6) Paroxysmal atrial fibrillation Code(s): I48.0 - PAROXYSMAL ATRIAL FIBRILLATION Status: Chronic - Plan Continue antibiotic and IVF. increase amlodipine to 10 mg daily. HD as per community service representative.
[2018-10-02] MEDS: cefTRIAXone\\ROCEPHIN 1 GM in Sodium Chloride 0.9% 100 ML IVPB SCH (15:36)
[2018-10-02] MEDS: Famotidine/PF 20 mg/2ml Vial SLOW IVP SCH (20:48)
[2018-10-02] MEDS: Latanoprost 0.005% Ophth Soln 2.5 ml Bottle EA EYE SCH (20:48)
[2018-10-03] MEDS: Sodium Chloride 0.9% 1,000 ML IV SCH (05:47)
[2018-10-03] MEDS: hydrALAZINE 20 MG/ML VIAL SLOW IVP PRN (05:55)
--- NOTE | 2018-10-03 09:26 | PRG ---
DATE OF SERVICE: 10/03/2018 SERVICE: Renal Medicine. SUBJECTIVE: Ms. Sears is an 82-year-old black female followed up by the Renal Service for her maintenance hemodialysis. She was admitted for mental status change. She is also being empirically treated for UTI with IV antibiotics. This morning, she is noted to be arousable, but is still confused. OBJECTIVE: VITAL SIGNS: Blood pressure 192/62, heart rate 61, respiratory rate 16, temperature 98.1, and pulse ox 97%. GENERAL: The patient is awake, not following syncopal commands. SKIN: Adequate turgor. HEENT: She has slightly pinkish conjunctivae. Anicteric sclerae. NECK: No neck mass. No carotid bruits. No JVD. CHEST: No deformities. LUNGS: Clear breath sounds. HEART: Normal sinus rhythm. No murmurs. No gallops. No rubs. ABDOMEN: Globular, soft, and nontender. No masses. EXTREMITIES: No edema. No deformities. MEDICATIONS: Medications of October 03, 2018, was reviewed. LABORATORY DATA: Laboratories of October 02, 2018; white count 7.5, hemoglobin 10.1. Sodium 138, potassium 3.9, chloride 105, carbon dioxide 27, BUN 26, creatinine 5.49, and calcium 9.3. C-reactive protein less than 0.5. Procalcitonin 0.24. ASSESSMENT AND PLAN: 1. Mental status change - multifactorial etiology. This patient may have underlying dementia. She is also on risperidone. Continue supportive care. 2. Urinary tract infection, on IV antibiotics. 3. End-stage renal disease. Continuing hemodialysis on Monday, Monday, and Monday. She is tolerating said treatment. Fluid removal only as tolerated. 4. Anemia, on weekly Epogen. Job ID: [id number]
[2018-10-03] MEDS: Calcium Acetate 667 MG CAP PO SCH ×3 (13:18→18:01)
[2018-10-03] MEDS: Aspirin 81 mg Enteric Coated Tablet PO SCH (14:14)
[2018-10-03] MEDS: Amlodipine 10 MG TAB PO SCH (14:15)
[2018-10-03] MEDS: risperiDONE 0.25 MG TAB PO SCH ×2 (14:15→20:20)
--- NOTE | 2018-10-03 14:28 | PDOC.HOSPP ---
- Subjective Encounter Date: 10/03/18 Encounter Time: 14:27 Subjective: 82 y/o female with ESRD on HD admitted due to decreased responsiveness. Thought to have acute encephalopathy due to UTI and was started on IVF and antibiotics with some improvement. More awake and talking. tolerating oral intake. - Objective Vital Signs & Weight: Vital Signs (12 hours) Temp Pulse Resp BP BP BP Pulse Ox 10/03/18 14:15 64 166/64 H 10/03/18 13:00 98 F 74 16 166/66 H 96 10/03/18 07:32 98.1 F 61 16 192/62 H 97 10/03/18 06:13 70 154/58 H 10/03/18 05:55 60 184/63 H 10/03/18 04:00 97.6 F 58 L 16 184/63 H 98 Weight Admit Weight 116 lb 1.92 oz Weight 116 lb 1.92 oz I&O: 10/02/18 10/03/18 10/04/18 06:59 06:59 06:59 Intake Total 1300 700 Output Total 2200 Balance -900 700 Result Diagrams: 10/02/18 05:42 10/01/18 05:37 ROS - Medication Medications: Active Medications Generic Name Dose Route Start Last Admin Trade Name Freq PRN Reason Stop Dose Admin Amlodipine Besylate 10 mg 10/03/18 09:00 10/03/18 14:15 Norvasc PO 10 mg DAILY NATALIO Administration Aspirin 81 mg 10/01/18 09:00 10/03/18 14:14 Ecotrin PO 81 mg DAILY NATALIO Administration Brimonidine Tartrate 1 drop 09/28/18 21:00 10/02/18 20:48 Alphagan 0.2% Ophth Soln EA EYE 1 drop BID NATALIO Administration Calcium Acetate 1,334 mg 09/30/18 17:00 10/03/18 14:15 Phoslo PO 1,334 mg TID-WM NATALIO Administration Epoetin Massimo-epbx 7,500 unit 10/01/18 08:45 10/01/18 14:13 Retacrit SC 7,500 unit Q7D NATALIO Administration Famotidine 20 mg 09/28/18 21:00 10/02/18 20:48 Pepcid SLOW IVP 20 mg Q24HR NATALIO Administration Hydralazine HCl 10 mg 09/28/18 20:03 10/03/18 05:55 Apresoline SLOW IVP 10 mg Q4H PRN Administration SBP > 180 and HR < 70 Ceftriaxone Sodium 1 gm/ 100 mls @ 200 mls/hr 09/29/18 16:00 10/02/18 15:36 Sodium Chloride IVPB 100 mls 1600 NATALIO Administration Latanoprost 1 drop 09/28/18 21:00 10/02/18 20:48 Xalatan 0.005% Ophth Soln EA EYE 1 drop HS NATALIO Administration Risperidone 0.25 mg 09/30/18 21:00 10/03/18 14:15 Risperidone PO 0.25 mg BID NATALIO Administration - Exam awake alert Eye: anicteric sclera ENT: normocephalic atraumatic, moist mucosa Neck: supple Heart: RRR Respiratory: no rales Respiratory - other findings: Fair air entry bilaterally Gastrointestinal: soft, non-tender, non-distended, normal bowel sounds Extremities: no edema Neurological: CN's grossly intact Neurological - other findings: Verbalizing some. Hosp A/P (1) Acute metabolic encephalopathy Code(s): G93.41 - METABOLIC ENCEPHALOPATHY Status: Acute (2) UTI (urinary tract infection) Status: Acute (3) Chronic hepatitis C Code(s): B18.2 - CHRONIC VIRAL HEPATITIS C Status: Chronic Qualifiers: (4) Dementia Code(s): F03.90 - UNSPECIFIED DEMENTIA WITHOUT BEHAVIORAL DISTURBANCE Status: Chronic (5) Hypertension Code(s): I10 - ESSENTIAL (PRIMARY) HYPERTENSION Status: Chronic Qualifiers: (6) Paroxysmal atrial fibrillation Code(s): I48.0 - PAROXYSMAL ATRIAL FIBRILLATION Status: Chronic - Plan DC IV Fluid. Discontinue antibiotic after 5th treatment. Continue antihypertensives. HD as per Nephrology Case mgt to help with placement. Possible discharge tomorrow
[2018-10-03] MEDS ORDERED: Heparin 10,000 UNITS/1 ML VIAL ONE (15:00)
[2018-10-03] MEDS: Brimonidine Tartrate 0.2% Ophth Soln 5 ml Bottle EA EYE SCH ×2 (15:45→20:21)
[2018-10-03] MEDS: cefTRIAXone\\ROCEPHIN 1 GM in Sodium Chloride 0.9% 100 ML IVPB SCH (18:00)
[2018-10-03] MEDS: Famotidine/PF 20 mg/2ml Vial SLOW IVP SCH (20:21)
[2018-10-03] MEDS: Latanoprost 0.005% Ophth Soln 2.5 ml Bottle EA EYE SCH (20:21)
[2018-10-04] MEDS ORDERED: Hydroxyurea 500 MG CAP PO SCH (09:00)
--- NOTE | 2018-10-04 09:37 | PRG ---
DATE OF SERVICE: 10/04/2018 SUBJECTIVE: Ms. Seasr is an 82-year-old black female with ESRD and followed up by the [facility] for her maintenance hemodialysis. She was initially admitted for decreased mentation. Mentation remains unchanged. She is partially responsive. She does eat with assistance. She sometimes will not respond to my verbal stimuli. Imaging of the brain has already been done, which showed no acute intracranial abnormality. No acute events noted last night. OBJECTIVE: VITAL SIGNS: Blood pressure is 165/75, heart rate 53, respiratory rate 20, temperature 97.7, and pulse ox 97%. GENERAL: The patient is awake, can follow occasional simple commands. HEENT: She has slightly pale conjunctivae. Anicteric sclerae. NECK: No neck mass. No carotid bruits. No JVD. CHEST: No deformities. LUNGS: Clear breath sounds. HEART: Normal sinus rhythm. No murmur. No gallops. No rubs. ABDOMEN: Globular, soft, and nontender. No masses. EXTREMITIES: No edema. MEDICATIONS: Medications of October 04, 2018, reviewed. LABORATORY DATA: laboratories of October 02, 2018; white count 7.5, hemoglobin 10.1. On October 01, 2018; sodium 138, potassium 3.9, chloride 105, carbon dioxide 27, BUN 26, creatinine 5.49, and calcium 9.3. ASSESSMENT AND PLAN: 1. Metabolic encephalopathy - continue supportive care. 2. End-stage renal disease, stable. We will continue current Monday, Monday, and Monday hemodialysis. Fluid removal only as tolerated. 3. Anemia. Continuing weekly Epogen. Continue supportive care. Recheck CBC and basic metabolic panel in a.m. Job ID: [id number]
[2018-10-04] MEDS: Aspirin 81 mg Enteric Coated Tablet PO SCH (11:32)
[2018-10-04] MEDS: Amlodipine 10 MG TAB PO SCH (12:32)
[2018-10-04] MEDS: risperiDONE 0.25 MG TAB PO SCH (12:32)
[2018-10-04] MEDS: Brimonidine Tartrate 0.2% Ophth Soln 5 ml Bottle EA EYE SCH (12:35)
[2018-10-04] MEDS: Calcium Acetate 667 MG CAP PO SCH ×3 (12:35→17:30)
[2018-10-04] MEDS: cefTRIAXone\\ROCEPHIN 1 GM in Sodium Chloride 0.9% 100 ML IVPB SCH (16:00)
[2018-10-04 16:41] VITALS: BP 145/74; TEMP 98.3
--- NOTE | 2018-10-05 09:39 | PQF ---
SAP Weaving Loom Operator Crystal Reports Winform Viewer MABEL GIBBONS FREDERICK [place] MD [id number] [id number] [id number] CLINICAL DOCUMENTATION CLARIFICATION FORM: POST DISCHARGE Addendum to original discharge summary date: 10/06/18 Late entry note date: 10/06/18 DATE: 10-05-2018 ATTN:Dr. Luis Hodge Please exercise your independent, professional judgment in responding to the clarification form. Clinical indicators are provided on the bottom of this form for your review Can you please specify the etiology of patient metabolic encephalopathy? Please check appropriate box(s): [ ] Metabolic Encephalopathy due to UTI [ x ] Metabolic Encephalopathy due to Dementia [ ] Other diagnosis please specify: [ ] Unable to determine For continuity of documentation, please document condition throughout progress notes and discharge summary. Thank You. CLINICAL INDICATORS: H&P / pg1 Dr Bah difficult to arouse and awake from sleeping H&P 09/[address] Bah Acute metabolic encephalopathy- suspected metabolic source with potential UTI. H&P 09/[address] Bah Suspect multifactorial encephalopathy given patients advanced dementia H&P 09/[address] Bah Neutrophilic leukocytosis. Suspect secondary to UTI Consult 09/[address] Smith Decrease mentation, unclear if she is taking medication that could be affecting her mentation PN 10/[address] Smith Metabolic encephalopathy- continue supportive care Laboratory: WBC=11.8 (8/3) RISK FACTORS: H&P 09/28 Dr. Bah- ESRD H&P 09/28 Dr. Bah- Bedbound H&P 09/28 Dr. Bah-HTN H&P 09/28 Dr. Bah- History of CVA H&P 09/28 Dr. Bah- Advanced Dementia H&P 09/28 Dr. Bah- UTI TREATMENTS: Imaging 09/28- CT scan brain MAY 04- Rocephin 1 gm IV MAY 04-Aricept 10 mg PO (This form is maintained as a part of the permanent medical record) 2014 [employer]. All Rights Reserved Connie [email or web address] [not provided] MTDD
--- NOTE | 2018-10-05 14:47 | DIS ---
DATE OF ADMISSION: 09/28/2018 DATE OF DISCHARGE: 10/04/2018 PRIMARY CARE PHYSICIAN: Dr. Maricruz Francois. DISCHARGE DIAGNOSES: 1. Acute metabolic encephalopathy. 2. Urinary tract infection. 3. Dementia. 4. Hypertension. 5. Paroxysmal atrial fibrillation. 6. Chronic hepatitis C. 7. End-stage renal disease, on hemodialysis. 8. Chronic anemia. CONSULT: Nephrology. HOSPITAL COURSE: An 82-year-old female with baseline dementia as well as end-stage renal disease on hemodialysis, admitted from the halfway due to decreased responsiveness. Evaluation with urinalysis showed pyuria. For unclear reason, urine sample was not sent for culture. Impression of acute metabolic encephalopathy due to urinary tract infection superimposed on baseline dementia was made and the patient was started on IV antibiotics with improvement in mental status. The patient also was found to have elevation in blood pressure. Hence, amlodipine was titrated upwards to get adequate BP control. Initially, oral intake was poor and the patient was treated with IV fluid. With improvement of mental status, the patient was eating more. The patient also was seen by Nephrology, who provided hemodialysis as needed. She improved and was subsequently discharged back to the halfway. PHYSICAL EXAMINATION: VITAL SIGNS: Temperature 98.3, pulse 64, respiratory rate 20, SpO2 of 100 on room air, blood pressure is 145/74. GENERAL: Chronically ill-looking elderly female, in no obvious distress. Afebrile. HEENT: Normocephalic, atraumatic. CARDIOVASCULAR: Regular rhythm and rate. RESPIRATORY: Good air entry bilaterally with no obvious crackle or rhonchi. GI: Soft, nontender, nondistended with normal bowel sounds. EXTREMITIES: No edema or erythema. X RAY CONTROL EQUIPMENT REPAIRER: Sleeping, but easily arousable. Answers questions appropriately. Moves all limbs, but weakly. DISCHARGE DISPOSITION: detention. DISCHARGE CONDITION: Improved. DISCHARGE MEDICATIONS: 1. Acetaminophen 325 mg p.o. q.6 p.r.n. 2. Aspirin 81 mg p.o. daily. 3. Brimonidine tartrate one drop to each eye b.i.d. 4. PhosLo 1334 mg p.o. t.i.d. 5. Aricept 10 mg p.o. daily at bedtime. 6. Hydroxyurea 500 mg p.o. daily. 7. Latanoprost one drop at bedtime. 8. MiraLAX 17 g p.o. daily. 9. Risperidone 0.25 mg p.o. b.i.d. 10. Amlodipine 10 mg p.o. daily. Of note, the patient completed IV antibiotics in the hospital. TIME SPENT: Discharge took more than 34 minutes. Job ID: [id number]
== END 2018-10-04 17:36 | DRG 689 ==
LOC: ERS 14:35 → T4-A 19:12
PROVIDERS: ADMIT Family Medicine; ATTEND Family Medicine
PROC: 5A1D70Z Performance of Urinary Filtration, Intermittent, Less than 6 Hours Per Day (ICD-10-PCS; principal; 2018-09-28)
DX: N39.0 Urinary tract infection, site not specified (principal); G93.41 Metabolic encephalopathy; N18.6 End stage renal disease; I13.2 Hypertensive heart and chronic kidney disease with heart failure and with stage 5 chronic kidney disease, or end stage renal disease; N25.81 Secondary hyperparathyroidism of renal origin; F03.90 Unspecified dementia, unspecified severity, without behavioral disturbance, psychotic disturbance, mood disturbance, and anxiety; I48.0 Paroxysmal atrial fibrillation; D63.1 Anemia in chronic kidney disease; B18.2 Chronic viral hepatitis C; D47.3 Essential (hemorrhagic) thrombocythemia; Z79.899 Other long term (current) drug therapy; Z86.73 Personal history of transient ischemic attack (TIA), and cerebral infarction without residual deficits; Z86.718 Personal history of other venous thrombosis and embolism; Z74.01 Bed confinement status; Z79.82 Long term (current) use of aspirin; Z88.2 Allergy status to sulfonamides; Z88.8 Allergy status to other drugs, medicaments and biological substances; Z99.2 Dependence on renal dialysis; Z90.49 Acquired absence of other specified parts of digestive tract
CPT/HCPCS: 36415; 36416; 51701; 70450; 80048; 80306; 80307; 81003; 81015; 82140; 84145; 85007; 85025; 85027; 85652; 86140; 90935; 93005; 96374; A4353; G0257; J0360; J0696; J1644; J3490; Q5105; S0028

== ENCOUNTER 2019-12-15 01:05 | Inpatient (IN) | payer MEDICARE, MEDICAID, OTHER ==
[2019-12-15] MEDS ORDERED: Pharmacy to Dose VANCOMYCIN/RENALLY ADJ ANTIBIOTICS IVPB PRN (02:13)
[2019-12-15] MEDS ORDERED: Sodium Chloride 0.9% 1,000 ML IV SCH (02:15)
--- NOTE | 2019-12-15 02:25 | PDOC.HHP ---
Hospitalist HPI - History of Present Illness Cough and altered mental status History of Present Illness: 83-year-old long-term resident was transferred from the long-term to [place] emergency department due to altered mental status and cough. Patient is noted to have desaturated on room air to 85%. EMS placed her on oxygen by nasal cannula and was sent to the emergency department where temperature of 101 was recorded. Chest x-ray demonstrated bibasilar interstitial prominence and worsening aeration in the left lung base suggestive of edema versus infection. Patient has end-stage renal disease on hemodialysis. Her last hemodialysis was Monday (2 days ago). She has no leukocytosis. Patient was diagnosed with pneumonia with hypoxia. She was then transferred to [facility] ED for further evaluation and hospitalization. Patient has severe dementia and could not provide any history. Her oxygen saturation was 95% on 3 to 4 L of oxygen by nasal cannula. She is admitted for further management. Hospitalist ROS - Review of Systems ROS unobtainable: due to mental status - Medication Medications: Medication Instructions Recorded Confirmed Type Aspirin [Ecotrin Low Strength] 81 mg PO DAILY 05/16/18 09/29/18 History Brimonidine Tartrate [Brimonidine 1 drop EA EYE BID 05/16/18 09/29/18 History Tartrate 0.15% Ophth Soln] Calcium Acetate [Phoslo] 1,334 mg PO TID-WM 05/16/18 09/29/18 History Donepezil HCl [Aricept] 10 mg PO HS 05/16/18 09/29/18 History Hydroxyurea [Hydrea] 500 mg PO DAILY 05/16/18 09/29/18 History Latanoprost/Pf [Latanoprost 0.005% 1 drop OP HS 05/16/18 09/29/18 History Eye Drop] Polyethylene Glycol 3350 [Miralax] 17 gm PO DAILY 05/16/18 09/29/18 History risperiDONE [RisperDAL] 0.25 mg PO BID 05/16/18 09/29/18 History Acetaminophen [Tylenol] 325 mg PO Q6HR 09/29/18 09/29/18 History Amlodipine [Norvasc] 10 mg PO DAILY tab 10/04/18 Rx Hospitalist History - Past Medical History Other Medical History: Advanced Alzheimer dementia, end-stage renal disease on hemodialysis, nonambulatory status, hypertension, essential thrombocytosis, paroxysmal atrial fibrillation, secondary hyperparathyroidism of renal origin, anemia of chronic kidney disease, hepatitis C, history of DVT, history of CVA. - Past Surgical History Other Surgical History: Status post fistula placement of the right upper extremities, status post permacath to the left upper chest, status post right shoulder surgery. - Family History Family History: reports: cardiac disorder, hypertension - Social History Smoking Status: Never smoker Alcohol: reports: None Living Situation: Jail - Exam General Appearance: NAD, ill appearing General - other findings: Confused, frail appearing. Eye: PERRL, anicteric sclera ENT: normocephalic atraumatic, no oropharyngeal lesions Neck: supple, symmetric, no JVD Heart: RRR, no murmur, no gallops Respiratory: CTAB, no wheezes, no rales Gastrointestinal: soft, non-tender, non-distended Extremities: no cyanosis, no edema Skin: normal turgor, no rashes Neurological: cranial nerve grossly intact, no weakness Neurological - other findings: She moves all extremities. Musculoskeletal: normal tone Psychiatric - other findings: Advanced dementia, confused. Hospitalist Results - Labs Result Diagrams: 12/15/19 04:44 12/15/19 02:40 Lab results: Hemoglobin 8.3, WBC 9.6, platelet count 811. Sodium 143, potassium 3.7, BUN 26, creatinine 4.37. Troponin elevated to 0.062. BNP 4140. - Radiology Interpretation Chest x-ray Status: report reviewed by me (Pulmonary vascular congestion, perihilar and bibasilar interstitial prominence as well as worsening aeration in the left base suggestive of edema, infection also possible.) Hospitalist H&P A/P - Problem (1) Pneumonia Code(s): J18.9 - PNEUMONIA, UNSPECIFIED ORGANISM Status: Acute (2) Acute respiratory failure with hypoxia Code(s): J96.01 - ACUTE RESPIRATORY FAILURE WITH HYPOXIA Status: Acute (3) Acute metabolic encephalopathy Code(s): G93.41 - METABOLIC ENCEPHALOPATHY Status: Acute (4) Elevated troponin Code(s): R74.8 - ABNORMAL LEVELS OF OTHER SERUM ENZYMES Status: Acute Assessment and Plan: Likely secondary to reduced clearance from end-stage renal disease. (5) ESRD (end stage renal disease) on dialysis Code(s): N18.6 - END STAGE RENAL DISEASE; Z99.2 - DEPENDENCE ON RENAL DIALYSIS Status: Chronic Assessment and Plan: Possible volume overload given markedly elevated BNP. (6) Essential thrombocytosis Code(s): D47.3 - ESSENTIAL (HEMORRHAGIC) THROMBOCYTHEMIA Status: Chronic (7) Paroxysmal atrial fibrillation Code(s): I48.0 - PAROXYSMAL ATRIAL FIBRILLATION Status: Chronic (8) Dementia Code(s): F03.90 - UNSPECIFIED DEMENTIA WITHOUT BEHAVIORAL DISTURBANCE Status: Chronic - Plan Plan: Admit to the medical floor. Start IV Levaquin and vancomycin to cover healthcare associated pneumonia. Rapid test for COVID-19 is pending. Supplemental oxygen. Repeat blood cultures and follow results. Nephrology consult for hemodialysis. Continue hydroxyurea for thrombocytosis. Continue home antihypertensives.
[2019-12-15 02:34] LABS: SARS-CoV-2 NAA Rapid Test DETECTED (NotDetected)
[2019-12-15 03:16] LABS: Anion Gap 16 mmol/L (10-20); BUN (Urea Nitrogen) 29 mg/dL (9.8-20.1); Calc. Creatinine Clearance 0 mL/min (70-130); Carbon Dioxide 27 mmol/L (23-31); Chloride 101 mmol/L (98-107); Estimated GFR-MDRD 11; Glucose 108 mg/dL (83-110); Potassium 3.9 mmol/L (3.5-5.1); Sodium 140 mmol/L (136-145)
[2019-12-15 03:19] LABS: Hemoglobin 5.3 g/dL (12.0-16.0); Mean Corpuscular HGB CONC 34.3 g/dL (32.0-36.0); Mean Corpuscular Hemoglobin 34.6 pg (27.0-31.0); Mean Platelet Volume 5.8 fL (7.4-10.4); Platelet Count 924 thou/uL (130-400); RBC Distribution Width 14.5 % (11.5-14.5); Red Blood Cell (RBC) Count 1.52 mill/uL (4.20-5.40); White Blood Cell (WBC) Count 9.7 thou/uL (4.8-10.8)
[2019-12-15 03:23] LABS: #Basophils 0.1 thou/uL (0.0-0.2); #Eosinphils 0.1 thou/uL (0.0-0.7); #Lymphocytes 0.7 thou/uL (1.20-3.40); #Monocytes 0.4 thou/uL (0.11-0.59); #Neutrophils 8.5 thou/uL (1.40-6.50); %Basophils 0.7 % (0.0-1.0); %Eosinophils 0.5 % (0.0-10.0); %Lymphocytes 6.7 % (21.0-51.0); %Monocytes 3.6 % (0.0-10.0); %Neutrophils 88.5 % (42.0-75.0)
[2019-12-15 05:04] LABS: #Eosinphils 0.1 thou/uL (0.0-0.7); #Lymphocytes 0.9 thou/uL (1.20-3.40); #Monocytes 0.5 thou/uL (0.11-0.59); %Basophils 0.2 % (0.0-1.0); %Eosinophils 0.8 % (0.0-10.0); %Lymphocytes 10.5 % (21.0-51.0); %Monocytes 5.7 % (0.0-10.0); %Neutrophils 82.8 % (42.0-75.0); Hemoglobin 9.9 g/dL (12.0-16.0); Mean Corpuscular HGB CONC 33.5 g/dL (32.0-36.0); Mean Corpuscular Hemoglobin 34.4 pg (27.0-31.0); Mean Platelet Volume 5.9 fL (7.4-10.4); Platelet Count 730 thou/uL (130-400); RBC Distribution Width 14.7 % (11.5-14.5); Red Blood Cell (RBC) Count 2.87 mill/uL (4.20-5.40); White Blood Cell (WBC) Count 8.4 thou/uL (4.8-10.8)
[2019-12-15] MEDS ORDERED: Vancomycin 1 GM/200 ML BAG ONE (05:07)
[2019-12-15] MEDS: Vancomycin 1 GM in Premix Bag 1 BAG IVPB SCH (05:12)
[2019-12-15] MEDS ORDERED: PROVENTIL INHALER 6.7 G (200 INHALATIONS) INH PRN (08:46)
[2019-12-15] MEDS ORDERED: Enoxaparin Sodium 30 MG/0.3 ML SYRINGE SC SCH (09:00)
[2019-12-15 09:29] VITALS: BMI 20.3
[2019-12-15 09:29] LABS: Hemoglobin 9.3 g/dL (12.0-16.0); Platelet Count 876 thou/uL (130-400); Reticulocyte Count 1.1 % (0.5-1.5)
[2019-12-15 09:35] LABS: INR-International Normal Ratio 1.1; Prothrombin Time 14.9 sec (12.0-14.7)
[2019-12-15 09:36] LABS: PTT 31.5 sec (22.9-36.1)
[2019-12-15 09:37] LABS: D-Dimer Test 3.82 *mcg/mL (0.27-0.43)
[2019-12-15] MEDS ORDERED: FLU VACC QS2020-21(65YR UP)/PF 240 MCG/0.7 ML SYRINGE IM ONE (10:00)
[2019-12-15] MEDS: Folic Acid/Vit B Comp W-C PO SCH (10:50)
[2019-12-15] MEDS: Dexamethasone 4 mg/ml Vial SLOW IVP SCH (11:14)
[2019-12-15] MEDS: PROVENTIL INHALER 6.7 G (200 INHALATIONS) INH SCH ×2 (11:37→14:14)
[2019-12-15] MEDS ORDERED: cloNIDine 0.1mg/24 Hour PATCH TD SCH (12:00)
[2019-12-15] MEDS: hydrALAZINE 25 MG TAB PO SCH ×3 (12:06→20:44)
--- NOTE | 2019-12-15 12:25 | CON ---
DATE OF CONSULTATION: 12/15/2019 HISTORY OF PRESENT ILLNESS: Ms. Sears is an 83-year-old black female with ESRD and admitted for altered mental status change and for persistent cough. She was checked for COVID-19 pneumonia. She was positive. She was also noted to be hypoxemic and chest x-ray showed bibasilar interstitial prominence. The patient is noted to be DNR as well as on previous hospice care. We are following up this patient for maintenance hemodialysis. She did undergo hemodialysis on Monday without any difficulty. REVIEW OF SYSTEMS: Not obtainable since the patient has decreased mentation. CURRENT MEDICATIONS: The patient is currently on the following medication: 1. DuoNeb q.4 p.r.n. 2. Dexamethasone 6 mg IV daily. 3. Lovenox 30 mg subcutaneously daily. 4. Folic acid one tablet once a day. 5. Levaquin 500 mg IV every other day. 6. Protonix 40 mg p.o. b.i.d. 7. Status post vancomycin - sliding scale. PAST MEDICAL HISTORY: 1. ESRD and currently on maintenance hemodialysis. 2. Status post DVT, status post CVA, dementia, hypertension, essential thrombocytosis, paroxysmal atrial fibrillation, chronic hepatitis C. PAST SURGICAL HISTORY: Status post ventral hernia repair, status post AV fistula placement, status post cuffed hemodialysis catheter placement, status post IVC filter placement, status post upper and lower GI endoscopy, status post laparoscopic cholecystectomy. SOCIAL HISTORY: The patient currently in a care home in [place]. Three children. No alcohol. No drug abuse. No smoking. Status post multiple blood transfusions. Education, high school. Sedentary lifestyle. ALLERGIES: SULFA. TRAUMA: None. IMMUNIZATIONS: Up-to-date. HOSPITALIZATIONS: Please see past medical history. FAMILY HISTORY: Positive family history of ESRD. PHYSICAL EXAMINATION: VITAL SIGNS: Blood pressure is noted to be at 155/72, heart rate 77, respiratory rate 18, O2 saturation 92% on 2 L, temperature 99.1. GENERAL: The patient has decreased mentation, hard to arouse, but not in distress. SKIN: Adequate turgor. HEENT: She has a slightly pale conjunctivae. Anicteric sclerae. NECK: No neck mass. No carotid bruits. No JVD. CHEST: No deformities. LUNGS: Decreased breath sounds. HEART: Normal sinus rhythm. No murmur. No gallops. No rubs. ABDOMEN: Globular, soft, nontender. No masses. EXTREMITIES: No edema. No deformities. LABORATORY DATA: On December 15, 2019; white count 8.4, hemoglobin 9.9, and platelet count 730,000. Sodium 140, potassium 3.9, chloride 101, carbon dioxide 27, BUN 29, creatinine 4.51, glucose 108, calcium 9, ferritin 764. December 14, 2019; chest x-ray showed increased lung markings as well as worsening aeration in the left base suggesting pneumonia. ASSESSMENT AND PLAN: 1. COVID-19 pneumonia-continue supportive care. Currently, on steroids. Please note, the patient is a DNR. 2. End-stage renal disease, stable. No indication for any emergent hemodialysis. We will continue current Monday, Monday, and Monday dialysis regimen. Fluid removal as tolerated. 3. Dementia. Supportive care. 4. Essential thrombocytosis. Continue to observe. If needed, we may need to resume her previous medication for her essential thrombocytosis. Job ID: [id number]
[2019-12-15] MEDS ORDERED: Acetaminophen 650 MG/20.3 ML UDCUP PO PRN (13:46)
[2019-12-15] MEDS: Albuterol 200 PUFF (6.7GM INHALER) INH SCH ×3 (17:04→21:08)
[2019-12-15] MEDS: Dextrose 5 %-0.45 % NaCl 1,000 ML IV SCH (18:36)
[2019-12-15] MEDS: Brimonidine Tartrate 0.2% Ophth Soln 5 ml Bottle EA EYE SCH (20:42)
[2019-12-15] MEDS: Heparin 5,000 UNITS/ML VIAL SC SCH (20:43)
[2019-12-15] MEDS: Latanoprost 0.005% Ophth Soln 2.5 ml Bottle EA EYE SCH (20:43)
[2019-12-15] MEDS: Mirtazapine 15 MG TAB PO SCH (20:44)
[2019-12-15] MEDS ORDERED: Non-Formulary Item 1 EACH (Mirtazapine [Mirtazapine] 7.5 MG Tablet) PO SCH (21:00)
[2019-12-15] MEDS ORDERED: Non-Formulary Item 1 EACH (Brimonidine Tartrate [Brimonidine Tartrate 0.15% Ophth Soln] 1 EA EYE SCH (21:00)
[2019-12-15] MEDS ORDERED: Non-Formulary Item 1 EACH (Latanoprost/Pf [Latanoprost 0.005% Eye Drop] 7.5 ML Drops) OP SCH (21:00)
--- NOTE | 2019-12-15 23:04 | CON ---
DATE OF CONSULTATION: 12/15/2019 REASON: COVID infections. HISTORY OF PRESENT ILLNESS: An 83-year-old, who has a history of hypertension, type 2 diabetes, prior CVA, chronic hepatitis C with unknown treatment history, end-stage renal disease, and dementia, as well as essential thrombocythemia, on hydroxyurea, who is a prison resident and is pretty much in a vegetative state. Does not communicate. She started having fevers and respiratory symptoms, including cough and hypoxemia detected. On arrival, she was saturating 93 on room air, pulse 55, and respirations described as 16. Patient was noncommunicative, did not establish any rapport with the examiner, which is her usual state. Right now, she is in the room and she has O2 by nasal cannula and she is saturating at 96 to 97 on 2 L. The patient again does not interact with the examiner, does not follow commands. PAST MEDICAL HISTORY: Includes essential thrombocythemia, end-stage renal disease, hypertension, type 2 diabetes, prior CVA, dementia, atrial fibrillation, hyperparathyroidism, AFib, hep C with unknown history of treatment, and DVT. She has had a pressure ulcer in the past, stage II. Malnutrition. SOCIAL HISTORY: group home resident. Never smoker. ALLERGIES: CHLORHEXIDINE, MORPHINE, AND SULFA DRUGS. FAMILY HISTORY: Noncontributory. CURRENT MEDICATIONS: 1. Inhalers. 2. Alphagan. 3. Clonidine. 4. Decadron. 5. . 6. Minoxidil. 7. Vancomycin. 8. Sliding scale. PHYSICAL EXAMINATION: VITAL SIGNS: T-max 99.3, BP 140/56, heart rate 62, respiratory rate 18, and O2 saturation 99% on 2 L nasal cannula. SKIN: stage II presacral tissue injury. Peripheral IV access. She is voiding in the diaper. No lymphadenopathy. GENERAL: She does not open her eyes and kind of shuts them closed. HEENT: I could not evaluate her orbits. Oral cavity, also, she did not cooperate with the exam. She has no jugular vein distention. LUNGS: Symmetric air entry. Quite prominent inspiratory crackles on the left side. HEART: S1 and S2. Regular rate. ABDOMEN: Soft and nondistended. No bladder distention. EXTREMITIES: Some stiffness but not much. No edema. Pulses are 1+ in the dorsalis pedis. Plantar responses are flexor, which is surprising. She has no clonus, which is also somewhat surprising. The mental state, as described she does not interact with the examiner. Keeps her eyes shut closed. Does not follow commands. LABORATORY DATA: White cell count 9.7 and 8.4. She started with hemoglobin 5.3, now 9.3; platelets are 924, now 876 with 82% neutrophils. D-dimer 3.82. Creatinine 4.51. Ferritin 764 and CRP 7.59. SARS-CoV RNA PCR positive this morning. ASSESSMENT: 1. 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 2. Type 2 diabetes. 3. End-stage renal disease, on hemodialysis. 4. Essential thrombocythemia. 5. COVID infection. DISCUSSION: Patient has moderate COVID infection with requirement for mild O2 supplementation for the time being. I do not think she qualifies for Remdesivir because of the difficulty in establishing duration of the illness as well as her functional state. There is a risk of aspiration pneumonia, so I will continue the antimicrobial therapy for now, but should be able to discontinue shortly. Decadron to be continued. DVT prophylaxis. Job ID: [id number]
[2019-12-16] MEDS ORDERED: Vancomycin 1 GM in Premix Bag 1 BAG IVPB SCH (00:01)
[2019-12-16] MEDS ORDERED: HOLD VANCOMYCIN FOR LEVEL >20 FS SCH (00:01)
[2019-12-16] MEDS ORDERED: Vancomycin HCl 500 MG in Sodium Chloride 0.9% 100 ML IVPB SCH (00:01)
[2019-12-16] MEDS ORDERED: Vancomycin HCl 250 MG in Sodium Chloride 0.9% 100 ML IVPB SCH (00:01)
[2019-12-16] MEDS ORDERED: Vancomycin HCl 750 MG in Sodium Chloride 0.9% 250 ML 250 ML IVPB SCH (00:01)
[2019-12-16] MEDS: Albuterol 200 PUFF (6.7GM INHALER) INH SCH ×3 (03:14→19:15)
[2019-12-16] MEDS: Vancomycin 1 GM in Premix Bag 1 BAG IVPB SCH (04:58)
[2019-12-16] MEDS: Acetaminophen 650 MG Suppository PR PRN (05:24)
[2019-12-16] MEDS: Heparin 5,000 UNITS/ML VIAL SC SCH ×2 (08:41→20:09)
[2019-12-16] MEDS: Brimonidine Tartrate 0.2% Ophth Soln 5 ml Bottle EA EYE SCH ×2 (08:42→20:10)
[2019-12-16] MEDS: Dexamethasone 4 mg/ml Vial SLOW IVP SCH (08:45)
[2019-12-16] MEDS: Folic Acid/Vit B Comp W-C PO SCH (08:46)
[2019-12-16] MEDS: Aspirin 81 mg Enteric Coated Tablet PO SCH (08:46)
[2019-12-16] MEDS: hydrALAZINE 25 MG TAB PO SCH ×4 (08:47→20:57)
[2019-12-16] MEDS: Hydroxyurea 500 MG CAP PO SCH (08:47)
[2019-12-16] MEDS: Minoxidil 2.5 MG TAB PO SCH (08:47)
[2019-12-16 09:06] LABS: #Lymphocytes 0.5 thou/uL (1.20-3.40); #Monocytes 0.3 thou/uL (0.11-0.59); #Neutrophils 8.3 thou/uL (1.40-6.50); %Basophils 0.4 % (0.0-1.0); %Eosinophils 0.4 % (0.0-10.0); %Lymphocytes 5.7 % (21.0-51.0); %Monocytes 3.4 % (0.0-10.0); %Neutrophils 90.1 % (42.0-75.0); Hemoglobin 8.5 g/dL (12.0-16.0); Mean Corpuscular HGB CONC 33.7 g/dL (32.0-36.0); Mean Corpuscular Hemoglobin 33.3 pg (27.0-31.0); Platelet Count 643 thou/uL (130-400); RBC Distribution Width 14.8 % (11.5-14.5); Red Blood Cell (RBC) Count 2.54 mill/uL (4.20-5.40); White Blood Cell (WBC) Count 9.2 thou/uL (4.8-10.8)
[2019-12-16] MEDS ORDERED: Heparin 10,000 UNITS/ 10 ML VIAL ONE (09:24)
[2019-12-16 09:32] LABS: ALT (SGPT) Less than 7 U/L (8-55); AST (SGOT) 15 U/L (5-34); Albumin 3.2 g/dL (3.4-4.8); Alkaline Phosphatase 51 U/L (40-110); Anion Gap 16 mmol/L (10-20); BUN (Urea Nitrogen) 48 mg/dL (9.8-20.1); Bilirubin, Total 0.4 mg/dL (0.2-1.2); Calc. Creatinine Clearance 5 mL/min (70-130); Calcium 8.5 mg/dL (7.8-10.44); Carbon Dioxide 29 mmol/L (23-31); Chloride 99 mmol/L (98-107); Estimated GFR-MDRD 7; Globulin 3.7 g/dL (2.4-3.5); Glucose 126 mg/dL (83-110); Potassium 4.5 mmol/L (3.5-5.1); Protein, Total 6.9 g/dL (6.0-8.3); Sodium 139 mmol/L (136-145); Vancomycin, Random 25.9 ug/mL (See Comment)
--- NOTE | 2019-12-16 09:43 | PRG ---
DATE OF SERVICE: SUBJECTIVE: Ms. Sears is an 83-year-old black female, admitted for COVID-19 pneumonia. The patient has history of ESRD and for that reason, we are following her up for management of her ESRD as well as for maintenance hemodialysis. The patient also has history of essential thrombocytosis. No acute events noted last night. OBJECTIVE: VITAL SIGNS: Blood pressure 148/58, heart rate 57, temperature 101.9, respiratory rate 18, O2 saturation 100%. GENERAL: The patient has decreased mentation, comfortable, not in distress. SKIN: Adequate turgor. HEENT: She has a slightly pale conjunctivae. Anicteric sclerae. NECK: No neck mass. No carotid bruits. No JVD. CHEST: No deformities. LUNGS: Decreased breath sounds. HEART: Normal sinus rhythm. No murmur. No gallops. No rubs. ABDOMEN: Globular, soft, nontender. No masses. EXTREMITIES: No edema. No deformities. MEDICATIONS: Medications of December 16, 2019, was reviewed. LABORATORY DATA: Laboratories of December 16, 2019, showed a white count 9.2, hemoglobin 8.5, and platelet count is 643,000. December 15, 2019, sodium 140, potassium 3.9, chloride 101, carbon dioxide 27, BUN 29, creatinine 4.51, LDH 344. ASSESSMENT AND PLAN: 1. End-stage renal disease-I have scheduled her for Monday, Monday, Monday hemodialysis. Again, fluid removal only as tolerated. 2. Anemia, continuing to observe-p.r.n. blood transfusion for hemoglobin less than 7. 3. COVID-19 pneumonia, currently on supportive care. 4. The patient is currently on dexamethasone at 6 mg IV daily. She is also on heparin 5000 units subcu b.i.d. She is also currently on empiric IV antibiotics. Overall prognosis remains guarded with this patient. Please note, the blood culture done on December 15, 2019, showed no growth today. Job ID: [id number]
--- NOTE | 2019-12-16 13:40 | PDOC.HOSPP ---
- Subjective Encounter Date: 12/16/19 Encounter Time: 13:31 Subjective: dementia, no apprpriate responce - Objective Vital Signs & Weight: Vital Signs (12 hours) Temp Pulse Resp BP Pulse Ox 12/16/19 08:47 57 L 12/16/19 08:40 99.5 F 52 L 16 134/68 100 12/16/19 05:08 101.9 F H 57 L 18 148/58 H 100 Weight Admit Weight 111 lb 1.808 oz Weight 111 lb 1.808 oz I&O: 12/15/19 12/16/19 12/17/19 06:59 06:59 06:59 Intake Total 600 Balance 600 Result Diagrams: 12/16/19 08:52 12/16/19 08:52 Hospitalist ROS - Medication Medications: Active Medications Generic Name Dose Route Start Last Admin Trade Name Freq PRN Reason Stop Dose Admin Acetaminophen 650 mg 12/15/19 13:46 12/16/19 05:24 Acetaminophen 650 Mg Suppository [place] 650 mg Q4H PRN Administration Headache/Fever or Pain Albuterol Sulfate 2 puff 12/15/19 18:30 12/16/19 03:14 Albuterol 200 Puff (6.7gm Inhaler) INH Not Given [id number] NATALIO Aspirin 81 mg 12/16/19 09:00 12/16/19 08:46 Aspirin 81 Mg Enteric Coated Tablet PO Not Given DAILY NATALIO Brimonidine Tartrate 1 drop 12/15/19 21:00 12/16/19 08:42 Brimonidine Tartrate 0.2% Ophth Soln 5 Ml Bottle EA EYE 1 drop BID NATALIO Administration Dexamethasone 6 mg 12/15/19 09:00 12/16/19 08:45 Dexamethasone 4 Mg/Ml Vial SLOW IVP 6 mg DAILY NATALIO Administration Heparin Sodium (Porcine) 5,000 units 12/15/19 21:00 12/16/19 08:41 Heparin 5,000 Units/Ml Vial SC 5,000 units BID NATALIO Administration Hydralazine HCl 50 mg 12/15/19 13:00 12/16/19 08:47 Hydralazine 25 Mg Tab PO Not Given QID NATALIO Hydroxyurea 500 mg 12/16/19 09:00 12/16/19 08:47 Hydroxyurea 500 Mg Cap PO Not Given DAILY NATALIO Dextrose/Sodium Chloride 1,000 mls @ 50 mls/hr 12/15/19 17:45 12/15/19 18:36 D5 1/2 Ns IV 12/17/19 17:46 1,000 mls .Q20H NATALIO Administration Latanoprost 1 drop 12/15/19 21:00 12/15/19 20:43 Latanoprost 0.005% Ophth Soln 2.5 Ml Bottle EA EYE Not Given HS NATALIO Minoxidil 5 mg 12/16/19 09:00 12/16/19 08:47 Minoxidil 2.5 Mg Tab PO Not Given DAILY NATALIO Mirtazapine 7.5 mg 12/15/19 21:00 12/15/19 20:44 Mirtazapine 15 Mg Tab PO Not Given HS NATALIO Pantoprazole Sodium 40 mg 12/15/19 09:00 12/16/19 08:47 Pantoprazole 40 Mg Tab PO Not Given BID NATALIO Vitamin B Complex/Vit C/Folic Acid 1 tab 12/15/19 09:00 12/16/19 08:46 Folic Acid/Vit B Comp W-C PO Not Given DAILY NATALIO - Exam Neck: no JVD Heart: RRR, no murmur Respiratory - other findings: coarse BS with rales Gastrointestinal: soft, non-tender, normal bowel sounds Extremities: no edema Hosp A/P (1) Pneumonia due to COVID-19 virus Code(s): U07.1 - COVID-19; J12.89 - OTHER VIRAL PNEUMONIA Status: Acute (2) Acute respiratory failure with hypoxia Code(s): J96.01 - ACUTE RESPIRATORY FAILURE WITH HYPOXIA Status: Acute (3) Acute metabolic encephalopathy Code(s): G93.41 - METABOLIC ENCEPHALOPATHY Status: Acute (4) Chronic hepatitis C Code(s): B18.2 - CHRONIC VIRAL HEPATITIS C Status: Chronic Qualifiers: (5) Dementia Code(s): F03.90 - UNSPECIFIED DEMENTIA WITHOUT BEHAVIORAL DISTURBANCE Status: Chronic Qualifiers: Dementia type: unspecified type Dementia behavioral disturbance: without behavioral disturbance Qualified Code(s): F03.90 - Unspecified dementia without behavioral disturbance (6) ESRD (end stage renal disease) on dialysis Code(s): N18.6 - END STAGE RENAL DISEASE; Z99.2 - DEPENDENCE ON RENAL DIALYSIS Status: Chronic (7) Hypertension Code(s): I10 - ESSENTIAL (PRIMARY) HYPERTENSION Status: Chronic Qualifiers: - Plan cont steroids cont O2 supplmentatio accu/ss bronchodilators etc
[2019-12-16] MEDS: Dextrose 5 %-0.45 % NaCl 1,000 ML IV SCH (16:09)
[2019-12-16] MEDS: Latanoprost 0.005% Ophth Soln 2.5 ml Bottle EA EYE SCH (20:10)
[2019-12-16] MEDS: Mirtazapine 15 MG TAB PO SCH (20:57)
[2019-12-16 22:22] LABS: Hep B Surf Ag Non-Reactive S/CO (NonReactive)
[2019-12-17] MEDS: Albuterol 200 PUFF (6.7GM INHALER) INH SCH ×6 (02:05→18:46)
[2019-12-17] MEDS: Heparin 5,000 UNITS/ML VIAL SC SCH ×2 (08:59→20:30)
[2019-12-17] MEDS: Dexamethasone 4 mg/ml Vial SLOW IVP SCH (08:59)
[2019-12-17] MEDS: Brimonidine Tartrate 0.2% Ophth Soln 5 ml Bottle EA EYE SCH ×2 (09:00→20:30)
[2019-12-17] MEDS: Aspirin 81 mg Enteric Coated Tablet PO SCH (09:00)
[2019-12-17] MEDS: hydrALAZINE 25 MG TAB PO SCH ×4 (09:01→22:04)
[2019-12-17] MEDS: Minoxidil 2.5 MG TAB PO SCH (09:01)
[2019-12-17] MEDS: Folic Acid/Vit B Comp W-C PO SCH (09:01)
[2019-12-17] MEDS: Hydroxyurea 500 MG CAP PO SCH (09:01)
--- NOTE | 2019-12-17 12:44 | PDOC.HOSPP ---
- Subjective Encounter Date: 12/17/19 Encounter Time: 12:43 Subjective: arouses easily, no appropriate responce - Objective Vital Signs & Weight: Vital Signs (12 hours) Temp Pulse Resp BP Pulse Ox 12/17/19 12:38 99.2 F 12/17/19 11:34 100.6 F H 56 L 18 133/53 L 97 12/17/19 09:00 98.4 F 53 L 18 141/56 H 99 12/17/19 08:00 99 Weight Admit Weight 111 lb 1.808 oz Weight 111 lb 1.808 oz I&O: 12/16/19 12/17/19 12/18/19 06:59 06:59 06:59 Intake Total 600 1000 Balance 600 1000 Result Diagrams: 12/16/19 08:52 12/16/19 08:52 Hospitalist ROS - Medication Medications: Active Medications Generic Name Dose Route Start Last Admin Trade Name Freq PRN Reason Stop Dose Admin Acetaminophen 650 mg 12/15/19 13:46 12/16/19 05:24 Acetaminophen 650 Mg Suppository [place] 650 mg Q4H PRN Administration Headache/Fever or Pain Albuterol Sulfate 2 puff 12/15/19 18:30 12/17/19 11:31 Albuterol 200 Puff (6.7gm Inhaler) INH Not Given [id number] NATALIO Aspirin 81 mg 12/16/19 09:00 12/17/19 09:00 Aspirin 81 Mg Enteric Coated Tablet PO Not Given DAILY NATALIO Brimonidine Tartrate 1 drop 12/15/19 21:00 12/17/19 09:00 Brimonidine Tartrate 0.2% [facility] Soln 5 Ml Bottle EA EYE 1 drop BID NATALIO Administration Dexamethasone 6 mg 12/15/19 09:00 12/17/19 08:59 Dexamethasone 4 Mg/Ml Vial SLOW IVP 6 mg DAILY NATALIO Administration Heparin Sodium (Porcine) 5,000 units 12/15/19 21:00 12/17/19 08:59 Heparin 5,000 Units/Ml Vial SC 5,000 units BID NATALIO Administration Hydralazine HCl 50 mg 12/15/19 13:00 12/17/19 09:01 Hydralazine 25 Mg Tab PO Not Given QID NATALIO Hydroxyurea 500 mg 12/16/19 09:00 12/17/19 09:01 Hydroxyurea 500 Mg Cap PO Not Given DAILY NATALIO Levofloxacin 500 mg/ Device 100 mls @ 100 mls/hr 12/17/19 03:30 12/17/19 03:18 IVPB 100 mls Q2DAYS NATALIO Administration Dextrose/Sodium Chloride 1,000 mls @ 50 mls/hr 12/15/19 17:45 12/16/19 16:09 D5 1/2 Ns IV 12/17/19 17:46 Not Given .Q20H NATALIO Latanoprost 1 drop 12/15/19 21:00 12/16/19 20:10 Latanoprost 0.005% Ophth Soln 2.5 Ml Bottle EA EYE 1 drp HS NATALIO Administration Minoxidil 5 mg 12/16/19 09:00 12/17/19 09:01 Minoxidil 2.5 Mg Tab PO Not Given DAILY NATALIO Mirtazapine 7.5 mg 12/15/19 21:00 12/16/19 20:57 Mirtazapine 15 Mg Tab PO Not Given HS NATALIO Pantoprazole Sodium 40 mg 12/15/19 09:00 12/17/19 09:01 Pantoprazole 40 Mg Tab PO Not Given BID NATALIO Vitamin B Complex/Vit C/Folic Acid 1 tab 12/15/19 09:00 12/17/19 09:01 Folic Acid/Vit B Comp W-C PO Not Given DAILY NATALIO - Exam Neck: no JVD Heart: RRR, no murmur Respiratory - other findings: prominent rales on left, adequate BS Gastrointestinal: soft, normal bowel sounds Extremities: no edema Hosp A/P (1) Pneumonia due to COVID-19 virus Code(s): U07.1 - COVID-19; J12.89 - OTHER VIRAL PNEUMONIA Status: Acute (2) Acute respiratory failure with hypoxia Code(s): J96.01 - ACUTE RESPIRATORY FAILURE WITH HYPOXIA Status: Acute (3) Acute metabolic encephalopathy Code(s): G93.41 - METABOLIC ENCEPHALOPATHY Status: Acute (4) Chronic hepatitis C Code(s): B18.2 - CHRONIC VIRAL HEPATITIS C Status: Chronic Qualifiers: (5) Dementia Code(s): F03.90 - UNSPECIFIED DEMENTIA WITHOUT BEHAVIORAL DISTURBANCE Status: Chronic Qualifiers: Dementia type: unspecified type Dementia behavioral disturbance: without behavioral disturbance Qualified Code(s): F03.90 - Unspecified dementia without behavioral disturbance (6) ESRD (end stage renal disease) on dialysis Code(s): N18.6 - END STAGE RENAL DISEASE; Z99.2 - DEPENDENCE ON RENAL DIALYSIS Status: Chronic (7) Hypertension Code(s): I10 - ESSENTIAL (PRIMARY) HYPERTENSION Status: Chronic Qualifiers: Hypertension type: essential hypertension - Plan cont steroids cont O2 supplmentation accu/ss bronchodilators etc
[2019-12-17] MEDS: Dextrose 5 %-0.45 % NaCl 1,000 ML IV SCH (15:11)
[2019-12-17] MEDS: Latanoprost 0.005% Ophth Soln 2.5 ml Bottle EA EYE SCH (20:30)
[2019-12-17] MEDS: Mirtazapine 15 MG TAB PO SCH (22:04)
[2019-12-18] MEDS: Albuterol 200 PUFF (6.7GM INHALER) INH SCH ×7 (00:21→22:20)
[2019-12-18 06:49] LABS: Vancomycin, Random 17.7 ug/mL (See Comment)
[2019-12-18] MEDS: Brimonidine Tartrate 0.2% Ophth Soln 5 ml Bottle EA EYE SCH ×2 (08:17→19:49)
[2019-12-18] MEDS: hydrALAZINE 25 MG TAB PO SCH ×4 (08:18→19:49)
[2019-12-18] MEDS: Dexamethasone 4 mg/ml Vial SLOW IVP SCH (08:18)
[2019-12-18] MEDS: Folic Acid/Vit B Comp W-C PO SCH (08:18)
[2019-12-18] MEDS: Heparin 5,000 UNITS/ML VIAL SC SCH ×2 (08:18→19:49)
[2019-12-18] MEDS: Aspirin 81 mg Enteric Coated Tablet PO SCH (08:18)
[2019-12-18] MEDS: cloNIDine 0.1mg/24 Hour PATCH TD SCH (08:18)
[2019-12-18] MEDS: Minoxidil 2.5 MG TAB PO SCH (08:19)
[2019-12-18] MEDS: Hydroxyurea 500 MG CAP PO SCH (08:19)
[2019-12-18] MEDS ORDERED: Heparin 10,000 UNITS/ 10 ML VIAL ONE (08:49)
[2019-12-18] MEDS ORDERED: Vancomycin 1 GM in Premix Bag 1 BAG IVPB SCH ×2 (09:00→10:30)
--- NOTE | 2019-12-18 09:37 | PRG ---
DATE OF SERVICE: 12/18/19 SUBJECTIVE: Ms. Sears is an 83-year-old black female with ESRD, dementia, essential thrombocytosis. She was admitted for COVID-19 pneumonia. Currently, we are continuing supportive care. The patient remains stable. She is clinically asymptomatic and not complaining of any shortness of breath. OBJECTIVE: VITAL SIGNS: Blood pressure is 151/68, heart rate 57, respiratory rate 18, temperature 99.6, O2 saturation 96%. GENERAL: The patient is lethargic, but arousable and comfortable. SKIN: Adequate turgor. HEENT: Slightly pale conjunctivae. Anicteric sclerae. NECK: No neck mass. No carotid bruits. No JVD. CHEST: No deformities. LUNGS: Clear breath sounds. HEART: Normal sinus rhythm. No murmur. No gallops. No rubs. ABDOMEN: Globular, soft, nontender. No masses. EXTREMITIES: No edema. No deformities. MEDICATIONS: Medications of December 18, 2019, was reviewed. LABORATORY DATA: Laboratories of December 16, 2019; white count 9.2, hemoglobin 8.5. December 18, 2019, ferritin 2691. December 16, 2019, potassium 4.5, BUN 48, creatinine 6.5. ASSESSMENT AND PLAN: 1. End-stage renal disease, stable. We will continue current Monday, Monday, and Monday hemodialysis. Fluid removal only as tolerated. 2. COVID-19 pneumonia. Continuing some supportive care. Currently, on dexamethasone. We will recheck CBC and basic met in a.m. Job ID: [id number] [facility]
[2019-12-18] MEDS ORDERED: Vancomycin HCl 750 MG in Sodium Chloride 0.9% 250 ML 250 ML IVPB SCH (10:30)
[2019-12-18] MEDS ORDERED: HOLD VANCOMYCIN FOR LEVEL >20 FS SCH (10:30)
[2019-12-18] MEDS ORDERED: Vancomycin HCl 250 MG in Sodium Chloride 0.9% 100 ML IVPB SCH (10:30)
[2019-12-18] MEDS ORDERED: Vancomycin Sliding Scale 1 EACH FS ONE (10:30)
[2019-12-18] MEDS ORDERED: Vancomycin HCl 500 MG in Sodium Chloride 0.9% 100 ML IVPB SCH (10:30)
--- NOTE | 2019-12-18 11:28 | PDOC.HOSPP ---
- Subjective Encounter Date: 12/18/19 Encounter Time: 11:26 Subjective: arousable, no appropriate responce - Objective Vital Signs & Weight: Vital Signs (12 hours) Temp Pulse Resp BP Pulse Ox 12/18/19 08:34 99.6 F 57 L 18 151/68 H 96 12/18/19 08:18 53 L 12/18/19 08:00 96 Weight Admit Weight 111 lb 1.808 oz Weight 111 lb 1.808 oz I&O: 12/17/19 12/18/19 12/19/19 06:59 06:59 06:59 Intake Total 1000 600 Balance 1000 600 Result Diagrams: 12/16/19 08:52 12/16/19 08:52 Hospitalist ROS - Medication Medications: Active Medications Generic Name Dose Route Start Last Admin Trade Name Freq PRN Reason Stop Dose Admin Acetaminophen 650 mg 12/15/19 13:46 12/16/19 05:24 Acetaminophen 650 Mg Suppository [place] 650 mg Q4H PRN Administration Headache/Fever or Pain Albuterol Sulfate 2 puff 12/15/19 18:30 12/18/19 11:18 Albuterol 200 Puff (6.7gm Inhaler) INH Not Given [id number] NATALIO Aspirin 81 mg 12/16/19 09:00 12/18/19 08:18 Aspirin 81 Mg Enteric Coated Tablet PO Not Given DAILY NATALIO Brimonidine Tartrate 1 drop 12/15/19 21:00 12/18/19 08:17 Brimonidine Tartrate 0.2% Ophth Soln 5 Ml Bottle EA EYE 1 drop BID NATALIO Administration Clonidine 0.1 mg 12/18/19 09:00 12/18/19 08:18 Clonidine 0.1mg/24 Hour Patch TD 0.1 mg Q7DAYS NATALIO Administration Dexamethasone 6 mg 12/15/19 09:00 12/18/19 08:18 Dexamethasone 4 Mg/Ml Vial SLOW IVP 6 mg DAILY NATALIO Administration Heparin Sodium (Porcine) 5,000 units 12/15/19 21:00 12/18/19 08:18 Heparin 5,000 Units/Ml Vial SC 5,000 units BID NATALIO Administration Hydralazine HCl 50 mg 12/15/19 13:00 12/18/19 08:18 Hydralazine 25 Mg Tab PO Not Given QID NATALIO Hydroxyurea 500 mg 12/16/19 09:00 12/18/19 08:19 Hydroxyurea 500 Mg Cap PO Not Given DAILY NATALIO Latanoprost 1 drop 12/15/19 21:00 12/17/19 20:30 Latanoprost 0.005% Ophth Soln 2.5 Ml Bottle EA EYE 1 drp HS NATALIO Administration Minoxidil 5 mg 12/16/19 09:00 12/18/19 08:19 Minoxidil 2.5 Mg Tab PO Not Given DAILY NATALIO Mirtazapine 7.5 mg 12/15/19 21:00 12/17/19 22:04 Mirtazapine 15 Mg Tab PO Not Given HS NATALIO Pantoprazole Sodium 40 mg 12/15/19 09:00 12/18/19 08:19 Pantoprazole 40 Mg Tab PO Not Given BID NATALIO Vitamin B Complex/Vit C/Folic Acid 1 tab 12/15/19 09:00 12/18/19 08:18 Folic Acid/Vit B Comp W-C PO Not Given DAILY NATALIO - Exam Neck: no JVD Heart: RRR, no murmur Respiratory - other findings: bilat rales Gastrointestinal: soft, normal bowel sounds Extremities: no edema Hosp A/P (1) Pneumonia due to COVID-19 virus Code(s): U07.1 - COVID-19; J12.89 - OTHER VIRAL PNEUMONIA Status: Acute (2) Acute respiratory failure with hypoxia Code(s): J96.01 - ACUTE RESPIRATORY FAILURE WITH HYPOXIA Status: Acute (3) Acute metabolic encephalopathy Code(s): G93.41 - METABOLIC ENCEPHALOPATHY Status: Acute (4) Chronic hepatitis C Code(s): B18.2 - CHRONIC VIRAL HEPATITIS C Status: Chronic Qualifiers: (5) Dementia Code(s): F03.90 - UNSPECIFIED DEMENTIA WITHOUT BEHAVIORAL DISTURBANCE Status: Chronic Qualifiers: Dementia type: unspecified type Dementia behavioral disturbance: without behavioral disturbance Qualified Code(s): F03.90 - Unspecified dementia without behavioral disturbance (6) ESRD (end stage renal disease) on dialysis Code(s): N18.6 - END STAGE RENAL DISEASE; Z99.2 - DEPENDENCE ON RENAL DIALYSIS Status: Chronic (7) Hypertension Code(s): I10 - ESSENTIAL (PRIMARY) HYPERTENSION Status: Chronic Qualifiers: Hypertension type: essential hypertension - Plan cont steroids cont O2 supplmentation accu/ss bronchodilators start PPN
[2019-12-18 12:11] LABS: #Eosinphils 0.1 thou/uL (0.0-0.7); #Lymphocytes 0.5 thou/uL (1.20-3.40); #Monocytes 0.1 thou/uL (0.11-0.59); %Basophils 0.1 % (0.0-1.0); %Eosinophils 0.5 % (0.0-10.0); %Lymphocytes 3.9 % (21.0-51.0); %Monocytes 0.8 % (0.0-10.0); %Neutrophils 94.7 % (42.0-75.0); Hemoglobin 9.6 g/dL (12.0-16.0); Mean Corpuscular Hemoglobin 33.1 pg (27.0-31.0); Mean Platelet Volume 6.1 fL (7.4-10.4); Platelet Count 636 thou/uL (130-400); RBC Distribution Width 15.1 % (11.5-14.5); Red Blood Cell (RBC) Count 2.89 mill/uL (4.20-5.40); White Blood Cell (WBC) Count 12.6 thou/uL (4.8-10.8)
[2019-12-18 12:45] LABS: ALT (SGPT) 9 U/L (8-55); AST (SGOT) 21 U/L (5-34); Albumin 3.1 g/dL (3.4-4.8); Alkaline Phosphatase 52 U/L (40-110); Anion Gap 16 mmol/L (10-20); BUN (Urea Nitrogen) 45 mg/dL (9.8-20.1); Bilirubin, Total 0.4 mg/dL (0.2-1.2); Calc. Creatinine Clearance 6 mL/min (70-130); Calcium 8.7 mg/dL (7.8-10.44); Carbon Dioxide 24 mmol/L (23-31); Chloride 96 mmol/L (98-107); Estimated GFR-MDRD 9; Globulin 4.1 g/dL (2.4-3.5); Glucose 131 mg/dL (83-110); Potassium 4.7 mmol/L (3.5-5.1); Protein, Total 7.2 g/dL (6.0-8.3); Sodium 131 mmol/L (136-145)
--- NOTE | 2019-12-18 13:25 | RAD ---
PORTABLE CHEST: Date: 12/18/2019 PROVIDED CLINICAL HISTORY: COVID pneumonia. FINDINGS: Comparison with 12/14/2019. Cardiac and mediastinal silhouette is unchanged in appearance. Left subclavian dialysis catheters are demonstrated in similar position. Interval worsening of bilateral lung parenchymal opacities. Elevat ion of the right hemidiaphragm and/or basilar pleural parenchymal opacity appears similar. No evidenc e for pneumothorax. IMPRESSION: Worsened bilateral lung consolidation. POS: GARRICK
[2019-12-18] MEDS: D5W-AA 4.25% with LYTES 1,000 ML IV SCH (14:53)
[2019-12-18] MEDS: Mirtazapine 15 MG TAB PO SCH (19:50)
[2019-12-18] MEDS: Latanoprost 0.005% Ophth Soln 2.5 ml Bottle EA EYE SCH (19:50)
[2019-12-19] MEDS: Albuterol 200 PUFF (6.7GM INHALER) INH SCH ×6 (04:55→22:56)
[2019-12-19] MEDS: D5W-AA 4.25% with LYTES 1,000 ML IV SCH ×2 (06:07→22:57)
[2019-12-19 06:21] LABS: Anion Gap 14 mmol/L (10-20); BUN (Urea Nitrogen) 36 mg/dL (9.8-20.1); Calc. Creatinine Clearance 10 mL/min (70-130); Calcium 8.7 mg/dL (7.8-10.44); Carbon Dioxide 26 mmol/L (23-31); Chloride 96 mmol/L (98-107); Estimated GFR-MDRD 16; Glucose 122 mg/dL (83-110); Potassium 4.5 mmol/L (3.5-5.1); Sodium 131 mmol/L (136-145)
[2019-12-19 06:39] LABS: Band 20 % (5-11); Hemoglobin 9.2 g/dL (12.0-16.0); Lymphocytes 3 % (21-51); MDiff Complete? YES; Mean Corpuscular HGB CONC 33.6 g/dL (32.0-36.0); Mean Corpuscular Hemoglobin 33.4 pg (27.0-31.0); Mean Corpuscular Volume 99.4 fL (78.0-98.0); Mean Platelet Volume 6.7 fL (7.4-10.4); Metamyelocyte 2 % (0-0); Monocytes 1 % (0-10); Neutrophil 74 % (42-75); Platelet Count 659 thou/uL (130-400); Platelet Morphology Comment Appears Increased; RBC Distribution Width 15.1 % (11.5-14.5); Red Blood Cell (RBC) Count 2.77 mill/uL (4.20-5.40); White Blood Cell (WBC) Count 15.6 thou/uL (4.8-10.8)
[2019-12-19] MEDS: Folic Acid/Vit B Comp W-C PO SCH (07:42)
[2019-12-19] MEDS: Aspirin 81 mg Enteric Coated Tablet PO SCH (07:42)
[2019-12-19] MEDS: hydrALAZINE 25 MG TAB PO SCH ×4 (07:42→20:33)
[2019-12-19] MEDS: Hydroxyurea 500 MG CAP PO SCH (07:43)
[2019-12-19] MEDS: Minoxidil 2.5 MG TAB PO SCH (07:44)
[2019-12-19] MEDS: Dexamethasone 4 mg/ml Vial SLOW IVP SCH (08:53)
[2019-12-19] MEDS: Brimonidine Tartrate 0.2% Ophth Soln 5 ml Bottle EA EYE SCH ×2 (08:53→20:17)
[2019-12-19] MEDS: Heparin 5,000 UNITS/ML VIAL SC SCH ×2 (08:53→20:18)
[2019-12-19] MEDS: Acetaminophen 650 MG Suppository PR PRN (09:31)
--- NOTE | 2019-12-19 09:48 | PDOC.HOSPP ---
- Subjective Encounter Date: 12/19/19 Encounter Time: 09:46 Subjective: no appropriate response - Objective Vital Signs & Weight: Vital Signs (12 hours) Temp Pulse Resp BP Pulse Ox 12/19/19 09:32 100.2 F H 55 L 20 168/70 H 97 12/19/19 04:30 98.8 F 53 L 18 164/69 H 97 Weight Admit Weight 111 lb 1.808 oz Weight 111 lb 1.808 oz I&O: 12/18/19 12/19/19 12/20/19 06:59 06:59 06:59 Intake Total 600 1200 Output Total 800 Balance 600 400 Result Diagrams: 12/19/19 05:45 12/19/19 05:45 Hospitalist ROS - Medication Medications: Active Medications Generic Name Dose Route Start Last Admin Trade Name Freq PRN Reason Stop Dose Admin Acetaminophen 650 mg 12/15/19 13:46 12/19/19 09:31 Acetaminophen 650 Mg Suppository [place] 650 mg Q4H PRN Administration Headache/Fever or Pain Albuterol Sulfate 2 puff 12/15/19 18:30 12/19/19 06:31 Albuterol 200 Puff (6.7gm Inhaler) INH Not Given [id number] NATALIO Aspirin 81 mg 12/16/19 09:00 12/19/19 07:42 Aspirin 81 Mg Enteric Coated Tablet PO Not Given DAILY NATALIO Brimonidine Tartrate 1 drop 12/15/19 21:00 12/19/19 08:53 Brimonidine Tartrate 0.2% Ophth Soln 5 Ml Bottle EA EYE 1 drop BID NATALIO Administration Clonidine 0.1 mg 12/18/19 09:00 12/18/19 08:18 Clonidine 0.1mg/24 Hour Patch TD 0.1 mg Q7DAYS NATALIO Administration Dexamethasone 6 mg 12/15/19 09:00 12/19/19 08:53 Dexamethasone 4 Mg/Ml Vial SLOW IVP 6 mg DAILY NATALIO Administration Heparin Sodium (Porcine) 5,000 units 12/15/19 21:00 12/19/19 08:53 Heparin 5,000 Units/Ml Vial SC 5,000 units BID NATALIO Administration Hydralazine HCl 50 mg 12/15/19 13:00 12/19/19 07:42 Hydralazine 25 Mg Tab PO Not Given QID NATALIO Hydroxyurea 500 mg 12/16/19 09:00 12/19/19 07:43 Hydroxyurea 500 Mg Cap PO Not Given DAILY NATALIO Amino Acids/Electrolytes/Dextrose 1,000 mls @ 60 mls/hr 12/18/19 12:15 12/19/19 06:07 Clinimix E 4.25/5 IV 1,000 mls INF NATALIO Administration Latanoprost 1 drop 12/15/19 21:00 12/18/19 19:50 Latanoprost 0.005% Ophth Soln 2.5 Ml Bottle EA EYE 1 drp HS NATALIO Administration Minoxidil 5 mg 12/16/19 09:00 12/19/19 07:44 Minoxidil 2.5 Mg Tab PO Not Given DAILY NATALIO Mirtazapine 7.5 mg 12/15/19 21:00 12/18/19 19:50 Mirtazapine 15 Mg Tab PO Not Given HS NATALIO Pantoprazole Sodium 40 mg 12/15/19 09:00 12/19/19 07:45 Pantoprazole 40 Mg Tab PO Not Given BID NATALIO Vitamin B Complex/Vit C/Folic Acid 1 tab 12/15/19 09:00 12/19/19 07:42 Folic Acid/Vit B Comp W-C PO Not Given DAILY NATALIO - Exam Neck: no JVD Heart: RRR, no murmur Respiratory - other findings: coarse BS with rales Gastrointestinal: soft, normal bowel sounds Extremities: no edema Hosp A/P (1) Pneumonia due to COVID-19 virus Code(s): U07.1 - COVID-19; J12.89 - OTHER VIRAL PNEUMONIA Status: Acute (2) Acute respiratory failure with hypoxia Code(s): J96.01 - ACUTE RESPIRATORY FAILURE WITH HYPOXIA Status: Acute (3) Acute metabolic encephalopathy Code(s): G93.41 - METABOLIC ENCEPHALOPATHY Status: Acute (4) Chronic hepatitis C Code(s): B18.2 - CHRONIC VIRAL HEPATITIS C Status: Chronic Qualifiers: (5) Dementia Code(s): F03.90 - UNSPECIFIED DEMENTIA WITHOUT BEHAVIORAL DISTURBANCE Status: Chronic Qualifiers: Dementia type: unspecified type Dementia behavioral disturbance: without behavioral disturbance Qualified Code(s): F03.90 - Unspecified dementia without behavioral disturbance (6) ESRD (end stage renal disease) on dialysis Code(s): N18.6 - END STAGE RENAL DISEASE; Z99.2 - DEPENDENCE ON RENAL DIALYSIS Status: Chronic (7) Hypertension Code(s): I10 - ESSENTIAL (PRIMARY) HYPERTENSION Status: Chronic Qualifiers: Hypertension type: essential hypertension - Plan cont steroids cont O2 supplmentation accu/ss bronchodilators on PPN
[2019-12-19] MEDS: Latanoprost 0.005% Ophth Soln 2.5 ml Bottle EA EYE SCH (20:17)
[2019-12-19] MEDS: Mirtazapine 15 MG TAB PO SCH (20:33)
[2019-12-20] MEDS: Albuterol 200 PUFF (6.7GM INHALER) INH SCH ×5 (02:45→23:12)
[2019-12-20] MEDS: Folic Acid/Vit B Comp W-C PO SCH (07:38)
[2019-12-20] MEDS: Aspirin 81 mg Enteric Coated Tablet PO SCH (07:38)
[2019-12-20] MEDS: hydrALAZINE 25 MG TAB PO SCH ×4 (07:38→20:38)
[2019-12-20] MEDS: Hydroxyurea 500 MG CAP PO SCH (07:39)
[2019-12-20] MEDS: Minoxidil 2.5 MG TAB PO SCH (07:39)
[2019-12-20] MEDS ORDERED: Epoetin (ESRD) 20,000 UNITS/ML SC SCH (08:15)
[2019-12-20] MEDS: Heparin 5,000 UNITS/ML VIAL SC SCH ×2 (08:29→20:38)
[2019-12-20] MEDS: Dexamethasone 4 mg/ml Vial SLOW IVP SCH (08:29)
[2019-12-20] MEDS: Brimonidine Tartrate 0.2% Ophth Soln 5 ml Bottle EA EYE SCH ×2 (08:30→20:35)
--- NOTE | 2019-12-20 08:30 | PRG ---
DATE OF SERVICE: 12/20/2019 SUBJECTIVE: Ms. Sears is an 83-year-old black female with ESRD, was admitted for COVID 19 pneumonia. The patient has remained stable. No acute events noted last night. The patient has been tolerating her current dialysis regimen. OBJECTIVE: VITAL SIGNS: Blood pressure is 173/70, heart rate 51, respiratory rate 18, temperature 97.9, O2 saturation 98%. GENERAL: The patient is lethargic, sleepy, but arousable and can follow simple commands. HEENT: She has a slightly pale conjunctivae. Anicteric sclerae. No neck mass. No carotid bruits. No JVD. CHEST: No deformities. LUNGS: Decreased breath sounds. HEART: Normal sinus rhythm. No murmur. No gallops. No rubs. ABDOMEN: Globular, soft, nontender. No masses. EXTREMITIES: No edema, no deformities. MEDICATIONS: December 20, 2019, reviewed. LABORATORY DATA: December 19, 2019, white count 15.6, hemoglobin 9.2. Sodium 131, potassium 4.5, chloride 96, carbon dioxide 26, BUN 36, creatinine 3.36, calcium 8.7. ASSESSMENT AND PLAN: 1. COVID-19 pneumonia-stable. Continue supportive care. She is oxygenating adequately. Currently, still on IV dexamethasone. 2. Endstage renal disease, stable. We will continue current hemodialysis regimen. As previously mentioned, fluid removal as tolerated by the patient. 3. Anemia-we will resume back a regular Epogen at 7500 units subcu q.week. Overall prognosis remains guarded. Recheck CBC, base met in a.m. Job ID: [id number]
--- NOTE | 2019-12-20 12:46 | PDOC.HOSPP ---
- Subjective Encounter Date: 12/20/19 Encounter Time: 07:30 Subjective: Patient seen and examined. No overnight events - Objective Vital Signs & Weight: Vital Signs (12 hours) Temp Pulse Resp BP Pulse Ox 12/20/19 08:55 98.9 F 51 L 18 199/67 H 95 12/20/19 05:00 97.9 F 51 L 18 173/70 H 98 Weight Admit Weight 111 lb 1.808 oz Weight 111 lb 1.808 oz I&O: 12/19/19 12/20/19 12/21/19 06:59 06:59 06:59 Intake Total 1200 600 Output Total 800 Balance 400 600 Result Diagrams: 12/19/19 05:45 12/19/19 05:45 Hospitalist ROS - Review of Systems ROS unobtainable: due to mental status - Medication Medications: Active Medications Generic Name Dose Route Start Last Admin Trade Name Freq PRN Reason Stop Dose Admin Acetaminophen 650 mg 12/15/19 13:46 12/19/19 09:31 Acetaminophen 650 Mg Suppository [place] 650 mg Q4H PRN Administration Headache/Fever or Pain Albuterol Sulfate 2 puff 12/15/19 18:30 12/20/19 06:00 Albuterol 200 Puff (6.7gm Inhaler) INH 2 puff [id number] NATALIO Administration Aspirin 81 mg 12/16/19 09:00 12/20/19 07:38 Aspirin 81 Mg Enteric Coated Tablet PO Not Given DAILY NATALIO Brimonidine Tartrate 1 drop 12/15/19 21:00 12/20/19 08:30 Brimonidine Tartrate 0.2% Oph Soln 5 Ml Bottle EA EYE 1 drop BID NATALIO Administration Clonidine 0.1 mg 12/18/19 09:00 12/18/19 08:18 Clonidine 0.1mg/24 Hour Patch TD 0.1 mg Q7DAYS NATALIO Administration Dexamethasone 6 mg 12/15/19 09:00 12/20/19 08:29 Dexamethasone 4 Mg/Ml Vial SLOW IVP 6 mg DAILY NATALIO Administration Heparin Sodium (Porcine) 5,000 units 12/15/19 21:00 12/20/19 08:29 Heparin 5,000 Units/Ml Vial SC 5,000 units BID NATALIO Administration Hydralazine HCl 50 mg 12/15/19 13:00 10/23/20 12:21 Hydralazine 25 Mg Tab PO Not Given QID NATALIO Hydroxyurea 500 mg 12/16/19 09:00 12/20/19 07:39 Hydroxyurea 500 Mg Cap PO Not Given DAILY NATALIO Amino Acids/Electrolytes/Dextrose 1,000 mls @ 60 mls/hr 12/18/19 12:15 12/19/19 22:57 Clinimix E 4.25/5 IV 1,000 mls INF NATALIO Administration Latanoprost 1 drop 12/15/19 21:00 12/19/19 20:17 Latanoprost 0.005% Ophth Soln 2.5 Ml Bottle EA EYE 1 drp HS NATLAIO Administration Minoxidil 5 mg 12/16/19 09:00 12/20/19 07:39 Minoxidil 2.5 Mg Tab PO Not Given DAILY NATALIO Mirtazapine 7.5 mg 12/15/19 21:00 12/19/19 20:33 Mirtazapine 15 Mg Tab PO Not Given HS NATALIO Pantoprazole Sodium 40 mg 12/15/19 09:00 12/20/19 07:39 Pantoprazole 40 Mg Tab PO Not Given BID NATALIO Vitamin B Complex/Vit C/Folic Acid 1 tab 12/15/19 09:00 12/20/19 07:38 Folic Acid/Vit B Comp W-C PO Not Given DAILY NATALIO - Exam General Appearance: NAD, awake alert Eye: PERRL, anicteric sclera ENT: normocephalic atraumatic, no oropharyngeal lesions Neck: supple, symmetric, no JVD Heart: RRR, no murmur, no gallops, no rubs Respiratory: CTAB, no wheezes, no rales, no ronchi Gastrointestinal: soft, non-tender, non-distended, normal bowel sounds Extremities: no cyanosis, no clubbing Skin: normal turgor Psychiatric: not oriented Hosp A/P (1) Acute respiratory failure with hypoxia Code(s): J96.01 - ACUTE RESPIRATORY FAILURE WITH HYPOXIA Status: Acute (2) Pneumonia due to COVID-19 virus Code(s): U07.1 - COVID-19; J12.89 - OTHER VIRAL PNEUMONIA Status: Acute (3) Acute metabolic encephalopathy Code(s): G93.41 - METABOLIC ENCEPHALOPATHY Status: Acute (4) Chronic hepatitis C Code(s): B18.2 - CHRONIC VIRAL HEPATITIS C Status: Chronic Qualifiers: (5) Dementia Code(s): F03.90 - UNSPECIFIED DEMENTIA WITHOUT BEHAVIORAL DISTURBANCE Status: Chronic Qualifiers: Dementia type: unspecified type Dementia behavioral disturbance: without behavioral disturbance Qualified Code(s): F03.90 - Unspecified dementia without behavioral disturbance (6) ESRD (end stage renal disease) on dialysis Code(s): N18.6 - END STAGE RENAL DISEASE; Z99.2 - DEPENDENCE ON RENAL DIALYSIS Status: Chronic (7) Glaucoma Code(s): H40.9 - UNSPECIFIED GLAUCOMA Status: Chronic (8) Hypertension Code(s): I10 - ESSENTIAL (PRIMARY) HYPERTENSION Status: Chronic Qualifiers: Hypertension type: essential hypertension (9) Paroxysmal atrial fibrillation Code(s): I48.0 - PAROXYSMAL ATRIAL FIBRILLATION Status: Chronic (10) Secondary hyperparathyroidism of renal origin Code(s): N25.81 - SECONDARY HYPERPARATHYROIDISM OF RENAL ORIGIN Status: Chronic - Plan old records reviewed/req continue PPN as pt can not take by mouth once her oral intake resumed then she will be discharged will need family discussion regarding peg tube placement medication reviewed and provide supportive care HD as per nephro
[2019-12-20] MEDS: EPOETIN ALFA-EPBX (ESRD) 4,000 UNIT/ML VIAL SC SCH (13:53)
[2019-12-20] MEDS: Nitroglycerin 2% Ointment 1 INCH/1 GM Packet TOP SCH ×2 (13:54→23:10)
[2019-12-20] MEDS: hydrALAZINE 20 MG/ML VIAL SLOW IVP PRN (13:59)
[2019-12-20] MEDS ORDERED: Heparin 10,000 UNITS/ 10 ML VIAL ONE (14:40)
[2019-12-20] MEDS: D5W-AA 4.25% with LYTES 1,000 ML IV SCH (16:40)
[2019-12-20] MEDS: Latanoprost 0.005% Ophth Soln 2.5 ml Bottle EA EYE SCH (20:39)
[2019-12-20] MEDS: Mirtazapine 15 MG TAB PO SCH (20:39)
[2019-12-21] MEDS: Albuterol 200 PUFF (6.7GM INHALER) INH SCH ×6 (03:38→22:49)
[2019-12-21] MEDS: Nitroglycerin 2% Ointment 1 INCH/1 GM Packet TOP SCH ×3 (05:32→22:48)
[2019-12-21 06:18] LABS: Hemoglobin 9.8 g/dL (12.0-16.0); Mean Corpuscular HGB CONC 33.4 g/dL (32.0-36.0); Mean Corpuscular Hemoglobin 33.1 pg (27.0-31.0); Mean Corpuscular Volume 98.9 fL (78.0-98.0); Mean Platelet Volume 6.5 fL (7.4-10.4); Platelet Count 573 thou/uL (130-400); RBC Distribution Width 14.9 % (11.5-14.5); Red Blood Cell (RBC) Count 2.96 mill/uL (4.20-5.40)
[2019-12-21 06:37] LABS: Anion Gap 16 mmol/L (10-20); BUN (Urea Nitrogen) 42 mg/dL (9.8-20.1); Calc. Creatinine Clearance 12 mL/min (70-130); Calcium 8.6 mg/dL (7.8-10.44); Carbon Dioxide 23 mmol/L (23-31); Chloride 96 mmol/L (98-107); Estimated GFR-MDRD 20; Glucose 125 mg/dL (83-110); Potassium 4.8 mmol/L (3.5-5.1); Sodium 130 mmol/L (136-145)
[2019-12-21 06:48] LABS: Band 14 % (5-11); Lymphocytes 1 % (21-51); MDiff Complete? YES; Monocytes 3 % (0-10); Myelocyte 7 % (0-0); Neutrophil 75 % (42-75)
[2019-12-21] MEDS ORDERED: Ondansetron PF 4 MG/2 ML Vial IVP PRN (08:02)
[2019-12-21] MEDS ORDERED: Cepastat Lozenges 1 LOZ PO PRN (08:02)
[2019-12-21] MEDS ORDERED: Sodium Chloride 0.65% Nasal 44 ML BOT EA NARE PRN (08:02)
[2019-12-21] MEDS ORDERED: Diabetic Tussin 200 MG/10 ML UDCUP PO PRN (08:02)
[2019-12-21] MEDS ORDERED: Bisacodyl 10 MG SUPP PR PRN (08:02)
[2019-12-21] MEDS ORDERED: Calcium Carbonate 500 MG ChewTAB PO PRN (08:02)
[2019-12-21] MEDS: Aspirin 81 mg Enteric Coated Tablet PO SCH (08:40)
[2019-12-21] MEDS: Hydroxyurea 500 MG CAP PO SCH (08:41)
[2019-12-21] MEDS: Folic Acid/Vit B Comp W-C PO SCH (08:41)
[2019-12-21] MEDS: Minoxidil 2.5 MG TAB PO SCH (08:41)
[2019-12-21] MEDS: hydrALAZINE 20 MG/ML VIAL SLOW IVP PRN ×2 (08:41→17:49)
[2019-12-21] MEDS: D5W-AA 4.25% with LYTES 1,000 ML IV SCH (08:41)
[2019-12-21] MEDS: hydrALAZINE 25 MG TAB PO SCH ×4 (08:41→22:44)
[2019-12-21] MEDS: Dexamethasone 4 mg/ml Vial SLOW IVP SCH (08:42)
[2019-12-21] MEDS: Heparin 5,000 UNITS/ML VIAL SC SCH ×2 (08:42→22:44)
[2019-12-21] MEDS: Brimonidine Tartrate 0.2% Ophth Soln 5 ml Bottle EA EYE SCH ×2 (08:43→22:44)
--- NOTE | 2019-12-21 10:09 | PDOC.HOSPP ---
- Subjective Encounter Date: 12/21/19 Encounter Time: 07:20 Subjective: Patient is not communicating at all, she fell yesterday swallow evaluation, she is on PPN - Objective Vital Signs & Weight: Vital Signs (12 hours) Temp Pulse Resp BP BP Pulse Ox 12/21/19 08:41 55 L 173/70 H 12/21/19 07:56 99.2 F 55 L 18 173/70 H 96 12/21/19 04:25 97.6 F 53 L 18 168/70 H 95 Weight Admit Weight 111 lb 1.808 oz Weight 111 lb 1.808 oz I&O: 12/20/19 12/21/19 12/22/19 06:59 06:59 06:59 Intake Total 600 1380 Balance 600 1380 Result Diagrams: 12/21/19 05:38 12/21/19 05:39 Hospitalist ROS - Review of Systems ROS unobtainable: due to mental status - Medication Medications: Active Medications Generic Name Dose Route Start Last Admin Trade Name Freq PRN Reason Stop Dose Admin Acetaminophen 650 mg 12/15/19 13:46 12/19/19 09:31 Acetaminophen 650 Mg Suppository [place] 650 mg Q4H PRN Administration Headache/Fever or Pain Albuterol Sulfate 2 puff 12/15/19 18:30 12/21/19 03:38 Albuterol 200 Puff (6.7gm Inhaler) INH Not Given [id number] NATALIO Aspirin 81 mg 12/16/19 09:00 12/21/19 08:40 Aspirin 81 Mg Enteric Coated Tablet PO Not Given DAILY [facility] Brimonidine Tartrate 1 drop 12/15/19 21:00 12/21/19 08:43 Brimonidine Tartrate 0.2% Ophth Soln 5 Ml Bottle EA EYE 1 drop BID NATALIO Administration Clonidine 0.1 mg 12/18/19 09:00 12/18/19 08:18 Clonidine 0.1mg/24 Hour Patch TD 0.1 mg Q7DAYS NATALIO Administration Dexamethasone 6 mg 12/15/19 09:00 12/21/19 08:42 Dexamethasone 4 Mg/Ml Vial SLOW IVP 6 mg DAILY NATALIO Administration Epoetin Massimo-epbx 7,500 unit 12/20/19 12:00 12/20/19 13:53 Epoetin Massimo-Epbx (Esrd) 4,000 Unit/Ml Vial SC 7,500 unit Q7D NATALIO Administration Heparin Sodium (Porcine) 5,000 units 12/15/19 21:00 12/21/19 08:42 Heparin 5,000 Units/Ml Vial SC 5,000 units BID NATALIO Administration Hydralazine HCl 50 mg 12/15/19 13:00 12/21/19 08:41 Hydralazine 25 Mg Tab PO Not Given QID NATALIO Hydralazine HCl 10 mg 12/20/19 10:53 12/21/19 08:41 Hydralazine 20 Mg/Ml Vial SLOW IVP 10 mg Q4H PRN Administration SBP GREATER THAN 160 Hydroxyurea 500 mg 12/16/19 09:00 12/21/19 08:41 Hydroxyurea 500 Mg Cap PO Not Given DAILY [facility] Amino Acids/Electrolytes/Dextrose 1,000 mls @ 60 mls/hr 12/18/19 12:15 12/21/19 08:41 Clinimix E 4.25/5 IV 1,000 mls INF [facility] Administration Latanoprost 1 drop 12/15/19 21:00 12/20/19 20:39 Latanoprost 0.005% Ophth Soln 2.5 Ml Bottle EA EYE 1 drp HS [facility] Administration Minoxidil 5 mg 12/16/19 09:00 12/21/19 08:41 Minoxidil 2.5 Mg Tab PO Not Given DAILY [facility] Mirtazapine 7.5 mg 12/15/19 21:00 12/20/19 20:39 Mirtazapine 15 Mg Tab PO Not Given HS NATALIO Nitroglycerin 0.5 inch 12/20/19 14:00 12/21/19 05:32 Nitroglycerin 2% Ointment 1 Inch/1 Gm Packet TOP 0.5 inch Q8HR [facility] Administration Pantoprazole Sodium 40 mg 12/15/19 09:00 12/21/19 08:41 Pantoprazole 40 Mg Tab PO Not Given BID [facility] Vitamin B Complex/Vit C/Folic Acid 1 tab 12/15/19 09:00 12/21/19 08:41 Folic Acid/Vit B Comp W-C PO Not Given DAILY NATALIO - Exam General Appearance: ill appearing Eye: PERRL, anicteric sclera ENT: normocephalic atraumatic, no oropharyngeal lesions, dry oral mucosa Neck: symmetric, no JVD Heart: RRR, no murmur, no gallops, no rubs Respiratory: no wheezes, no rales, no ronchi Gastrointestinal: soft, non-distended, normal bowel sounds, no palpable masses Extremities: no cyanosis, no clubbing, no edema Skin: normal turgor, no lesions Neurological: no new deficit Musculoskeletal: normal tone, normal strength Psychiatric: not oriented Hosp A/P (1) Acute respiratory failure with hypoxia Code(s): J96.01 - ACUTE RESPIRATORY FAILURE WITH HYPOXIA Status: Acute (2) Pneumonia due to COVID-19 virus Code(s): U07.1 - COVID-19; J12.89 - OTHER VIRAL PNEUMONIA Status: Acute (3) Acute metabolic encephalopathy Code(s): G93.41 - METABOLIC ENCEPHALOPATHY Status: Acute (4) Chronic hepatitis C Code(s): B18.2 - CHRONIC VIRAL HEPATITIS C Status: Chronic Qualifiers: (5) Dementia Code(s): F03.90 - UNSPECIFIED DEMENTIA WITHOUT BEHAVIORAL DISTURBANCE Status: Chronic Qualifiers: Dementia type: unspecified type Dementia behavioral disturbance: without behavioral disturbance Qualified Code(s): F03.90 - Unspecified dementia without behavioral disturbance (6) ESRD (end stage renal disease) on dialysis Code(s): N18.6 - END STAGE RENAL DISEASE; Z99.2 - DEPENDENCE ON RENAL DIALYSIS Status: Chronic (7) Glaucoma Code(s): H40.9 - UNSPECIFIED GLAUCOMA Status: Chronic (8) Hypertension Code(s): I10 - ESSENTIAL (PRIMARY) HYPERTENSION Status: Chronic Qualifiers: Hypertension type: essential hypertension (9) Paroxysmal atrial fibrillation Code(s): I48.0 - PAROXYSMAL ATRIAL FIBRILLATION Status: Chronic (10) Secondary hyperparathyroidism of renal origin Code(s): N25.81 - SECONDARY HYPERPARATHYROIDISM OF RENAL ORIGIN Status: Chronic - Plan old records reviewed/req, PT/OT, case management social worker Consults: Palliative Care continue PPN as pt can not take by mouth No family member around to discuss about goal of care, will continue to reach them to decide about PEG tube We will consult palliative care for evaluation
[2019-12-21] MEDS: Latanoprost 0.005% Ophth Soln 2.5 ml Bottle EA EYE SCH (22:45)
[2019-12-21] MEDS: Mirtazapine 15 MG TAB PO SCH (22:46)
[2019-12-22] MEDS: D5W-AA 4.25% with LYTES 1,000 ML IV SCH ×2 (00:01→18:16)
[2019-12-22] MEDS: Nitroglycerin 2% Ointment 1 INCH/1 GM Packet TOP SCH ×4 (06:00→23:12)
[2019-12-22] MEDS: Albuterol 200 PUFF (6.7GM INHALER) INH SCH ×4 (07:07→16:54)
[2019-12-22 07:25] LABS: ALT (SGPT) 16 U/L (8-55); AST (SGOT) 29 U/L (5-34); Albumin 2.7 g/dL (3.4-4.8); Alkaline Phosphatase 52 U/L (40-110); Anion Gap 19 mmol/L (10-20); BUN (Urea Nitrogen) 77 mg/dL (9.8-20.1); Bilirubin, Total 0.3 mg/dL (0.2-1.2); Calc. Creatinine Clearance 9 mL/min (70-130); Calcium 8.3 mg/dL (7.8-10.44); Carbon Dioxide 16 mmol/L (23-31); Chloride 97 mmol/L (98-107); Estimated GFR-MDRD 13; Globulin 4.1 g/dL (2.4-3.5); Glucose 136 mg/dL (83-110); Protein, Total 6.8 g/dL (6.0-8.3); Sodium 127 mmol/L (136-145)
[2019-12-22 08:01] LABS: Band 8 % (5-11); Hemoglobin 10.1 g/dL (12.0-16.0); Lymphocytes 8 % (21-51); MDiff Complete? YES; Mean Corpuscular HGB CONC 32.8 g/dL (32.0-36.0); Mean Corpuscular Hemoglobin 33.2 pg (27.0-31.0); Mean Platelet Volume 6.6 fL (7.4-10.4); Monocytes 3 % (0-10); Neutrophil 81 % (42-75); Platelet Count 519 thou/uL (130-400); RBC Distribution Width 15.2 % (11.5-14.5); Red Blood Cell (RBC) Count 3.06 mill/uL (4.20-5.40); White Blood Cell (WBC) Count 19.7 thou/uL (4.8-10.8)
[2019-12-22] MEDS: Heparin 5,000 UNITS/ML VIAL SC SCH ×2 (08:46→20:33)
[2019-12-22] MEDS: Dexamethasone 4 mg/ml Vial SLOW IVP SCH (08:46)
[2019-12-22] MEDS: Brimonidine Tartrate 0.2% Ophth Soln 5 ml Bottle EA EYE SCH ×2 (08:49→20:33)
[2019-12-22] MEDS: hydrALAZINE 25 MG TAB PO SCH ×4 (08:50→20:34)
[2019-12-22] MEDS: Minoxidil 2.5 MG TAB PO SCH (08:50)
[2019-12-22] MEDS: Aspirin 81 mg Enteric Coated Tablet PO SCH (08:50)
[2019-12-22] MEDS: Hydroxyurea 500 MG CAP PO SCH (08:50)
[2019-12-22] MEDS: Folic Acid/Vit B Comp W-C PO SCH (08:50)
--- NOTE | 2019-12-22 09:42 | PDOC.HOSPP ---
- Subjective Encounter Date: 12/22/19 Encounter Time: 07:50 Subjective: Patient seen and examined. No overnight events - Objective Vital Signs & Weight: Weight Admit Weight 111 lb 1.808 oz Weight 111 lb 1.808 oz I&O: 12/21/19 12/22/19 12/23/19 06:59 06:59 06:59 Intake Total 1380 1418 Balance 1380 1418 Result Diagrams: 12/22/19 06:56 12/22/19 06:56 Hospitalist ROS - Review of Systems ROS unobtainable: due to mental status - Medication Medications: Active Medications Generic Name Dose Route Start Last Admin Trade Name Freq PRN Reason Stop Dose Admin Acetaminophen 650 mg 12/15/19 13:46 12/19/19 09:31 Acetaminophen 650 Mg Suppository [place] 650 mg Q4H PRN Administration Headache/Fever or Pain Albuterol Sulfate 2 puff 12/15/19 18:30 12/22/19 07:07 Albuterol 200 Puff (6.7gm Inhaler) INH Not Given [id number] NATALIO Aspirin 81 mg 12/16/19 09:00 12/22/19 08:50 Aspirin 81 Mg Enteric Coated Tablet PO Not Given DAILY [facility] Brimonidine Tartrate 1 drop 12/15/19 21:00 12/22/19 08:49 Brimonidine Tartrate 0.2% Ophth Soln 5 Ml Bottle EA EYE 1 drop BID NATALIO Administration Clonidine 0.1 mg 12/18/19 09:00 12/18/19 08:18 Clonidine 0.1mg/24 Hour Patch TD 0.1 mg Q7DAYS [facility]IO Administration Dexamethasone 6 mg 12/15/19 09:00 12/22/19 08:46 Dexamethasone 4 Mg/Ml Vial SLOW IVP 6 mg DAILY [facility] Administration Epoetin Massimo-epbx 7,500 unit 12/20/19 12:00 12/20/19 13:53 Epoetin Massimo-Epbx (Esrd) 4,000 Unit/Ml Vial SC 7,500 unit Q7D [facility] Administration Heparin Sodium (Porcine) 5,000 units 12/15/19 21:00 12/22/19 08:46 Heparin 5,000 Units/Ml Vial SC 5,000 units BID NATALIO Administration Hydralazine HCl 50 mg 12/15/19 13:00 12/22/19 08:50 Hydralazine 25 Mg Tab PO Not Given QID NATALIO Hydralazine HCl 10 mg 12/20/19 10:53 12/21/19 17:49 Hydralazine 20 Mg/Ml Vial SLOW IVP 10 mg Q4H PRN Administration SBP GREATER THAN 160 Hydroxyurea 500 mg 12/16/19 09:00 12/22/19 08:50 Hydroxyurea 500 Mg Cap PO Not Given DAILY [facility] Amino Acids/Electrolytes/Dextrose 1,000 mls @ 60 mls/hr 12/18/19 12:15 12/21 00:01 Clinimix E 4.25/5 IV 1,000 mls INF [facility] Administration Latanoprost 1 drop 12/15/19 21:00 12/21/19 22:45 Latanoprost 0.005% Ophth Soln 2.5 Ml Bottle EA EYE 1 drp HS [facility] Administration Minoxidil 5 mg 12/16/19 09:00 12/22/19 08:50 Minoxidil 2.5 Mg Tab PO Not Given DAILY [facility] Mirtazapine 7.5 mg 12/15/19 21:00 12/21/19 22:46 Mirtazapine 15 Mg Tab PO Not Given HS [facility]IO Nitroglycerin 0.5 inch 12/20/19 14:00 12/21/19 22:48 Nitroglycerin 2% Ointment 1 Inch/1 Gm Packet TOP 0.5 inch Q8HR [facility] Administration Pantoprazole Sodium 40 mg 12/15/19 09:00 12/22/19 08:50 Pantoprazole 40 Mg Tab PO Not Given BID [facility] Vitamin B Complex/Vit C/Folic Acid 1 tab 12/15/19 09:00 12/22/19 08:50 Folic Acid/Vit B Comp W-C PO Not Given DAILY [facility]ALIO - Exam General Appearance: NAD, ill appearing Eye: PERRL, anicteric sclera ENT: normocephalic atraumatic, no oropharyngeal lesions, dry oral mucosa Neck: symmetric, no JVD Heart: RRR, no murmur, no gallops, no rubs Respiratory: no wheezes, no rales, no ronchi Gastrointestinal: soft, non-tender, non-distended, normal bowel sounds Extremities: no clubbing, no edema Skin: normal turgor, no lesions Neurological: no focal deficits Musculoskeletal: normal tone, normal strength Psychiatric: not oriented Hosp A/P (1) Acute respiratory failure with hypoxia Code(s): J96.01 - ACUTE RESPIRATORY FAILURE WITH HYPOXIA Status: Acute (2) Pneumonia due to COVID-19 virus Code(s): U07.1 - COVID-19; J12.89 - OTHER VIRAL PNEUMONIA Status: Acute (3) Acute metabolic encephalopathy Code(s): G93.41 - METABOLIC ENCEPHALOPATHY Status: Acute (4) Chronic hepatitis C Code(s): B18.2 - CHRONIC VIRAL HEPATITIS C Status: Chronic Qualifiers: (5) Dementia Code(s): F03.90 - UNSPECIFIED DEMENTIA WITHOUT BEHAVIORAL DISTURBANCE Status: Chronic Qualifiers: Dementia type: unspecified type Dementia behavioral disturbance: without behavioral disturbance Qualified Code(s): F03.90 - Unspecified dementia without behavioral disturbance (6) ESRD (end stage renal disease) on dialysis Code(s): N18.6 - END STAGE RENAL DISEASE; Z99.2 - DEPENDENCE ON RENAL DIALYSIS Status: Chronic (7) Glaucoma Code(s): H40.9 - UNSPECIFIED GLAUCOMA Status: Chronic (8) Hypertension Code(s): I10 - ESSENTIAL (PRIMARY) HYPERTENSION Status: Chronic Qualifiers: Hypertension type: essential hypertension (9) Paroxysmal atrial fibrillation Code(s): I48.0 - PAROXYSMAL ATRIAL FIBRILLATION Status: Chronic (10) Secondary hyperparathyroidism of renal origin Code(s): N25.81 - SECONDARY HYPERPARATHYROIDISM OF RENAL ORIGIN Status: Chronic - Plan old records reviewed/req Consults: Palliative Care Once family member arrived and will discuss about option of PEG tube, palliative care also on the case ESRD patient so dialysis as per nephrology Medication reviewed and continue provide symptomatic and supportive care
[2019-12-22] MEDS: hydrALAZINE 20 MG/ML VIAL SLOW IVP PRN ×2 (11:43→18:16)
[2019-12-22] MEDS: Latanoprost 0.005% Ophth Soln 2.5 ml Bottle EA EYE SCH (20:34)
[2019-12-22] MEDS: Mirtazapine 15 MG TAB PO SCH (20:34)
[2019-12-23] MEDS: Albuterol 200 PUFF (6.7GM INHALER) INH SCH ×7 (00:10→21:36)
[2019-12-23] MEDS: Nitroglycerin 2% Ointment 1 INCH/1 GM Packet TOP SCH ×3 (05:47→21:31)
[2019-12-23] MEDS: Heparin 5,000 UNITS/ML VIAL SC SCH ×2 (08:18→21:30)
[2019-12-23] MEDS: Dexamethasone 4 mg/ml Vial SLOW IVP SCH (08:18)
[2019-12-23] MEDS: Folic Acid/Vit B Comp W-C PO SCH (08:52)
[2019-12-23] MEDS: Aspirin 81 mg Enteric Coated Tablet PO SCH (08:52)
[2019-12-23] MEDS: hydrALAZINE 25 MG TAB PO SCH ×4 (08:53→21:27)
[2019-12-23] MEDS: Minoxidil 2.5 MG TAB PO SCH (08:53)
[2019-12-23] MEDS: Hydroxyurea 500 MG CAP PO SCH (08:53)
[2019-12-23] MEDS: Brimonidine Tartrate 0.2% Ophth Soln 5 ml Bottle EA EYE SCH ×2 (08:53→21:31)
--- NOTE | 2019-12-23 09:35 | PRG ---
DATE OF SERVICE: 12/23/2019 SUBJECTIVE: Ms. Sears is an 83-year-old black female with ESRD and was admitted for COVID-19 pneumonia. She has been relatively stable. Issues about long-term plan are being entertained. Consideration to resume her back on hospice is being made. There was also an issue whether the family wishes to pursue a PEG tube placement. No acute complaints today. No chest pain or shortness of breath. OBJECTIVE: VITAL SIGNS: Blood pressure 145/61, heart rate 50, respiratory rate 16, and temperature 97.9, O2 saturation is 100%. GENERAL: Noted to be awake, alert, comfortable, not in overt distress. SKIN: Adequate turgor. HEENT: She has pinkish conjunctivae. Anicteric sclerae. No neck mass. No carotid bruits. No JVD. CHEST: No deformities. LUNGS: Clear breath sounds. HEART: Normal sinus rhythm. No murmur. No gallops. No rubs. ABDOMEN: Globular, soft, nontender. No masses. EXTREMITIES: No edema. MEDICATIONS: Of December 23, 2019, reviewed. LABORATORY DATA: Of December 22, 2019; white count 19.7. Sodium 127, potassium 5, chloride 97, carbon dioxide 16, BUN 77, creatinine 3.91, and albumin 2.7. ASSESSMENT AND PLAN: 1. End-stage renal disease, stable. We will continue current Monday, Monday, and Monday hemodialysis. Fluid removal as tolerated by the patient. 2. Chronic anemia. Continuing weekly Epogen. Tolerating said treatment. 3. COVID-19 pneumonia, stable. The patient is clinically asymptomatic. O2 saturation noted at 100% at 2 L. Continue supportive care. Addendum - Dialysis was placed on hold today - will resume in am for her hemodialysis. Job ID: [id number] MTDD
--- NOTE | 2019-12-23 11:31 | PDOC.HOSPP ---
- Subjective Encounter Date: 12/23/19 Encounter Time: 08:00 Subjective: Patient seen and examined. Patient is on 2 L nasal cannula oxygen, no overnight events - Objective Vital Signs & Weight: Vital Signs (12 hours) Temp Pulse Resp BP Pulse Ox 12/23/19 09:00 97.6 F 58 L 18 161/79 H 100 12/23/19 08:53 50 L Weight Admit Weight 111 lb 1.808 oz Weight 111 lb 1.808 oz I&O: 12/22/19 12/23/19 12/24/19 06:59 06:59 06:59 Intake Total 1418 662 Balance 1418 662 Result Diagrams: 12/22/19 06:56 12/22/19 06:56 Hospitalist ROS - Review of Systems ROS unobtainable: due to mental status - Medication Medications: Active Medications Generic Name Dose Route Start Last Admin Trade Name Freq PRN Reason Stop Dose Admin Acetaminophen 650 mg 12/15/19 13:46 12/19/19 09:31 Acetaminophen 650 Mg Suppository [place] 650 mg Q4H PRN Administration Headache/Fever or Pain Albuterol Sulfate 2 puff 12/15/19 18:30 12/23/19 07:16 Albuterol 200 Puff (6.7gm Inhaler) INH Not Given [id number] NATALIO Aspirin 81 mg 12/16/19 09:00 12/23/19 08:52 Aspirin 81 Mg Enteric Coated Tablet PO Not Given DAILY [facility] Brimonidine Tartrate 1 drop 12/15/19 21:00 12/23/19 08:53 Brimonidine Tartrate 0.2% Oph Soln 5 Ml Bottle EA EYE 1 drop BID NATALIO Administration Clonidine 0.1 mg 12/18/19 09:00 12/18/19 08:18 Clonidine 0.1mg/24 Hour Patch TD 0.1 mg Q7DAYS NATALIO Administration Dexamethasone 6 mg 12/15/19 09:00 12/23/19 08:18 Dexamethasone 4 Mg/Ml Vial SLOW IVP 6 mg DAILY [facility] Administration Epoetin Massimo-epbx 7,500 unit 12/20/19 12:00 12/20/19 13:53 Epoetin Massimo-Epbx (Esrd) 4,000 Unit/Ml Vial SC 7,500 unit Q7D [facility]ALIO Administration Heparin Sodium (Porcine) 5,000 units 12/15/19 21:00 12/23/19 08:18 Heparin 5,000 Units/Ml Vial SC 5,000 units BID NATALIO Administration Hydralazine HCl 50 mg 12/15/19 13:00 12/23/19 08:53 Hydralazine 25 Mg Tab PO Not Given QID NATALIO Hydralazine HCl 10 mg 12/20/19 10:53 12/22/19 18:16 Hydralazine 20 Mg/Ml Vial SLOW IVP 10 mg Q4H PRN Administration SBP GREATER THAN 160 Hydroxyurea 500 mg 12/16/19 09:00 12/23/19 08:53 Hydroxyurea 500 Mg Cap PO Not Given DAILY [facility] Amino Acids/Electrolytes/Dextrose 1,000 mls @ 60 mls/hr 12/18/19 12:15 12/22/19 18:16 Clinimix E 4.25/5 IV 1,000 mls INF [facility] Administration Latanoprost 1 drop 12/15/19 21:00 12/22/19 20:34 Latanoprost 0.005% Ophth Soln 2.5 Ml Bottle EA EYE 1 drp HS [facility] Administration Minoxidil 5 mg 12/16/19 09:00 12/23/19 08:53 Minoxidil 2.5 Mg Tab PO Not Given DAILY [facility] Mirtazapine 7.5 mg 12/15/19 21:00 12/22/19 20:34 Mirtazapine 15 Mg Tab PO Not Given HS NATALIO Nitroglycerin 0.5 inch 12/20/19 14:00 12/23/19 05:47 Nitroglycerin 2% Ointment 1 Inch/1 Gm Packet TOP 0.5 inch Q8HR [facility] Administration Pantoprazole Sodium 40 mg 12/15/19 09:00 12/23/19 08:53 Pantoprazole 40 Mg Tab PO Not Given BID [facility] Vitamin B Complex/Vit C/Folic Acid 1 tab 12/15/19 09:00 12/23/19 08:52 Folic Acid/Vit B Comp W-C PO Not Given DAILY [facility]ALIO - Exam General Appearance: NAD Eye: PERRL, anicteric sclera ENT: dry oral mucosa Neck: supple, symmetric, no JVD Heart: no murmur, no gallops, no rubs Respiratory: no wheezes, no rales, no ronchi Gastrointestinal: soft, non-tender, non-distended, normal bowel sounds Extremities: no clubbing, no edema Skin: normal turgor, no lesions Neurological: no focal deficits Musculoskeletal: normal tone, normal strength Psychiatric: not oriented Hosp A/P (1) Acute respiratory failure with hypoxia Code(s): J96.01 - ACUTE RESPIRATORY FAILURE WITH HYPOXIA Status: Acute (2) Pneumonia due to COVID-19 virus Code(s): U07.1 - COVID-19; J12.89 - OTHER VIRAL PNEUMONIA Status: Acute (3) Acute metabolic encephalopathy Code(s): G93.41 - METABOLIC ENCEPHALOPATHY Status: Acute (4) Chronic hepatitis C Code(s): B18.2 - CHRONIC VIRAL HEPATITIS C Status: Chronic Qualifiers: (5) Dementia Code(s): F03.90 - UNSPECIFIED DEMENTIA WITHOUT BEHAVIORAL DISTURBANCE Status: Chronic Qualifiers: Dementia type: unspecified type Dementia behavioral disturbance: without behavioral disturbance Qualified Code(s): F03.90 - Unspecified dementia with out behavioral disturbance (6) ESRD (end stage renal disease) on dialysis Code(s): N18.6 - END STAGE RENAL DISEASE; Z99.2 - DEPENDENCE ON RENAL DIALYSIS Status: Chronic (7) Glaucoma Code(s): H40.9 - UNSPECIFIED GLAUCOMA Status: Chronic (8) Hypertension Code(s): I10 - ESSENTIAL (PRIMARY) HYPERTENSION Status: Chronic Qualifiers: Hypertension type: essential hypertension (9) Paroxysmal atrial fibrillation Code(s): I48.0 - PAROXYSMAL ATRIAL FIBRILLATION Status: Chronic (10) Secondary hyperparathyroidism of renal origin Code(s): N25.81 - SECONDARY HYPERPARATHYROIDISM OF RENAL ORIGIN Status: Chronic - Plan old records reviewed/req, PT/OT, social sciences department chair Consults: Palliative Care Palliative care consulted for goals of care, discussion for PEG tube option with the family Continue hemodialysis as per nephrology Medication reviewed and continued per symptomatic and supportive care Patient is on PPN for nutrition, patient has failed swallow evaluation
[2019-12-23] MEDS: D5W-AA 4.25% with LYTES 1,000 ML IV SCH (11:43)
[2019-12-23] MEDS: hydrALAZINE 20 MG/ML VIAL SLOW IVP PRN ×2 (14:24→22:26)
[2019-12-23] MEDS: Mirtazapine 15 MG TAB PO SCH (21:27)
[2019-12-23] MEDS: Latanoprost 0.005% Ophth Soln 2.5 ml Bottle EA EYE SCH (21:30)
[2019-12-24] MEDS: Albuterol 200 PUFF (6.7GM INHALER) INH SCH ×6 (03:41→22:13)
[2019-12-24] MEDS: D5W-AA 4.25% with LYTES 1,000 ML IV SCH ×2 (05:51→22:47)
[2019-12-24] MEDS: Nitroglycerin 2% Ointment 1 INCH/1 GM Packet TOP SCH ×3 (05:54→20:20)
[2019-12-24] MEDS: hydrALAZINE 25 MG TAB PO SCH ×4 (07:55→20:21)
[2019-12-24] MEDS: Aspirin 81 mg Enteric Coated Tablet PO SCH (07:55)
[2019-12-24] MEDS: Folic Acid/Vit B Comp W-C PO SCH (07:55)
[2019-12-24] MEDS: Minoxidil 2.5 MG TAB PO SCH (07:56)
[2019-12-24] MEDS: Hydroxyurea 500 MG CAP PO SCH (07:56)
[2019-12-24] MEDS: Brimonidine Tartrate 0.2% Ophth Soln 5 ml Bottle EA EYE SCH ×2 (07:57→20:20)
[2019-12-24] MEDS: Dexamethasone 4 mg/ml Vial SLOW IVP SCH (07:57)
[2019-12-24] MEDS: Heparin 5,000 UNITS/ML VIAL SC SCH ×2 (07:58→20:19)
--- NOTE | 2019-12-24 09:18 | PRG ---
DATE OF SERVICE: 12/24/2019 SUBJECTIVE: Ms. Sears is an 83-year-old black female with ESRD on maintenance hemodialysis and admitted for COVID-19 pneumonia. She has been relatively stable for the last few days. Family is considering whether to place back the patient on hospice. Consideration also for a (?) of PEG tube placement. We are awaiting for the repeat COVID-19 test. No acute events noted last night. The patient did not undergo dialysis yesterday and for that reason I have scheduled her for hemodialysis today. OBJECTIVE: VITAL SIGNS: Blood pressure 158/63, heart rate 54, respiratory rate 18, temperature 97.3, and O2 saturation 97%. GENERAL: The patient is sleeping, but arousable and comfortable. SKIN: Adequate turgor. HEENT: Pinkish conjunctivae, anicteric sclerae. No neck mass. No carotid bruits. No JVD. CHEST: No deformities. LUNGS: Clear breath sounds. HEART: Normal sinus rhythm. No murmur. No gallops. No rubs. ABDOMEN: Globular, soft, and nontender. No masses. EXTREMITIES: No edema. No deformities. MEDICATIONS: Of December 24, 2019, reviewed. LABORATORY DATA: Of December 22, 2019; white count 19.7, hemoglobin 10.1, sodium 127, potassium 5, chloride 97, carbon dioxide 16, BUN 77, creatinine 3.91. AST is 29, ALT 16, and albumin 2.7. ASSESSMENT AND PLAN: 1. End-stage renal disease-we will continue three times a week hemodialysis. I have scheduled this patient for a 3-hour hemodialysis today. Again, fluid removal only as tolerated. 2. Borderline anemia-currently on Epogen 7500 units subcu q.week. 3. COVID-19 pneumonia. Continue supportive care. Currently, still on dexamethasone. The patient is relatively stable from the pneumonia. Overall prognosis remains guarded. Recheck CBC and basic metabolic panel in a.m. Job ID: [id number]
[2019-12-24] MEDS ORDERED: Heparin 10,000 UNITS/ 10 ML VIAL ONE (09:37)
--- NOTE | 2019-12-24 10:31 | PDOC.HOSPP ---
- Subjective Encounter Date: 12/24/19 Encounter Time: 07:50 Subjective: Patient seen and examined. No overnight events - Objective Vital Signs & Weight: Vital Signs (12 hours) Temp Pulse Resp BP BP Pulse Ox 12/24/19 08:00 97.2 F L 55 L 16 184/68 H 94 L 12/24/19 03:44 97.3 F L 54 L 18 158/63 H 97 12/24/19 01:11 153/68 H 12/24/19 00:20 200/91 H Weight Admit Weight 111 lb 1.808 oz Weight 111 lb 1.808 oz I&O: 12/23/19 12/24/19 12/25/19 06:59 06:59 06:59 Intake Total 662 600 Balance 662 600 Result Diagrams: 12/22/19 06:56 12/22/19 06:56 Hospitalist ROS - Review of Systems ROS unobtainable: due to mental status - Medication Medications: Active Medications Generic Name Dose Route Start Last Admin Trade Name Freq PRN Reason Stop Dose Admin Acetaminophen 650 mg 12/15/19 13:46 12/19/19 09:31 Acetaminophen 650 Mg Suppository [place] 650 mg Q4H PRN Administration Headache/Fever or Pain Albuterol Sulfate 2 puff 12/15/19 18:30 12/24/19 09:39 Albuterol 200 Puff (6.7gm Inhaler) INH Not Given [id number] NATALIO Aspirin 81 mg 12/16/19 09:00 12/24/19 07:55 Aspirin 81 Mg Enteric Coated Tablet PO Not Given DAILY [facility] Brimonidine Tartrate 1 drop 12/15/19 21:00 12/24/19 07:57 Brimonidine Tartrate 0.2% Oph Soln 5 Ml Bottle EA EYE 1 drop BID NATALIO Administration Clonidine 0.1 mg 12/18/19 09:00 12/18/19 08:18 Clonidine 0.1mg/24 Hour Patch TD 0.1 mg Q7DAYS NATALIO Administration Dexamethasone 6 mg 12/15/19 09:00 12/24/19 07:57 Dexamethasone 4 Mg/Ml Vial SLOW IVP 6 mg DAILY [facility] Administration Epoetin Massimo-epbx 7,500 unit 12/20/19 12:00 12/20/19 13:53 Epoetin Massimo-Epbx (Esrd) 4,000 Unit/Ml Vial SC 7,500 unit Q7D NATALIO Administration Heparin Sodium (Porcine) 5,000 units 12/15/19 21:00 12/24/19 07:58 Heparin 5,000 Units/Ml Vial SC 5,000 units BID NATALIO Administration Hydralazine HCl 50 mg 12/15/19 13:00 12/24/19 07:55 Hydralazine 25 Mg Tab PO Not Given QID NATALIO Hydralazine HCl 10 mg 12/20/19 10:53 12/23/19 22:26 Hydralazine 20 Mg/Ml Vial SLOW IVP 10 mg Q4H PRN Administration SBP GREATER THAN 160 Hydroxyurea 500 mg 12/16/19 09:00 12/24/19 07:56 Hydroxyurea 500 Mg Cap PO Not Given DAILY [facility] Amino Acids/Electrolytes/Dextrose 1,000 mls @ 60 mls/hr 12/18/19 12:15 12/24/19 05:51 Clinimix E 4.25/5 IV 1,000 mls INF [facility] Administration Latanoprost 1 drop 12/15/19 21:00 12/23/19 21:30 Latanoprost 0.005% Ophth Soln 2.5 Ml Bottle EA EYE 1 drp HS [facility] Administration Minoxidil 5 mg 12/16/19 09:00 12/24/19 07:56 Minoxidil 2.5 Mg Tab PO Not Given DAILY [facility] Mirtazapine 7.5 mg 12/15/19 21:00 12/23/19 21:27 Mirtazapine 15 Mg Tab PO Not Given HS NATALIO Nitroglycerin 0.5 inch 12/20/19 14:00 12/24/19 05:54 Nitroglycerin 2% Ointment 1 Inch/1 Gm Packet TOP 0.5 inch Q8HR [facility] Administration Pantoprazole Sodium 40 mg 12/15/19 09:00 12/24/19 07:56 Pantoprazole 40 Mg Tab PO Not Given BID [facility] Vitamin B Complex/Vit C/Folic Acid 1 tab 12/15/19 09:00 12/24/19 07:55 Folic Acid/Vit B Comp W-C PO Not Given DAILY [facility]ALIO - Exam General Appearance: NAD, ill appearing Eye: PERRL ENT: normocephalic atraumatic, no oropharyngeal lesions, dry oral mucosa Neck: symmetric, no JVD Heart: RRR, no murmur, no gallops, no rubs Respiratory: CTAB, no wheezes, no rales, no ronchi Gastrointestinal: soft, non-distended Extremities: no clubbing, no edema Skin: normal turgor, no lesions Neurological: no new deficit Musculoskeletal: normal tone, normal strength, generalized weakness, diffuse muscle atrophy Psychiatric: normal affect, not oriented Hosp A/P (1) Acute respiratory failure with hypoxia Code(s): J96.01 - ACUTE RESPIRATORY FAILURE WITH HYPOXIA Status: Acute (2) Pneumonia due to COVID-19 virus Code(s): U07.1 - COVID-19; J12.89 - OTHER VIRAL PNEUMONIA Status: Acute (3) Acute metabolic encephalopathy Code(s): G93.41 - METABOLIC ENCEPHALOPATHY Status: Acute (4) Chronic hepatitis C Code(s): B18.2 - CHRONIC VIRAL HEPATITIS C Status: Chronic Qualifiers: (5) Dementia Code(s): F03.90 - UNSPECIFIED DEMENTIA WITHOUT BEHAVIORAL DISTURBANCE Status: Chronic Qualifiers: Dementia type: unspecified type Dementia behavioral disturbance: without behavioral disturbance Qualified Code(s): F03.90 - Unspecified dementia without behavioral disturbance (6) ESRD (end stage renal disease) on dialysis Code(s): N18.6 - END STAGE RENAL DISEASE; Z99.2 - DEPENDENCE ON RENAL DIALYSIS Status: Chronic (7) Glaucoma Code(s): H40.9 - UNSPECIFIED GLAUCOMA Status: Chronic (8) Hypertension Code(s): I10 - ESSENTIAL (PRIMARY) HYPERTENSION Status: Chronic Qualifiers: Hypertension type: essential hypertension (9) Paroxysmal atrial fibrillation Code(s): I48.0 - PAROXYSMAL ATRIAL FIBRILLATION Status: Chronic (10) Secondary hyperparathyroidism of renal origin Code(s): N25.81 - SECONDARY HYPERPARATHYROIDISM OF RENAL ORIGIN Status: Chronic - Plan old records reviewed/req, plan discussed w/ family, public health social worker I discussed with the patient's daughter on phone and her daughter discussed with other family member and they agreed with a PEG tube placement. We will send repeat COVID-19 test Gastroenterology has been consulted for evaluation for PEG tube Currently patient is on PPN Continue hemodialysis as per nephrology Prognosis guarded Patient is overall medically stable with current treatment,
[2019-12-24 11:18] LABS: SARS-CoV-2 MS2 Positive; SARS-CoV-2 N Gene Positive; SARS-CoV-2 S Gene Positive; SARS-CoV-2 by NAA DETECTED (NotDetected); SARS-CoV-2 orf1ab Positive
[2019-12-24] MEDS: hydrALAZINE 20 MG/ML VIAL SLOW IVP PRN (11:39)
[2019-12-24] MEDS: Latanoprost 0.005% Ophth Soln 2.5 ml Bottle EA EYE SCH (20:20)
[2019-12-24] MEDS: Mirtazapine 15 MG TAB PO SCH (20:21)
--- NOTE | 2019-12-24 23:42 | CON ---
DATE OF CONSULTATION: 12/24/2019 REASON FOR CONSULTATION: Oropharyngeal dysphagia, inability to maintain adequate nutrition. CONSULTING PROVIDER: Dr. Deirdre Romero. HISTORY OF PRESENT ILLNESS: The patient is an 83-year-old female with past medical history of end-stage renal disease, on hemodialysis; severe dementia, in a bed-bound shelter environment; hypertension; paroxysmal atrial fibrillation; secondary hyperparathyroidism; anemia of renal disease; chronic hepatitis C infection; deep vein thrombosis; and prior cerebrovascular accident, who was initially admitted to the hospital for acute oxygen desaturation. Per the patient's severe dementia, the majority of the information was obtained through interviewing staff and chart review. Per chart review, the patient was initially transferred from [facility] due to altered mental status and cough with an oxygen desaturation at 85% on room air. She was also noted to have a fever of approximately 101 degrees Fahrenheit as well as a chest x-ray demonstrating bibasilar interstitial prominences and worse aeration in the left lung base suggestive of edema versus infection. She was subsequently transferred to [facility] for further evaluation and care and during the course of this admission, the patient did have serologies test positive for COVID-19 virus; both on December 14 and December 22. However, during the course of this hospitalization, with only conservative management, the patient has had significant improvement in her respiratory status, now being able to maintain an oxygen sat of 92% to 96% on either room air or 2 L nasal cannula. However, during the course of this admission, she has been relatively unable to maintain adequate nutrition (the patient is not feeding herself at the shelter) requiring placing the patient on PPN. Given her significant malnourished state and altered mental status making feeding the patient by mouth difficult, we were then consulted for possible PEG tube placement. REVIEW OF SYSTEMS: A 10-category review of systems could not be obtained due to the patient's altered mental status. PAST MEDICAL HISTORY: As per HPI. PAST SURGICAL HISTORY: Arteriovenous fistula formation in the right upper extremity, right shoulder surgery as well as PermCath placement in the left upper chest. FAMILY HISTORY: Denies any GI malignancies. SOCIAL HISTORY: No report of tobacco, alcohol, or illicit drug use. MEDICATIONS: Outpatient medications reviewed. Inpatient medications reviewed. ALLERGIES: CHLORHEXIDINE, MORPHINE, AND SULFA. PHYSICAL EXAMINATION: VITAL SIGNS: Temperature 97.4, pulse 60, blood pressure 135/52, respiratory rate 16, saturating 92% on 2 L nasal cannula. GENERAL: The patient was lying in bed, in no acute distress, minimally alert only to noxious stimuli with speech largely unintelligible. HEENT: Normocephalic and atraumatic. NECK: Supple. No JVD or scleral icterus noted. CARDIOVASCULAR: Regular rate and rhythm with no discernible murmurs, gallops, or rubs. RESPIRATORY: Clear to auscultation bilaterally, but with poor inspiratory effort. ABDOMEN: Normoactive bowel sounds. Soft, nontender, and nondistended. EXTREMITIES: No cyanosis, clubbing, or edema. Cachectic in appearance. LABORATORY DATA: CBC with a white blood cell count of 19.7, hemoglobin 10.1, hematocrit 30.9, platelets 519. Chemistry with a sodium of 127, potassium 5, chloride 97, CO2 of 16, BUN 77, creatinine 3.91, glucose 136. AST 29, ALT 16, alkaline phosphatase 52, total bilirubin 0.3. COVID-19 positive on December 14 and December 22. IMAGING DATA: Chest x-ray obtained on December 18, 2019, showed presence of a left subclavian dialysis catheter in stable position. Interval worsening of bilateral lung parenchymal opacities with elevation of the right hemidiaphragm and/or basilar pleural parenchymal opacity appear similar. No evidence of pneumothorax. 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 Oropharyngeal dysphagia/severe malnutrition. The patient is presenting from a shelter near [place] per the patient's daughter, where the patient has been undergoing full care where she is fed by staff, but has been able to maintain adequate nutrition prior to coming to this hospitalization. However, during the course of this hospitalization, she has been minimally responsive to the coaxing and efforts by staff in order to maintain adequate nutrition by feeding her requiring the placement on PPN. With the inability to maintain adequate nutrition in a long-term with PPN, the subject of percutaneous gastrostomy tube placement was broached with the patient's family with the patient's family initially agreeing to the placement of the feeding tube. However, with the concurrent diagnosis of COVID-19 infection, it does complicate matters in terms of her respiratory status as well as perioperative management. At this time, she is minimally symptomatic and is able to maintain adequate oxygen saturations while on 2 L nasal cannula despite worsening radiographic findings on chest x-ray. After speaking with the patient's family (Gabriela Sears), I outlined the risks and benefits of the placement of a percutaneous gastrostomy tube in her mother explaining fully that placing this feeding tube does not increase functionality or life span. Rather, in this particular patient population, it could be fairly problematic as it has an increased risk of complication from these feeding tube placements. However, this is further complicated by her COVID-19 virus and upon conferring with Anesthesiology staff, if she is able to maintain adequate oxygen desaturation and there is no emergent need for the procedure, then they would prefer quarantining the patient for 10 to 14 days prior to proceeding with an elective procedure (a.k.a., gastrostomy tube placement). I discussed all this with family and they are in agreement with holding on the procedure for right now with possible Dobhoff tube placement for nutrition in the meantime. RECOMMENDATIONS: 1. Would recommend placing a Dobhoff tube for the time being and initiation of tube feeds to maintain adequate nutrition prior to placement of a gastrostomy tube. 2. Would continue to monitor the patient's respiratory status in light of her COVID-19 virus infection. 3. Would continue to have an open dialogue with family members concerning placement of a percutaneous gastrostomy tube and the risks and benefits contained thereof. We will continue to follow. Please call with any questions. Job ID: [id number]
[2019-12-25] MEDS: Albuterol 200 PUFF (6.7GM INHALER) INH SCH ×6 (01:32→21:27)
[2019-12-25] MEDS: Nitroglycerin 2% Ointment 1 INCH/1 GM Packet TOP SCH ×3 (05:23→21:23)
[2019-12-25 06:41] LABS: Albumin 3.1 g/dL (3.4-4.8); Anion Gap 20 mmol/L (10-20); BUN (Urea Nitrogen) 84 mg/dL (9.8-20.1); BUN/Creatinine Ratio 22.83; CRP (Inflammatory) 10.75 mg/dL (= or < 0.5); Calc. Creatinine Clearance 9 mL/min (70-130); Calcium 8.8 mg/dL (7.8-10.44); Carbon Dioxide 19 mmol/L (23-31); Chloride 96 mmol/L (98-107); Estimated GFR-MDRD 14; Glucose 98 mg/dL (83-110); Phosphorus 5.8 mg/dL (2.3-4.7); Potassium 5.4 mmol/L (3.5-5.1); Sodium 130 mmol/L (136-145)
[2019-12-25 06:53] LABS: Hemoglobin 10.4 g/dL (12.0-16.0); Mean Corpuscular HGB CONC 33.7 g/dL (32.0-36.0); Mean Corpuscular Volume 94.8 fL (78.0-98.0); Mean Platelet Volume 6.8 fL (7.4-10.4); Platelet Count 644 thou/uL (130-400); RBC Distribution Width 15.5 % (11.5-14.5); Red Blood Cell (RBC) Count 3.24 mill/uL (4.20-5.40); White Blood Cell (WBC) Count 28.9 thou/uL (4.8-10.8)
[2019-12-25 06:55] LABS: Band 5 % (5-11); Lymphocytes 2 % (21-51); MDiff Complete? YES; Monocytes 4 % (0-10); Myelocyte 4 % (0-0); Neutrophil 85 % (42-75); Target Cells SLIGHT = 2-5 cells (100X) (0-1/hpf)
[2019-12-25] MEDS: Aspirin 81 mg Enteric Coated Tablet PO SCH (08:38)
[2019-12-25] MEDS: Hydroxyurea 500 MG CAP PO SCH (08:38)
[2019-12-25] MEDS: Folic Acid/Vit B Comp W-C PO SCH (08:38)
[2019-12-25] MEDS: hydrALAZINE 25 MG TAB PO SCH ×4 (08:38→21:22)
[2019-12-25] MEDS: Minoxidil 2.5 MG TAB PO SCH (08:38)
[2019-12-25] MEDS: cloNIDine 0.1mg/24 Hour PATCH TD SCH (08:39)
[2019-12-25] MEDS: Brimonidine Tartrate 0.2% Ophth Soln 5 ml Bottle EA EYE SCH ×2 (08:39→21:23)
[2019-12-25] MEDS: Dexamethasone 4 mg/ml Vial SLOW IVP SCH (08:39)
[2019-12-25] MEDS: Heparin 5,000 UNITS/ML VIAL SC SCH ×2 (08:39→21:22)
--- NOTE | 2019-12-25 12:52 | PRG ---
DATE OF SERVICE: 12/25/2019 SUBJECTIVE: Ms. Sears is nonresponsive with her dementia. OBJECTIVE: VITAL SIGNS: She is on nasal cannula at 2 to 3 L, O2 saturation 93%, respiratory rate 16, temperature 98, blood pressure 158/63. ABDOMEN: Soft and nontender. LUNGS: Clear. LABORATORY DATA: White count is down to 28,900, hemoglobin is 10.4, platelet count is 644. BUN and creatinine are 84 and 3.68, potassium 5.3. Ferritin today is 4951. CRP is 10.75. ASSESSMENT: This is an 83-year-old female with chronic dementia, prior CVA, end-stage renal disease, has been admitted with COVID-19 infection. She has very low functional status in the outpatient setting and now is not able to be fed. RECOMMENDATIONS: Patient is not a candidate for a PEG tube placement. This is elective and with her active COVID infection, elective surgeries and procedures are not being performed. If there is a desire to feed her, Dobhoff feeding would be the way to go, although this is controversial in patients with advanced dementia. I would defer to primary service and family. Dr. Go had a long discussion with the family last night about the issues involved and long-term feeding and those with dementia and how it is futile and does not advance quality of life or improve their dementia. But again, in the acute setting of her infection, if there is a desire to feed, I would recommend enteral feeding with Dobbhoff feeding. At this time, we will sign off. Please consult if we can be of further assistance. She is not able to feed at all. Temperature is 98, pulse 56, blood pressure is 158/63. Job ID: [id number]
--- NOTE | 2019-12-25 14:37 | PDOC.HOSPP ---
- Subjective Encounter Date: 12/25/19 Subjective: The patient is nonverbal due to her severe dementia. - Objective Vital Signs & Weight: Vital Signs (12 hours) Temp Pulse Resp BP Pulse Ox 12/25/19 11:35 98.9 F 54 L 16 137/66 95 12/25/19 08:55 60 16 92 L 12/25/19 08:40 98.7 F 56 L 16 158/63 H 99 12/25/19 04:00 61 20 137/67 92 L Weight Admit Weight 111 lb 1.808 oz Weight 111 lb 1.808 oz I&O: 12/24/19 12/25/19 12/26/19 06:59 06:59 06:59 Intake Total 600 720 Output Total 2000 Balance 600 -1280 Result Diagrams: 12/25/19 05:59 12/25/19 05:59 Hospitalist ROS - Medication Medications: Active Medications Generic Name Dose Route Start Last Admin Trade Name Freq PRN Reason Stop Dose Admin Acetaminophen 650 mg 12/15/19 13:46 12/19/19 09:31 Acetaminophen 650 Mg Suppository OR 650 mg Q4H PRN Administration Headache/Fever or Pain Albuterol Sulfate 2 puff 12/15/19 18:30 12/25/19 14:00 Albuterol 200 Puff (6.7gm Inhaler) INH Not Given C1CM-AQ NATALIO Aspirin 81 mg 12/16/19 09:00 12/25/19 08:38 Aspirin 81 Mg Enteric Coated Tablet PO Not Given DAILY NATALIO Brimonidine Tartrate 1 drop 12/15/19 21:00 12/25/19 08:39 Brimonidine Tartrate 0.2% Ophth Soln 5 Ml Bottle EA EYE 1 drop BID NATALIO Administration Clonidine 0.1 mg 12/18/19 09:00 12/25/19 08:39 Clonidine 0.1mg/24 Hour Patch TD 0.1 mg Q7DAYS NATALIO Administration Dexamethasone 6 mg 12/15/19 09:00 12/25/19 08:39 Dexamethasone 4 Mg/Ml Vial SLOW IVP 6 mg DAILY NATALIO Administration Epoetin Massimo-epbx 7,500 unit 12/20/19 12:00 12/20/19 13:53 Epoetin Massimo-Epbx (Esrd) 4,000 Unit/Ml Vial SC 7,500 unit Q7D NATALIO Administration Heparin Sodium (Porcine) 5,000 units 12/15/19 21:00 12/25/19 08:39 Heparin 5,000 Units/Ml Vial SC 5,000 units BID NATALIO Administration Hydralazine HCl 50 mg 12/15/19 13:00 12/25/19 12:44 Hydralazine 25 Mg Tab PO Not Given QID NATALIO Hydralazine HCl 10 mg 12/20/19 10:53 12/24/19 11:39 Hydralazine 20 Mg/Ml Vial SLOW IVP 10 mg Q4H PRN Administration SBP GREATER THAN 160 Hydroxyurea 500 mg 12/16/19 09:00 12/25/19 08:38 Hydroxyurea 500 Mg Cap PO Not Given DAILY [facility] Amino Acids/Electrolytes/Dextrose 1,000 mls @ 60 mls/hr 12/18/19 12:15 12/24/19 22:47 Clinimix E 4.25/5 IV 1,000 mls INF NATALIO Administration Latanoprost 1 drop 12/15/19 21:00 12/24/19 20:20 Latanoprost 0.005% Ophth Soln 2.5 Ml Bottle EA EYE 1 drp HS NATALIO Administration Minoxidil 5 mg 12/16/19 09:00 12/25/19 08:38 Minoxidil 2.5 Mg Tab PO Not Given DAILY NATALIO Mirtazapine 7.5 mg 12/15/19 21:00 12/24/19 20:21 Mirtazapine 15 Mg Tab PO Not Given HS NATALIO Nitroglycerin 0.5 inch 12/20/19 14:00 12/25/19 14:16 Nitroglycerin 2% Ointment 1 Inch/1 Gm Packet TOP 0.5 inch Q8HR NATALIO Administration Pantoprazole Sodium 40 mg 12/15/19 09:00 12/25/19 08:38 Pantoprazole 40 Mg Tab PO Not Given BID NATALIO Sodium Chloride 10 ml 12/15/19 02:13 12/25/19 08:40 Flush - Normal Saline 10 Ml Syringe IVF 10 ml Q12HR PRN Administration Saline Flush Vitamin B Complex/Vit C/Folic Acid 1 tab 12/15/19 09:00 12/25/19 08:38 Folic Acid/Vit B Comp W-C PO Not Given DAILY NATALIO - Exam General Appearance: awake alert ENT: normocephalic atraumatic Neck: supple, no JVD Respiratory: normal chest expansion, no tachypnea Gastrointestinal: soft, non-tender Neurological: cranial nerve grossly intact Hosp A/P - Plan Hosp A/P (1) Acute respiratory failure with hypoxia Code(s): J96.01 - ACUTE RESPIRATORY FAILURE WITH HYPOXIA Status: Acute (2) Pneumonia due to COVID-19 virus Code(s): U07.1 - COVID-19; J12.89 - OTHER VIRAL PNEUMONIA Status: Acute (3) Acute metabolic encephalopathy Code(s): G93.41 - METABOLIC ENCEPHALOPATHY Status: Acute (4) Chronic hepatitis C Code(s): B18.2 - CHRONIC VIRAL HEPATITIS C Status: Chronic Qualifiers: (5) Dementia Code(s): F03.90 - UNSPECIFIED DEMENTIA WITHOUT BEHAVIORAL DISTURBANCE Status: Chronic Qualifiers: Dementia type: unspecified type Dementia behavioral disturbance: without behavioral disturbance Qualified Code(s): F03.90 - Unspecified dementia without behavioral disturbance (6) ESRD (end stage renal disease) on dialysis Code(s): N18.6 - END STAGE RENAL DISEASE; Z99.2 - DEPENDENCE ON RENAL DIALYSIS Status: Chronic (7) Glaucoma Code(s): H40.9 - UNSPECIFIED GLAUCOMA Status: Chronic (8) Hypertension Code(s): I10 - ESSENTIAL (PRIMARY) HYPERTENSION Status: Chronic Qualifiers: Hypertension type: essential hypertension (9) Paroxysmal atrial fibrillation Code(s): I48.0 - PAROXYSMAL ATRIAL FIBRILLATION Status: Chronic (10) Secondary hyperparathyroidism of renal origin Code(s): N25.81 - SECONDARY HYPERPARATHYROIDISM OF RENAL ORIGIN Status: Chronic - Plan The patient was seen and examined. She is an 83-year-old female with multiple comorbidities including end-stage renal disease, prior CVAs, severe dementia and atrial fibrillation who was admitted to the hospital for respiratory failure due to COVID-19 virus. The patient is unable to tolerate adequate oral intake and has been on PPN. GI were consulted to consider PEG tube placement but the patient would not be a candidate due to COVID-19 diagnosis. Dobbhoff tube will be inserted today and tube feeding will be initiated. Case management working on placement.
[2019-12-25] MEDS: D5W-AA 4.25% with LYTES 1,000 ML IV SCH (14:52)
--- NOTE | 2019-12-25 15:21 | RAD ---
Chest one view HISTORY: Feeding tube placement. COMPARISON: 12/18/2019. FINDINGS: Cardiac silhouette is magnified by projection wound now more obscured by increasing pleural and parenchymal opacity at the right base. Pulmonary vasculature is engorged. Patchy areas of ill-defined parenchymal infiltrate throughout each lung are otherwise unchanged. Left subclavian dial ysis-type catheter again demonstrated. Electronic monitoring device over the mid chest wall unchanged. Dobbhoff feeding catheter descends the abdomen, extending to the right upper quadrant at the expected location of the gastric pylorus. Hemostasis clips and IVC filter also overlie the right abdomen. IMPRESSION : Tip of the Dobbhoff feeding catheter favored to be at the level of the gastric pylorus. Prominent bilateral multifocal lung infiltrates and pulmonary vascular congestion. Right pleural flui d has increased since the prior exam.
--- NOTE | 2019-12-25 16:59 | PDOC.PALPN ---
Palliative Progress Note - Subjective Lethargic, nonverbal at time of assessment. Dobhoff placed secondary to not a candidate for PEG to remaining Covid positive/ requiring intrevention to maintain adequate nutrition. Remains on supplemental O2. - Objective Vital Signs: Vital Signs - Most Recent Temp Pulse Resp BP Pulse Ox 98.9 F 66 16 137/69 94 L 12/25/19 11:35 12/25/19 14:35 12/25/19 14:35 12/25/19 14:35 12/25/19 14:35 - Physical Exam Constitutional: cachectic, encephalitic, ill appearing HEENT: moist MMs, sclera anicteric, poor dentition Respiratory: no wheezing, diminished lung sound Cardiovascular: RRR Gastrointestinal: soft, non-tender, positive bowel sounds Genitourinary: incontinent Musculoskeletal: diffuse muscle atrophy Skin: fragile Deviation from normal: Wound as per wound photo to buttock Deviation from normal: encephalopathic - Assessment (1) Palliative care encounter Code(s): Z51.5 - ENCOUNTER FOR PALLIATIVE CARE Current Visit: Yes Status: Acute (2) Acute respiratory failure with hypoxia Code(s): J96.01 - ACUTE RESPIRATORY FAILURE WITH HYPOXIA Current Visit: Yes Status: Acute (3) Pneumonia due to COVID-19 virus Code(s): U07.1 - COVID-19; J12.89 - OTHER VIRAL PNEUMONIA Current Visit: Yes Status: Acute (4) Acute metabolic encephalopathy Code(s): G93.41 - METABOLIC ENCEPHALOPATHY Current Visit: No Status: Acute (5) Altered mental status Code(s): R41.82 - ALTERED MENTAL STATUS, UNSPECIFIED Current Visit: No Status: Acute Qualifiers: (6) Dementia Code(s): F03.90 - UNSPECIFIED DEMENTIA WITHOUT BEHAVIORAL DISTURBANCE Current Visit: No Status: Chronic Qualifiers: Dementia type: unspecified type Dementia behavioral disturbance: without behavioral disturbance Qualified Code(s): F03.90 - Unspecified dementia without behavioral disturbance - Plan Plan: Palliative care has been introduced to patel daughter Gabriela. Secondary to recent placement of Dobhoff patient is not a candidate for return to [facility]. Patient with continued decline with disease trajectory. Will attempt to follow up with phone call 12/25 to Gabriela to further discuss impact of group home feeding with dementia patients and futile effort., not improving quality of life for Ms Sears. This conversation was initiated with GI and family. [30] minutes spent on this encounter with >50% of the time in counseling and coordination of care. - ROS Non Response: due to mental status
[2019-12-25] MEDS: Mirtazapine 15 MG TAB PO SCH (21:22)
[2019-12-25] MEDS: Latanoprost 0.005% Ophth Soln 2.5 ml Bottle EA EYE SCH (21:23)
[2019-12-26] MEDS: Albuterol 200 PUFF (6.7GM INHALER) INH SCH ×5 (04:30→20:24)
[2019-12-26] MEDS: Nitroglycerin 2% Ointment 1 INCH/1 GM Packet TOP SCH ×3 (05:13→20:23)
--- NOTE | 2019-12-26 07:06 | RAD ---
Exam: One view abdomen HISTORY: Evaluate Dobbhoff feeding tube placement FINDINGS: Redemonstration of a left-sided HemoSplit dialysis catheter, incompletely evaluated. Record er is noted. Dobbhoff tube has been pulled back and now appears to be at the GE junction. There are persistent bilateral lower lobe pleural and parenchymal changes. Stable IVC filter IMPRESSION: Dobbhoff feeding tube appears to been pulled back and appears to be at the GE junction. Advancement o f the Dobbhoff feeding tube is recommended Results of study discussed with patient's nurse Chidi 12/26/2019 at 7:23 AM Code CR
[2019-12-26] MEDS: Dexamethasone 4 mg/ml Vial SLOW IVP SCH (09:03)
[2019-12-26] MEDS: Folic Acid/Vit B Comp W-C PO SCH ×2 (09:04→11:02)
[2019-12-26] MEDS: Heparin 5,000 UNITS/ML VIAL SC SCH ×2 (09:04→20:22)
[2019-12-26] MEDS: hydrALAZINE 25 MG TAB PO SCH ×2 (09:04→11:03)
[2019-12-26] MEDS: D5W-AA 4.25% with LYTES 1,000 ML IV SCH (09:05)
--- NOTE | 2019-12-26 09:43 | PRG ---
DATE OF SERVICE: 12/26/2019 SUBJECTIVE: Ms. Sears is an 83-year-old black female with ESRD, on maintenance hemodialysis, and initially admitted for COVID-19 pneumonia. We are following her up for her management of her ESRD. The patient is not a candidate for PEG tube placement due to the COVID-19. A Dobhoff feeding tube has been placed. The patient has been started on tube feeding. No acute events noted last night. OBJECTIVE: VITAL SIGNS: Blood pressure is noted at 169/52 with a heart rate of 54, respiratory rate is 18, and O2 saturation 95%. GENERAL: The patient is lethargic-arousable, not in overt distress. SKIN: Decreased turgor. HEENT: She has slightly pinkish conjunctivae. Anicteric sclerae. NECK: No neck mass. No carotid bruits. No JVD. CHEST: No deformities. LUNGS: Decreased breath sounds. HEART: Normal sinus rhythm. No murmur. No gallops. No rubs. ABDOMEN: Globular, soft, and nontender. No masses. EXTREMITIES: No edema. No deformities. MEDICATIONS: Medications of December 26, 2019, were reviewed. LABORATORY DATA: Laboratories of December 25, 2019; white count 28.9, hemoglobin 10.4. Sodium 130, potassium 5.4, chloride 96, carbon dioxide 19, BUN 84, creatinine 3.68, ferritin 4951, and albumin 3.1. ASSESSMENT AND PLAN: 1. End-stage renal disease-the patient is scheduled for hemodialysis today. We will schedule her for 3-hour hemodialysis treatment. Fluid removal as tolerated by the patient. 2. COVID-19 pneumonia, supportive care. 3. Mild hyperkalemia, for hemodialysis today. Recheck CBC and basic met in a.m. Job ID: [id number]
[2019-12-26] MEDS ORDERED: Heparin 10,000 UNITS/ 10 ML VIAL ONE (10:02)
--- NOTE | 2019-12-26 10:24 | RAD ---
EXAM: XR Abdomen 1 View/KUB DATE: 12/26/2019 9:10 AM INDICATION: Dobbhoff feeding tube positioning COMPARISON: Prior exam dated December 26, 2019 at 4:25 AM FINDING: The Dobbhoff feeding tube tip was advanced and the tip of the catheter is in the region of the gastric fundus. IVC changes stable. Surgical clips of the right vertebral quadrant stable. Elevation right hemidiaphragm is stable.. The bowel gas pattern is stable IMPRESSION:Dobbhoff feeding tube tip seen in the region of the gastric fundus
[2019-12-26] MEDS: Aspirin 81 mg Enteric Coated Tablet PO SCH (11:02)
[2019-12-26] MEDS: Hydroxyurea 500 MG CAP PO SCH (11:04)
[2019-12-26] MEDS: Minoxidil 2.5 MG TAB PO SCH (11:04)
[2019-12-26] MEDS: Brimonidine Tartrate 0.2% Ophth Soln 5 ml Bottle EA EYE SCH ×2 (11:04→20:22)
--- NOTE | 2019-12-26 12:21 | PDOC.HOSPP ---
- Subjective Encounter Date: 12/26/19 non-verbal - Objective Vital Signs & Weight: Vital Signs (12 hours) Temp Pulse Resp BP Pulse Ox 12/26/19 11:30 97.8 F 53 L 20 180/85 H 100 12/26/19 11:03 55 L 12/26/19 09:27 99.2 F 55 L 20 182/82 H 98 Weight Admit Weight 111 lb 1.808 oz Weight 111 lb 1.808 oz I&O: 12/25/19 12/26/19 12/27/19 06:59 06:59 06:59 Intake Total 720 720 Output Total 1999 0 Balance -1280 720 Result Diagrams: 12/25/19 05:59 12/25/19 05:59 Hospitalist ROS - Medication Medications: Active Medications Generic Name Dose Route Start Last Admin Trade Name Freq PRN Reason Stop Dose Admin Acetaminophen 650 mg 12/15/19 13:46 12/19/19 09:31 Acetaminophen 650 Mg Suppository RI 650 mg Q4H PRN Administration Headache/Fever or Pain Albuterol Sulfate 2 puff 12/15/19 18:30 12/26/19 04:30 Albuterol 200 Puff (6.7gm Inhaler) INH Not Given [id number] NATALIO Aspirin 81 mg 12/16/19 09:00 12/26/19 11:02 Aspirin 81 Mg Enteric Coated Tablet PO 81 mg DAILY NATALIO Administration Brimonidine Tartrate 1 drop 12/15/19 21:00 12/26/19 11:04 Brimonidine Tartrate 0.2% Ophth Soln 5 Ml Bottle EA EYE 1 drop BID NATALIO Administration Clonidine 0.1 mg 12/18/19 09:00 12/25/19 08:39 Clonidine 0.1mg/24 Hour Patch TD 0.1 mg Q7DAYS NATALIO Administration Dexamethasone 6 mg 12/15/19 09:00 12/26/19 09:03 Dexamethasone 4 Mg/Ml Vial SLOW IVP 6 mg DAILY NATALIO Administration Epoetin Massimo-epbx 7,500 unit 12/20/19 12:00 12/20/19 13:53 Epoetin Massimo-Epbx (Esrd) 4,000 Unit/Ml Vial SC 7,500 unit Q7D NATALIO Administration Heparin Sodium (Porcine) 5,000 units 12/15/19 21:00 12/26/19 09:04 Heparin 5,000 Units/Ml Vial SC 5,000 units BID NATALIO Administration Hydralazine HCl 10 mg 12/20/19 10:53 12/24/19 11:39 Hydralazine 20 Mg/Ml Vial SLOW IVP 10 mg Q4H PRN Administration SBP GREATER THAN 160 Hydroxyurea 500 mg 12/16/19 09:00 12/26/19 11:04 Hydroxyurea 500 Mg Cap PO 500 mg DAILY NATALIO Administration Amino Acids/Electrolytes/Dextrose 1,000 mls @ 60 mls/hr 12/18/19 12:15 12/25 09:05 Clinimix E 4.25/5 IV 1,000 mls INF NATALIO Administration Latanoprost 1 drop 12/15/19 21:00 12/25/19 21:23 Latanoprost 0.005% Ophth Soln 2.5 Ml Bottle EA EYE 1 drp HS NATALIO Administration Minoxidil 5 mg 12/16/19 09:00 12/26/19 11:04 Minoxidil 2.5 Mg Tab PO 5 mg DAILY NATALIO Administration Mirtazapine 7.5 mg 12/15/19 21:00 12/25/19 21:22 Mirtazapine 15 Mg Tab PO 7.5 mg HS NATALIO Administration Nitroglycerin 0.5 inch 12/20/19 14:00 12/26/19 05:13 Nitroglycerin 2% Ointment 1 Inch/1 Gm Packet TOP 0.5 inch Q8HR NATALIO Administration Sodium Chloride 10 ml 12/15/19 02:13 12/25/19 08:40 Flush - Normal Saline 10 Ml Syringe IVF 10 ml Q12HR PRN Administration Saline Flush Vitamin B Complex/Vit C/Folic Acid 1 tab 12/15/19 09:00 12/26/19 11:02 Folic Acid/Vit B Comp W-C PO 1 tab DAILY NATALIO Administration - Exam ENT: normocephalic atraumatic Neck: supple, no JVD Respiratory: normal chest expansion, no tachypnea, rhonchi Extremities: no cyanosis, no clubbing Hosp A/P - Plan Hosp A/P (1) Acute respiratory failure with hypoxia Code(s): J96.01 - ACUTE RESPIRATORY FAILURE WITH HYPOXIA Status: Acute (2) Pneumonia due to COVID-19 virus Code(s): U07.1 - COVID-19; J12.89 - OTHER VIRAL PNEUMONIA Status: Acute (3) Acute metabolic encephalopathy Code(s): G93.41 - METABOLIC ENCEPHALOPATHY Status: Acute (4) Chronic hepatitis C Code(s): B18.2 - CHRONIC VIRAL HEPATITIS C Status: Chronic Qualifiers: (5) Dementia Code(s): F03.90 - UNSPECIFIED DEMENTIA WITHOUT BEHAVIORAL DISTURBANCE Status: Chronic Qualifiers: Dementia type: unspecified type Dementia behavioral disturbance: without behavioral disturbance Qualified Code(s): F03.90 - Unspecified dementia without behavioral disturbance (6) ESRD (end stage renal disease) on dialysis Code(s): N18.6 - END STAGE RENAL DISEASE; Z99.2 - DEPENDENCE ON RENAL DIALYSIS Status: Chronic (7) Glaucoma Code(s): H40.9 - UNSPECIFIED GLAUCOMA Status: Chronic (8) Hypertension Code(s): I10 - ESSENTIAL (PRIMARY) HYPERTENSION Status: Chronic Qualifiers: Hypertension type: essential hypertension (9) Paroxysmal atrial fibrillation Code(s): I48.0 - PAROXYSMAL ATRIAL FIBRILLATION Status: Chronic (10) Secondary hyperparathyroidism of renal origin Code(s): N25.81 - SECONDARY HYPERPARATHYROIDISM OF RENAL ORIGIN Status: Chronic - Plan The patient was seen and examined. She is an 83-year-old female with multiple comorbidities including end-stage renal disease, prior CVAs, severe dementia and atrial fibrillation who was admitted to the hospital for respiratory failure due to COVID-19 virus. The patient is unable to tolerate adequate oral intake and has been on PPN. GI were consulted to consider PEG tube placement but the patient would not be a candidate due to COVID-19 diagnosis. Dobbhoff tube will be inserted today and bolus tube feeding will be initiated. Her leukocytosis has been worsening and more infiltrates are noted on the chest x-ray. Palliative care are discussing the patient's poor prognosis and the futility of aggressive care with the family. Until the family are able to make a decision we will continue to treat her sepsis. Start IV vancomycin and meropenem with pharmacy to dose and monitor. Case management working on placement.
[2019-12-26] MEDS ORDERED: Amlodipine 10 MG TAB PER TUBE SCH (12:30)
[2019-12-26] MEDS ORDERED: HOLD VANCOMYCIN FOR LEVEL >20 FS SCH (12:45)
[2019-12-26] MEDS ORDERED: Vancomycin 1 GM in Premix Bag 1 BAG IVPB SCH ×2 (12:45→21:00)
[2019-12-26] MEDS ORDERED: Vancomycin HCl 500 MG in Sodium Chloride 0.9% 100 ML IVPB SCH (12:45)
[2019-12-26] MEDS ORDERED: Vancomycin HCl 250 MG in Sodium Chloride 0.9% 100 ML IVPB SCH (12:45)
[2019-12-26] MEDS ORDERED: Vancomycin HCl 750 MG in Sodium Chloride 0.9% 250 ML 250 ML IVPB SCH (12:45)
[2019-12-26] MEDS: hydrALAZINE 25 MG TAB PER TUBE SCH ×3 (13:21→20:22)
[2019-12-26] MEDS ORDERED: Meropenem 1 GM in Sodium Chloride 0.9% 100 ML IVPB SCH (14:00)
[2019-12-26] MEDS ORDERED: Meropenem 500 MG in Sodium Chloride 0.9% 100 ML IVPB SCH (14:00)
[2019-12-26 15:08] LABS: Vancomycin, Random 5.9 ug/mL (See Comment)
[2019-12-26] MEDS: Mirtazapine 15 MG TAB PO SCH (20:22)
[2019-12-26] MEDS: Latanoprost 0.005% Ophth Soln 2.5 ml Bottle EA EYE SCH (20:23)
[2019-12-26] MEDS: Meropenem 500 MG in Sodium Chloride 0.9% 100 ML IVPB SCH (20:23)
[2019-12-27] MEDS: Albuterol 200 PUFF (6.7GM INHALER) INH SCH ×5 (00:19→23:16)
[2019-12-27] MEDS: Nitroglycerin 2% Ointment 1 INCH/1 GM Packet TOP SCH ×3 (04:59→21:19)
[2019-12-27] MEDS: D5W-AA 4.25% with LYTES 1,000 ML IV SCH (05:13)
[2019-12-27 05:57] LABS: Anion Gap 19 mmol/L (10-20); BUN (Urea Nitrogen) 65 mg/dL (9.8-20.1); Calc. Creatinine Clearance 12 mL/min (70-130); Calcium 8.2 mg/dL (7.8-10.44); Carbon Dioxide 22 mmol/L (23-31); Chloride 96 mmol/L (98-107); Estimated GFR-MDRD 19; Glucose 117 mg/dL (83-110); Sodium 132 mmol/L (136-145)
[2019-12-27 06:06] LABS: Band 8 % (5-11); Hemoglobin 9.3 g/dL (12.0-16.0); Hypochromia SLIGHT = 6-15 cells (100X) (0-5/hpf); Lymphocytes 4 % (21-51); MDiff Complete? YES; Mean Corpuscular HGB CONC 34.4 g/dL (32.0-36.0); Mean Corpuscular Hemoglobin 32.7 pg (27.0-31.0); Mean Corpuscular Volume 95.1 fL (78.0-98.0); Monocytes 6 % (0-10); Neutrophil 82 % (42-75); Platelet Count 534 thou/uL (130-400); Platelet Morphology Comment Appears Increased; RBC Distribution Width 15.5 % (11.5-14.5); Red Blood Cell (RBC) Count 2.83 mill/uL (4.20-5.40); Target Cells SLIGHT = 2-5 cells (100X) (0-1/hpf); White Blood Cell (WBC) Count 19.2 thou/uL (4.8-10.8)
[2019-12-27 08:25] LABS: Vancomycin, Random 12.9 ug/mL (See Comment)
[2019-12-27] MEDS: Dexamethasone 4 mg/ml Vial SLOW IVP SCH (09:16)
[2019-12-27] MEDS: Hydroxyurea 500 MG CAP PO SCH (09:16)
[2019-12-27] MEDS: Pantoprazole 40 MG VIAL IVP SCH (09:16)
[2019-12-27] MEDS: Folic Acid/Vit B Comp W-C PO SCH (09:17)
[2019-12-27] MEDS: Brimonidine Tartrate 0.2% Ophth Soln 5 ml Bottle EA EYE SCH ×2 (09:17→21:15)
[2019-12-27] MEDS: Heparin 5,000 UNITS/ML VIAL SC SCH ×2 (09:17→21:17)
[2019-12-27] MEDS: Aspirin 81 mg Enteric Coated Tablet PO SCH (09:17)
[2019-12-27] MEDS: hydrALAZINE 25 MG TAB PER TUBE SCH ×4 (09:26→21:15)
[2019-12-27] MEDS: Minoxidil 2.5 MG TAB PO SCH (09:27)
[2019-12-27] MEDS: Amlodipine 10 MG TAB PER TUBE SCH (09:27)
--- NOTE | 2019-12-27 11:56 | PDOC.DS.DS ---
Provider - Provider Date of Admission: 12/15/19 01:53 Admitting Provider: Ko Harkins MD Primary Care Physician: Maricruz Francois MD Course - Hospital Course Resuscitation Status: 12/15/19 11:00 Resuscitation Status Routine Resuscitation Status: DNAR: NO Resuscitation Discussed with: Verified with family, OOH-DNR in chart Additional comments: - Labs Lab Results: 12/27/19 05:19 12/27/19 05:19 Abnormal Lab Results - Last 48 hrs 12/27/19 05:19: Sodium 132 L, Chloride 96 L, Carbon Dioxide 22 L, BUN 65 H, Creatinine 2.87 H 12/27/19 05:19: WBC 19.2 H, RBC 2.83 L, Hgb 9.3 L, Hct 26.9 L, MCH 32.7 H, RDW 15.5 H, Plt Count 534 H, MPV 7.0 L, Neutrophils % (Manual) 82 H, Lymphocytes % (Manual) 4 L Microbiology - Entire Visit 12/15/19 02:40 Venous blood - Right Arm Blood Culture - Final NO GROWTH IN 5 DAYS 12/15/19 02:40 Venous blood - Left Arm Blood Culture - Final NO GROWTH IN 5 DAYS - Physical Exam Vitals: Vital Signs (12 hours) Temp Pulse Resp BP BP Pulse Ox 12/27/19 09:27 63 155/71 H 12/27/19 09:26 62 155/71 H 12/27/19 09:00 98.7 F 63 20 155/71 H 98 12/27/19 08:45 98 12/27/19 04:00 66 179/71 H 97 Weight Admit Weight 111 lb 1.808 oz Weight 111 lb 1.808 oz Physical Exam: The patient was seen and examined on the day of discharge. Plan - Discharge Medications Prescriptions: Dexamethasone [Decadron] 6 mg PO DAILY #4 tablet Home Medications: Medication Instructions Recorded Confirmed Type Aspirin [Ecotrin Low Strength] 81 mg PO DAILY 05/16/18 12/15/19 History Brimonidine Tartrate [Brimonidine 1 drop EA EYE BID 05/16/18 12/15/19 History Tartrate 0.15% Ophth Soln] Hydroxyurea [Hydrea] 50 mg PO DAILY 05/16/18 12/15/19 History Latanoprost/Pf [Latanoprost 0.005% 1 drop OP HS 05/16/18 12/15/19 History Eye Drop] Minoxidil 5 mg PO DAILY 12/15/19 12/15/19 History Mirtazapine 7.5 mg PO HS 12/15/19 12/15/19 History cloNIDine [Clonidine] 1 each TD Q7DAYS 12/15/19 12/15/19 History hydrALAZINE [Apresoline] 50 mg PO QID 12/15/19 12/15/19 History Dexamethasone [Decadron] 6 mg PO DAILY #4 tablet 12/27/19 Rx Allergies: chlorhexidine Allergy (Intermediate, Verified 05/16/18 01:03) Rash morphine Allergy (Verified 05/16/18 01:03) Sulfa (Sulfonamide Antibiotics) Allergy (Verified 05/16/18 01:03) - Discharge Instructions Activity:: Activity as Tolerated Nourishment:: Tube Feeding Diet - Follow up Plan Referrals: Que Go MD [Active] - (FOR POSSIBLE PEG TUBE PLACEMENT) Naveen Smith MD [Active] - (FOR DIAYLSIS ) Maricruz Francois MD [Primary Care Provider] - 7 Days Disposition: OTHER HOSPITAL INPT Quality - Care Measures CORE MEASURES:: N/A
[2019-12-27] MEDS: EPOETIN ALFA-EPBX (ESRD) 4,000 UNIT/ML VIAL SC SCH (13:47)
--- NOTE | 2019-12-27 15:59 | PDOC.BPN ---
- Brief Progress Note Encounter Date: 12/27/19 Encounter Time: 04:00 Plan has to be postponed for discharge as they do not have any staff at swing bed to bring her there and also given her elevated leukocytosis and being on IV antibiotics I am going to hold until the I see clear trend on WBC resolution.
[2019-12-27] MEDS: Mirtazapine 15 MG TAB PO SCH (21:16)
[2019-12-27] MEDS: Latanoprost 0.005% Ophth Soln 2.5 ml Bottle EA EYE SCH (21:16)
[2019-12-27] MEDS: Meropenem 500 MG in Sodium Chloride 0.9% 100 ML IVPB SCH (21:19)
[2019-12-28] MEDS: Albuterol 200 PUFF (6.7GM INHALER) INH SCH ×5 (02:12→20:14)
[2019-12-28] MEDS: Nitroglycerin 2% Ointment 1 INCH/1 GM Packet TOP SCH ×3 (05:29→21:43)
[2019-12-28] MEDS: Folic Acid/Vit B Comp W-C PO SCH (08:14)
[2019-12-28] MEDS: Amlodipine 10 MG TAB PER TUBE SCH (08:14)
[2019-12-28] MEDS: Dexamethasone 4 mg/ml Vial SLOW IVP SCH (08:14)
[2019-12-28] MEDS: Aspirin 81 mg Enteric Coated Tablet PO SCH (08:14)
[2019-12-28] MEDS: hydrALAZINE 25 MG TAB PER TUBE SCH ×4 (08:14→21:43)
[2019-12-28] MEDS: Pantoprazole 40 MG VIAL IVP SCH (08:15)
[2019-12-28] MEDS: Heparin 5,000 UNITS/ML VIAL SC SCH ×2 (08:15→21:43)
[2019-12-28] MEDS: Minoxidil 2.5 MG TAB PO SCH (08:15)
[2019-12-28] MEDS: Hydroxyurea 500 MG CAP PO SCH (08:15)
[2019-12-28] MEDS: Brimonidine Tartrate 0.2% Ophth Soln 5 ml Bottle EA EYE SCH ×3 (08:16→21:42)
--- NOTE | 2019-12-28 11:01 | PRG ---
DATE OF SERVICE: 12/28/2019 SUBJECTIVE: Ms. Sears is an 83-year-old black female with ESRD - on maintenance hemodialysis and was initially admitted for COVID-19 pneumonia. She is doing stable. The family has agreed to have an NG tube placed. She is currently receiving tube feedings. I have scheduled her for regular dialysis today. No acute events noted last night. OBJECTIVE: VITAL SIGNS: Blood pressure is 169/62, heart rate 58, respiratory rate 20, temperature 97.6, and O2 saturation 96%. GENERAL: The patient is sleepy, but arousable, comfortable, not in overt distress. SKIN: Adequate turgor. HEENT: Pinkish conjunctivae. Anicteric sclerae. NECK: No neck mass. No carotid bruits. No JVD. CHEST: No deformities. LUNGS: Clear breath sounds. No wheezing. No crackles. HEART: Normal sinus rhythm. No murmur. No gallops. No rubs. ABDOMEN: Globular, soft, nontender. No masses. EXTREMITIES: No edema. No deformities. MEDICATIONS: Of December 28, 2019, were reviewed. LABORATORY DATA: Laboratories of December 27, 2019; white count 19.2. Sodium 132, potassium 5, chloride 96, carbon dioxide 22, BUN 65, creatinine 2.87, glucose 117, and calcium 8.2. ASSESSMENT AND PLAN: 1. COVID-19 pneumonia. Continue supportive care. Stable pulmonary status. 2. End-stage renal disease. The patient tolerating current hemodialysis regimen. I have scheduled her for her regular Monday hemodialysis regimen. We will do a 3-hour hemodialysis treatment. Fluid removal only as tolerated. 3. Anemia. Continue weekly Epogen. 4. Recheck CBC and basic metabolic profile in a.m. Job ID: [id number]
[2019-12-28] MEDS ORDERED: Heparin 10,000 UNITS/ 10 ML VIAL ONE (13:58)
[2019-12-28] MEDS: Meropenem 500 MG in Sodium Chloride 0.9% 100 ML IVPB SCH ×2 (21:00→21:44)
[2019-12-28] MEDS: Latanoprost 0.005% Ophth Soln 2.5 ml Bottle EA EYE SCH ×2 (21:00→21:42)
[2019-12-28] MEDS: Mirtazapine 15 MG TAB PO SCH (21:43)
[2019-12-29] MEDS: Albuterol 200 PUFF (6.7GM INHALER) INH SCH ×5 (00:49→21:12)
[2019-12-29] MEDS: Nitroglycerin 2% Ointment 1 INCH/1 GM Packet TOP SCH ×3 (05:53→22:19)
[2019-12-29] MEDS: Heparin 5,000 UNITS/ML VIAL SC SCH ×2 (07:35→20:08)
[2019-12-29] MEDS: Amlodipine 10 MG TAB PER TUBE SCH (07:36)
[2019-12-29] MEDS: hydrALAZINE 25 MG TAB PER TUBE SCH ×4 (07:36→20:10)
[2019-12-29] MEDS: Hydroxyurea 500 MG CAP PO SCH (07:36)
[2019-12-29] MEDS: Minoxidil 2.5 MG TAB PO SCH (07:36)
[2019-12-29] MEDS: Folic Acid/Vit B Comp W-C PO SCH (07:36)
[2019-12-29] MEDS: Aspirin 81 mg Enteric Coated Tablet PO SCH (07:36)
[2019-12-29] MEDS: Brimonidine Tartrate 0.2% Ophth Soln 5 ml Bottle EA EYE SCH ×2 (07:37→20:08)
[2019-12-29] MEDS: Pantoprazole 40 MG VIAL IVP SCH (07:37)
[2019-12-29] MEDS: Dexamethasone 4 mg/ml Vial SLOW IVP SCH (07:38)
[2019-12-29 08:25] LABS: Hemoglobin 9.4 g/dL (12.0-16.0); Mean Corpuscular HGB CONC 32.2 g/dL (32.0-36.0); Mean Corpuscular Hemoglobin 31.2 pg (27.0-31.0); Mean Corpuscular Volume 97.1 fL (78.0-98.0); Platelet Count 588 thou/uL (130-400); RBC Distribution Width 15.5 % (11.5-14.5); Red Blood Cell (RBC) Count 3.01 mill/uL (4.20-5.40); White Blood Cell (WBC) Count 19.2 thou/uL (4.8-10.8)
[2019-12-29 08:35] LABS: Anion Gap 17 mmol/L (10-20); BUN (Urea Nitrogen) 57 mg/dL (9.8-20.1); Calc. Creatinine Clearance 12 mL/min (70-130); Calcium 8.1 mg/dL (7.8-10.44); Carbon Dioxide 25 mmol/L (23-31); Chloride 96 mmol/L (98-107); Estimated GFR-MDRD 19; Glucose 80 mg/dL (83-110); Potassium 4.7 mmol/L (3.5-5.1); Sodium 133 mmol/L (136-145)
[2019-12-29 08:42] LABS: Anisocytosis SLIGHT = 6-15 cells (100X) (0-5/hpf); Band 10 % (5-11); Hypersemented Neutrophil SLIGHT; Large Platelets SLIGHT; Lymphocytes 4 % (21-51); MDiff Complete? YES; Macrocytosis SLIGHT = 6-15 cells (100X) (0-5/hpf); Monocytes 14 % (0-10); Neutrophil 72 % (42-75); Platelet Morphology Comment Appears Increased; Vacuoles SLIGHT
[2019-12-29] MEDS: Latanoprost 0.005% Ophth Soln 2.5 ml Bottle EA EYE SCH (20:09)
[2019-12-29] MEDS: Meropenem 500 MG in Sodium Chloride 0.9% 100 ML IVPB SCH (20:11)
[2019-12-29] MEDS: Mirtazapine 15 MG TAB PO SCH (20:11)
[2019-12-30] MEDS: Albuterol 200 PUFF (6.7GM INHALER) INH SCH ×4 (02:00→13:59)
[2019-12-30] MEDS: Nitroglycerin 2% Ointment 1 INCH/1 GM Packet TOP SCH ×2 (05:44→13:58)
[2019-12-30 06:23] LABS: Anion Gap 19 mmol/L (10-20); BUN (Urea Nitrogen) 69 mg/dL (9.8-20.1); Calc. Creatinine Clearance 9 mL/min (70-130); Calcium 8.3 mg/dL (7.8-10.44); Carbon Dioxide 23 mmol/L (23-31); Chloride 96 mmol/L (98-107); Estimated GFR-MDRD 14; Glucose 64 mg/dL (83-110); Sodium 133 mmol/L (136-145)
[2019-12-30 06:36] LABS: Band 7 % (5-11); Eosinophils 1 % (0-10); Hemoglobin 10.9 g/dL (12.0-16.0); Lymphocytes 3 % (21-51); MDiff Complete? YES; Mean Corpuscular HGB CONC 34.5 g/dL (32.0-36.0); Mean Corpuscular Volume 95.9 fL (78.0-98.0); Mean Platelet Volume 7.3 fL (7.4-10.4); Metamyelocyte 3 % (0-0); Monocytes 5 % (0-10); Myelocyte 1 % (0-0); Neutrophil 80 % (42-75); Platelet Count 644 thou/uL (130-400); Platelet Morphology Comment Appears Increased; RBC Distribution Width 15.6 % (11.5-14.5); Red Blood Cell (RBC) Count 3.29 mill/uL (4.20-5.40); White Blood Cell (WBC) Count 16.9 thou/uL (4.8-10.8)
[2019-12-30] MEDS: Heparin 5,000 UNITS/ML VIAL SC SCH (08:11)
[2019-12-30] MEDS: Aspirin 81 mg Enteric Coated Tablet PO SCH (08:11)
[2019-12-30] MEDS: Dexamethasone 4 mg/ml Vial SLOW IVP SCH ×2 (08:11→10:09)
[2019-12-30] MEDS: Minoxidil 2.5 MG TAB PO SCH (08:12)
[2019-12-30] MEDS: Folic Acid/Vit B Comp W-C PO SCH (08:12)
[2019-12-30] MEDS: hydrALAZINE 25 MG TAB PER TUBE SCH ×2 (08:12→12:34)
[2019-12-30] MEDS: Hydroxyurea 500 MG CAP PO SCH (08:12)
[2019-12-30] MEDS: Pantoprazole 40 MG VIAL IVP SCH ×2 (08:13→10:10)
[2019-12-30] MEDS: Amlodipine 10 MG TAB PER TUBE SCH (08:30)
[2019-12-30] MEDS: Brimonidine Tartrate 0.2% Ophth Soln 5 ml Bottle EA EYE SCH (08:30)
[2019-12-30 08:55] VITALS: BP 164/58; TEMP 97.7
--- NOTE | 2019-12-30 11:11 | PDOC.HOSPP ---
- Subjective Encounter Date: 12/30/19 Encounter Time: 10:00 Subjective: pt seen today. She is stable to be transferred to rehab. rehab placement was pending this weekend. stable to be transferred. Talk to RN and CM. - Objective Vital Signs & Weight: Vital Signs (12 hours) Temp Pulse Resp BP Pulse Ox 12/30/19 08:30 63 12/30/19 08:12 52 L 12/30/19 08:00 97.7 F 63 18 164/58 H 97 12/30/19 05:30 98.5 F 52 L 19 159/68 H 99 12/30/19 01:00 54 L 18 100 Weight Admit Weight 111 lb 1.808 oz Weight 111 lb 1.808 oz I&O: 12/29/19 12/30/19 12/31/19 06:59 06:59 06:59 Intake Total 350 Balance 350 Result Diagrams: 12/30/19 05:17 12/30/19 05:17 Hospitalist ROS - Medication Medications: Active Medications Generic Name Dose Route Start Last Admin Trade Name Freq PRN Reason Stop Dose Admin Acetaminophen 650 mg 12/15/19 13:46 12/19/19 09:31 Acetaminophen 650 Mg Suppository OH 650 mg Q4H PRN Administration Headache/Fever or Pain Albuterol Sulfate 2 puff 12/15/19 18:30 12/30/19 06:07 Albuterol 200 Puff (6.7gm Inhaler) INH Not Given [id number] [facility] Amlodipine Besylate 10 mg 12/27/19 09:00 12/30/19 08:30 Amlodipine 10 Mg Tab PER TUBE 10 mg DAILY NATALIO Administration Aspirin 81 mg 12/16/19 09:00 12/30/19 08:11 Aspirin 81 Mg Enteric Coated Tablet PO 81 mg DAILY NATALIO Administration Brimonidine Tartrate 1 drop 12/15/19 21:00 12/30/19 08:30 Brimonidine Tartrate 0.2% Ophth Soln 5 Ml Bottle EA EYE 1 drop BID NATALIO Administration Clonidine 0.1 mg 12/18/19 09:00 12/25/19 08:39 Clonidine 0.1mg/24 Hour Patch TD 0.1 mg Q7DAYS NATALIO Administration Dexamethasone 6 mg 12/15/19 09:00 12/30/19 10:09 Dexamethasone 4 Mg/Ml Vial SLOW IVP Not Given DAILY NATALIO Epoetin Massimo-epbx 7,500 unit 12/20/19 12:00 12/27/19 13:47 Epoetin Massimo-Epbx (Esrd) 4,000 Unit/Ml Vial SC 7,500 unit Q7D NATALIO Administration Heparin Sodium (Porcine) 5,000 units 12/15/19 21:00 12/30/19 08:11 Heparin 5,000 Units/Ml Vial SC 5,000 units BID NATALIO Administration Hydralazine HCl 10 mg 12/20/19 10:53 12/24/19 11:39 Hydralazine 20 Mg/Ml Vial SLOW IVP 10 mg Q4H PRN Administration SBP GREATER THAN 160 Hydralazine HCl 50 mg 12/26/19 13:00 12/30/19 08:12 Hydralazine 25 Mg Tab PER TUBE 50 mg QID NATALIO Administration Hydroxyurea 500 mg 12/16/19 09:00 12/30/19 08:12 Hydroxyurea 500 Mg Cap PO 500 mg DAILY NATALIO Administration Amino Acids/Electrolytes/Dextrose 1,000 mls @ 60 mls/hr 12/18/19 12:15 10 05:13 Clinimix E 4.25/5 IV 1,000 mls INF NATALIO Administration Vancomycin HCl 1 gm/ Device 200 mls @ 200 mls/hr 12/26/19 12:45 12/28/19 18:10 IVPB 200 mls WILLCALL NATALIO Administration Meropenem 500 mg/ Sodium 100 mls @ 200 mls/hr 12/26/19 21:00 12/29/19 20:11 Chloride IVPB Not Given 2100 [facility] Latanoprost 1 drop 12/15/19 21:00 12/29/19 20:09 Latanoprost 0.005% Ophth Soln 2.5 Ml Bottle EA EYE 1 drp HS NATALIO Administration Minoxidil 5 mg 12/16/19 09:00 12/30/19 08:12 Minoxidil 2.5 Mg Tab PO 5 mg DAILY NATALIO Administration Mirtazapine 7.5 mg 12/15/19 21:00 12/29/19 20:11 Mirtazapine 15 Mg Tab PO 7.5 mg HS NATALIO Administration Nitroglycerin 0.5 inch 12/20/19 14:00 12/30/19 05:44 Nitroglycerin 2% Ointment 1 Inch/1 Gm Packet TOP 0.5 inch Q8HR NATALIO Administration Pantoprazole Sodium 40 mg 12/27/19 09:00 12/30/19 10:10 Pantoprazole 40 Mg Vial IVP Not Given DAILY NATALIO Sodium Chloride 10 ml 12/15/19 02:13 12/25/19 08:40 Flush - Normal Saline 10 Ml Syringe IVF 10 ml Q12HR PRN Administration Saline Flush Vitamin B Complex/Vit C/Folic Acid 1 tab 12/15/19 09:00 12/30/19 08:12 Folic Acid/Vit B Comp W-C PO 1 tab DAILY NATALIO Administration - Exam General Appearance: ill appearing Eye: PERRL ENT: normocephalic atraumatic Neck: supple Heart: RRR Respiratory: CTAB, normal chest expansion Hosp A/P - Plan pt seen today. She is stable to be transferred to rehab. rehab placement was pending this weekend. stable to be transferred. Talk to RN and CM. pl see discharge summary
--- NOTE | 2019-12-30 16:46 | DIS ---
DATE OF ADMISSION: 12/15/2019 DATE OF DISCHARGE: 12/30/2019 DISCHARGE DIAGNOSES: 1. Acute respiratory failure with COVID pneumonia. 2. Acute metabolic encephalopathy. 3. History of chronic hepatitis C, compensated. 4. Dementia. 5. End-stage renal disease, on dialysis. 6. Hypertension. 7. Paroxysmal atrial fibrillation, chronic one. PHYSICAL EXAMINATION: VITAL SIGNS: On the day of discharge, her temp is 97.7, pulse is 63, and blood pressure is 120/56. She is saturating 97% with 1 L oxygen by nasal cannula. NEUROLOGIC: She is at her baseline mentation. She is not completely oriented, but she looks very fragile and lethargic. She is hemodynamically stable to transfer to the swing bed. Her prognosis is guarded. HOSPITAL COURSE: This is a 84-year-old female with medical comorbidities including previous CVA and severe dementia and atrial fibrillation, admitted with respiratory failure secondary to COVID pneumonia. She has poor p.o. intake overall and was on TPN for some time. GI consulted to consider for PEG tube evaluation, but it is felt that she is not a strong candidate for the same. Bolus tube feeding opted. Palliative Care also involved in the care due to the futility of aggressive care. She is transferred to the swing bed today. DISCHARGE MEDICATIONS: Decadron 6 mg daily, then resume her previous home medications. Discharge time over 30 minutes. Job ID: [id number] [email or web address]
--- NOTE | 2020-01-01 04:30 | PQF ---
Dear : Eric Gaona Date 01/01/2020 Please exercise your independent, professional judgment in responding to the clarification form. Clinical indicators are provided on the bottom of this form for your review Can you please further clarify the diagnosis of the patient? Please check appropriate box(es): [ ] Sepsis due to COVID19 Pneumonia [ ] Severe sepsis due to Covid19 Pneumonia [ x ] Localized infection without sepsis [ ] Other diagnosis please specify [ ] Unable to determine In addition, please specify: Present on Admission (POA): [ ] Yes [ ] No [ ] Unable to determine Physician Signature: Date/Time: For continuity of documentation, please document condition throughout progress notes and discharge summary. Thank You. To be completed by CDI/Coding staff for physician review: Present Clinical Indicators - Signs / Symptoms / Labs Results and Location in Medical Record [ x ] VS: BP 103/55, Pulse55, RR 16, Temp 99.7 Labortory [ x ] Altered mental status H and P pg.1 [ x ] Temperature of 101 in ED H and P pg.1 [ x ] He has no leukocytosis H and P pg.1 [ x ] Metabolic encephalopathy H and P pg.3 [ x ] WBC: 9.7, 8.4, 9.2, 12.6H, 15.6H, 20.0H, 19.7H, 28.9H,19.2H,16.9H Laboratory [ x ] We will continue to treat sepsis Hospitalist PN 12/25 pg.5 [ x ] Blood culture no growth for 5 days Microbiology 12/14 [ x ] Acute respiratory failure with hypoxia HP 12/14 [ x ] Chest Xray: Worsened bilateral lung consolidation Chest Xray 12/17 Present Risk Factors Results and Location in Medical Record [ x ] 84 years old H and P pg.1 [ x ] COVID Pneumonia H and P pg.1 [ x ] ESRD H and P pg.2 [ x ] Alzheimer dementia H and P pg.2 [ x ] DM Consult 12/14 [ x ] Severe PCM Consult 12/23 Present Treatments Results and Location in Medical Record [ x ] IV fluids MAR [ x ] Chest X ray 12/17 Chest X ray 12/17 [ x ] Infectious Consult Dr. Lopez 12/14 [ x ] Isolation Orders 12/11 [ x ] Blood culture Microbiology 12/11 [ x ] Levaquin 750ng IV MAR [ x ] Vancomycin 1gm IV MAR CDS/Donor Relations Manager Signature: Abdullahi Marin Phone #: ext [phone] Date 12/01/19 This is a permanent part of the Medical Record [facility]
== END 2019-12-30 14:13 | disposition swing bed (61) | DRG 177 ==
LOC: ERS 01:05 → ERHOLD 01:53 → T4-A 02:41
PROVIDERS: ADMIT Internal Medicine; ATTEND Internal Medicine
PROC: 8E0ZXY6 Isolation (ICD-10-PCS; principal; 2019-12-15)
PROC: 5A1D70Z Performance of Urinary Filtration, Intermittent, Less than 6 Hours Per Day (ICD-10-PCS; 2019-12-16)
DX: U07.1 COVID-19 (principal); J96.01 Acute respiratory failure with hypoxia; J12.89 Other viral pneumonia; G93.41 Metabolic encephalopathy; N18.6 End stage renal disease; E43 Unspecified severe protein-calorie malnutrition; I12.0 Hypertensive chronic kidney disease with stage 5 chronic kidney disease or end stage renal disease; N25.81 Secondary hyperparathyroidism of renal origin; Z66 Do not resuscitate; Z51.5 Encounter for palliative care; R13.12 Dysphagia, oropharyngeal phase; B18.2 Chronic viral hepatitis C; G30.9 Alzheimer's disease, unspecified; F02.80 Dementia in other diseases classified elsewhere, unspecified severity, without behavioral disturbance, psychotic disturbance, mood disturbance, and anxiety; D47.3 Essential (hemorrhagic) thrombocythemia; D63.1 Anemia in chronic kidney disease; I48.0 Paroxysmal atrial fibrillation; H40.9 Unspecified glaucoma; E87.5 Hyperkalemia; Z88.2 Allergy status to sulfonamides; Z88.5 Allergy status to narcotic agent; Z88.8 Allergy status to other drugs, medicaments and biological substances; Z79.82 Long term (current) use of aspirin; Z79.899 Other long term (current) drug therapy; Z99.2 Dependence on renal dialysis; Z86.718 Personal history of other venous thrombosis and embolism; Z74.01 Bed confinement status; I69.991 Dysphagia following unspecified cerebrovascular disease; Z68.20 Body mass index [BMI] 20.0-20.9, adult
CPT/HCPCS: 36415; 36600; 71045; 74018; 80048; 80053; 80069; 80202; 82728; 83615; 85025; 85046; 85379; 85610; 85730; 86140; 86850; 86900; 86901; 87040; 87340; 87635; 90935; C9113; G0257; J0360; J1100; J1644; J1650; J1956; J2185; J3370; J3490; Q5105; U0002; U0003

== ENCOUNTER 2020-01-28 14:05 | Observation (INO) | payer MEDICARE, MEDICAID ==
[2020-01-28 16:43] LABS: Hemoglobin 10.4 g/dL (12.0-16.0); Mean Corpuscular HGB CONC 32.7 g/dL (32.0-36.0); Mean Corpuscular Hemoglobin 30.6 pg (27.0-31.0); Mean Corpuscular Volume 93.7 fL (78.0-98.0); Mean Platelet Volume 5.9 fL (7.4-10.4); Platelet Count 764 thou/uL (130-400); RBC Distribution Width 17.2 % (11.5-14.5); White Blood Cell (WBC) Count 10.7 thou/uL (4.8-10.8)
[2020-01-28 17:03] LABS: ALT (SGPT) Less than 7 U/L (8-55); AST (SGOT) 17 U/L (5-34); Alkaline Phosphatase 104 U/L (40-110); Anion Gap 19 mmol/L (10-20); BUN (Urea Nitrogen) 39 mg/dL (9.8-20.1); Bilirubin, Total 0.5 mg/dL (0.2-1.2); Calc. Creatinine Clearance 0 mL/min (70-130); Calcium 8.6 mg/dL (7.8-10.44); Carbon Dioxide 24 mmol/L (23-31); Chloride 102 mmol/L (98-107); Globulin 4.9 g/dL (2.4-3.5); Glucose 80 mg/dL (83-110); Potassium 5.5 mmol/L (3.5-5.1); Protein, Total 7.9 g/dL (6.0-8.3); Sodium 139 mmol/L (136-145)
[2020-01-28 17:10] LABS: Anisocytosis SLIGHT = 6-15 cells (100X) (0-5/hpf); Eosinophils 1 % (0-10); Lymphocytes 16 % (21-51); MDiff Complete? YES; Monocytes 3 % (0-10); Neutrophil 79 % (42-75); Platelet Morphology Comment Appears Increased; Polychromasia SLIGHT = 2-3 cells (100X) (0-2/hpf); Target Cells SLIGHT = 2-5 cells (100X) (0-1/hpf)
[2020-01-28] MEDS ORDERED: Bisacodyl 10 MG SUPP PR PRN (18:34)
[2020-01-28] MEDS ORDERED: Senokot S 8.6-50 MG TAB PO PRN (18:34)
[2020-01-28] MEDS ORDERED: Ondansetron PF 4 MG/2 ML Vial IVP PRN (18:34)
[2020-01-28] MEDS ORDERED: Acetaminophen 325 MG TAB PO PRN (18:34)
[2020-01-28] MEDS ORDERED: Guaifenesin DM 100-10/5 ML UDCUP PO PRN (18:34)
--- NOTE | 2020-01-28 19:17 | HP ---
REASON FOR ADMISSION: Inadvertent removal of hemodialysis catheter, for placement of tunneled catheter in a.m. HISTORY OF PRESENTING ILLNESS: The patient was sent over from [facility] as the patient pulled her tunneled hemodialysis catheter out. Initially, this was thought to be partially out and the patient was referred to Dr. Vargas for possible exchange of the catheter, but then when the patient arrived there, the entire catheter was out. She is being hospitalized here for tonight, so she can get the tunneled hemodialysis catheter by Dr. Irvin in the morning. The patient is also scheduled for dialysis in the morning. Dr. Smith, her wire bound box machine helper is aware. The patient has advanced dementia and does not interact much with the examiner. She is moving all 4 extremities and is not in distress at present. PAST MEDICAL AND SURGICAL HISTORY: History of end-stage renal disease, on hemodialysis; hypertension; history of CVA; paroxysmal atrial fibrillation; advanced dementia; recent history of COVID pneumonia; history of dysphagia from prior stroke; diastolic heart failure; dyslipidemia; history of IVC filter; thrombocytosis; chronic anemia; anxiety disorder; failure to thrive; severe protein malnutrition, left leg DVT in 2014; incisional ventral hernia repair; prior colonoscopy with polypectomy; history of colectomy; thyroidectomy. CURRENT MEDICATIONS: Per correction records, the patient is on; 1. Aspirin 81 mg p.o. daily. 2. Dulcolax suppository p.r.n. 3. Brimonidine eyedrops. 4. Clonidine 0.2 mg transdermal patch once weekly. 5. MiraLAX 17 g daily. 6. Hydralazine 50 mg three times daily. 7. Hydroxyurea 500 mg p.o. daily. 8. Latanoprost eyedrops. 9. Minoxidil 2.5 mg two tablets p.o. daily. 10. Mirtazapine 7.5 mg p.o. at bedtime. 11. Multivitamin one tablet once daily. ALLERGIES: ALLERGIC TO CHLORHEXIDINE, SULFA, AND MORPHINE. PERSONAL HISTORY: Cannot be obtained from the patient. She is currently a resident of [facility]. FAMILY HISTORY: Cannot be obtained as the patient has advanced dementia. CODE STATUS: Do not attempt to resuscitate. This was discussed with the patient's power of fabric and textile factory worker and daughter, Ms. Gabriela Sears. The patient also carries [id number] DNR, which was signed on 10/09/2018. REVIEW OF SYSTEMS: Cannot be obtained as the patient has advanced dementia and is not oriented. PHYSICAL EXAMINATION: GENERAL: The patient is an 84-year-old female, who is currently not in any acute distress. VITAL SIGNS: Blood pressure 154/60, pulse 60 per minute, respiratory rate 14 per minute, temperature 97.9 degrees Fahrenheit, saturating 96% on room air. NECK: Supple. No elevated JVD. HEENT: Eyes; extraocular muscles are intact. Pupils are reacting to light. Oral cavity, mucous membranes are dry. No exudates or congestion. CARDIOVASCULAR SYSTEM: S1 and S2 heard. Loud S2. Regular rhythm. RESPIRATORY SYSTEM: Air entry 1+ bilateral. Scattered rhonchi plus no rales or wheezes. ABDOMEN: Soft. Bowel sounds heard. No tenderness, rigidity, or guarding. EXTREMITIES: No peripheral edema or calf tenderness. VASCULAR SYSTEM: Peripheral pulses 1+ bilateral. No ischemic ulcers or gangrene. CENTRAL NERVOUS SYSTEM: The patient has advanced dementia and is uncooperative for physical exam. No gross focal motor deficits to the extent possible by exam were noted. PSYCHIATRIC: Cannot be obtained as the patient has advanced dementia and is currently not having any hallucinations as such. LABORATORY DATA: White count of 10, hemoglobin and hematocrit are 10 and 31, platelet count 764, MCV 93, with 79% neutrophils. Potassium 5.5, BUN 39, creatinine 6.5, serum bicarb 24, serum glucose 80. Liver enzymes within normal limits. Albumin is 3.0. EKG done shows normal sinus rhythm at 75 beats per minute, there is RBBB seen. QRS duration is 136 milliseconds. There is T inversions seen in V1, V2, V3. CLINICAL IMPRESSION AND PLAN: The patient will be admitted to medical floor under observation status for placement of tunneled hemodialysis catheter in the morning by Dr. Irvin. She will be kept n.p.o. after midnight. We will continue her aspirin, clonidine transdermal patch, hydralazine four times daily, minoxidil, mirtazapine as before. A COVID test has been ordered and we will await results of the same. The patient has had prior history of COVID. She also has severe protein-calorie malnutrition in the past and was recently hospitalized at [facility]. We will continue to closely monitor her on medical floor. Job ID: [id number]
[2020-01-28] MEDS: Brimonidine Tartrate 0.2% Ophth Soln 5 ml Bottle EA EYE SCH (22:40)
[2020-01-28] MEDS: Heparin 5,000 UNITS/ML VIAL SC SCH (22:41)
[2020-01-28] MEDS: Latanoprost 0.005% Ophth Soln 2.5 ml Bottle EA EYE SCH (23:01)
[2020-01-28] MEDS: Mirtazapine 15 MG TAB PO SCH (23:01)
[2020-01-28] MEDS: hydrALAZINE 25 MG TAB PO SCH (23:02)
--- NOTE | 2020-01-28 23:29 | CON ---
DATE OF CONSULTATION: 01/28/2020 HISTORY OF PRESENT ILLNESS: Ms. Mariaelena Sears is an 84-year-old black female with ESRD, currently on maintenance hemodialysis on Monday, Monday, and Monday. The patient has been admitted to the hospital for placement of a tunneled dialysis catheter. She inadvertently pulled this out last week and has not had dialysis for almost a week. An attempt to have the dialysis catheter placed in the outpatient setting with Dr. Vargas was not successful since the patient is needing some type of general anesthesia. For this reason, she was brought to the ER for further management and for admission. We are being consulted for management of her ESRD. We are currently awaiting the laboratories of this patient to determine if she will need an emergency dialysis tonight. REVIEW OF SYSTEMS: Positive for confusion. No nausea. No vomiting. No chest pain or shortness of breath. No diarrhea or constipation. No fever or chills. No abdominal pain. Appetite is fair. Energy level is fair. HOME MEDICATIONS: Include, 1. Hydralazine 50 mg p.o. q.i.d. 2. q.7 days. 3. Mirtazapine 7.5 mg at bedtime. 4. Minoxidil 5 mg at bedtime. 5. Latanoprost eye drop as directed. 6. Hydrea 500 ?mg daily. 7. Aspirin 81 mg tablet daily. PAST MEDICAL HISTORY: 1. ESRD, currently on maintenance hemodialysis. 2. History of dementia. 3. Status post CVA. 4. Hypertension, essential thrombocytosis, paroxysmal atrial fibrillation, chronic hepatitis C, status post DVT. PAST SURGICAL HISTORY: Status post cuffed hemodialysis catheter placement, status post AV fistula placement, status post IVC filter placement, status post upper and lower GI endoscopy, status post laparoscopic cholecystectomy, and status post ventral hernia repair. SOCIAL HISTORY: The patient is in correction in [place]. Three children. No alcohol. No IV drug abuse. No smoking. Status post multiple blood transfusion. Education, high school. Sedentary lifestyle. ALLERGIES: SULFA. TRAUMA: None. IMMUNIZATIONS: Up-to-date. HOSPITALIZATIONS: Please see past medical history. FAMILY HISTORY: Positive family history of ESRD. One sister was in dialysis, but currently . PHYSICAL EXAMINATION: VITAL SIGNS: Blood pressure 150/70, heart rate 70, pulse ox 93%. GENERAL: The patient has decreased mentation, but is arousable, however, not following simple commands. HEENT: Slightly pale conjunctivae. Anicteric sclerae. NECK: No neck mass. No carotid bruits. No JVD. CHEST: No deformities. LUNGS: Clear breath sounds. HEART: Normal sinus rhythm. No murmurs, gallops, or rubs. ABDOMEN: Globular, soft, nontender. No masses. EXTREMITIES: No edema. No deformities. NEUROLOGICAL: Decreased mentation. Not able to follow simple commands. Moving all extremities. LABORATORY DATA: Laboratories of January 28, 2020, basic met and CBC are currently pending. December 30, 2019; white count 16.9, hemoglobin 10.9, and platelet count 644,000. ASSESSMENT/PLAN: 1. End-stage renal disease. Awaiting repeat lab works. Depending on what the potassium will be, we could consider treating the high potassium, assuming this is indeed the case, with emergent hemodialysis and/or with medications such as Kayexalate. We will be consulting Surgery for placement of a tunneled dialysis catheter. This is not doable in the outpatient setting because the patient will need general anesthesia. 2. Essential thrombocytosis-continue Hydrea. 3. Dementia. Supportive care. Please note the patient has been DNR in the past. An attempt to place a Duo-Tube with her was done previously, but she has been pulling this out inadvertently. 4. Overall prognosis remains guarded. Recheck CBC, basic met in a.m. Job ID: [id number] MTDD
[2020-01-29 01:12] VITALS: BMI 27.3
[2020-01-29 03:11] LABS: SARS-CoV-2 MS2 Positive; SARS-CoV-2 N Gene Negative; SARS-CoV-2 S Gene Negative; SARS-CoV-2 by NAA Not Detected (NotDetected); SARS-CoV-2 orf1ab Negative
[2020-01-29] MEDS ORDERED: cloNIDine 0.1mg/24 Hour PATCH TD SCH (09:00)
[2020-01-29] MEDS: Heparin 5,000 UNITS/ML VIAL SC SCH (09:14)
[2020-01-29] MEDS: Aspirin 81 mg Enteric Coated Tablet PO SCH (09:15)
[2020-01-29] MEDS: hydrALAZINE 25 MG TAB PO SCH ×3 (09:15→17:15)
[2020-01-29] MEDS: Minoxidil 2.5 MG TAB PO SCH (09:15)
--- NOTE | 2020-01-29 09:33 | PRG ---
DATE OF SERVICE: 01/29/2020 SUBJECTIVE: Ms. Sears is an 84-year-old black female with ESRD-on maintenance hemodialysis and was admitted due to an inadvertent pulling out of her hemodialysis catheter. Surgery has been consulted and the plan is to have a tunneled dialysis catheter placed. After this place, we will then resume her dialysis regimen Monday, Monday, and Monday. No acute events noted last night. OBJECTIVE: VITAL SIGNS: Blood pressure is noted at 158/64, heart rate 71, respiratory rate 14, temperature 97.9, O2 saturation 95%. GENERAL: The patient is noted to be awake, minimally arousable, but not in distress. SKIN: Adequate turgor. HEENT: Slightly pale, conjunctivae. Anicteric sclerae. No neck mass. No carotid bruits. No JVD. CHEST: No deformities. LUNGS: Clear breath sounds. No wheezing. No crackles. HEART: Normal sinus rhythm. No murmurs, gallops, or rubs. ABDOMEN: Globular, soft, nontender. No masses. EXTREMITIES: No edema. No deformities. Laboratories of January 28, 2020, was reviewed. LABORATORY DATA: Laboratories of January 29, 2020, none done. On January 28, 2020, COVID testing negative. ASSESSMENT AND PLAN: End-stage renal disease-awaiting for placement of tunneled dialysis catheter. Once the dialysis catheter is placed, we will resume back a regular hemodialysis regimen of 3 hours. Fluid removal will be done as tolerated. Please note that review of the last Kt/V suggests she is adequately dialyzed with the current dialysis regimen. Overall, agree with current management. Job ID: [id number]
[2020-01-29] MEDS ORDERED: PROPOFOL 200 MG/20 ML VIAL ONE (09:50)
[2020-01-29 10:11] LABS: SARS-CoV-2 IgG Ab Reactive (NonReactive); SARS-CoV-2 IgG Index 8.38 S/CO (< 1.40)
[2020-01-29] MEDS ORDERED: Heparin 10,000 UNITS/ 10 ML VIAL ONE ×2 (10:12→18:43)
[2020-01-29] MEDS: Brimonidine Tartrate 0.2% Ophth Soln 5 ml Bottle EA EYE SCH (10:25)
[2020-01-29] MEDS ORDERED: CEFAZOLIN 2 GM in Premix Bag 1 BAG IVPB SCH (12:00)
--- NOTE | 2020-01-29 12:29 | CON ---
DATE OF CONSULTATION: HISTORY OF PRESENT ILLNESS: Mariaelena Sears is an 84-year-old black female, demented, skilled nursing resident, has been undergoing dialysis. She has a cuffed tunneled dialysis catheter, which has been dislodged. [facility], Dr. Vargas, and he declined placement of a new catheter and sent her to the hospital. Dr. Smith is seeing her from Nephrology. Family insisted on continuing dialysis. Plan is to replace her hemodialysis catheter. The patient is supposedly anorexic and poor nutrition and I do not think it is reasonable to place a fistula, and further discussion should be had with the family regarding DNR and hospice care. Apparently, she was on hospice at one time, but was taken off. The patient is not able to provide a history, although she does open her eyes and interact, but not appropriately. PAST MEDICAL HISTORY: End-stage renal disease, on hemodialysis; hypertension; history of stroke; dementia; paroxysmal atrial fibrillation; history of COVID pneumonia; history of dysphagia from prior stroke; diastolic dysfunction; dyslipidemia; history of IVC filter; thrombocytosis; chronic anemia; anxiety; malnutrition from poor intake secondary to dementia; history of ventral hernia repair; prior colonoscopy; polypectomy; history of colectomy; thyroidectomy. MEDICATIONS: 1. Aspirin. 2. Dulcolax. 3. Brimonidine. 4. Clonidine. 5. MiraLAX. 6. Hydralazine. 7. Hydroxyurea . 8. Multivitamins. ALLERGIES: TO CHLORHEXIDINE, SULFA, MORPHINE. ASSESSMENT AND PLAN: Dementia, dislodged dialysis catheter on a patient with end-stage renal disease, who the family insist on continuing dialysis, hence taken off hospice. Plan placement of a hemodialysis catheter, so she can return to the skilled nursing. Job ID: [id number]
--- NOTE | 2020-01-29 17:56 | PDOC.HOSPP ---
- Subjective Encounter Date: 01/29/20 Encounter Time: 09:30 Subjective: Patient seen for follow-up regarding misplaced dialysis catheter. She is not answering questions, could not complete review of systems. - Objective Vital Signs & Weight: Vital Signs (12 hours) Temp Pulse Resp BP Pulse Ox 01/29/20 16:03 98.1 F 68 14 156/57 H 93 L 01/29/20 13:22 70 01/29/20 12:21 97.7 F 70 14 169/64 H 93 L 01/29/20 08:00 95 01/29/20 07:55 97.9 F 71 14 158/64 H 95 Weight Weight 139 lb 15.896 oz I&O: 01/28/20 01/29/20 01/30/20 06:59 06:59 06:59 Intake Total 10 Output Total 0 Balance 10 Result Diagrams: 01/28/20 16:24 01/28/20 16:24 Additional Labs: Labs and MAR reviewed by me Hospitalist ROS - Review of Systems ROS unobtainable: due to mental status - Medication Medications: Active Medications Generic Name Dose Route Start Last Admin Trade Name Mina PRN Reason Stop Dose Admin Aspirin 81 mg 01/29/20 09:00 01/29/20 09:15 Aspirin 81 Mg Enteric Coated Tablet PO Not Given DAILY NATALIO Brimonidine Tartrate 1 drop 01/28/20 21:00 01/29/20 10:25 Brimonidine Tartrate 0.2% Ophth Soln 5 Ml Bottle EA EYE 1 drop BID NATALIO Administration Clonidine 0.1 mg 01/29/20 09:00 01/29/20 10:25 Clonidine 0.1mg/24 Hour Patch TD 0.1 mg [id number] NATALIO Administration Heparin Sodium (Porcine) 5,000 units 01/28/20 21:00 01/29/20 09:14 Heparin 5,000 Units/Ml Vial SC Not Given BID NATALIO Hydralazine HCl 50 mg 01/28/20 21:00 01/29/20 17:15 Hydralazine 25 Mg Tab PO Not Given QID NATALIO Latanoprost 1 drop 01/28/20 21:00 01/28/20 23:01 Latanoprost 0.005% Ophth Soln 2.5 Ml Bottle EA EYE 1 drop HS NATALIO Administration Minoxidil 5 mg 01/29/20 09:00 01/29/20 09:15 Minoxidil 2.5 Mg Tab PO Not Given DAILY NATALIO Mirtazapine 7.5 mg 01/28/20 21:00 01/28/20 23:01 Mirtazapine 15 Mg Tab PO Not Given HS NATALIO - Exam General Appearance: awake alert ENT: moist mucosa Neck: supple Heart: RRR Respiratory: CTAB Gastrointestinal: soft Skin: no rashes Psychiatric: normal affect Hosp A/P (1) Displacement of vascular dialysis catheter Code(s): T82.42XA - DISPLACEMENT OF VASCULAR DIALYSIS CATHETER, INIT ENCNTR Status: Acute (2) Chronic hepatitis C Code(s): B18.2 - CHRONIC VIRAL HEPATITIS C Status: Chronic Qualifiers: (3) Dementia Code(s): F03.90 - UNSPECIFIED DEMENTIA WITHOUT BEHAVIORAL DISTURBANCE Status: Chronic Qualifiers: (4) ESRD (end stage renal disease) on dialysis Code(s): N18.6 - END STAGE RENAL DISEASE; Z99.2 - DEPENDENCE ON RENAL DIALYSIS Status: Chronic (5) Hypertension Code(s): I10 - ESSENTIAL (PRIMARY) HYPERTENSION Status: Chronic Qualifiers: Hypertension type: essential hypertension - Plan Patient is awaiting replacement of dialysis catheter followed by hemodialysis. Likely discharge either later today or tomorrow. Continue clonidine, hydralazine and minoxidil. Monitor vital signs and titrate antihypertensives as needed.
[2020-01-29] MEDS ORDERED: Lidocaine 2% Jelly 5 ML TUBE ONE (18:40)
[2020-01-29] MEDS ORDERED: Midazolam HCl 2 mg/2 ml Vial ONE (18:40)
[2020-01-29] MEDS ORDERED: Sodium Chloride 0.9% 20 ML ONE (18:43)
[2020-01-29] MEDS ORDERED: Lidocaine 1% w/Epinephrine 1:100K 20 ML VIAL ONE (18:43)
[2020-01-29] MEDS ORDERED: Bupivacaine PF 0.5% 30 ML VIAL ONE (18:43)
[2020-01-29] MEDS ORDERED: Ondansetron HCl/PF 4 MG/2 ML Vial IVP PRN (19:36)
[2020-01-29] MEDS ORDERED: Promethazine HCl 25 MG/ML VIAL SLOW IVP PRN (19:36)
[2020-01-29] MEDS ORDERED: Promethazine HCl 25 MG/ML VIAL IM PRN (19:36)
--- NOTE | 2020-01-29 20:43 | RAD ---
SINGLE VIEW OF THE CHEST: 01/29/20 COMPARISON: 12/25/19 HISTORY: Central line placement. FINDINGS: Single view of the chest shows enlarged cardiomediastinal silhouette. There is a right subclavian theron tral venous dialysis catheter with its tip in the right atrium. No pneumothorax is seen. There is jatinder vation of the right hemidiaphragm. Diffuse increased interstitial lung markings are present. There ap pears to be a small right pleural effusion. Multifocal air space infiltrates may be present in the martina ngs. Cholecystectomy clips are seen. A cardiac monitoring device projects over the left chest wall. Degen erative changes are seen in the spine. An inferior vena cava filter is partially visualized. IMPRESSION: 1. Status post central venous catheter placement without evidence of complication. 2. Right pleural effusion. 3. Elevation of the right hemidiaphragm. 4. Diffuse multifocal infiltrates. POS: EAA
[2020-01-29 21:51] LABS: #Eosinphils 0.1 thou/uL (0.0-0.7); #Lymphocytes 0.5 thou/uL (1.20-3.40); #Monocytes 0.5 thou/uL (0.11-0.59); #Neutrophils 16.8 thou/uL (1.40-6.50); %Basophils 0.2 % (0.0-1.0); %Eosinophils 0.3 % (0.0-10.0); %Lymphocytes 2.6 % (21.0-51.0); %Monocytes 2.8 % (0.0-10.0); %Neutrophils 94.2 % (42.0-75.0); Hemoglobin 7.9 g/dL (12.0-16.0); Mean Corpuscular HGB CONC 32.7 g/dL (32.0-36.0); Mean Corpuscular Hemoglobin 30.6 pg (27.0-31.0); Mean Corpuscular Volume 93.6 fL (78.0-98.0); Mean Platelet Volume 5.7 fL (7.4-10.4); Platelet Count 1140 thou/uL (130-400); Red Blood Cell (RBC) Count 2.57 mill/uL (4.20-5.40); White Blood Cell (WBC) Count 17.9 thou/uL (4.8-10.8)
--- NOTE | 2020-01-29 21:59 | PDOC.EVN ---
Event Note - Event Note Event Note: Nursing called, critical platelets, reviewed CBC results, WBC and platelets increased, Hemoglobin dropped 3 points. Patient currently in HD, placed order to redraw CBC.
[2020-01-29 22:02] LABS: Albumin 2.8 g/dL (3.4-4.8); Anion Gap 21 mmol/L (10-20); BUN (Urea Nitrogen) 46 mg/dL (9.8-20.1); BUN/Creatinine Ratio 6.52; Calc. Creatinine Clearance 6 mL/min (70-130); Calcium 7.9 mg/dL (7.8-10.44); Carbon Dioxide 22 mmol/L (23-31); Chloride 103 mmol/L (98-107); Glucose 69 mg/dL (83-110); Phosphorus 4.2 mg/dL (2.3-4.7); Sodium 142 mmol/L (136-145)
[2020-01-29 22:22] LABS: HBSAg Index 0.14 S/CO (0-0.99); Hep B Surf Ag Non-Reactive S/CO (NonReactive)
--- NOTE | 2020-01-30 01:00 | OP ---
DATE OF PROCEDURE: 01/29/2020 PREOPERATIVE DIAGNOSES: 1. [id number]-pirkwywaniz. 2. End-stage renal disease. 3. Dementia. 4. CHCF status. 5. Dislodged hemodialysis catheter. POSTOPERATIVE DIAGNOSES: 1. [id number]-qlevhjqxbwq. 2. End-stage renal disease. 3. Dementia. 4. CHCF status. 5. Dislodged hemodialysis catheter. 6. Inability to place right or left internal jugular catheter. 7. Occluded left subclavian vein. PROCEDURE: Successful cannulation of the right and left internal jugular veins, J-wire not threaded. Left subclavian vein attempt unsuccessful under fluoro, apparently occluded. Right subclavian vein tunneled cuffed catheter. ANESTHESIA: TIVA local, 0.5% Marcaine 30 mL mixed with 1% Xylocaine with epinephrine. Fluoroscopy and ultrasound used. DESCRIPTION OF PROCEDURE: The patient was taken to the operating room, where under sedation her neck and chest prepared with DuraPrep and draped in routine fashion. Local anesthetic was infiltrated in the skin and subcutaneous tissue about the operative site. Ultrasound used to cannulate the right and left internal jugular veins with J-wire not threaded. The left IJ wire threaded down the anomalous vein that would not work. Left subclavian vein was cannulated, but the wire would not thread. Right subclavian vein was cannulated, infraclavicular approach using Seldinger technique. Cuffed tunneled hemodialysis catheter placed, removing the J-wire and the peel-away sheath, securing the catheter with three 2-0 Prolene sutures and closing the access site in two layers with 4-0 Monocryl. Dermabond, sterile dressings applied. Each port aspirated blood, flushed with heparinized saline solution. Fluoroscopic images revealed good catheter placement. Job ID: [id number]
[2020-01-30] MEDS: Brimonidine Tartrate 0.2% Ophth Soln 5 ml Bottle EA EYE SCH ×3 (01:02→20:22)
[2020-01-30] MEDS: Latanoprost 0.005% Ophth Soln 2.5 ml Bottle EA EYE SCH ×2 (01:04→20:22)
[2020-01-30] MEDS: Heparin 5,000 UNITS/ML VIAL SC SCH ×3 (01:04→20:23)
[2020-01-30] MEDS: hydrALAZINE 25 MG TAB PO SCH ×5 (01:04→20:22)
[2020-01-30] MEDS: Mirtazapine 15 MG TAB PO SCH ×2 (01:05→20:22)
[2020-01-30 01:44] LABS: #Lymphocytes 0.8 thou/uL (1.20-3.40); #Neutrophils 15.4 thou/uL (1.40-6.50); %Basophils 0.2 % (0.0-1.0); %Eosinophils 0.1 % (0.0-10.0); %Lymphocytes 4.6 % (21.0-51.0); %Monocytes 5.7 % (0.0-10.0); %Neutrophils 89.4 % (42.0-75.0); Hemoglobin 8.3 g/dL (12.0-16.0); Mean Corpuscular HGB CONC 32.9 g/dL (32.0-36.0); Mean Corpuscular Hemoglobin 30.8 pg (27.0-31.0); Mean Corpuscular Volume 93.6 fL (78.0-98.0); Mean Platelet Volume 5.3 fL (7.4-10.4); Platelet Count 910 thou/uL (130-400); Red Blood Cell (RBC) Count 2.71 mill/uL (4.20-5.40); White Blood Cell (WBC) Count 17.3 thou/uL (4.8-10.8)
[2020-01-30 07:13] LABS: Anion Gap 19 mmol/L (10-20); BUN (Urea Nitrogen) 24 mg/dL (9.8-20.1); Calc. Creatinine Clearance 9 mL/min (70-130); Calcium 8.3 mg/dL (7.8-10.44); Carbon Dioxide 22 mmol/L (23-31); Chloride 103 mmol/L (98-107); Glucose 63 mg/dL (83-110); Potassium 5.1 mmol/L (3.5-5.1); Sodium 139 mmol/L (136-145)
[2020-01-30] MEDS ORDERED: Sterile Water 10 ML VIAL IVP SCH (08:45)
[2020-01-30] MEDS ORDERED: Activase 2 MG VIAL CATH SCH (08:45)
[2020-01-30] MEDS: Minoxidil 2.5 MG TAB PO SCH (08:46)
[2020-01-30] MEDS: Aspirin 81 mg Enteric Coated Tablet PO SCH (08:46)
--- NOTE | 2020-01-30 12:22 | PDOC.DS.DS ---
Provider - Provider Date of Admission: 01/28/20 18:04 Admitting Provider: Jesus Quintana MD Consultations: General Surgery (Dr. Irvin), Nephrology (Dr. Smith) Primary Care Physician: Maricruz Francois MD Course - Hospital Course Hospital Course: Discharge diagnosis: 1. Dislodged dialysis catheter 2. Chronic thrombocytopenia 3. Hyperkalemia 5. COVID-19 test negative Hospital course: Patient is a pleasant 84-year-old was admitted to the hospital on January 29, 2020 for dislodged hemodialysis catheter. She was seen by nephrology and general surgery services. Dialysis catheter was replaced. She underwent dialysis. She is being discharged back to the long-term care facility. Discharge destination: Long-term care facility, from where patient was admitted to the hospital. Resuscitation Status: 01/28/20 18:37 Resuscitation Status Routine Resuscitation Status: DNAR: NO Resuscitation Discussed with: has OOH-DNR signed on 10/09/2018 Additional comments: D/w Sears daughter and POA - Labs Lab Results: 01/30/20 01:38 01/30/20 06:46 Abnormal Lab Results - Last 48 hrs 01/28/20 16:24: RBC 3.40 L, Hgb 10.4 L, Hct 31.9 L, RDW 17.2 H, Plt Count 764 H, MPV 5.9 L, Neutrophils % (Manual) 79 H, Lymphocytes % (Manual) 16 L, Plt Morphology Comment Appears Increased H 01/28/20 16:24: Potassium 5.5 H, BUN 39 H, Creatinine 6.53 H, ALT Less than 7 L, Albumin 3.0 L, Globulin 4.9 H, Albumin/Globulin Ratio 0.6 L 01/29/20 20:51: Carbon Dioxide 22 L, Anion Gap 21 H, BUN 46 H, Creatinine 7.06 H, Albumin 2.8 L 01/29/20 20:51: WBC 17.9 H, RBC 2.57 L, Hgb 7.9 L, Hct 24.0 L, RDW 17.0 H, Plt Count 1140 H*, MPV 5.7 L, Neutrophils % 94.2 H, Lymphocytes % 2.6 L, Neutrophils # 16.8 H, Lymphocytes # 0.5 L 01/30/20 01:38: WBC 17.3 H, RBC 2.71 L, Hgb 8.3 L, Hct 25.3 L, RDW 17.0 H, Plt Count 910 H*, MPV 5.3 L, Neutrophils % 89.4 H, Lymphocytes % 4.6 L, Neutrophils # 15.4 H, Lymphocytes # 0.8 L, Monocytes # 1.0 H 01/30/20 06:46: Carbon Dioxide 22 L, BUN 24 H, Creatinine 4.46 H - Physical Exam Vitals: Vital Signs (12 hours) Temp Pulse Resp BP BP BP Pulse Ox 01/30/20 11:53 98.5 F 67 14 103/48 L 97 01/30/20 08:00 97 01/30/20 07:25 97.2 F L 68 14 135/60 97 01/30/20 04:44 98.0 F 60 16 151/53 H 92 L 01/30/20 01:04 68 131/55 L Weight Weight 139 lb 15.896 oz Physical Exam: The patient was seen and examined on the day of discharge. Patient denies chest pain or shortness of breath. Vital signs are stable. S1 and S2 are heard. Lungs are clear to auscultation bilaterally. Problem - Problem (1) Displacement of vascular dialysis catheter Code(s): T82.42XA - DISPLACEMENT OF VASCULAR DIALYSIS CATHETER, INIT ENCNTR Status: Acute (2) Chronic hepatitis C Code(s): B18.2 - CHRONIC VIRAL HEPATITIS C Status: Chronic Qualifiers: (3) Dementia Code(s): F03.90 - UNSPECIFIED DEMENTIA WITHOUT BEHAVIORAL DISTURBANCE Status: Chronic Qualifiers: (4) ESRD (end stage renal disease) on dialysis Code(s): N18.6 - END STAGE RENAL DISEASE; Z99.2 - DEPENDENCE ON RENAL DIALYSIS Status: Chronic (5) Hypertension Code(s): I10 - ESSENTIAL (PRIMARY) HYPERTENSION Status: Chronic Qualifiers: Hypertension type: essential hypertension Plan - Discharge Medications Home Medications: Medication Instructions Recorded Confirmed Type Aspirin [Ecotrin Low Strength] 81 mg PO DAILY 01/29/20 01/29/20 History Bisacodyl [Gentle Laxative] 10 mg RC DAILY PRN 01/29/20 01/29/20 History Brimonidine Tartrate [Brimonidine 1 drop EA EYE BID 01/29/20 01/29/20 History Tartrate 0.15% Ophth Soln] Hydroxyurea [Hydrea] 500 mg PO DAILY 01/29/20 01/29/20 History Hyoscyamine Sulfate [Levsin] 0.125 mg PO PRN PRN 01/29/20 01/29/20 History Latanoprost/Pf [Latanoprost 0.005% 1 drop EA EYE HS 01/29/20 01/29/20 History Eye Drop] Minoxidil 5 mg PO DAILY 01/29/20 01/29/20 History Mirtazapine 7.5 mg PO HS 01/29/20 01/29/20 History Polyethylene Glycol 3350 [Glycolax] 17 gm PO DAILY 01/29/20 01/29/20 History cloNIDine [Catapres-Tts 2] 0.2 mg TD SEEPHYS 01/29/20 01/29/20 History hydrALAZINE HCl [Hydralazine HCl] 50 mg PO TID 01/29/20 01/29/20 History Allergies: chlorhexidine Allergy (Intermediate, Verified 01/29/20 00:50) Rash morphine Allergy (Verified 01/29/20 00:50) Sulfa (Sulfonamide Antibiotics) Allergy (Verified 01/29/20 00:50) - Discharge Instructions Discharge Instructions:: Follow-up with primary care provider for thrombocytopenia. Activity:: Activity as Tolerated Nourishment:: Heart Healthy Diet, Renal Diet - Follow up Plan Referrals: Gurdeep Irvin MD [Active] - Naveen Smith MD [Active] - Maricruz Francois MD [Primary Care Provider] - 3 Days Disposition: HOME Quality - Care Measures CORE MEASURES:: N/A
[2020-01-30 20:07] VITALS: BP 127/68; TEMP 98.3
== END 2020-01-30 20:50 ==
LOC: ERS 14:05 → ERHOLD 18:04 → INTOOBSV 18:04 → T4-A 20:38
PROVIDERS: ADMIT Internal Medicine; ATTEND Internal Medicine
PROC: 05H533Z Insertion of Infusion Device into Right Subclavian Vein, Percutaneous Approach (ICD-10-PCS; principal; 2020-01-29)
DX: T82.42XA Displacement of vascular dialysis catheter, initial encounter (principal); I13.2 Hypertensive heart and chronic kidney disease with heart failure and with stage 5 chronic kidney disease, or end stage renal disease; N18.6 End stage renal disease; I50.30 Unspecified diastolic (congestive) heart failure; D63.1 Anemia in chronic kidney disease; E87.5 Hyperkalemia; I82.B12 Acute embolism and thrombosis of left subclavian vein; N25.81 Secondary hyperparathyroidism of renal origin; I48.0 Paroxysmal atrial fibrillation; G30.9 Alzheimer's disease, unspecified; F02.80 Dementia in other diseases classified elsewhere, unspecified severity, without behavioral disturbance, psychotic disturbance, mood disturbance, and anxiety; E78.5 Hyperlipidemia, unspecified; F41.9 Anxiety disorder, unspecified; E89.2 Postprocedural hypoparathyroidism; B18.2 Chronic viral hepatitis C; D47.3 Essential (hemorrhagic) thrombocythemia; Z86.19 Personal history of other infectious and parasitic diseases; Z86.73 Personal history of transient ischemic attack (TIA), and cerebral infarction without residual deficits; Z66 Do not resuscitate; Z79.82 Long term (current) use of aspirin; Z79.899 Other long term (current) drug therapy; Z88.2 Allergy status to sulfonamides; Z88.3 Allergy status to other anti-infective agents; Z88.5 Allergy status to narcotic agent; Z90.49 Acquired absence of other specified parts of digestive tract; Z99.2 Dependence on renal dialysis; Z20.828 Contact with and (suspected) exposure to other viral communicable diseases
CPT/HCPCS: 36558; 71045; 80048; 80053; 80069; 85025 ×3; 86769; 87340; 93005; 99285; C1752; U0003; 36415; 87635; 90935; 96372; G0257; G0378; J0690; J1644; J2250; J2704; S0020

== ENCOUNTER 2020-04-06 11:37 | Emergency (ER) | payer MEDICARE, MEDICAID ==
[2020-04-06 13:29] LABS: #Eosinphils 0.2 thou/uL (0.0-0.7); #Monocytes 0.5 thou/uL (0.11-0.59); #Neutrophils 15.5 thou/uL (1.40-6.50); %Eosinophils 1.1 % (0.0-10.0); %Monocytes 3.1 % (0.0-10.0); %Neutrophils 89.8 % (42.0-75.0); Hemoglobin 12.6 g/dL (12.0-16.0); Mean Corpuscular HGB CONC 31.8 g/dL (32.0-36.0); Mean Corpuscular Hemoglobin 29.5 pg (27.0-31.0); Mean Corpuscular Volume 92.9 fL (78.0-98.0); Mean Platelet Volume 3.9 fL (7.4-10.4); Platelet Count 773 thou/uL (130-400); RBC Distribution Width 19.6 % (11.5-14.5); Red Blood Cell (RBC) Count 4.26 mill/uL (4.20-5.40); White Blood Cell (WBC) Count 17.2 thou/uL (4.8-10.8)
[2020-04-06 13:51] LABS: ALT (SGPT) Less than 7 U/L (8-55); AST (SGOT) 23 U/L (5-34); Albumin 3.1 g/dL (3.4-4.8); Alkaline Phosphatase 79 U/L (40-110); Anion Gap 20 mmol/L (10-20); BUN (Urea Nitrogen) 24 mg/dL (9.8-20.1); Bilirubin, Total 0.8 mg/dL (0.2-1.2); Calc. Creatinine Clearance 0 mL/min (70-130); Calcium 9.1 mg/dL (7.8-10.44); Carbon Dioxide 20 mmol/L (23-31); Chloride 102 mmol/L (98-107); Globulin 4.6 g/dL (2.4-3.5); Glucose 71 mg/dL (83-110); Potassium 4.4 mmol/L (3.5-5.1); Protein, Total 7.7 g/dL (5.8-8.1); Sodium 138 mmol/L (136-145)
[2020-04-06 15:44] LABS: SARS-CoV-2 NAA Rapid Test Not Detected (NotDetected)
--- NOTE | 2020-04-06 17:15 | CON ---
DATE OF CONSULTATION: Mariaelenavish Sears, ER discussion and discussion with family. Mariaelena Sears is an 84-year-old female, who Dr. Louie and myself have been placing dialysis access since 2014. The patient has been dialysis catheter dependent. I last placed dialysis catheter in right subclavian vein in January 2020. At that time, her right and left IJ and left subclavian veins were occluded and I could not access them. I had difficulty accessing the right subclavian vein. The patient presents from her dialysis center and she is a resident in a care facility in [place] and presents to our emergency room, I am called by Dr. Phillip to discuss dialysis access as the patient has removed her right subclavian vein dialysis catheter. The patient is demented, nonambulatory, noncommunicative. At this point, I called the patient's caregivers and talked to Esequiel Sears and then Gabriela Sears per telephone. The family then discussed the patient's care and decision has been made to make her DNR, hospice. Gabriela Sears has told me that they have contacted Dr. Francois and requested [facility] and we will stop her dialysis and provide hospice care. Job ID: [id number]
== END 2020-04-06 20:28 ==
LOC: ERS 11:37
DX: I13.2 Hypertensive heart and chronic kidney disease with heart failure and with stage 5 chronic kidney disease, or end stage renal disease (principal); N18.6 End stage renal disease; I50.9 Heart failure, unspecified; E11.22 Type 2 diabetes mellitus with diabetic chronic kidney disease; I48.91 Unspecified atrial fibrillation; Z86.73 Personal history of transient ischemic attack (TIA), and cerebral infarction without residual deficits; Z86.718 Personal history of other venous thrombosis and embolism; Z99.2 Dependence on renal dialysis; Z79.82 Long term (current) use of aspirin; Z79.899 Other long term (current) drug therapy
CPT/HCPCS: 80053; 83735; 84100; 85025; 93005; U0002